=== PATIENT | female | born 2000 | race Caucasian/White ===

== ENCOUNTER 2024-03-21 17:40 | Outpatient (OUT) | payer BC, SELFPAY ==
--- NOTE | 2024-03-21 18:09 | XR_ITS ---
The [address] [address] Patient Name: LEOLA FRANCO MRN: [id number] date: 2000 Sex: F Assigned Patient Location: [facility] Current Patient Location: Accession/Order Number: [id number] Exam Date: 03/21/2024 18:20 Report Date: 03/22/2024 15:46 At the request of: TIERA HDEZ Procedure: XR hip RT 2V w/ pelvis PROCEDURE: XR hip RT 2V w/ pelvis HISTORY: LOW BACK PAIN AT MULTIPLE SITES M54.50 , bilateral hip pain for 2 months COMPARISON: None. FINDINGS: BONES:No fracture, acute abnormality, or significant arthropathy. SOFT TISSUES:No visible soft tissue swelling. EFFUSION:None visible. OTHER: Negative. XR/XR hip RT 2V w/ pelvis IMPRESSION: 1. Normal appearance of the pelvis and hip joints. Electronically authenticated by: SIS IYER Date: 03/22/2024 15:46
--- NOTE | 2024-03-21 18:10 | XR_ITS ---
The [address] [address] Patient Name: LEOLA FRANCO MRN: [id number] date: 2000 Sex: F Assigned Patient Location: [facility] Current Patient Location: Accession/Order Number: [id number] Exam Date: 03/21/2024 18:20 Report Date: 03/22/2024 15:45 At the request of: TIERA HDEZ Procedure: XR lumbar spine min 4V EXAMINATION: XR lumbar spine min 4V HISTORY: LOW BACK PAIN AT MULTIPLE SITES M54.50 ; bilateral hip pain for 2 months COMPARISON: No relevant comparison available. FINDINGS: BONES: No significant spondylosis, scoliosis, fracture, or visible bony lesion. DISC SPACES: L4-5 mild narrowing. L5-S1 moderate narrowing. PARASPINOUS: Negative. No paraspinous abnormality is seen. OTHER: Negative. XR/XR lumbar spine min 4V IMPRESSION: 1. Degenerative disc disease of lower lumbar spine which may be contributing to patient's symptoms. Consider MRI for further evaluation. Electronically authenticated by: SIS IYER Date: 03/22/2024 15:45
== END 2024-03-21 17:41 | disposition home or self-care (01) ==
PROVIDERS: PCP Family Medicine; Visit Provider Family Medicine
DX: M54.50 Low back pain, unspecified (principal); M25.551 Pain in right hip; M51.36 Other intervertebral disc degeneration, lumbar region
CPT/HCPCS: 72110; 73502

== ENCOUNTER 2024-03-26 10:22 | Outpatient (OUT) | payer BC, SELFPAY ==
[2024-03-26 10:36] LABS: Basophils Percent Auto 0.4 % (0.2-2.0); Eosinophils Absolute Auto 0.1 10^3/uL (0.0-0.7); Eosinophils Percent Auto 1.3 % (0.9-7.0); Hematocrit 38.5 % (36.0-48.0); Hemoglobin 12.7 g/dL (12.0-16.0); Lymphocytes Absolute Auto 2.1 10^3/uL (1.2-3.8); Lymphocytes Percent Auto 45.6 % (20.5-60.0); Mean Corpuscular Hemoglobin 30.5 pg (26.7-34.0); Mean Corpuscular Volume 92.3 fL (81.0-99.0); Mean Platelet Volume 10.2 fL (9.5-13.5); Monocytes Absolute Auto 0.3 10^3/uL (0.3-0.8); Neutrophils Absolute Auto 2.1 10^3/uL (1.4-6.5); Neutrophils Percent Auto 45.7 % (43.0-75.0); Platelet Count 330 10^3/uL (150-450); Red Blood Count 4.17 10^6/uL (4.20-5.40); Red Cell Distribution Width 11.9 % (11.0-15.0); White Blood Count 4.7 10^3/uL (4.0-11.0)
[2024-03-26 10:52] LABS: Estimated Average Glucose 105 mg/dL; Glycohemoglobin A1C 5.3 % (4.5-6.2)
[2024-03-26 11:01] LABS: Alanine Aminotransferase 17 U/L (14-59); Albumin Globulin Ratio 0.9; Albumin Level 3.1 g/dL (3.4-5.0); Alkaline Phosphatase 65 U/L (46-116); Anion Gap 13.2; Aspartate Amino Transferase 15 U/L (15-37); BUN Creatinine Ratio 9.3; Bilirubin Total 0.5 mg/dL (0.2-1.0); Calcium 8.8 mg/dL (8.5-10.1); Carbon Dioxide 24.1 mmol/L (21.0-32.0); Chloride 108 mmol/L (98-107); Chol HDL Ratio 4.2; Cholesterol 227 mg/dL (<=200); Estimated GFR (African America >60 (>=60); Estimated GFR (Non-African Ame >60 (>=60); Globulin 3.5 g/dL; Glucose 92 mg/dL (74-106); HDL Cholesterol 54 mg/dL (40-60); Potassium 4.3 mmol/L (3.5-5.1); Sodium 141 mmol/L (136-145); Thyroid Stimulating Hormone 0.793 uIU/mL (0.358-3.740); Total Protein 6.6 g/dL (6.4-8.2); Triglycerides 127 mg/dL (<=150); VLDL CHOLESTEROL 25.4 mg/dL
[2024-03-26 11:04] LABS: Free T4 0.71 ng/dL (0.76-1.46)
== END 2024-03-26 10:23 | disposition home or self-care (01) ==
LOC: LAB 10:23
PROVIDERS: PCP Family Medicine; Visit Provider Family Medicine
DX: Z00.00 Encounter for general adult medical examination without abnormal findings (principal)
CPT/HCPCS: 36415; 80053; 80061; 83036; 84439; 84443; 85025

== ENCOUNTER 2024-04-30 11:44 | Outpatient (OUT) | payer BC, SELFPAY ==
--- OUTSIDE RECORDS SUMMARY | 2024-04-30 11:46 | XMS_ITS | CCD ---
Author Organization [facility] Care Team Providers Care Rn Mds Coordinator Name Role Phone LEMUEL, DR MOTT Consulting Unavailable LEMUEL, DR MOTT Primary Care Unavailable LEMUEL, DR MOTT Admitting Unavailable LEMUEL, DR MOTT Attending Unavailable LEMUEL, DR MOTT Consulting Unavailable LEMUEL, DR MOTT Primary Care Unavailable LEMUEL, DR MOTT Admitting Unavailable LEMUEL, DR MOTT Attending Unavailable WEST, DR QUINN Lacey Consulting Unavailable LEMUEL, DR MOTT Consulting Unavailable LEMUEL, DR MOTT Primary Care Unavailable LEMUEL, DR MOTT Admitting Unavailable LEMUEL, DR MOTT Attending Unavailable Asa Hernandez Unavailable Cecilia Luis Unavailable GUSTAVO JOHNSON Referring Unavailable TIERA HDEZ Primary Care Unavailable GUSTAVO JOHNSON Referring Unavailable TIERA HDEZ Primary Care Unavailable Medications Completed/Discontinued Medications Medication Drug Class(es) Dates Sig (Normalized) Sig (Original) NEGATED: Highlighted row has not occurred! (2 sources) Start: 06-09-2023 End: 06-09-2023 Problems Active Problems Problem Classification Problem Date Documented Da te Episodic/Chronic Acute bronchitis (4 sources) Acute bronchitis, unspecified; Translations: [ACUTE BRONCHITIS UNSPECIFIED] Onset: 09-29-2022 Episodic Other aftercare (1 source) Other termite helper (current) drug therapy; Translations: [Other nursing home (current) drug therapy] Onset: 02-05-2024 Episodic Other ear and sense organ disorders (4 sources) Otalgia, right ear; Translations: [Otalgia, right ear] Onset: 06-08-2023 Episodic Other skin disorders (1 source) Acne vulgaris; Translations: [Acne vulgaris] Onset: 02-05-2024 Episodic Unclassified (1 source) CONTACT W/AND (SUSP) EXPOS COVID-19; Translations: [CONTACT W/AND (SUSP) EXPOS COVID-19] Onset: 09-30-2022 Past or Other Problems Problem Classification Problem Date Documented Da te Episodic/Chronic Immunizations and screening for infectious disease (4 sources) Encounter for screening for respiratory tuberculosis; Translations: [ENC SCREEN RESPIRATORY TUBERCULOSIS] Onset: 06-12-2022 Episodic Malaise and fatigue (1 source) Other fatigue; Translations: [OTHER FATIGUE] Onset: 06-18-2022 Episodic Results Test Name Value Interpretation Reference Range Facility ALT No additional P-5'-P [Ca talytic activity/Vol]on 04-02-2024 ALT [Catalytic activity/Vol] 18 U/L Normal 0-31 [facility] Comment on above: Performed By: #### Lucie CRISTOBAL, 4-2, 8, 2344-7, 68505-2, #### [facility] ([id number]) [address] [place] [address] Mohsen 04-02-2024 AST [Catalytic activity/Vol] 17 U/L Normal 0-41 [facility] Comment on above: Performed By: #### Lucie CRISTOBAL, 1743-2, 8, 2344-7, 61690-2, #### [facility] ([id number]) [address], [address] [place] [address] CBC AND AUTO DIFFon 04-02-20 ABSOLUTE BASOPHIL 0.0 X10E9/L Normal 0.0-0.2 [facility] Comment on above: Performed By: #### Lucie CRISTOBAL, 4-2, 1919-8, 234-7, 30483-8, 01837-4 #### [facility] ([id number]) [address], [address] [place] [address] ABSOLUTE NEUTROPHIL 2.4 X10E9/L Normal 1.5-6.6 [facility] Comment on above: Performed By: #### Lucie CRISTOBAL, 1744-2, 8, 2344-7, 35634-6, #### [facility] ([id number]) [address], [address] [place] [address] Basophils/100 WBC (Bld) 0.4 % Normal [facility] Comment on above: Performed By: #### Lucie CRISTOBAL, 4-2, 1919-8, 2344-7, 30163-8, 05951-1 #### [facility] ([id number]) [address], [address] [place] [address] Eosinophils (Bld) [#/Vol] 0.1 10*3/uL Normal 0.0-0.4 [facility] Comment on above: Performed By: #### Lucie CRISTOBAL, 4-2, 8, 2344-7, 14391-5, #### [facility] ([id number]) [address], [address] [place] [address] Eosinophils/100 WBC (Bld) 1.2 % Normal [facility] Comment on above: Performed By: #### Lucie CRISTOBAL, 1743-2, 1920-03, 2345-02, 19540-7, #### [facility] ([id number]) [address], [address] [place] [address] Erythrocyte distribution width (RBC) [Ratio] 12.9 % Normal 11.5-15.0 [facility] Comment on above: Performed By: #### Lucie CRISTOBAL, 4-2, 1919-8, 2344-7, 48217-0, #### [facility] ([id number]) [address], [address] [place] [address] Hematocrit (Bld) [Volume fraction] 38.4 % Normal 35-47 [facility] Comment on above: Performed By: #### Lucie CRISTOBAL, 4-2, 8, 2344-7, 10914-2, 94244-7 #### [facility] ([id number]) [address], [address] [place] [address] Hemoglobin (Bld) [Mass/Vol] 12.7 g/dL Normal 11.7-15.5 [facility] Comment on above: Performed By: #### Lucie CRISTOBAL, 1744-2, 0-8, 2345-7, 63404-3, 09373-8 #### [facility] ([id number]) [address], [address] [place] [address] Lymphocytes (Bld) [#/Vol] 2.0 10*3/uL Normal 1.0-3.5 [facility] Comment on above: Performed By: #### Lucie CRISTOBAL, 4-2, 1919-8, 2344-7, 00951-1, 85601-7 #### [facility] ([id number]) [address], [address] [place] [address] Lymphocytes/100 WBC (Bld) 41.4 % Normal [facility] Comment on above: Performed By: #### Lucie CRISTOBAL, 4-2, 1919-8, 2344-7, 86553-2, 71898-3 #### [facility] ([id number]) [address], [address] [place] [address] MCH (RBC) [Entitic mass] 29.6 pg Normal 27-34 [facility] Comment on above: Performed By: #### Lucie CRISTOBAL, 1744-2, 1919-8, 234-7, 39865-2, 19432-7 #### [facility] ([id number]) [address], [address] [place] [address] MCHC (RBC) [Mass/Vol] 33.0 g/dL Normal 32-36 [facility] Comment on above: Performed By: #### Lucie CRISTOBAL, 1744-2, 1919-8, 2345-7, 95083-3, 49829-4 #### [facility] ([id number]) [address], [address] [place] [address] MCV (RBC) [Entitic vol] 90 fL Normal 80-100 [facility] Comment on above: Performed By: #### Lucie CRISTOBAL, 1744-2, 1919-8, 2344-7, 57059-4, 55155-4 #### [facility] ([id number]) [address], [address] [place] [address] Monocytes (Bld) [#/Vol] 0.3 10*3/uL Normal 0-0.9 [facility] Comment on above: Performed By: #### Lucie CRISTOBAL, 4-2, 1919-8, 2344-7, 72649-3, 89360-1 #### [facility] ([id number]) [address], [address] [place] [address] Monocytes/100 WBC (Bld) 6.4 % Normal [facility] Comment on above: Performed By: #### Lucie CRISTOBAL, 4-2, 1919-8, 2344-7, 86593-1, 55508-5 #### [facility] ([id number]) [address], [address] [place] [address] Neutrophils/100 WBC (Bld) 50.6 % Normal [facility] Comment on above: Performed By: #### Lucie CRISTOBAL, 4-2, 1919-8, 2344-7, 45968-9, 62084-3 #### [facility] ([id number]) [address], [address] [place] [address] Platelet mean volume (Bld) [Entitic vol] 9.3 fL Normal 7-12 [facility] Comment on above: Performed By: #### Lucie CRISTOBAL, 1744-2, 1919-8, 2344-7, 70282-1, 92364-9 #### [facility] ([id number]) [address], [address] [place] [address] Platelets (Bld) [#/Vol] 315 10*3/uL Normal 150-450 [facility] Comment on above: Performed By: #### Lucie CRISTOBAL, 1744-2, 1919-8, 5-7, 79369-1, 00361-9 #### [facility] ([id number]) [address], [address] [place] [address] RBC COUNT 4.27 X10E12/L Normal 3.80-5.20 [facility] Comment on above: Performed By: #### Lucie CRISTOBAL, 1744-2, 1919-8, 2344-7, 53169-0, 38184-7 #### [facility] ([id number]) [address], [address] [place] [address] WBC (Bld) [#/Vol] 4.7 10*3/uL Normal 4.0-11.0 [facility] Comment on above: Performed By: #### Lucie CRISTOBAL, 1744-2, 1919-8, 2344-7, 63862-8, 65653-3 #### [facility] ([id number]) [address], [address] [place] [address] GLUCOSEon 04-02-2024 Glucose [Mass/Vol] 83 mg/dL Normal 65-99 [facility] Comment on above: Performed By: #### Lucie CRISTOBAL, 1744-2, 1919-8, 2344-7, 53651-7, 58041-6 #### [facility] ([id number]) [address], [address] [place] [address] HCG.beta subunit IA 3rd IS Q non 04-02-2024 SERUM B HCG,3RD I.S. <5 Normal [facility] Comment on above: Result Comment: NEW REFERENCE RANGE WEEKS (SINCE LMP) MIU/mL 3 WEEKS 5 - 50 4 WEEKS 5 - 426 5 WEEKS 18 - 7,340 6 WEEKS 1,080 - 56,500 7-8 WEEKS 7,650 - 229,000 9-12 WEEKS 25,700 - 288,000 13-16 WEEKS 13,300 - 254,000 17-24 WEEKS 4,060 - 165,400 25-40 WEEKS 3,640 - 117,000 MALES AND NON- FEMALES - <5 MIU/mL This test has been FDA approved for use in only. Elevated levels are not necessarily diagnostic for trophoblastic or nontrophoblastic neoplasms. Performed By: ###Clayton Faulkner BCA, 78686-8, 4-2, 1919-8, 5-7, 36716-7 #### [facility] ([id number]) [address] [place] [address] Lipid 1996 panelon 4 Cholesterol [Mass/Vol] 223 mg/dL High 150-200 [facility] Comment on above: Performed By: ###Clayton Faulkner BCA, , 1743-2, 1919-8, 2344-7, 08053-5 #### [facility] ([id number]) [address] [place] [address] Cholesterol in HDL [Mass/Vol] 46 mg/dL Normal >39 [facility] Comment on above: Result Comment: HDL <40 mg/dL - High Risk HDL > or = 40mg/dL- Desirable HDL >60 mg/dL - Negative Risk Performed By: ###Clayton Faulkner BCA, , 1743-2, 1919-8, 2344-7, 66412-4 #### [facility] ([id number]) [address] [place] [address] Cholesterol in LDL [Mass/Vol] 148 mg/dL High <130 [facility] Comment on above: Result Comment: LDL <100 mg/dL - Desirable LDL >160 mg/dL - High Risk Performed By: #### Lucie CRISTOBAL, 71079-8, 4-2, 1919-8, 2344-7, 81826-6 #### [facility] ([id number]) [address], [address] [place] [address] Cholesterol in VLDL [Mass/Vol] 29 mg/dL Normal 0-30 [facility] Comment on above: Performed By: #### Lucie CRISTOBAL, 29774-3, 1743-2, 1919-, 2344-7, 55339-4 #### [facility] ([id number]) [address], [facility] [address] [place] [address] CHOLESTEROL:HDL 4.8 Normal 1.0-5.0 [facility] Comment on above: Performed By: #### Lucie CRISTOBAL, 32860-2, 1743-2, 1919-8, 2344-7, 68722-0 #### [facility] ([id number]) [address], [facility] [address] [place] [address] Triglyceride [Mass/Vol] 146 mg/dL Normal 27-150 [facility] Comment on above: Performed By: ###Clayton Faulkner BCA, 13052-6, 1743-2, 1919-8, 2344-7, 60193-4 #### [facility] ([id number]) [address], [facility] [address] [place] [address] ALT No additional P-5'-P [Ca talytic activity/Vol]on 02-05-2024 ALT [Catalytic activity/Vol] 23 U/L Normal 0-31 [facility] Comment on above: Performed By: #### Lucie CRISTOBAL, 15004-6, 4-2, 1919-8, 2344-7, 87830-2 #### [facility] ([id number]) [address], [address] [place] [address] Mohsen 02-05-2024 AST [Catalytic activity/Vol] 21 U/L Normal 0-41 [facility] Comment on above: Performed By: #### Lucie CRISTOBAL, 92514-9, 1743-2, 1919-8, 2344-7, 37386-8 #### [facility] ([id number]) [address], [address] [place] [address] CBC AND AUTO DIFFon 02-05-20 24 ABSOLUTE BASOPHIL 0.0 X10E9/L Normal 0.0-0.2 [facility] Comment on above: Performed By: #### Lucie CRISTOBAL, 65411-6, 1743-2, 1920-03, 2345-02, 44133-6 #### [facility] ([id number]) [address], [address] [place] [address] ABSOLUTE NEUTROPHIL 3.2 X10E9/L Normal 1.5-6.6 [facility] Comment on above: Performed By: #### Lucie CRISTOBAL, 72901-4, 1743-2, 1920-03, 2345-02, 79177-1 #### [facility] ([id number]) [address], [address] [place] [address] Basophils/100 WBC (Bld) 0.6 % Normal [facility] Comment on above: Performed By: #### Lucie CRISTOBAL, 20283-8, 1743-2, 1920-03, 7, 59428-6 #### [facility] ([id number]) [address], [address] [place] [address] Eosinophils (Bld) [#/Vol] 0.1 10*3/uL Normal 0.0-0.4 [facility] Comment on above: Performed By: #### Lucie CRISTOBAL, 21627-8, 1743-2, 8, 2345-02, 98203-3 #### [facility] ([id number]) [address], [address] [place] [address] Eosinophils/100 WBC (Bld) 1.6 % Normal [facility] Comment on above: Performed By: #### Lucie CRISTOBAL, 79119-6, 1743-2, 1919-8, 2344-7, 14029-4 #### [facility] ([id number]) [address], [facility] [address] [place] [address] Erythrocyte distribution width (RBC) [Ratio] 12.4 % Normal 11.5-15.0 [facility] Comment on above: Performed By: #### Lucie CRISTOBAL, 44213-4, 1743-2, 1920-03, 2345-02, 63787-9 #### [facility] ([id number]) [address], [facility] [address] [place] [address] Hematocrit (Bld) [Volume fraction] 39.7 % Normal 35-47 [facility] Comment on above: Performed By: #### Lucie CRISTOBAL, 32494-1, 1743-2, 1920-03, 2345-02, 27176-9 #### [facility] ([id number]) [address], [facility] [address] [place] [address] Hemoglobin (Bld) [Mass/Vol] 13.1 g/dL Normal 11.7-15.5 [facility] Comment on above: Performed By: #### Lucie CRISTOBAL, 42097-6, 1743-2, 1920-03, 2345-02, 86611-5 #### [facility] ([id number]) [address] [place] [address] Lymphocytes (Bld) [#/Vol] 2.1 10*3/uL Normal 1.0-3.5 [facility] Comment on above: Performed By: #### Lucie CRISTOBAL, 73178-8, 1743-2, 1919-8, 2344-7, 56483-1 #### [facility] ([id number]) [address], [address] [place] [address] Lymphocytes/100 WBC (Bld) 35.6 % Normal [facility] Comment on above: Performed By: #### Lucie CRISTOBAL, 88467-4, 4-2, 1919-8, 2344-7, 91692-8 #### [facility] ([id number]) [address], [address] [place] [address] MCH (RBC) [Entitic mass] 30.1 pg Normal 27-34 [facility] Comment on above: Performed By: #### Lucie CRISTOBAL, 51052-0, 1743-2, 1919-8, 2344-, 59148-5 #### [facility] ([id number]) [address], [facility] [address] [place] [address] MCHC (RBC) [Mass/Vol] 32.9 g/dL Normal 32-36 [facility] Comment on above: Performed By: #### Lucie CRISTOBAL, 60994-9, 1743-2, 1919-8, 2344-7, 94992-1 #### [facility] ([id number]) [address], [facility] [address] [place] [address] MCV (RBC) [Entitic vol] 91 fL Normal 80-100 [facility] Comment on above: Performed By: #### Lucie CRISTOBAL, 77016-8, 1743-2, 1919-8, 2344-7, 29069-7 #### [facility] ([id number]) [address], [facility] [address] [place] [address] Monocytes (Bld) [#/Vol] 0.4 10*3/uL Normal 0-0.9 [facility] Comment on above: Performed By: #### Lucie CRISTOBAL, 84286-9, 4-2, 1919-8, 2344-7, 10208-9 #### [facility] ([id number]) [address], [address] [place] [address] Monocytes/100 WBC (Bld) 6.6 % Normal [facility] Comment on above: Performed By: #### Lucie CRISTOBAL, 00325-8, 1743-2, 1919-8, 2344-7, 18776-2 #### [facility] ([id number]) [address], [address] [place] [address] Neutrophils/100 WBC (Bld) 55.6 % Normal [facility] Comment on above: Performed By: #### Lucie CRISTOBAL, 96385-1, 1743-2, 1919-8, 2344-7, 28284-4 #### [facility] ([id number]) [address], [address] [place] [address] Platelet mean volume (Bld) [Entitic vol] 9.5 fL Normal 7-12 [facility] Comment on above: Performed By: #### Lucie CRISTOBAL, 33863-9, 1743-2, 8, 2344-7, 41100-9 #### [facility] ([id number]) [address], [address] [place] [address] Platelets (Bld) [#/Vol] 294 10*3/uL Normal 150-450 [facility] Comment on above: Performed By: #### Lucie CRISTOBAL, 71606-4, 1743-2, 1919-, 2344-, 60317-8 #### [facility] ([id number]) [address], [address] [place] [address] RBC COUNT 4.34 X10E12/L Normal 3.80-5.20 [facility] Comment on above: Performed By: #### Lucie CRISTOBAL, 39800-3, 1743-2, 1919-8, 2344-7, 42696-1 #### [facility] ([id number]) [address], [address] [place] [address] WBC (Bld) [#/Vol] 5.8 10*3/uL Normal 4.0-11.0 [facility] Comment on above: Performed By: #### C SUSU, , 1743-2, 1920-03, 2344-7, 91267-1 #### [facility] ([id number]) [address] [place] [address] GLUCOSEon 02-05-2024 Glucose [Mass/Vol] 82 mg/dL Normal 65-99 [facility] Comment on above: Performed By: #### C SUSU, , 1743-2, 1920-03, 2345-02, 97805-9 #### [facility] ([id number]) [address] [facility], [address] [place] [address] HCG.beta subunit IA 3rd IS Q non 02-05-2024 SERUM B HCG,3RD I.S. <5 Normal [facility] Comment on above: Result Comment: NEW REFERENCE RANGE WEEKS (SINCE LMP) MIU/mL 3 WEEKS 5 - 50 4 WEEKS 5 - 426 5 WEEKS 18 - 7,340 6 WEEKS 1,080 - 56,500 7-8 WEEKS 7,650 - 229,000 9-12 WEEKS 25,700 - 288,000 13-16 WEEKS 13,300 - 254,000 17-24 WEEKS 4,060 - 165,400 25-40 WEEKS 3,640 - 117,000 MALES AND NON- FEMALES - <5 MIU/mL This test has been FDA approved for use in only. Elevated levels are not necessarily diagnostic for trophoblastic or nontrophoblastic neoplasms. Performed By: #### Lucie CRISTOBAL, 43935-4, 1743-2, 1919-, 2345-02, 84254-4 #### [facility] ([id number]) [address] [place] [address] Lipid 1996 panelon 4 Cholesterol [Mass/Vol] 188 mg/dL Normal 150-200 [facility] Comment on above: Performed By: ###Clayton Faulkner BCA, , 1743-2, 1920-03, 2345-02, 97432-6 #### [facility] ([id number]) [address], [address] [place] [address] Cholesterol in HDL [Mass/Vol] 55 mg/dL Normal >39 [facility] Comment on above: Result Comment: HDL <40 mg/dL - High Risk HDL > or = 40mg/dL- Desirable HDL >60 mg/dL - Negative Risk Performed By: ###Clayton Faulkner BCA, , 2, 1920-03, 2345-02, 15588-9 #### [facility] ([id number]) [address], [address] [place] [address] Cholesterol in LDL [Mass/Vol] 118 mg/dL Normal <130 [facility] Comment on above: Result Comment: LDL <100 mg/dL - Desirable LDL >160 mg/dL - High Risk Performed By: ###Clayton Faulkner BCA, , 2, 1920-03, 2345-02, 85733-7 #### [facility] ([id number]) [address], [address] [place] [address] Cholesterol in VLDL [Mass/Vol] 15 mg/dL Normal 0-30 [facility] Comment on above: Performed By: ###Clayton Faulkner BCA, , 1743-2, 1920-03, 2345-02, 21401-0 #### [facility] ([id number]) [address], [address] [place] [address] CHOLESTEROL:HDL 3.4 Normal 1.0-5.0 [facility] Comment on above: Performed By: #### C BCA, 99575-2, 1744-2, 1920-8, 2345-7, 96026-9 #### [facility] ([id number]) [address] [place] [address] Triglyceride [Mass/Vol] 76 mg/dL Normal 27-150 [facility] Comment on above: Performed By: #### C BCA, 31674-0, 1744-2, 1920-8, 2345-7, 59459-7 #### [facility] ([id number]) [address] [place] [address] Covid-19 PCR ([facility])on 09-02 SARS-CoV-2 (COVID-19) RNA ALIA+probe Ql (Unsp spec) Not detected Normal NOT DETECTED [facility] Comment on above: Result Comment: This test is not yet approved or cleared by the [place] FDA. When there are no FDA-approved or cleared tests available, and other criteria are met, FDA can make tests available under an emergency access mechanism called an Emergency Use Authorization (EUA). The EUA for this test is supported by the [place] of Health and Human Service's (HHS's) declaration that circumstances exist to justify the emergency use of in vitro diagnostics for the detection and/or diagnosis of the virus that causes COVID-19. This EUA will remain in effect (meaning this test can be used) for the duration of the COVID-19 declaration justifying emergency of IVDs, unless it is terminated or revoked by FDA (after which the test may no longer be used). When diagnostic testing is negative, the possibility of a false negative should be considered in the context of a patient's recent exposures and the presence of clinical signs and symptoms consistent with SARS-CoV-2. Performed By: #### C VDTB #### [facility] [address] [place] [address] Dr. Deb Rutledge INFLUENZA A AND B AGon 09-29 INFLUANE SEE BELOW Normal [facility] Comment on above: Result Comment: Nega tive for Flu A protein angiten. Infection due to Flu A cannot be ruled out. Flu A angiten in the sample may be below the detection limit of the test. Performed By: #### I NFLUAB #### [facility] [address] [place] [address] Dr. Deb Rutledge INFLUBNEG SEE BELOW Normal [facility] Comment on above: Result Comment: Nega tive for Flu B protein antigen. Infection due to Flu B cannot be ruled out. Flu B antigen in the sample may be below the detection limit of the test. Performed By: #### I NFLUAB #### [facility] [address] [place] [address] Dr. Deb Rutledge INFLUENZA A AG Negative Normal NEGATIVE SEE COMMENT [facility] Comment on above: Performed By: #### I NFLUAB #### [facility] [address] [place] [address] Dr. Deb Rutledge INFLUENZA B AG Negative Normal NEGATIVE SEE COMMENT [facility] Comment on above: Performed By: #### I NFLUAB #### [facility] [address] [place] [address] Dr. Deb Rutledge INSULINon 06-16-2022 Insulin 13.1 uIU/mL Normal 2.6-24.9 [facility] Comment on above: Performed By: #### I NSULIN ####[facility] [id number] [place], [place] [address]Dr. Deb Rutledge CBC AUTO DIFFon 06-14-2022 BASO # 0.0 103/ul Normal 0.0-0.1 [facility] Comment on above: Performed By: #### C BC #### [facility] [address] [place] [address] Dr. Deb Rutledge Basophils/100 WBC (Bld) 0.2 % Normal 0.2-2.0 [facility] Comment on above: Performed By: #### C BC #### [facility] [address] [place] [address] Dr. Deb Rutledge EO # 0.1 103/ul Normal 0.0-0.7 [facility] Comment on above: Performed By: #### C BC #### [facility] [address] [place] [address] Dr. Deb Rutledge Eosinophils/100 WBC (Bld) 1.1 % Normal 0.9-7.0 [facility] Comment on above: Performed By: #### C BC #### [facility] [address] [place] [address] Dr. Deb Rutledge Erythrocyte distribution width (RBC) [Ratio] 11.7 % Normal 11.0-15.0 [facility] Comment on above: Performed By: #### C BC #### [facility] [address] [place] [address] Dr. Deb Rutledge Hematocrit (Bld) [Volume fraction] 40.5 % Normal 36.0-48.0 [facility] Comment on above: Performed By: #### C BC #### [facility] [address] [place] [address] Dr. Deb Rutledge Hemoglobin (Bld) [Mass/Vol] 13.0 g/dL Normal 12.0-16.0 [facility] Comment on above: Performed By: #### C BC #### [facility] [address] [place] [address] Dr. Deb Rutledge IG # 0.00 10e3/ul Normal 0.00-0.03 [facility] Comment on above: Performed By: #### C BC #### [facility] [address] [place] [address] Dr. Deb Rutledge IG % 0.0 % Normal 0.0-0.5 [facility] Comment on above: Performed By: #### C BC #### [facility] [address] [place] [address] Dr. Deb Rutledge LYMPH # 1.8 103/ul Normal 1.2-3.8 [facility] Comment on above: Performed By: #### C BC #### [facility] [address] [place] [address] Dr. Deb Rutledge Lymphocytes/100 WBC (Bld) 37.7 % Normal 20.5-60.0 [facility] Comment on above: Performed By: #### C BC #### [facility] [address] [place] [address] Dr. Deb Rutledge MANUAL DIFF REQ NO Normal [facility] Comment on above: Performed By: #### C BC #### [facility] [address] [place] [address] Dr. Deb Rutledge MCH (RBC) [Entitic mass] 30.7 pg Normal 26.7-34.0 [facility] Comment on above: Performed By: #### C BC #### [facility] [address] [place] [address] Dr. Deb Rutledge MCHC (RBC) [Mass/Vol] 32.1 g/dL Normal 29.9-35.2 [facility] Comment on above: Performed By: #### C BC #### [facility] [address] [place] [address] Dr. Deb Rutledge MCV (RBC) [Entitic vol] 95.7 fL Normal 81.0-99.0 [facility] Comment on above: Performed By: #### C BC #### [facility] [address] [place] [address] Dr. Deb Rutledge MONO # 0.3 103/ul Normal 0.3-0.8 [facility] Comment on above: Performed By: #### C BC #### [facility] [address] [place] [address] Dr. Deb Rutledge Monocytes/100 WBC (Bld) 5.8 % Normal 1.7-12.0 [facility] Comment on above: Performed By: #### C BC #### [facility] [address] [place] [address] Dr. Deb Rutledge NEUT # 2.6 103/ul Normal 1.4-6.5 [facility] Comment on above: Performed By: #### C BC #### [facility] [address] [place] [address] Dr. Deb Rutledge Neutrophils/100 WBC (Bld) 55.2 % Normal 43.0-75.0 [facility] Comment on above: Performed By: #### C BC #### [facility] [address] [address] [address] Deb Rutledge Platelet mean volume (Bld) [Entitic vol] 10.2 fL Normal 9.5-13.5 [facility] Comment on above: Performed By: #### C BC #### [facility] [address] [address] [address] Deb Rutledge PLT 286 103/ul Normal 150-450 [facility] Comment on above: Performed By: #### C BC #### [facility] [address] [address] [address] Deb Rutledge RBC 4.23 106/ul Normal 4.20-5.40 [facility] Comment on above: Performed By: #### C BC #### [facility] [address] [address] [address] Deb Rutledge WBC 4.7 103/ul Normal 4.0-11.0 [facility] Comment on above: Performed By: #### C BC #### [facility] [address] [address] [address] Deb Rutledge FREE THYROXINE INDEX T7on FTI 1.73 Normal 1.30-4.50 [facility] Comment on above: Performed By: #### L IPID, CMP, TSH, T7 #### [facility] [address] [address] [address] Deb Rutledge T3U 27.0 % Critically low 30.0-39.0 [facility] Comment on above: Performed By: #### L IPID, CMP, TSH, T7 #### [facility] [address] [address] [address] Deb Rutledge T4 [Mass/Vol] 6.40 ug/dL Normal 4.80-13.90 [facility] Comment on above: Performed By: #### L IPID, CMP, TSH, T7 #### [facility] [address] [address] [address] Deb Rutledge GLYCOHEMOGLOBIN A1Con 2021 ADA RECOMMENDATION SEE BELOW Normal [facility] Comment on above: Result Comment: ADA RECOMMENDED LIMIT 4.0 - 6.0 ADA THERAPEUTIC TARGET < 7.0 ACTION SUGGESTED > 7.0 Performed By: #### A 1C #### [facility] [address] [address] [address] Deb Rutledge Glucose [Mass/Vol] 108 mg/dL Normal [facility] Comment on above: Performed By: #### A 1C #### [facility] [address] [address] [address] Deb Rutledge HbA1c (Bld) [Mass fraction] 5.4 % Normal 4.5-6.2 [facility] Comment on above: Performed By: #### A 1C #### [facility] [address] [address] [address] Deb Rutledge IRONon 06-14-2022 Iron [Mass/Vol] 79.0 ug/dL Normal 50.0-170.0 [facility] Comment on above: Performed By: #### I ERAN KELLEY ####[facility] [id number] [address]Dr[address] Deb Rutledge LIPID PROFILEon 06-14-2022 CHOL-HDL RATIO NORM SEE BELOW Normal [facility] Comment on above: Result Comment: 3.3 - 4.4 LOW RISK 4.4 - 7.1 AVERAGE RISK 7.1 - 11.0 MODERATE RISK >11.0 HIGH RISK Performed By: #### L IPID, CMP, TSH, T7 #### [facility] [address] [address] [address] Deb Rutledge Cholesterol [Mass/Vol] 172 mg/dL Normal <=200 [facility] Comment on above: Performed By: #### L IPID, CMP, TSH, T7 #### [facility] [address] [address] [address] Deb Rutledge Cholesterol in HDL [Mass/Vol] 68 mg/dL Critically high 40-60 [facility] Comment on above: Performed By: #### L IPID, CMP, TSH, T7 #### [facility] [address] [address] [address] Deb Rutledge Cholesterol in LDL [Mass/Vol] 96.4 mg/dL Normal [facility] Comment on above: Performed By: #### L IPID, CMP, TSH, T7 #### [facility] [address] [address] [address] Deb Rutledge Cholesterol.total/Ch olesterol in HDL [Mass ratio] 2.5 {ratio} Normal [facility] Comment on above: Performed By: #### L IPID, CMP, TSH, T7 #### [facility] [address] [address] [address] Deb Rutledge HDL NORMAL > or = 60 mg/dl - LO W CARDIOVASCULAR RISK <40 mg/dl - HIGH CARDIOVASCULAR RISK Normal [facility] Comment on above: Performed By: #### L IPID, CMP, TSH, T7 #### [facility] [address] [place] [address] Dr. Deb Rutledge LDL CALC NORMAL SEE BELOW Normal [facility] Comment on above: Result Comment: <100 mg/dl OPTIMAL 100 - 129 mg/dl NEAR OR ABOVE OPTIMAL 130 - 159 mg/dl BORDERLINE HIGH 160 - 189 mg/dl HIGH >190 mg/dl VERY HIGH Performed By: #### L IPID, CMP, TSH, T7 #### [facility] [address] [address] [address] Deb Rutledge Triglyceride [Mass/Vol] 38 mg/dL Normal <=150 [facility] Comment on above: Performed By: #### L IPID, CMP, TSH, T7 #### [facility] [address] [address] [address] Deb Rutledge VLDL CALC 7.6 mg/dL Normal [facility] Comment on above: Performed By: #### L IPID, CMP, TSH, T7 #### [facility] [address] [address] [address] Deb Rutledge PROF 14(COMP METB)on 022 Albumin [Mass/Vol] 3.8 g/dL Normal 3.4-5.0 [facility] Comment on above: Performed By: #### L IPID, CMP, TSH, T7 #### [facility] [address] [address] [address] Deb Rutledge Albumin/Globulin [Mass ratio] 1.2 {ratio} Normal [facility] Comment on above: Performed By: #### L IPID, CMP, TSH, T7 #### [facility] [address] [address] [address] Deb Rutledge ALP [Catalytic activity/Vol] 69 U/L Normal 46-116 [facility] Comment on above: Performed By: #### L IPID, CMP, TSH, T7 #### [facility] [address] [address] [address] Deb Rutledge ALT [Catalytic activity/Vol] 24 U/L Normal 14-59 [facility] Comment on above: Performed By: #### L IPID, CMP, TSH, T7 #### [facility] [address] [place] [address] Dr. Deb Rutledge Anion gap [Moles/Vol] 11.3 mmol/L Normal [facility] Comment on above: Performed By: #### L IPID, CMP, TSH, T7 #### [facility] [address] [address] [address] Deb Rutledge AST [Catalytic activity/Vol] 11 U/L Critically low 15-37 [facility] Comment on above: Performed By: #### L IPID, CMP, TSH, T7 #### [facility] [address] [address] [address] Deb Rutledge Bilirubin [Mass/Vol] 0.5 mg/dL Normal 0.2-1.0 [facility] Comment on above: Performed By: #### L IPID, CMP, TSH, T7 #### [facility] [address] [address] [address] Deb Rutledge Calcium [Mass/Vol] 8.7 mg/dL Normal 8.5-10.1 [facility] Comment on above: Performed By: #### L IPID, CMP, TSH, T7 #### [facility] [address] [address] [address] Deb Rutledge Chloride [Moles/Vol] 109 mmol/L Critically high 98-107 [facility] Comment on above: Performed By: #### L IPID, CMP, TSH, T7 #### [facility] [address] [address] [address] Deb Rutledge CO2 [Moles/Vol] 24.5 mmol/L Normal 21.0-32.0 [facility] Comment on above: Performed By: #### L IPID, CMP, TSH, T7 #### [facility] [address] [place] [address] Dr. Deb Rutledge Creatinine [Mass/Vol] 0.71 mg/dL Normal 0.55-1.02 [facility] Comment on above: Performed By: #### L IPID, CMP, TSH, T7 #### [facility] [address] [place] [address] Dr. Deb Rutledge EGFR-AF RUSSIAN >60 Normal >=60 [facility] Comment on above: Performed By: #### L IPID, CMP, TSH, T7 #### [facility] [address] [place] [address] Dr. Deb Rutledge EGFR-NON AF RUSSIAN >60 Normal >=60 [facility] Comment on above: Performed By: #### L IPID, CMP, TSH, T7 #### [facility] [address] [place] [address] Dr. Deb Rutledge Globulin (S) [Mass/Vol] 3.1 g/dL Normal [facility] Comment on above: Performed By: #### L IPID, CMP, TSH, T7 #### [facility] [address] [place] [address] Dr. Deb Rutledge Glucose [Mass/Vol] 81 mg/dL Normal 74-106 [facility] Comment on above: Performed By: #### L IPID, CMP, TSH, T7 #### [facility] [address] [place] [address] Dr. Deb Rutledge Potassium [Moles/Vol] 3.8 mmol/L Normal 3.5-5.1 [facility] Comment on above: Performed By: #### L IPID, CMP, TSH, T7 #### [facility] [address] [place] [address] Dr. Deb Rutledge Protein [Mass/Vol] 6.9 g/dL Normal 6.4-8.2 [facility] Comment on above: Performed By: #### L IPID, CMP, TSH, T7 #### [facility] [address] [place] [address] Dr. Deb Rutledge Sodium [Moles/Vol] 141 mmol/L Normal 136-145 [facility] Comment on above: Performed By: #### L IPID, CMP, TSH, T7 #### [facility] [address] [place] [address] Dr. Deb Rutledge Urea nitrogen [Mass/Vol] 15.0 mg/dL Normal 7.0-18.0 [facility] Comment on above: Performed By: #### L IPID, CMP, TSH, T7 #### [facility] [address] [place] [address] Dr. Deb Rutledge Urea nitrogen/Creatinine [Mass ratio] 21.1 mg/mg Normal [facility] Comment on above: Performed By: #### L IPID, CMP, TSH, T7 #### [facility] [address] [place] [address] Dr. Deb Rutledge TSHon 06-14-2022 TSH 1.420 uIU/mL Normal 0.358-3.740 [facility] Comment on above: Performed By: #### L IPID, CMP, TSH, T7 #### [facility] [address] [place] [address] Dr. Deb Rutledge VITAMIN D 25 OHon 06-14-2022 VIT D 25-OH 25.0 ng/mL Normal [facility] Comment on above: Performed By: #### I ERAN KELLEY #### [facility] [address] [place] [address] Dr. Deb Rutledge VIT D RANGES SEE BELOW Normal [facility] Comment on above: Result Comment: <20 ng/mL Vit D deficient 20 - <30 ng/mL Vit D insufficient 30 - 100 ng/mL Vit D sufficient >100 ng/mL Potential Toxicity Performed By: #### I WARREN, VITAD #### [facility] [address] [address] [address] Deb Rutledge XR CHEST 2 Von 06-12-2022 XR CHEST 2 V EXAMINATION: XR CHES T 2 V HISTORY: Tuberculosis screening COMPARISON: No relevant comparison available. TECHNIQUE: PA and lateral FINDINGS: LUNGS: No significant pulmonary parenchymal abnormalities. VASCULATURE: No increased pulmonary vasculature. PLEURA: No pneumothorax, effusion, or pleural thickening. CARDIAC: No cardiomegaly or cardiac silhouette abnormality. MEDIASTINUM: No visible mass or adenopathy. BONES: No fracture or visible bone lesion. OTHER: Negative. IMPRESSION: Normal examination. Electronically authenticated by: QUINN SOLIS Date: 2022-06-12 19:00 Normal [facility] Vital Signs Date Time Vital Sign Value Performing Clinician Faci lity 06-08-2023 18:19-0400 Body temperature 97.88 [degF] Asa Galeas PA [facility] 06-08-2023 18:19-0400 Diastolic blood pressure 78 mm[Hg] Asa Holmwitz PA [facility] 06-08-2023 18:19-0400 Heart rate 68 /min Asa Holmwitz PA [facility] 06-08-2023 18:19-0400 Respiratory rate 16 /min Asa Galeas PA [facility] 06-08-2023 18:19-0400 SaO2% (BldA) [Mass fraction] 100 % Asa Dolltz PA [facility] 06-08-2023 18:19-0400 Systolic blood pressure 106 mm[Hg] Asa Dolltz PA [facility] Encounters Encounter Date Encounter Type Care Provider Facility Start: 04-02-2024 End: 04-02-2024 ambulatory [facility] Start: 02-05-2024 End: 02-05-2024 ambulatory [facility] Start: 06-08-2023 Asa LUZ [facility] Start: 09-29-2022 End: 09-29-[address] TIERA HDEZ Facility:[facility] Start: 06-18-2022 Encounter for genera l adult medical examination without abnormal findings DR TIERA HDEZ [facility] Start: 06-14-2022 End: 06-15-[address] TIERA HDEZ Facility:[facility] Start: 06-14-2022 End: 06-15-2022 Encounter for general adult medical examination without abnormal findings DR TIERA HDEZ Facility:[facility] Start: 06-12-2022 End: 06-13-[address] TIERA HDEZ Facility:[facility] Payers Date Payer Category Payer Unknown [id number] [id number] 2002 Unknown [id number] [id number] 2002 Unknown [id number] [id number] [id number] 2002 Unknown [id number] [id number] [id number] 2002 Unknown [id number] 2.16.8 [id number] 1959 Unknown [id number] Instructions Note Date & Type Note Facility Instructions Strict FU precautions.Rest, fluids. FU with PCP within the week.RTC or go to the ED if symptoms worsen or new symptoms develop before FU.Call us to update us on status [facility] Summary Purpose Family History No Family History Records FoundNo Family History Records Found Advance Directives No Advanced Directives Records FoundNo Advanced Directives Records Found Additional Source Comments INFORMATION SOURCE (unrecogn ized section and content) DATE CREATED AUTHOR 10/01/2022 [facility] DATE CREATED AUTHOR AUTHOR'S LALI HEATH 04/04/2024 [facility] Reason for Visit (unrecogniz ed section and content) right ear pressure x 2 days right ear pressure x 2 days FOR RECORDS PERTAINING TO PATIENTS WHO ARE OR HAVE BEEN ENROLLED IN A CHEMICAL DEPENDENCY/SUBSTANCEABUSE PROGRAM, SOME INFORMATION MAY BE OMITTED. This clinical summary was aggregated from multiple sources. Caution should be exercised in using it in the provision of clinical care. This summary normalizes information from multiple sources, and as a consequence, information in this document may materially change the coding, format and clinical context of patient data. In addition, data may be omitted in some cases. CLINICAL DECISIONS SHOULD BE BASED ON THE PRIMARY CLINICAL RECORDS. [facility] [employer] provides no warranty or guarantee of the accuracy or completeness of information in this document.
[2024-04-30 12:27] LABS: Free T3 1.49 pg/mL (2.18-3.98)
== END 2024-04-30 11:45 | disposition home or self-care (01) ==
LOC: LAB 11:44
PROVIDERS: PCP Family Medicine; Visit Provider Family Medicine
DX: E03.9 Hypothyroidism, unspecified (principal)
CPT/HCPCS: 36415; 84436; 84443; 84481

== ENCOUNTER 2024-05-09 09:32 | Outpatient (OUT) | payer BC, SELFPAY ==
--- NOTE | 2024-05-09 09:35 | MR_ITS ---
The [address] [address] Patient Name: LEOLA FRANCO MRN: [id number] date: 2000 Sex: F Assigned Patient Location: MRI Current Patient Location: MRI Accession/Order Number: [id number] Exam Date: 05/09/2024 09:55 Report Date: 05/09/2024 14:07 At the request of: TIERA HDEZ Procedure: MR lumbar spine wo con MR lumbar spine wo con, 05/09/2024 9:55 AM EDT INDICATION: Low Back Pain M54.50 COMPARISON: Prior x-ray of the lumbar spine dated 03/21/2024 oh TECHNIQUE: Multiplanar, multisequential MRI images of lumbar spine were obtained without contrast. FINDINGS: There is lumbarization of S1. For dictation purposes, the lowest complete disc space in the lumbar spine considered as S1-S2. There is normal physiologic lumbar lordosis. The vertebral height is preserved. The conus medullaris is at the level of L2. No signal abnormality within the visualized spinal cord is noted. Level of T12-L1 is unremarkable. No neural foraminal narrowing or canal stenoses at the level of L1-L2 and L2-L3 and L3-L4 is noted. At the level of L4-5, there is disc bulge with no neuroforaminal narrowing and no canal stenosis. At the level of L5-S1, there are disc bulge with superimposed central annular fissure and protrusion with no neuroforaminal narrowing and no canal stenosis. There is central annular fissure at the level of S1-S2 with no significant neuroforaminal narrowing or canal stenosis. The paraspinal muscles are unremarkable. Mild subcutaneous edema at the level of L2-L5 is noted. MR/MR lumbar spine wo con IMPRESSION: Mild degenerative changes of lumbar spine in particular at L4-L5 and L5-S1. Electronically authenticated by: LICO BOSS Date: 05/09/2024 14:07
--- OUTSIDE RECORDS SUMMARY | 2024-05-09 09:45 | XMS_ITS | CCD ---
Author Organization [facility] Care Team Providers Care Assembler Installer General Name Role Phone LEMUEL, DR MOTT Consulting [...] 09-29-2022 Episodic Other aftercare (1 source) Other active directory specialist (current) drug therapy; Translations: [Other skilled nursing (current) drug therapy] Onset: 02-05-2024 Episodic Other [...] ALT [Catalytic activity/Vol] 18 U/L Normal 0-31 [facility] Comment on above: Performed By: #### Lucie CRISTOBAL, 4-2, 8, 2344-7, 49143-9, #### [facility] ([id number]) [address], [address] [place] [address] Mohsen 04-02-2024 AST [Catalytic activity/Vol] 17 U/L Normal 0-41 [facility] Comment on above: Performed By: #### Lucie CRISTOBAL, 1743-2, 8, 2344-7, 29089-4, #### [facility] ([id number]) [address], [address] [place] [address] CBC AND AUTO DIFFon 04-02-20 ABSOLUTE BASOPHIL 0.0 X10E9/L Normal 0.0-0.2 [facility] Comment on above: Performed By: #### Lucie CRISTOBAL, 4-2, 1919-8, 234-7, 61287-8, 78476-8 #### [facility] ([id number]) [address], [address] [place] [address] ABSOLUTE NEUTROPHIL 2.4 X10E9/L Normal 1.5-6.6 [facility] Comment on above: Performed By: #### Lucie CRISTOBAL, 1744-2, 8, 2344-7, 88740-8, #### [facility] ([id number]) [address], [address] [place] [address] Basophils/100 WBC (Bld) 0.4 % Normal [facility] Comment on above: Performed By: #### Lucie CRISTOBAL, 4-2, 1919-8, 2344-7, 14624-7, 56600-9 #### [facility] ([id number]) [address], [address] [place] [address] Eosinophils (Bld) [#/Vol] 0.1 10*3/uL Normal 0.0-0.4 [facility] Comment on above: Performed By: #### Lucie CRISTOBAL, 4-2, 8, 2344-7, 40057-0, #### [facility] ([id number]) [address], [address] [place] [address] Eosinophils/100 WBC (Bld) 1.2 % Normal [facility] Comment on above: Performed By: #### Lucie CRISTOBAL, 1743-2, 1920-03, 2345-02, 18393-0, #### [facility] ([id number]) [address], [address] [place] [address] Erythrocyte distribution width (RBC) [Ratio] 12.9 % Normal 11.5-15.0 [facility] Comment on above: Performed By: #### Lucie CRISTOBAL, 4-2, 1919-8, 2344-7, 16242-5, #### [facility] ([id number]) [address], [address] [place] [address] Hematocrit (Bld) [Volume fraction] 38.4 % Normal 35-47 [facility] Comment on above: Performed By: #### Lucie CRISTOBAL, 4-2, 8, 2344-7, 06357-7, 93635-7 #### [facility] ([id number]) [address], [address] [place] [address] Hemoglobin (Bld) [Mass/Vol] 12.7 g/dL Normal 11.7-15.5 [facility] Comment on above: Performed By: #### Lucie CRISTOBAL, 1744-2, 0-8, 2345-7, 65734-6, 29858-9 #### [facility] ([id number]) [address], [address] [place] [address] Lymphocytes (Bld) [#/Vol] 2.0 10*3/uL Normal 1.0-3.5 [facility] Comment on above: Performed By: #### Lucie CRISTOBAL, 4-2, 1919-8, 2344-7, 90745-6, 02544-7 #### [facility] ([id number]) [address], [address] [place] [address] Lymphocytes/100 WBC (Bld) 41.4 % Normal [facility] Comment on above: Performed By: #### Lucie CRISTOBAL, 4-2, 1919-8, 2344-7, 56195-1, 96826-4 #### [facility] ([id number]) [address], [address] [place] [address] MCH (RBC) [Entitic mass] 29.6 pg Normal 27-34 [facility] Comment on above: Performed By: #### Lucie CRISTOBAL, 1744-2, 1919-8, 234-7, 92790-3, 37074-8 #### [facility] ([id number]) [address], [address] [place] [address] MCHC (RBC) [Mass/Vol] 33.0 g/dL Normal 32-36 [facility] Comment on above: Performed By: #### Lucie CRISTOBAL, 1744-2, 1919-8, 2345-7, 21394-8, 89513-4 #### [facility] ([id number]) [address], [address] [place] [address] MCV (RBC) [Entitic vol] 90 fL Normal 80-100 [facility] Comment on above: Performed By: #### Lucie CRISTOBAL, 1744-2, 1919-8, 2344-7, 70719-7, 57772-5 #### [facility] ([id number]) [address], [address] [place] [address] Monocytes (Bld) [#/Vol] 0.3 10*3/uL Normal 0-0.9 [facility] Comment on above: Performed By: #### Lucie CRISTOBAL, 4-2, 1919-8, 2344-7, 38386-2, 48056-6 #### [facility] ([id number]) [address], [address] [place] [address] Monocytes/100 WBC (Bld) 6.4 % Normal [facility] Comment on above: Performed By: #### Lucie CRISTOBAL, 4-2, 1919-8, 2344-7, 10098-6, 34487-5 #### [facility] ([id number]) [address], [address] [place] [address] Neutrophils/100 WBC (Bld) 50.6 % Normal [facility] Comment on above: Performed By: #### Lucie CRISTOBAL, 4-2, 1919-8, 2344-7, 75993-8, 59226-2 #### [facility] ([id number]) [address], [address] [place] [address] Platelet mean volume (Bld) [Entitic vol] 9.3 fL Normal 7-12 [facility] Comment on above: Performed By: #### Lucie CRISTOBAL, 1744-2, 1919-8, 2344-7, 00744-0, 27863-7 #### [facility] ([id number]) [address], [address] [place] [address] Platelets (Bld) [#/Vol] 315 10*3/uL Normal 150-450 [facility] Comment on above: Performed By: #### Lucie CRISTOBAL, 1744-2, 1919-8, 5-7, 55120-3, 32442-3 #### [facility] ([id number]) [address], [address] [place] [address] RBC COUNT 4.27 X10E12/L Normal 3.80-5.20 [facility] Comment on above: Performed By: #### Lucie CRISTOBAL, 1744-2, 1919-8, 2344-7, 61664-9, 81894-5 #### [facility] ([id number]) [address], [address] [place] [address] WBC (Bld) [#/Vol] 4.7 10*3/uL Normal 4.0-11.0 [facility] Comment on above: Performed By: #### Lucie CRISTOBAL, 1744-2, 1919-8, 2344-7, 24817-8, 81677-5 #### [facility] ([id number]) [address], [address] [place] [address] GLUCOSEon 04-02-2024 Glucose [Mass/Vol] 83 mg/dL Normal 65-99 [facility] Comment on above: Performed By: #### Lucie CRISTOBAL, 1744-2, 1919-8, 2344-7, 08597-8, 13528-3 #### [facility] ([id number]) [address], [address] [place] [address] HCG.beta subunit IA 3rd IS Q non 04-02-2024 SERUM B HCG,3RD I.S. <5 Normal [facility] Comment on above: Result Comment: NEW REFERENCE [...] nontrophoblastic neoplasms. Performed By: ###Clayton Faulkner BCA, 00198-4, 4-2, 1919-8, 5-7, 55063-5 #### [facility] ([id number]) [address], [address] [place] [address] Lipid 1996 panelon 4 Cholesterol [Mass/Vol] 223 mg/dL High 150-200 [facility] Comment on above: Performed By: ###Clayton Faulkner BCA, , 1743-2, 1919-8, 2344-7, 33312-6 #### [facility] ([id number]) [address], [address] [place] [address] Cholesterol in HDL [Mass/Vol] 46 mg/dL Normal >39 [facility] Comment on above: Result Comment: HDL <40 mg/dL - High Risk HDL > or = 40mg/dL- Desirable HDL >60 mg/dL - Negative Risk Performed By: ###Clayton Faulkner BCA, , 1743-2, 1919-8, 2344-7, 85217-6 #### [facility] ([id number]) [address], [address] [place] [address] Cholesterol in LDL [Mass/Vol] 148 mg/dL High <130 [facility] Comment on above: Result Comment: LDL <100 mg/dL - Desirable LDL >160 mg/dL - High Risk Performed By: #### Lucie CRISTOBAL, 25664-1, 4-2, 1919-8, 2344-7, 80619-1 #### [facility] ([id number]) [address], [address] [place] [address] Cholesterol in VLDL [Mass/Vol] 29 mg/dL Normal 0-30 [facility] Comment on above: Performed By: #### Lucie CRISTOBAL, 22641-5, 1743-2, 1919-, 2344-7, 11010-1 #### [facility] ([id number]) [address], [facility] [address] [place] [address] CHOLESTEROL:HDL 4.8 Normal 1.0-5.0 [facility] Comment on above: Performed By: #### Lucie CRISTOBAL, 94752-2, 1743-2, 1919-8, 2344-7, 71004-2 #### [facility] ([id number]) [address], [facility] [address] [place] [address] Triglyceride [Mass/Vol] 146 mg/dL Normal 27-150 [facility] Comment on above: Performed By: ###Clayton Faulkner BCA, 66164-4, 1743-2, 1919-8, 2344-7, 23787-0 #### [facility] ([id number]) [address], [facility] [address] [place] [address] ALT No additional P-5'-P [Ca talytic activity/Vol]on 02-05-2024 ALT [Catalytic activity/Vol] 23 U/L Normal 0-31 [facility] Comment on above: Performed By: #### Lucie CRISTOBAL, 67521-7, 4-2, 1919-8, 2344-7, 19543-1 #### [facility] ([id number]) [address], [address] [place] [address] Mohsen 02-05-2024 AST [Catalytic activity/Vol] 21 U/L Normal 0-41 [facility] Comment on above: Performed By: #### Lucie CRISTOBAL, 69485-3, 1743-2, 1919-8, 2344-7, 93660-0 #### [facility] ([id number]) [address], [address] [place] [address] CBC AND AUTO DIFFon 02-05-20 24 ABSOLUTE BASOPHIL 0.0 X10E9/L Normal 0.0-0.2 [facility] Comment on above: Performed By: #### Lucie CRISTOBAL, 54145-7, 1743-2, 1920-03, 2345-02, 00765-2 #### [facility] ([id number]) [address], [address] [place] [address] ABSOLUTE NEUTROPHIL 3.2 X10E9/L Normal 1.5-6.6 [facility] Comment on above: Performed By: #### Lucie CRISTOBAL, 62783-3, 1743-2, 1920-03, 2345-02, 19836-0 #### [facility] ([id number]) [address], [address] [place] [address] Basophils/100 WBC (Bld) 0.6 % Normal [facility] Comment on above: Performed By: #### Lucie CRISTOBAL, 20246-3, 1743-2, 1920-03, 7, 53373-4 #### [facility] ([id number]) [address], [address] [place] [address] Eosinophils (Bld) [#/Vol] 0.1 10*3/uL Normal 0.0-0.4 [facility] Comment on above: Performed By: #### Lucie CRISTOBAL, 64302-1, 1743-2, 8, 2345-02, 57747-8 #### [facility] ([id number]) [address], [address] [place] [address] Eosinophils/100 WBC (Bld) 1.6 % Normal [facility] Comment on above: Performed By: #### Lucie CRISTOBAL, 22408-8, 1743-2, 1919-8, 2344-7, 46359-6 #### [facility] ([id number]) [address], [facility] [address] [place] [address] Erythrocyte distribution width (RBC) [Ratio] 12.4 % Normal 11.5-15.0 [facility] Comment on above: Performed By: #### Lucie CRISTOBAL, 64308-0, 1743-2, 1920-03, 2345-02, 72062-0 #### [facility] ([id number]) [address], [facility] [address] [place] [address] Hematocrit (Bld) [Volume fraction] 39.7 % Normal 35-47 [facility] Comment on above: Performed By: #### Lucie CRISTOBAL, 39013-6, 1743-2, 1920-03, 2345-02, 43153-2 #### [facility] ([id number]) [address], [facility] [address] [place] [address] Hemoglobin (Bld) [Mass/Vol] 13.1 g/dL Normal 11.7-15.5 [facility] Comment on above: Performed By: #### Lucie CRISOTBAL, 70980-1, 1743-2, 1920-03, 2345-02, 84041-3 #### [facility] ([id number]) [address] [address] [place] [address] Lymphocytes (Bld) [#/Vol] 2.1 10*3/uL Normal 1.0-3.5 [facility] Comment on above: Performed By: #### Lucie CRISTOBAL, 69239-4, 1743-2, 1919-8, 2344-7, 35240-0 #### [facility] ([id number]) [address], [address] [place] [address] Lymphocytes/100 WBC (Bld) 35.6 % Normal [facility] Comment on above: Performed By: #### Lucie CRISTOBAL, 92551-3, 4-2, 1919-8, 2344-7, 20662-2 #### [facility] ([id number]) [address], [address] [place] [address] MCH (RBC) [Entitic mass] 30.1 pg Normal 27-34 [facility] Comment on above: Performed By: #### Lucie CRISTOBAL, 47716-0, 1743-2, 1919-8, 2344-, 28945-2 #### [facility] ([id number]) [address], [facility] [address] [place] [address] MCHC (RBC) [Mass/Vol] 32.9 g/dL Normal 32-36 [facility] Comment on above: Performed By: #### Lucie CRISTOBAL, 45390-3, 1743-2, 1919-8, 2344-7, 58205-3 #### [facility] ([id number]) [address], [facility] [address] [place] [address] MCV (RBC) [Entitic vol] 91 fL Normal 80-100 [facility] Comment on above: Performed By: #### Lucie CRISTOBAL, 17544-4, 1743-2, 1919-8, 2344-7, 75122-4 #### [facility] ([id number]) [address], [facility] [address] [place] [address] Monocytes (Bld) [#/Vol] 0.4 10*3/uL Normal 0-0.9 [facility] Comment on above: Performed By: #### Lucie CRISTOBAL, 33402-8, 4-2, 1919-8, 2344-7, 35418-7 #### [facility] ([id number]) [address], [address] [place] [address] Monocytes/100 WBC (Bld) 6.6 % Normal [facility] Comment on above: Performed By: #### Lucie CRISTOBAL, 48871-5, 1743-2, 1919-8, 2344-7, 09537-0 #### [facility] ([id number]) [address], [address] [place] [address] Neutrophils/100 WBC (Bld) 55.6 % Normal [facility] Comment on above: Performed By: #### Lucie CRISTOBAL, 56065-4, 1743-2, 1919-8, 2344-7, 34937-9 #### [facility] ([id number]) [address], [address] [place] [address] Platelet mean volume (Bld) [Entitic vol] 9.5 fL Normal 7-12 [facility] Comment on above: Performed By: #### Lucie CRISTOBAL, 85873-2, 1743-2, 8, 2344-7, 08343-9 #### [facility] ([id number]) [address], [address] [place] [address] Platelets (Bld) [#/Vol] 294 10*3/uL Normal 150-450 [facility] Comment on above: Performed By: #### Lucie CRISTOBAL, 22102-6, 1743-2, 1919-, 2344-, 64136-8 #### [facility] ([id number]) [address], [address] [place] [address] RBC COUNT 4.34 X10E12/L Normal 3.80-5.20 [facility] Comment on above: Performed By: #### Lucie CRISTOBAL, 96323-2, 1743-2, 1919-8, 2344-7, 05104-8 #### [facility] ([id number]) [address], [address] [place] [address] WBC (Bld) [#/Vol] 5.8 10*3/uL Normal 4.0-11.0 [facility] Comment on above: Performed By: #### C SUSU, , 1743-2, 1920-03, 2344-7, 29608-2 #### [facility] ([id number]) [address] [facility] [facility], [address] [place] [address] GLUCOSEon 02-05-2024 Glucose [Mass/Vol] 82 mg/dL Normal 65-99 [facility] Comment on above: Performed By: #### C SUSU, , 1743-2, 1920-03, 2345-02, 38013-8 #### [facility] ([id number]) [address] [facility] [place] [address] HCG.beta subunit IA 3rd IS Q non 02-05-2024 SERUM B HCG,3RD I.S. <5 Normal [facility] Comment on above: Result Comment: NEW REFERENCE [...] nontrophoblastic neoplasms. Performed By: #### Lucie CRISTOBAL, 67565-8, 1743-2, 1919-, 2345-02, 05616-0 #### [facility] ([id number]) [address] [facility], [address] [place] [address] Lipid 1996 panelon 4 Cholesterol [Mass/Vol] 188 mg/dL Normal 150-200 [facility] Comment on above: Performed By: ###Clayton Faulkner BCA, , 1743-2, 1920-03, 2345-02, 38328-1 #### [facility] ([id number]) [address], [address] [place] [address] Cholesterol in HDL [Mass/Vol] 55 mg/dL Normal >39 [facility] Comment on above: Result Comment: HDL <40 mg/dL - High Risk HDL > or = 40mg/dL- Desirable HDL >60 mg/dL - Negative Risk Performed By: ###Clayton Faulkner BCA, , 2, 1920-03, 2345-02, 82788-0 #### [facility] ([id number]) [address], [address] [place] [address] Cholesterol in LDL [Mass/Vol] 118 mg/dL Normal <130 [facility] Comment on above: Result Comment: LDL <100 mg/dL - Desirable LDL >160 mg/dL - High Risk Performed By: ###Clayton Faulkner BCA, , 2, 1920-03, 2345-02, 26054-8 #### [facility] ([id number]) [address], [address] [place] [address] Cholesterol in VLDL [Mass/Vol] 15 mg/dL Normal 0-30 [facility] Comment on above: Performed By: ###Clayton Faulkner BCA, , 1743-2, 1920-03, 2345-02, 84140-0 #### [facility] ([id number]) [address], [address] [place] [address] CHOLESTEROL:HDL 3.4 Normal 1.0-5.0 [facility] Comment on above: Performed By: #### C BCA, 16975-1, 1744-2, 1920-8, 2345-7, 38556-3 #### [facility] ([id number]) [address] [facility], [address] [place] [address] Triglyceride [Mass/Vol] 76 mg/dL Normal 27-150 [facility] Comment on above: Performed By: #### C BCA, 27835-5, 1744-2, 1920-8, 2345-7, 70340-8 #### [facility] ([id number]) [address] [facility], [address] [place] [address] Covid-19 PCR ([facility])on 09-02 SARS-CoV-2 (COVID-19) RNA ALIA+probe Ql (Unsp spec) Not detected Normal NOT DETECTED [facility] Comment on above: Result Comment: This test is not yet approved or cleared by the [place] FDA. When there are no FDA-approved or cleared tests available, and other criteria are met, FDA can make tests available under an emergency access mechanism called an Emergency Use Authorization (EUA). The EUA for this test is supported by the Operater of Health and Human Service's (HHS's) declaration [...] SARS-CoV-2. Performed By: #### C VDTB #### [facility] [address] [place] [address] Dr. Deb Rutledge INFLUENZA A AND B AGon 09-29 INFLUANE SEE BELOW Normal [facility] Comment on above: Result Comment: Nega tive for Flu A protein angiten. Infection due to Flu A cannot be ruled out. Flu A angiten in the sample may be below the detection limit of the test. Performed By: #### I NFLUAB #### [facility] [address] [place] [address] Dr. Deb Rutledge INFLUBNEG SEE BELOW Normal [facility] Comment on above: Result Comment: Nega tive for Flu B protein antigen. Infection due to Flu B cannot be ruled out. Flu B antigen in the sample may be below the detection limit of the test. Performed By: #### I NFLUAB #### [facility] [address] [place] [address] Dr. Deb Rutledge INFLUENZA A AG Negative Normal NEGATIVE SEE COMMENT [facility] Comment on above: Performed By: #### I NFLUAB #### [facility] [address] [place] [address] Dr. Deb Rutledge INFLUENZA B AG Negative Normal NEGATIVE SEE COMMENT [facility] Comment on above: Performed By: #### I NFLUAB #### [facility] [address] [place] [address] Dr. Deb Rutledge INSULINon 06-16-2022 Insulin 13.1 uIU/mL Normal 2.6-24.9 [facility] Comment on above: Performed By: #### I NSULIN ####[facility] [address] [place], [place] [address]Dr. Deb Rutledge CBC AUTO DIFFon 06-14-2022 BASO # 0.0 103/ul Normal 0.0-0.1 [facility] Comment on above: Performed By: #### C BC #### [facility] [address] [place] [address] Dr. Deb Rutledge Basophils/100 WBC (Bld) 0.2 % Normal 0.2-2.0 [facility] Comment on above: Performed By: #### C BC #### [facility] [address] [place] [address] Dr. Deb Rutledge EO # 0.1 103/ul Normal 0.0-0.7 [facility] Comment on above: Performed By: #### C BC #### [facility] [address] [place] [address] Dr. Deb Rutledge Eosinophils/100 WBC (Bld) 1.1 % Normal 0.9-7.0 [facility] Comment on above: Performed By: #### C BC #### [facility] [address] [place] [address] Dr. Deb Rutledge Erythrocyte distribution width (RBC) [Ratio] 11.7 % Normal 11.0-15.0 [facility] Comment on above: Performed By: #### C BC #### [facility] [address] [place] [address] Dr. Deb Rutledge Hematocrit (Bld) [Volume fraction] 40.5 % Normal 36.0-48.0 [facility] Comment on above: Performed By: #### C BC #### [facility] [address] [place] [address] Dr. Deb Rutledge Hemoglobin (Bld) [Mass/Vol] 13.0 g/dL Normal 12.0-16.0 [facility] Comment on above: Performed By: #### C BC #### [facility] [address] [place] [address] Dr. Deb Rutledge IG # 0.00 10e3/ul Normal 0.00-0.03 [facility] Comment on above: Performed By: #### C BC #### [facility] [address] [place] [address] Dr. Deb Rutledge IG % 0.0 % Normal 0.0-0.5 [facility] Comment on above: Performed By: #### C BC #### [facility] [address] [place] [address] Dr. Deb Rutledge LYMPH # 1.8 103/ul Normal 1.2-3.8 [facility] Comment on above: Performed By: #### C BC #### [facility] [address] [place] [address] Dr. Deb Rutledge Lymphocytes/100 WBC (Bld) 37.7 % Normal 20.5-60.0 [facility] Comment on above: Performed By: #### C BC #### [facility] [address] [place] [address] Dr. Deb Rutledge MANUAL DIFF REQ NO Normal [facility] Comment on above: Performed By: #### C BC #### [facility] [address] [place] [address] Dr. Deb Rutledge MCH (RBC) [Entitic mass] 30.7 pg Normal 26.7-34.0 [facility] Comment on above: Performed By: #### C BC #### [facility] [address] [place] [address] Dr. Deb Rutledge MCHC (RBC) [Mass/Vol] 32.1 g/dL Normal 29.9-35.2 [facility] Comment on above: Performed By: #### C BC #### [facility] [address] [place] [address] Dr. Deb Rutledge MCV (RBC) [Entitic vol] 95.7 fL Normal 81.0-99.0 [facility] Comment on above: Performed By: #### C BC #### [facility] [address] [place] [address] Dr. Deb Rutledge MONO # 0.3 103/ul Normal 0.3-0.8 [facility] Comment on above: Performed By: #### C BC #### [facility] [address] [place] [address] Dr. Deb Rutledge Monocytes/100 WBC (Bld) 5.8 % Normal 1.7-12.0 [facility] Comment on above: Performed By: #### C BC #### [facility] [address] [place] [address] Dr. Deb Rutledge NEUT # 2.6 103/ul Normal 1.4-6.5 [facility] Comment on above: Performed By: #### C BC #### [facility] [address] [place] [address] Dr. Deb Rutledge Neutrophils/100 WBC (Bld) 55.2 % Normal 43.0-75.0 [facility] Comment on above: Performed By: #### C BC #### [facility] [address] [address] [address] Deb Rutledge Platelet mean volume (Bld) [Entitic vol] 10.2 fL Normal 9.5-13.5 [facility] Comment on above: Performed By: #### C BC #### [facility] [address] [address] [address] Deb Rutledge PLT 286 103/ul Normal 150-450 [facility] Comment on above: Performed By: #### C BC #### [facility] [address] [address] [address] Deb Rutledge RBC 4.23 106/ul Normal 4.20-5.40 [facility] Comment on above: Performed By: #### C BC #### [facility] [address] [address] [address] Deb Rutledge WBC 4.7 103/ul Normal 4.0-11.0 [facility] Comment on above: Performed By: #### C BC #### [facility] [address] [address] [address] Deb Rutledge FREE THYROXINE INDEX T7on FTI 1.73 Normal 1.30-4.50 [facility] Comment on above: Performed By: #### L IPID, CMP, TSH, T7 #### [facility] [address] [address] [address] Deb Rutledge T3U 27.0 % Critically low 30.0-39.0 [facility] Comment on above: Performed By: #### L IPID, CMP, TSH, T7 #### [facility] [address] [address] [address] Deb Rutledge T4 [Mass/Vol] 6.40 ug/dL Normal 4.80-13.90 [facility] Comment on above: Performed By: #### L IPID, CMP, TSH, T7 #### [facility] [address] [address] [address] Deb Rutledge GLYCOHEMOGLOBIN A1Con 2021 ADA RECOMMENDATION SEE BELOW Normal [facility] Comment on above: Result Comment: ADA RECOMMENDED LIMIT 4.0 - 6.0 ADA THERAPEUTIC TARGET < 7.0 ACTION SUGGESTED > 7.0 Performed By: #### A 1C #### [facility] [address] [address] [address] Deb Rutledge Glucose [Mass/Vol] 108 mg/dL Normal [facility] Comment on above: Performed By: #### A 1C #### [facility] [address] [address] [address] Deb Rutledge HbA1c (Bld) [Mass fraction] 5.4 % Normal 4.5-6.2 [facility] Comment on above: Performed By: #### A 1C #### [facility] [address] [address] [address] Deb Rutledge IRONon 06-14-2022 Iron [Mass/Vol] 79.0 ug/dL Normal 50.0-170.0 [facility] Comment on above: Performed By: #### I ERAN KELLEY ####[facility] [id number] [address] Deb Rutledge LIPID PROFILEon 06-14-2022 CHOL-HDL RATIO NORM SEE BELOW Normal [facility] Comment on above: Result Comment: 3.3 - 4.4 LOW RISK 4.4 - 7.1 AVERAGE RISK 7.1 - 11.0 MODERATE RISK >11.0 HIGH RISK Performed By: #### L IPID, CMP, TSH, T7 #### [facility] [address] [address] [address] Deb Rutledge Cholesterol [Mass/Vol] 172 mg/dL Normal <=200 [facility] Comment on above: Performed By: #### L IPID, CMP, TSH, T7 #### [facility] [address] [address] [address] Deb Rutledge Cholesterol in HDL [Mass/Vol] 68 mg/dL Critically high 40-60 [facility] Comment on above: Performed By: #### L IPID, CMP, TSH, T7 #### [facility] [address] [address] [address] Deb Rutledge Cholesterol in LDL [Mass/Vol] 96.4 mg/dL Normal [facility] Comment on above: Performed By: #### L IPID, CMP, TSH, T7 #### [facility] [address] [address] [address] Deb Rutledge Cholesterol.total/Ch olesterol in HDL [Mass ratio] 2.5 {ratio} Normal [facility] Comment on above: Performed By: #### L IPID, CMP, TSH, T7 #### [facility] [address] [address] [address] Deb Rutledge HDL NORMAL > or = 60 mg/dl - LO W CARDIOVASCULAR RISK <40 mg/dl - HIGH CARDIOVASCULAR RISK Normal [facility] Comment on above: Performed By: #### L IPID, CMP, TSH, T7 #### [facility] [address] [place] [address] Dr. Deb Rutledge LDL CALC NORMAL SEE BELOW Normal [facility] Comment on above: Result Comment: <100 mg/dl OPTIMAL 100 - 129 mg/dl NEAR OR ABOVE OPTIMAL 130 - 159 mg/dl BORDERLINE HIGH 160 - 189 mg/dl HIGH >190 mg/dl VERY HIGH Performed By: #### L IPID, CMP, TSH, T7 #### [facility] [address] [address] [address] Deb Rutledge Triglyceride [Mass/Vol] 38 mg/dL Normal <=150 [facility] Comment on above: Performed By: #### L IPID, CMP, TSH, T7 #### [facility] [address] [address] [address] Deb Rutledge VLDL CALC 7.6 mg/dL Normal [facility] Comment on above: Performed By: #### L IPID, CMP, TSH, T7 #### [facility] [address] [address] [address] Deb Rutledge PROF 14(COMP METB)on 022 Albumin [Mass/Vol] 3.8 g/dL Normal 3.4-5.0 [facility] Comment on above: Performed By: #### L IPID, CMP, TSH, T7 #### [facility] [address] [address] [address] Deb Rutledge Albumin/Globulin [Mass ratio] 1.2 {ratio} Normal [facility] Comment on above: Performed By: #### L IPID, CMP, TSH, T7 #### [facility] [address] [address] [address] Deb Rutledge ALP [Catalytic activity/Vol] 69 U/L Normal 46-116 [facility] Comment on above: Performed By: #### L IPID, CMP, TSH, T7 #### [facility] [address] [address] [address] Deb Rutledge ALT [Catalytic activity/Vol] 24 U/L Normal 14-59 [facility] Comment on above: Performed By: #### L IPID, CMP, TSH, T7 #### [facility] [address] [place] [address] Dr. Deb Rutledge Anion gap [Moles/Vol] 11.3 mmol/L Normal [facility] Comment on above: Performed By: #### L IPID, CMP, TSH, T7 #### [facility] [address] [address] [address] Deb Rutledge AST [Catalytic activity/Vol] 11 U/L Critically low 15-37 [facility] Comment on above: Performed By: #### L IPID, CMP, TSH, T7 #### [facility] [address] [address] [address] Deb Rutledge Bilirubin [Mass/Vol] 0.5 mg/dL Normal 0.2-1.0 [facility] Comment on above: Performed By: #### L IPID, CMP, TSH, T7 #### [facility] [address] [address] [address] Deb Rutledge Calcium [Mass/Vol] 8.7 mg/dL Normal 8.5-10.1 [facility] Comment on above: Performed By: #### L IPID, CMP, TSH, T7 #### [facility] [address] [address] [address] Deb Rutledge Chloride [Moles/Vol] 109 mmol/L Critically high 98-107 [facility] Comment on above: Performed By: #### L IPID, CMP, TSH, T7 #### [facility] [address] [address] [address] Deb Rutledge CO2 [Moles/Vol] 24.5 mmol/L Normal 21.0-32.0 [facility] Comment on above: Performed By: #### L IPID, CMP, TSH, T7 #### [facility] [address] [place] [address] Dr. Deb Rutledge Creatinine [Mass/Vol] 0.71 mg/dL Normal 0.55-1.02 [facility] Comment on above: Performed By: #### L IPID, CMP, TSH, T7 #### [facility] [address] [place] [address] Dr. Deb Rutledge EGFR-AF MONEGASQUE >60 Normal >=60 [facility] Comment on above: Performed By: #### L IPID, CMP, TSH, T7 #### [facility] [address] [place] [address] Dr. Deb Rutledge EGFR-NON AF MONEGASQUE >60 Normal >=60 [facility] Comment on above: Performed By: #### L IPID, CMP, TSH, T7 #### [facility] [address] [place] [address] Dr. Deb Rutledge Globulin (S) [Mass/Vol] 3.1 g/dL Normal [facility] Comment on above: Performed By: #### L IPID, CMP, TSH, T7 #### [facility] [address] [place] [address] Dr. Deb Rutledge Glucose [Mass/Vol] 81 mg/dL Normal 74-106 [facility] Comment on above: Performed By: #### L IPID, CMP, TSH, T7 #### [facility] [address] [place] [address] Dr. Deb Rutledge Potassium [Moles/Vol] 3.8 mmol/L Normal 3.5-5.1 [facility] Comment on above: Performed By: #### L IPID, CMP, TSH, T7 #### [facility] [address] [place] [address] Dr. Deb Rutledge Protein [Mass/Vol] 6.9 g/dL Normal 6.4-8.2 [facility] Comment on above: Performed By: #### L IPID, CMP, TSH, T7 #### [facility] [address] [place] [address] Dr. Deb Rutledge Sodium [Moles/Vol] 141 mmol/L Normal 136-145 [facility] Comment on above: Performed By: #### L IPID, CMP, TSH, T7 #### [facility] [address] [place] [address] Dr. Deb Rutledge Urea nitrogen [Mass/Vol] 15.0 mg/dL Normal 7.0-18.0 [facility] Comment on above: Performed By: #### L IPID, CMP, TSH, T7 #### [facility] [address] [place] [address] Dr. Deb Rutledge Urea nitrogen/Creatinine [Mass ratio] 21.1 mg/mg Normal [facility] Comment on above: Performed By: #### L IPID, CMP, TSH, T7 #### [facility] [address] [place] [address] Dr. Deb Rutledge TSHon 06-14-2022 TSH 1.420 uIU/mL Normal 0.358-3.740 [facility] Comment on above: Performed By: #### L IPID, CMP, TSH, T7 #### [facility] [address] [place] [address] Dr. Deb Rutledge VITAMIN D 25 OHon 06-14-2022 VIT D 25-OH 25.0 ng/mL Normal [facility] Comment on above: Performed By: #### I ERAN KELLEY #### [facility] [address] [place] [address] Dr. Deb Rutledge VIT D RANGES SEE BELOW Normal [facility] Comment on above: Result Comment: <20 ng/mL Vit D deficient 20 - <30 ng/mL Vit D insufficient 30 - 100 ng/mL Vit D sufficient >100 ng/mL Potential Toxicity Performed By: #### I WARREN, VITAD #### [facility] [address] [address] [address] Deb Rutledge XR CHEST 2 Von [...] by: QUINN SOLIS Date: 2022-06-12 19:00 Normal [facility] Vital Signs Date Time Vital Sign Value Performing Clinician Faci lity 06-08-2023 18:19-0400 Body temperature 97.88 [degF] Asa Galeas PA [facility] 06-08-2023 18:19-0400 Diastolic blood pressure 78 mm[Hg] Asa Holmwitz PA [facility] 06-08-2023 18:19-0400 Heart rate 68 /min Asa Holmwitz PA [facility] 06-08-2023 18:19-0400 Respiratory rate 16 /min Asa Galeas PA [facility] 06-08-2023 18:19-0400 SaO2% (BldA) [Mass fraction] 100 % Asa Dolltz PA [facility] 06-08-2023 18:19-0400 Systolic blood pressure 106 mm[Hg] Asa Dolltz PA [facility] Encounters Encounter Date Encounter Type Care Provider Facility Start: 04-02-2024 End: 04-02-2024 ambulatory [facility] Start: 02-05-2024 End: 02-05-2024 ambulatory [facility] Start: 06-08-2023 Asa LUZ [facility] Start: 09-29-2022 End: 09-29-[address] TIERA HDEZ Facility:[facility] Start: 06-18-2022 Encounter for genera l adult medical examination without abnormal findings DR TIERA HDEZ [facility] Start: 06-14-2022 End: 06-15-[address] TIERA HDEZ Facility:[facility] Start: 06-14-2022 End: 06-15-2022 Encounter for general adult medical examination without abnormal findings DR TIERA HDEZ Facility:[facility] Start: 06-12-2022 End: 06-13-[address] TIERA HDEZ Facility:[facility] Payers Date Payer Category Payer Unknown [id number] 2.16.84 [id number] 2002 Unknown [id number] 2.16.84 [id number] 2002 Unknown [id number] 2.16.84 [id number] 2002 Unknown [id number] 2.16.8 [id number] 2002 Unknown [id number] 2.16.8 [id number] 1959 Unknown [id number] Instructions Note Date & Type Note Facility Instructions Strict FU precautions.Rest, fluids. FU with PCP within the week.RTC or go to the ED if symptoms worsen or new symptoms develop before FU.Call us to update us on status [facility] Summary Purpose Family History No Family History Records FoundNo Family History Records Found Advance Directives No Advanced Directives Records FoundNo Advanced Directives Records Found Additional Source Comments INFORMATION SOURCE (unrecogn ized section and content) DATE CREATED AUTHOR 10/01/2022 [facility] DATE CREATED AUTHOR AUTHOR'S LALI HEATH 04/04/2024 [facility] Reason for Visit (unrecogniz ed section [...] BE BASED ON THE PRIMARY CLINICAL RECORDS. [facility] [employer] provides no warranty or guarantee of the accuracy or completeness of information in this document.
== END 2024-05-09 09:33 | disposition home or self-care (01) ==
LOC: MRI 09:32
PROVIDERS: PCP Family Medicine; Visit Provider Family Medicine
DX: M54.50 Low back pain, unspecified (principal); M51.36 Other intervertebral disc degeneration, lumbar region
CPT/HCPCS: 72148

== ENCOUNTER 2024-05-23 13:21 | Outpatient (OUT) | payer BC, SELFPAY ==
--- NOTE | 2024-05-23 14:50 | P.CN_ITS ---
Consult Note: HPI Data of Consult Patient: new to practice Consult date: 05/23/24 Requesting Physician: Sky Olson MD Primary Care Provider: Michael Baron MD Consult Narrative Reason for consult: low back pain Narrative: 24yof who presents for evaluation. longstanding low back pain >4 years. worse with standing and ambulation. lumbar mri reviewed, which shows degenerative changes at l4-5 and l5-s1. has tried various nsaids, including mobic, without relief. has engaged in pt and provider directed home exercises >6 weeks, without benefit. denies adverse med side effects. cc:: CC: Sky Olson MD Review of Systems ROS Status of ROS 10 or more systems reviewed and unremark able except as noted in history and below Meds Home Medications and Allergies Home Medications ?Medication ?Instructions ?Recorded ?Confirmed ?Type atomoxetine 40 mg capsule 40 mg PO DAILY 05/23/24 05/23/24 History citalopram 40 mg tablet 40 mg PO DAILY 05/23/24 05/23/24 History etodolac 400 mg tablet (Lodine) 400 mg PO Q12H PRN pain 05/23/24 05/23/24 History isotretinoin 40 mg capsule 40 mg PO BID 05/23/24 05/23/24 History liothyronine 5 mcg tablet 5 mcg PO DAILY 05/23/24 05/23/24 History norethindrone acetate 1.5 1 tab PO DAILY 05/23/24 05/23/24 History mg-ethinyl estradiol 30 mcg tablet (Ayesha) pantoprazole 40 mg tablet,delayed 40 mg PO DAILY 05/23/24 05/23/24 History release quetiapine 50 mg tablet 50 mg PO DAILY 05/23/24 05/23/24 History topiramate 100 mg capsule,extended 100 mg PO DAILY 05/23/24 05/23/24 History release 24 hr Exam Narrative Exam Narrative: Psych-alert and oriented x 3. Attentive and appropriate, constitutionally normal, displays normal mood and affect per situation.? There are no obvious deficits in memory, reasoning, or intellect.? Skin-no obvious rashes, bruising, erythema noted to the patient's area of pain. Extremities- extremities are warm with minimal edema and palpable pulses. Lumbar-no significant tenderness to palpation noted in the lumbar spine and paraspinal musculature.? Pain is elicited with extension, and lateral rotation of the lumbar spine. Range of motion is slightly diminished with these motions due to pain. Facet loading maneuvers are positive bilaterally and do appear to be concordant with the patient's normal complaints of pain.? Coordination remains intact.? Gait remains non-antalgic. Assessment and Plan Assessment and Plan (1) Lumbar spondylosis: Plan 24yof who presents for evaluation. failed conservative measures, as noted. imaging reviewed, as noted. given symptoms and imaging, prudent to attempt bilateral l4-5, l5-s1 medial branch blocks under fluoroscopic guidance with intention of proceeding to radiofrequency ablation. she is in agreement. meds reviewed. will have her trial lodine 400mg bid prn and stop indomethacin. follow up after procedure.
== END 2024-05-23 13:22 | disposition home or self-care (01) ==
PROVIDERS: PCP Family Medicine; Visit Provider Anesthesiology
DX: M47.816 Spondylosis without myelopathy or radiculopathy, lumbar region (principal)
CPT/HCPCS: G0463

== ENCOUNTER 2024-06-01 14:34 | Outpatient (OUT) | payer BC, SELFPAY ==
[2024-06-01 15:44] LABS: Free T3 2.67 pg/mL (2.18-3.98); Thyroid Stimulating Hormone 1.317 uIU/mL (0.358-3.740)
== END 2024-06-01 14:35 | disposition home or self-care (01) ==
LOC: LAB 14:34
PROVIDERS: PCP Family Medicine; Visit Provider Family Medicine
DX: E03.9 Hypothyroidism, unspecified (principal)
CPT/HCPCS: 36415; 84436; 84443; 84481

== ENCOUNTER 2024-06-13 07:06 | Day surgery (SDC) | payer BC, SELFPAY ==
--- OUTSIDE RECORDS SUMMARY | 2024-06-13 07:09 | XMS_ITS | CCD ---
Author Organization [facility] Care Team Providers Care Head Automatic Sawyer Name Role Phone LEMUEL, DR MOTT Consulting Unavailable LEMUEL, DR MOTT Primary Care Unavailable LEMUEL, DR MOTT Admitting Unavailable LEMUEL, DR MOTT Attending Unavailable LEMUEL, DR MOTT Consulting Unavailable LEMUEL, DR MOTT Primary Care Unavailable TEREY, DR MOTT Admitting Unavailable LEMUEL, DR MOTT Attending Unavailable WEST, DR QUINN Lacey Consulting Unavailable LEMUEL, DR MOTT Consulting Unavailable LEMUEL, DR MOTT Primary Care Unavailable LEMUEL, DR MOTT Admitting Unavailable LEMUEL, DR MOTT Attending Unavailable Asa Hernandez Unavailable Cecilia Luis Unavailable GUSTAVO JOHNSON Referring Unavailable TIERA HDEZ Primary Care Unavailable GUSTAVO JOHNSON Referring Unavailable TIERA HDEZ Primary Care Unavailable Whitney DIAMOND, Sky Cazares Attending Unavailable Medications Completed/Discontinued Medications Medication Drug Class(es) Dates Sig (Normalized) Sig (Original) NEGATED: Highlighted row has not occurred! (2 sources) Start: 06-09-2023 End: 06-09-2023 Problems Active Problems Problem Classification Problem Date Documented Da te Episodic/Chronic Acute bronchitis (4 sources) Acute bronchitis, unspecified; Translations: [ACUTE BRONCHITIS UNSPECIFIED] Onset: 09-29-2022 Episodic Other aftercare (1 source) Other group home (current) drug therapy; Translations: [Other supervisor intermediates (current) drug therapy] Onset: 02-05-2024 Episodic Other [...] ALT [Catalytic activity/Vol] 18 U/L Normal 0-31 [facility] Comment on above: Performed By: #### Lucie CRISTOBAL, 1744-2, 1919-8, 2345-7, 66561-1, 21359-5 #### [facility] ([id number]) [address], [address] [place] [address] Mohsen 04-02-2024 AST [Catalytic activity/Vol] 17 U/L Normal 0-41 [facility] Comment on above: Performed By: ###Clayton Faulkner BCA, 1744-2, 1919-8, 2345-7, 57230-2, 99057-1 #### [facility] ([id number]) [address], [address] [place] [address] CBC AND AUTO DIFFon 04-02-20 24 ABSOLUTE BASOPHIL 0.0 X10E9/L Normal 0.0-0.2 [facility] Comment on above: Performed By: ###Clayton Faulkner BCA, 1744-2, 0-8, 2345-7, 76885-7, 02061-1 #### [facility] ([id number]) [address], [address] [place] [address] ABSOLUTE NEUTROPHIL 2.4 X10E9/L Normal 1.5-6.6 [facility] Comment on above: Performed By: #### Lucie CRISTOBAL, 1744-2, 1919-8, 2344-7, 43330-9, 04576-9 #### [facility] ([id number]) [address], [address] [place] [address] Basophils/100 WBC (Bld) 0.4 % Normal [facility] Comment on above: Performed By: #### Lucie CRISTOBAL, 4-2, 1919-8, 2344-7, 71565-4, 59672-1 #### [facility] ([id number]) [address], [address] [place] [address] Eosinophils (Bld) [#/Vol] 0.1 10*3/uL Normal 0.0-0.4 [facility] Comment on above: Performed By: #### Lucie CRISTOBAL, 4-2, 1919-8, 2344-7, 33759-5, 10619-2 #### [facility] ([id number]) [address], [address] [place] [address] Eosinophils/100 WBC (Bld) 1.2 % Normal [facility] Comment on above: Performed By: #### Lucie CRISTOBAL, 1743-2, 1920-03, 2344-7, 20995-0, #### [facility] ([id number]) [address], [address] [place] [address] Erythrocyte distribution width (RBC) [Ratio] 12.9 % Normal 11.5-15.0 [facility] Comment on above: Performed By: #### Lucie CRISTOBAL, 4-2, 1919-8, 2344-7, 08185-2, 55838-9 #### [facility] ([id number]) [address], [address] [place] [address] Hematocrit (Bld) [Volume fraction] 38.4 % Normal 35-47 [facility] Comment on above: Performed By: #### Lucie CRISTOBAL, 1744-2, 1919-8, 234-7, 04085-9, #### [facility] ([id number]) [address], [address] [place] [address] Hemoglobin (Bld) [Mass/Vol] 12.7 g/dL Normal 11.7-15.5 [facility] Comment on above: Performed By: #### Lucie CRISTOBAL, 4-2, 1919-8, 2344-7, 74174-0, 08045-2 #### [facility] ([id number]) [address], [address] [place] [address] Lymphocytes (Bld) [#/Vol] 2.0 10*3/uL Normal 1.0-3.5 [facility] Comment on above: Performed By: #### Lucie CRISTOBAL, 1743-2, 1920-03, 2344-7, 48963-9, 92988-5 #### [facility] ([id number]) [address], [address] [place] [address] Lymphocytes/100 WBC (Bld) 41.4 % Normal [facility] Comment on above: Performed By: #### Lucie CRISTOBAL, 1743-2, 1920-03, 7, 10948-8, #### [facility] ([id number]) [address], [address] [place] [address] MCH (RBC) [Entitic mass] 29.6 pg Normal 27-34 [facility] Comment on above: Performed By: #### Lucie CRISTOBAL, 4-2, 1919-8, 2344-7, 65007-2, 36452-3 #### [facility] ([id number]) [address], [address] [place] [address] MCHC (RBC) [Mass/Vol] 33.0 g/dL Normal 32-36 [facility] Comment on above: Performed By: #### Lucie CRISTOBAL, 1744-2, 8, 2344-7, 56395-9, #### [facility] ([id number]) [address], [address] [place] [address] MCV (RBC) [Entitic vol] 90 fL Normal 80-100 [facility] Comment on above: Performed By: #### Lucie CRISTOBAL, 4-2, 1919-8, 2344-7, 93234-4, #### [facility] ([id number]) [address], [address] [place] [address] Monocytes (Bld) [#/Vol] 0.3 10*3/uL Normal 0-0.9 [facility] Comment on above: Performed By: #### Lucie CRISTOBAL, 1743-2, 1919-, 2345-02, 28869-9, #### [facility] ([id number]) [address], [address] [place] [address] Monocytes/100 WBC (Bld) 6.4 % Normal [facility] Comment on above: Performed By: #### Lucie CRISTOBAL, 1743-, 1920-03, 2345-02, 68199-4, #### [facility] ([id number]) [address], [address] [place] [address] Neutrophils/100 WBC (Bld) 50.6 % Normal [facility] Comment on above: Performed By: #### Lucie CRISTOBAL, 1743-2, 1920-03, 2345-02, 87447-7, #### [facility] ([id number]) [address], [address] [place] [address] Platelet mean volume (Bld) [Entitic vol] 9.3 fL Normal 7-12 [facility] Comment on above: Performed By: #### Lucie CRISTOBAL, 1743-2, 1920-03, 2345-02, 24295-6, 29900-2 #### [facility] ([id number]) [address], [address] [place] [address] Platelets (Bld) [#/Vol] 315 10*3/uL Normal 150-450 [facility] Comment on above: Performed By: #### Lucie CRISTOBAL, 1744-2, 0-8, 2345-7, 42249-7, 69707-1 #### [facility] ([id number]) [address], [address] [place] [address] RBC COUNT 4.27 X10E12/L Normal 3.80-5.20 [facility] Comment on above: Performed By: #### Lucie CRISTOBAL, 1744-2, 1919-8, 2344-7, 86086-1, 60844-9 #### [facility] ([id number]) [address] [address] [place] [address] WBC (Bld) [#/Vol] 4.7 10*3/uL Normal 4.0-11.0 [facility] Comment on above: Performed By: #### Lucie CRISTOBAL, 1744-2, 1919-8, 2344-7, 68178-0, 18918-8 #### [facility] ([id number]) [address] [address] [place] [address] GLUCOSEon 04-02-2024 Glucose [Mass/Vol] 83 mg/dL Normal 65-99 [facility] Comment on above: Performed By: #### Lucie CRISTOBAL, 1744-2, 1919-8, 2344-7, 13397-1, 60914-2 #### [facility] ([id number]) [address] [address] [place] [address] HCG.beta subunit IA 3rd IS Q non 04-02-2024 SERUM B HCG,3RD I.S. <5 Normal [facility] Comment on above: Result Comment: NEW [...] nontrophoblastic neoplasms. Performed By: ###Clayton Faulkner BCA, , 1743-2, 1919-8, 2344-7, 86357-4 #### [facility] ([id number]) [address], [address] [place] [address] Lipid 1996 panelon 4 Cholesterol [Mass/Vol] 223 mg/dL High 150-200 [facility] Comment on above: Performed By: ###Clayton Faulkner BCA, , 1743-2, 1919-8, 2344-7, 07987-4 #### [facility] ([id number]) [address], [address] [place] [address] Cholesterol in HDL [Mass/Vol] 46 mg/dL Normal >39 [facility] Comment on above: Result Comment: HDL <40 mg/dL - High Risk HDL > or = 40mg/dL- Desirable HDL >60 mg/dL - Negative Risk Performed By: ###Clayton Faulkner BCA, , 1743-2, 1919-8, 2344-7, 59168-7 #### [facility] ([id number]) [address], [address] [place] [address] Cholesterol in LDL [Mass/Vol] 148 mg/dL High <130 [facility] Comment on above: Result Comment: LDL <100 mg/dL - Desirable LDL >160 mg/dL - High Risk Performed By: ###Clayton Faulkner BCA, 43613-3, 1743-2, 1920-03, 2345-02, 94055-4 #### [facility] ([id number]) [address], [facility] [address] [place] [address] Cholesterol in VLDL [Mass/Vol] 29 mg/dL Normal 0-30 [facility] Comment on above: Performed By: ###Clayton Faulkner BCA, 18295-5, 1743-2, 1920-03, 2344-, 23120-0 #### [facility] ([id number]) [address], [facility] [address] [place] [address] CHOLESTEROL:HDL 4.8 Normal 1.0-5.0 [facility] Comment on above: Performed By: ###Clayton Faulkner BCA, 91902-0, 1743-2, 1920-03, 2345-02, 32413-4 #### [facility] ([id number]) [address], [address] [place] [address] Triglyceride [Mass/Vol] 146 mg/dL Normal 27-150 [facility] Comment on above: Performed By: ###Clayton Faulkner BCA, 31961-8, 1743-2, 1920-03, 7, 79482-1 #### [facility] ([id number]) [address], [facility] [address] [place] [address] ALT No additional P-5'-P [Ca talytic activity/Vol]on 02-05-2024 ALT [Catalytic activity/Vol] 23 U/L Normal 0-31 [facility] Comment on above: Performed By: ###Clayton Faulkner BCA, 96420-1, 1743-2, 1920-03, 2345-02, 83768-6 #### [facility] ([id number]) [address], [address] [place] [address] Mohsen 02-05-2024 AST [Catalytic activity/Vol] 21 U/L Normal 0-41 [facility] Comment on above: Performed By: #### Lucie CRISTOBAL, , 1743-, 1920-03, 2345-02, 11039-6 #### [facility] ([id number]) [address], [address] [address] CBC AND AUTO DIFFon 02-05-20 24 ABSOLUTE BASOPHIL 0.0 X10E9/L Normal 0.0-0.2 [facility] Comment on above: Performed By: #### Lucie CRISTOBAL, , 1743-10, 1920-03, 2345-02, 58099-8 #### [facility] ([id number]) [address] [address] ABSOLUTE NEUTROPHIL 3.2 X10E9/L Normal 1.5-6.6 [facility] Comment on above: Performed By: #### Lucie CRISTOBAL, , 1743-10, 1920-03, 2345-02, 62148-4 #### [facility] ([id number]) [address] [address] Basophils/100 WBC (Bld) 0.6 % Normal [facility] Comment on above: Performed By: #### Lucie CRISTOBAL, , 1743-2, 1920-03, 2345-02, 99643-1 #### [facility] ([id number]) [address] [address] Eosinophils (Bld) [#/Vol] 0.1 10*3/uL Normal 0.0-0.4 [facility] Comment on above: Performed By: #### Lucie CRISTOBAL, , 1743-10, 1920-03, 2345-02, 41173-9 #### [facility] ([id number]) [address] [address] [place] [address] Eosinophils/100 WBC (Bld) 1.6 % Normal [facility] Comment on above: Performed By: #### Lucie CRISTOBAL, , 2, 1920-03, 2345-02, 21780-4 #### [facility] ([id number]) [address] [address] [place] [address] Erythrocyte distribution width (RBC) [Ratio] 12.4 % Normal 11.5-15.0 [facility] Comment on above: Performed By: #### Lucie CRISTOBAL, , 1743-10, 1920-03, 2345-02, 79862-5 #### [facility] ([id number]) [address] [address] [place] [address] Hematocrit (Bld) [Volume fraction] 39.7 % Normal 35-47 [facility] Comment on above: Performed By: #### Lucie CRISTOBAL, , 1743-10, 1920-03, 2345-02, 57322-5 #### [facility] ([id number]) [address] [address] [place] [address] Hemoglobin (Bld) [Mass/Vol] 13.1 g/dL Normal 11.7-15.5 [facility] Comment on above: Performed By: #### Lucie CRISTOBAL, , 2, 1920-03, 2345-02, 43232-7 #### [facility] ([id number]) [address] [address] [place] [address] Lymphocytes (Bld) [#/Vol] 2.1 10*3/uL Normal 1.0-3.5 [facility] Comment on above: Performed By: #### Lucie CRISTOBAL, 09656-9, 1743-2, 1920-03, 2345-02, 61047-3 #### [facility] ([id number]) [address], [facility] [address] [place] [address] Lymphocytes/100 WBC (Bld) 35.6 % Normal [facility] Comment on above: Performed By: #### Lucie CRISTOBAL, 75803-9, 1743-2, 1920-03, 2345-02, 88211-9 #### [facility] ([id number]) [address], [facility] [address] [place] [address] MCH (RBC) [Entitic mass] 30.1 pg Normal 27-34 [facility] Comment on above: Performed By: #### Lucie CRISTOBAL, 14651-9, 1743-10, 1920-03, 2345-02, 05371-0 #### [facility] ([id number]) [address], [facility] [address] [place] [address] MCHC (RBC) [Mass/Vol] 32.9 g/dL Normal 32-36 [facility] Comment on above: Performed By: #### Lucie CRISTOBAL, , 1743-10, 1920-03, 2345-02, 77989-3 #### [facility] ([id number]) [address], [facility] [address] [place] [address] MCV (RBC) [Entitic vol] 91 fL Normal 80-100 [facility] Comment on above: Performed By: #### Lucie CRISTOBAL, , 1743-10, 1920-03, 2345-02, 79156-8 #### [facility] ([id number]) [address] [address] [place] [address] Monocytes (Bld) [#/Vol] 0.4 10*3/uL Normal 0-0.9 [facility] Comment on above: Performed By: #### Lucie CRISTOBAL, 74729-9, 1743-2, 1920-03, 2345-02, 36202-9 #### [facility] ([id number]) [address], [address] [place] [address] Monocytes/100 WBC (Bld) 6.6 % Normal [facility] Comment on above: Performed By: #### Lucie CRISTOBAL, 64832-2, 1744-2, 1919-8, 2344-7, 66845-7 #### [facility] ([id number]) [address], [address] [place] [address] Neutrophils/100 WBC (Bld) 55.6 % Normal [facility] Comment on above: Performed By: #### Lucie CRISTOBAL, 47146-0, 1743-2, 1919-8, 2344-7, 78193-2 #### [facility] ([id number]) [address], [facility] [address] [place] [address] Platelet mean volume (Bld) [Entitic vol] 9.5 fL Normal 7-12 [facility] Comment on above: Performed By: #### Lucie CRISTOBAL, 49215-0, 4-2, 1919-8, 2344-7, 99219-5 #### [facility] ([id number]) [address], [facility] [address] [place] [address] Platelets (Bld) [#/Vol] 294 10*3/uL Normal 150-450 [facility] Comment on above: Performed By: #### Lucie CRISTOBAL, 13291-9, 4-2, 1919-8, 2344-7, 27418-1 #### [facility] ([id number]) [address], [address] [place] [address] RBC COUNT 4.34 X10E12/L Normal 3.80-5.20 [facility] Comment on above: Performed By: #### Lucie CRISTOBAL, 97769-0, 4-2, 1919-8, 2344-7, 22880-5 #### [facility] ([id number]) [address], [address] [place] [address] WBC (Bld) [#/Vol] 5.8 10*3/uL Normal 4.0-11.0 [facility] Comment on above: Performed By: #### C SUSU, 40439-3, 1743-2, 1919-8, 2344-7, 03923-4 #### [facility] ([id number]) [address] [facility], [address] [place] [address] GLUCOSEon 02-05-2024 Glucose [Mass/Vol] 82 mg/dL Normal 65-99 [facility] Comment on above: Performed By: #### Lucie CRISTOBAL, , 1743-2, 1920-03, 2345-02, 04110-9 #### [facility] ([id number]) [address] [place] [address], [address] [place] [address] HCG.beta subunit IA 3rd IS Q non 02-05-2024 SERUM B HCG,3RD I.S. <5 Normal [facility] Comment on above: Result Comment: NEW [...] or nontrophoblastic neoplasms. Performed By: #### Lucie BCA, 06568-9, 1743-2, 1919-8, 2344-7, 22030-5 #### [facility] ([id number]) [address], [address] [place] [address] Lipid 1996 panelon 02-04- 4 Cholesterol [Mass/Vol] 188 mg/dL Normal 150-200 [facility] Comment on above: Performed By: ###Clayton Faulkner BCA, , 1743-2, 1919-8, 2344-7, 92978-4 #### [facility] ([id number]) [address], [address] [place] [address] Cholesterol in HDL [Mass/Vol] 55 mg/dL Normal >39 [facility] Comment on above: Result Comment: HDL <40 mg/dL - High Risk HDL > or = 40mg/dL- Desirable HDL >60 mg/dL - Negative Risk Performed By: ###Clayton Faulkner BCA, , 1743-2, 1920-03, 7, 66886-1 #### [facility] ([id number]) [address], [address] [place] [address] Cholesterol in LDL [Mass/Vol] 118 mg/dL Normal <130 [facility] Comment on above: Result Comment: LDL <100 mg/dL - Desirable LDL >160 mg/dL - High Risk Performed By: ###Clayton Faulkner BCA, , 1743-2, 1919-8, 2344-7, 20777-9 #### [facility] ([id number]) [address], [address] [place] [address] Cholesterol in VLDL [Mass/Vol] 15 mg/dL Normal 0-30 [facility] Comment on above: Performed By: ###Clayton Faulkner BCA, , 1743-2, 8, 2344-7, 46643-0 #### [facility] ([id number]) [address], [address] [place] [address] CHOLESTEROL:HDL 3.4 Normal 1.0-5.0 [facility] Comment on above: Performed By: #### C BCA, 85318-2, 1744-2, 1920-8, 2345-7, 56272-8 #### [facility] ([id number]) [address], [address] [place] [address] Triglyceride [Mass/Vol] 76 mg/dL Normal 27-150 [facility] Comment on above: Performed By: #### C BCA, 22453-2, 1744-2, 0-8, 2344-7, 36952-1 #### [facility] ([id number]) [address], [address] [place] [address] [facility]-02 SARS-CoV-2 (COVID-19) RNA ALIA+probe Ql (Unsp spec) Not detected Normal NOT DETECTED [facility] Comment on above: Result Comment: This test is not yet approved or cleared by the [place] FDA. When there are no FDA-approved or cleared tests available, and other criteria are met, FDA can make tests available under an emergency access mechanism called an Emergency Use Authorization (EUA). The EUA for this test is supported by the [employer] of Health and Human Service's (HHS's) declaration [...] consistent with SARS-CoV-2. Performed By: #### C VDTBH #### [facility] [address] [place] [address] Dr. Deb Rutledge INFLUENZA A AND B AGon 09-02 INFLUANEGH SEE BELOW Normal [facility] Comment on above: Result Comment: Nega tive for Flu A protein angiten. Infection due to Flu A cannot be ruled out. Flu A angiten in the sample may be below the detection limit of the test. Performed By: #### I NFLUAB #### [facility] [address] [place] [address] Dr. Deb Rutledge INFLUBNEGH SEE BELOW Normal [facility] Comment on above: Result Comment: Nega tive for Flu B protein antigen. Infection due to Flu B cannot be ruled out. Flu B antigen in the sample may be below the detection limit of the test. Performed By: #### I NFLUAB #### [facility] [address] [place] [address] Dr. Deb Rutledge INFLUENZA A AG Negative Normal NEGATIVE SEE COMMENT [facility] Comment on above: Performed By: #### I NFLUAB #### [facility] [address] [place] [address] Dr. Deb Rutledge INFLUENZA B AG Negative Normal NEGATIVE SEE COMMENT [facility] Comment on above: Performed By: #### I NFLUAB #### [facility] [address] [place] [address] Dr. Deb Rutledge INSULINon 06-16-2022 Insulin 13.1 uIU/mL Normal 2.6-24.9 [facility] Comment on above: Performed By: #### I NSULIN ####[facility] [address] [place], [place] [address]Dr. Deb Rutledge CBC AUTO DIFFon 06-14-2022 BASO # 0.0 103/ul Normal 0.0-0.1 [facility] Comment on above: Performed By: #### C BC #### [facility] [address] [place] [address] Dr. Deb Rutledge Basophils/100 WBC (Bld) 0.2 % Normal 0.2-2.0 [facility] Comment on above: Performed By: #### C BC #### [facility] [address] [place] [address] Dr. Deb Rutledge EO # 0.1 103/ul Normal 0.0-0.7 [facility] Comment on above: Performed By: #### C BC #### [facility] [address] [place] [address] Dr. Deb Rutledge Eosinophils/100 WBC (Bld) 1.1 % Normal 0.9-7.0 [facility] Comment on above: Performed By: #### C BC #### [facility] [address] [place] [address] Dr. Deb Rutledge Erythrocyte distribution width (RBC) [Ratio] 11.7 % Normal 11.0-15.0 [facility] Comment on above: Performed By: #### C BC #### [facility] [address] [place] [address] Dr. Deb Rutledge Hematocrit (Bld) [Volume fraction] 40.5 % Normal 36.0-48.0 [facility] Comment on above: Performed By: #### C BC #### [facility] [address] [place] [address] Dr. Deb Rutledge Hemoglobin (Bld) [Mass/Vol] 13.0 g/dL Normal 12.0-16.0 [facility] Comment on above: Performed By: #### C BC #### [facility] [address] [place] [address] Dr. Deb Rutledge IG # 0.00 10e3/ul Normal 0.00-0.03 [facility] Comment on above: Performed By: #### C BC #### [facility] [address] [place] [address] Dr. Deb Rutledge IG % 0.0 % Normal 0.0-0.5 [facility] Comment on above: Performed By: #### C BC #### [facility] [address] [place] [address] Dr. Deb Rutledge LYMPH # 1.8 103/ul Normal 1.2-3.8 [facility] Comment on above: Performed By: #### C BC #### [facility] [address] [place] [address] Dr. Deb Rutledge Lymphocytes/100 WBC (Bld) 37.7 % Normal 20.5-60.0 [facility] Comment on above: Performed By: #### C BC #### [facility] [address] [place] [address] Dr. Deb Rutledge MANUAL DIFF REQ NO Normal [facility] Comment on above: Performed By: #### C BC #### [facility] [address] [place] [address] Dr. Deb Rutledge MCH (RBC) [Entitic mass] 30.7 pg Normal 26.7-34.0 [facility] Comment on above: Performed By: #### C BC #### [facility] [address] [place] [address] Dr. Deb Rutledge MCHC (RBC) [Mass/Vol] 32.1 g/dL Normal 29.9-35.2 [facility] Comment on above: Performed By: #### C BC #### [facility] [address] [place] [address] Dr. Deb Rutledge MCV (RBC) [Entitic vol] 95.7 fL Normal 81.0-99.0 [facility] Comment on above: Performed By: #### C BC #### [facility] [address] [place] [address] Dr. Deb Rutledge MONO # 0.3 103/ul Normal 0.3-0.8 [facility] Comment on above: Performed By: #### C BC #### [facility] [address] [place] [address] Dr. Deb Rutledge Monocytes/100 WBC (Bld) 5.8 % Normal 1.7-12.0 [facility] Comment on above: Performed By: #### C BC #### [facility] [address] [place] [address] Dr. Deb Rutledge NEUT # 2.6 103/ul Normal 1.4-6.5 [facility] Comment on above: Performed By: #### C BC #### [facility] [address] [place] [address] Dr. Deb Rutledge Neutrophils/100 WBC (Bld) 55.2 % Normal 43.0-75.0 [facility] Comment on above: Performed By: #### C BC #### [facility] [address] [place] [address] Dr. Deb Rutledge Platelet mean volume (Bld) [Entitic vol] 10.2 fL Normal 9.5-13.5 [facility] Comment on above: Performed By: #### C BC #### [facility] [address] [address] [address] Deb Rutledge PLT 286 103/ul Normal 150-450 [facility] Comment on above: Performed By: #### C BC #### [facility] [address] [place] [address] Dr. Deb Rutledge RBC 4.23 106/ul Normal 4.20-5.40 [facility] Comment on above: Performed By: #### C BC #### [facility] [address] [place] [address] Dr. Deb Rutledge WBC 4.7 103/ul Normal 4.0-11.0 [facility] Comment on above: Performed By: #### C BC #### [facility] [address] [place] [address] Dr. Deb Rutledge FREE THYROXINE INDEX T7on FTI 1.73 Normal 1.30-4.50 [facility] Comment on above: Performed By: #### L IPID, CMP, TSH, T7 #### [facility] [address] [place] [address] Dr. Deb Rutledge T3U 27.0 % Critically low 30.0-39.0 [facility] Comment on above: Performed By: #### L IPID, CMP, TSH, T7 #### [facility] [address] [place] [address] Dr. Deb Rutledge T4 [Mass/Vol] 6.40 ug/dL Normal 4.80-13.90 [facility] Comment on above: Performed By: #### L IPID, CMP, TSH, T7 #### [facility] [address] [place] [address] Dr. Deb Rutledge GLYCOHEMOGLOBIN A1Con 2021 ADA RECOMMENDATION SEE BELOW Normal [facility] Comment on above: Result Comment: ADA RECOMMENDED LIMIT 4.0 - 6.0 ADA THERAPEUTIC TARGET < 7.0 ACTION SUGGESTED > 7.0 Performed By: #### A 1C #### [facility] [address] [address] [address] Deb Rutledge Glucose [Mass/Vol] 108 mg/dL Normal [facility] Comment on above: Performed By: #### A 1C #### [facility] [address] [address] [address] Deb Rutledge HbA1c (Bld) [Mass fraction] 5.4 % Normal 4.5-6.2 [facility] Comment on above: Performed By: #### A 1C #### [facility] [address] [address] [address] Deb Rutledge IRONon 06-14-2022 Iron [Mass/Vol] 79.0 ug/dL Normal 50.0-170.0 [facility] Comment on above: Performed By: #### I WARREN, VITAD ####[facility] [address] [address]Dr. Deb Rutledge LIPID PROFILEon 06-14-2022 CHOL-HDL RATIO NORM SEE BELOW Normal [facility] Comment on above: Result Comment: 3.3 - 4.4 LOW RISK 4.4 - 7.1 AVERAGE RISK 7.1 - 11.0 MODERATE RISK >11.0 HIGH RISK Performed By: #### L IPID, CMP, TSH, T7 #### [facility] [address] [address] [address] Deb Rutledge Cholesterol [Mass/Vol] 172 mg/dL Normal <=200 [facility] Comment on above: Performed By: #### L IPID, CMP, TSH, T7 #### [facility] [address] [address] [address] Deb Rutledge Cholesterol in HDL [Mass/Vol] 68 mg/dL Critically high 40-60 [facility] Comment on above: Performed By: #### L IPID, CMP, TSH, T7 #### [facility] [address] [address] [address] Deb Rutledge Cholesterol in LDL [Mass/Vol] 96.4 mg/dL Normal [facility] Comment on above: Performed By: #### L IPID, CMP, TSH, T7 #### [facility] [address] [address] [address] Deb Rutledge Cholesterol.total/Ch olesterol in HDL [Mass ratio] 2.5 {ratio} Normal [facility] Comment on above: Performed By: #### L IPID, CMP, TSH, T7 #### [facility] [address] [address] [address] Deb Rutledge HDL NORMAL > or = 60 mg/dl - LO W CARDIOVASCULAR RISK <40 mg/dl - HIGH CARDIOVASCULAR RISK Normal [facility] Comment on above: Performed By: #### L IPID, CMP, TSH, T7 #### [facility] [address] [address] [address] Deb Rutledge LDL CALC NORMAL SEE BELOW Normal [facility] Comment on above: Result Comment: <100 mg/dl OPTIMAL 100 - 129 mg/dl NEAR OR ABOVE OPTIMAL 130 - 159 mg/dl BORDERLINE HIGH 160 - 189 mg/dl HIGH >190 mg/dl VERY HIGH Performed By: #### L IPID, CMP, TSH, T7 #### [facility] [address] [address] [address] Deb Rutledge Triglyceride [Mass/Vol] 38 mg/dL Normal <=150 [facility] Comment on above: Performed By: #### L IPID, CMP, TSH, T7 #### [facility] [address] [address] [address] Deb Rutledge VLDL CALC 7.6 mg/dL Normal [facility] Comment on above: Performed By: #### L IPID, CMP, TSH, T7 #### [facility] [address] [address] [address] Deb Rutledge PROF 14(COMP METB)on 06-14- 022 Albumin [Mass/Vol] 3.8 g/dL Normal 3.4-5.0 [facility] Comment on above: Performed By: #### L IPID, CMP, TSH, T7 #### [facility] [address] [address] [address] Deb Rutledge Albumin/Globulin [Mass ratio] 1.2 {ratio} Normal [facility] Comment on above: Performed By: #### L IPID, CMP, TSH, T7 #### [facility] [address] [address] [address] Deb Rutledge ALP [Catalytic activity/Vol] 69 U/L Normal 46-116 [facility] Comment on above: Performed By: #### L IPID, CMP, TSH, T7 #### [facility] [address] [place] [address] Dr. Deb Rutledge ALT [Catalytic activity/Vol] 24 U/L Normal 14-59 [facility] Comment on above: Performed By: #### L IPID, CMP, TSH, T7 #### [facility] [address] [place] [address] Dr. Deb Rutledge Anion gap [Moles/Vol] 11.3 mmol/L Normal [facility] Comment on above: Performed By: #### L IPID, CMP, TSH, T7 #### [facility] [address] [place] [address] Dr. Deb Rutledge AST [Catalytic activity/Vol] 11 U/L Critically low 15-37 [facility] Comment on above: Performed By: #### L IPID, CMP, TSH, T7 #### [facility] [address] [address] [address] Deb Rutledge Bilirubin [Mass/Vol] 0.5 mg/dL Normal 0.2-1.0 [facility] Comment on above: Performed By: #### L IPID, CMP, TSH, T7 #### [facility] [address] [place] [address] Dr. Deb Rutledge Calcium [Mass/Vol] 8.7 mg/dL Normal 8.5-10.1 [facility] Comment on above: Performed By: #### L IPID, CMP, TSH, T7 #### [facility] [address] [place] [address] Dr. Deb Rutledge Chloride [Moles/Vol] 109 mmol/L Critically high 98-107 [facility] Comment on above: Performed By: #### L IPID, CMP, TSH, T7 #### [facility] [address] [address] [address] Deb Rutledge CO2 [Moles/Vol] 24.5 mmol/L Normal 21.0-32.0 [facility] Comment on above: Performed By: #### L IPID, CMP, TSH, T7 #### [facility] [address] [address] [address] Deb Rutledge Creatinine [Mass/Vol] 0.71 mg/dL Normal 0.55-1.02 [facility] Comment on above: Performed By: #### L IPID, CMP, TSH, T7 #### [facility] [address] [address] [address] Deb Rutledge EGFR-AF [place] >60 Normal >=60 [facility] Comment on above: Performed By: #### L IPID, CMP, TSH, T7 #### [facility] [address] [address] [address] Deb Rutledge EGFR-NON AF [place] >60 Normal >=60 [facility] Comment on above: Performed By: #### L IPID, CMP, TSH, T7 #### [facility] [address] [address] [address] Deb Rutledge Globulin (S) [Mass/Vol] 3.1 g/dL Normal [facility] Comment on above: Performed By: #### L IPID, CMP, TSH, T7 #### [facility] [address] [address] [address] Deb Rutledge Glucose [Mass/Vol] 81 mg/dL Normal 74-106 [facility] Comment on above: Performed By: #### L IPID, CMP, TSH, T7 #### [facility] [address] [address] [address] Deb Rutledge Potassium [Moles/Vol] 3.8 mmol/L Normal 3.5-5.1 [facility] Comment on above: Performed By: #### L IPID, CMP, TSH, T7 #### [facility] [address] [place] [address] Dr. Deb Rutledge Protein [Mass/Vol] 6.9 g/dL Normal 6.4-8.2 [facility] Comment on above: Performed By: #### L IPID, CMP, TSH, T7 #### [facility] [address] [place] [address] Dr. Deb Rutledge Sodium [Moles/Vol] 141 mmol/L Normal 136-145 [facility] Comment on above: Performed By: #### L IPID, CMP, TSH, T7 #### [facility] [address] [place] [address] Dr. Deb Rutledge Urea nitrogen [Mass/Vol] 15.0 mg/dL Normal 7.0-18.0 [facility] Comment on above: Performed By: #### L IPID, CMP, TSH, T7 #### [facility] [address] [place] [address] Dr. Deb Rutledge Urea nitrogen/Creatinine [Mass ratio] 21.1 mg/mg Normal [facility] Comment on above: Performed By: #### L IPID, CMP, TSH, T7 #### [facility] [address] [place] [address] Dr. Deb Rutledge TSHon 06-14-2022 TSH 1.420 uIU/mL Normal 0.358-3.740 [facility] Comment on above: Performed By: #### L IPID, CMP, TSH, T7 #### [facility] [address] [place] [address] Dr. Deb Rutledge VITAMIN D 25 OHon 06-14-2022 VIT D 25-OH 25.0 ng/mL Normal [facility] Comment on above: Performed By: #### I WARREN, VITAD #### [facility] [address] [place] [address] Dr. Deb Rutledge VIT D RANGES SEE BELOW Normal [facility] Comment on above: Result Comment: <20 ng/mL Vit D deficient 20 - <30 ng/mL Vit D insufficient 30 - 100 ng/mL Vit D sufficient >100 ng/mL Potential Toxicity Performed By: #### I WARREN, VITAD #### [facility] [address] [place] [address] Dr. Deb Rutledge XR CHEST 2 Von [...] by: QUINN SOLIS Date: 2022-06-12 19:00 Normal [facility] Vital Signs Date Time Vital Sign Value Performing Clinician Faci lity 06-08-2023 18:19-0400 Body temperature 97.88 [degF] Asa Galeas PA [facility] 06-08-2023 18:19-0400 Diastolic blood pressure 78 mm[Hg] Asa Dolltz PA [facility] 06-08-2023 18:19-0400 Heart rate 68 /min Asa Dolltz PA [facility] 06-08-2023 18:19-0400 Respiratory rate 16 /min Asalynne Dolltz PA [facility] 06-08-2023 18:19-0400 SaO2% (BldA) [Mass fraction] 100 % Asa Galeas PA [facility] 06-08-2023 18:19-0400 Systolic blood pressure 106 mm[Hg] Asa Galeas PA [facility] Encounters Encounter Date Encounter Type Care Provider Facility Start: 05-23-2024 End: 05-23-2024 ambulatory Sky Olson MD Facility:[facility] Start: 04-02-2024 End: 04-02-2024 ambulatory [facility] Start: 02-05-2024 End: 02-05-2024 ambulatory [facility] Start: 06-08-2023 Asa LUZ [facility] Start: 09-29-2022 End: 09-29-[address] TIERA HDEZ Facility:[facility] Start: 06-18-2022 Encounter for genera l adult medical examination without abnormal findings DR TIERA HDEZ [facility] Start: 06-14-2022 End: 06-15-[address] TIERA HDEZ Facility:[facility] Start: 06-14-2022 End: 06-15-2022 Encounter for general adult medical examination without abnormal findings DR TIERA HDEZ Facility:[facility] Start: 06-12-2022 End: 06-13-[address] TIERA HDEZ Facility:[facility] Payers Date Payer Category Payer Unknown 2002 Unknown [id number] [id number] [id number] 2002 Unknown [id number] 2.16.84 [id number] 2002 Unknown [id number] 2.16.84 [id number] 2002 Unknown [id number] 2.16.8 [id number] 2002 Unknown [id number] 2.16.8 [id number] 2002 Unknown [id number] [id number]. [id number] 1959 Unknown [id number] Instructions Note Date & Type Note Facility Instructions Strict FU precautions.Rest, fluids. FU with PCP within the week.RTC or go to the ED if symptoms worsen or new symptoms develop before FU.Call us to update us on status [facility] Summary Purpose Family History No Family History Records FoundNo Family History Records FoundNo Family History Records Found Advance Directives No Advanced Directives Records FoundNo Advanced Directives Records FoundNo Advanced Directives Records Found Additional Source Comments INFORMATION SOURCE (unrecogn ized section and content) DATE CREATED AUTHOR 10/01/2022 [facility] DATE CREATED AUTHOR AUTHOR'S ORGANIZ ATION 04/04/2024 [facility] DATE CREATED AUTHOR AUTHOR'S ORGANIZ ATION 05/30/2024 [facility] Reason for Visit (unrecogniz ed [...] BE BASED ON THE PRIMARY CLINICAL RECORDS. [employer] provides no warranty or guarantee of the accuracy or completeness of information in this document.
[2024-06-13 07:35] VITALS: BP 117/75; PULSE 105; TEMP 36.3; O2SAT 98
[2024-06-13 07:35] LABS: HCG Qualitative NEGATIVE (NEGATIVE); Internal Control Within Normal Limits
[2024-06-13 08:24] VITALS: BP 116/67; PULSE 79; O2SAT 96
[2024-06-13 08:25] VITALS: BP 114/64; PULSE 76; O2SAT 96
[2024-06-13] MEDS: LIDOCAINE HCL 2% 400 MG/20 ML MDV INJ (08:26)
[2024-06-13] MEDS: BUPIVACAINE HCL 0.25% PF 25 MG/10 ML VIAL 8 ML INJ (08:26)
--- NOTE | 2024-06-13 08:30 | W.PM.PROCNOT ---
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 An informed consent was obtained and placed on the chart.? The patient was brought to the medical procedure unit and placed in the prone position.? A timeout was completed verifying correct patient, procedure site, positioning, plan, and special equipment.? Using aseptic technique, the needle was placed at left L4. Under direct fluoroscopic visualization a Quincke-tipped spinal needle was advanced to the junction of the superior articulating process with the transverse process at the designated medial branch segment.? Preceded by negative aspiration, the above-mentioned injectate was placed in 1 mL aliquots.? The procedure was repeated at left L5, S1.? The needle was removed and insertion site was covered. The same procedure, at the same levels, was completed on the right side. The patient was taken to the postprocedural recovery area and monitored for an appropriate length of time before found suitable for discharge in the company of a responsible adult. Anesthesia: Local Surgeon: Sky Olson Pathology: none sent Condition: stable Disposition: no change
== END 2024-06-13 08:32 | disposition home or self-care (01) ==
LOC: SURGOUT 07:07
PROVIDERS: PCP Family Medicine; Visit Provider Anesthesiology
DX: M47.816 Spondylosis without myelopathy or radiculopathy, lumbar region (principal)
CPT/HCPCS: 36415; 64493; 64494; 84703; J0665

== ENCOUNTER 2024-06-20 11:52 | Outpatient (OUT) | payer BC, SELFPAY ==
--- OUTSIDE RECORDS SUMMARY | 2024-06-20 12:00 | XMS_ITS | CCD ---
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 Comment on above: Performed By: #### Lucie CRISTOBAL, 1744-2, 1919-8, 2345-7, 04037-1, 44775-4 #### [facility] ([id number]) [address], [address] [place] [address] Mohsen 04-02-2024 AST [Catalytic activity/Vol] 17 U/L Normal 0-[address] [facility] Comment on above: Performed By: ###Clayton Faulkner BCA, 1744-2, 1919-8, 2345-7, 46105-7, 62164-7 #### [facility] ([id number]) [address] [place] [address] CBC AND AUTO DIFFon 04-02-20 24 ABSOLUTE BASOPHIL 0.0 X10E9/L Normal 0.0-0.2 [facility] Comment on above: Performed By: ###Clayton Faulkner BCA, 1744-2, 0-8, 2345-7, 28015-1, 29296-3 #### [facility] ([id number]) [address], [address] [place] [address] ABSOLUTE NEUTROPHIL 2.4 X10E9/L Normal 1.5-6.6 [facility] Comment on above: Performed By: #### Lucie CRISTOBAL, 1744-2, 1919-8, 2344-7, 11123-7, 51099-5 #### [facility] ([id number]) [address], [address] [place] [address] Basophils/100 WBC (Bld) 0.4 % Normal [facility] Comment on above: Performed By: #### Lucie CRISTOBAL, 4-2, 1919-8, 2344-7, 20238-5, 21449-8 #### [facility] ([id number]) [address], [address] [place] [address] Eosinophils (Bld) [#/Vol] 0.1 10*3/uL Normal 0.0-0.[address] [facility] Comment on above: Performed By: #### Lucie CRISTOBAL, 4-2, 1919-8, 2344-7, 44791-9, 05036-3 #### [facility] ([id number]) [address], [address] [place] [address] Eosinophils/100 WBC (Bld) 1.2 % Normal [facility] Comment on above: Performed By: #### Lucie CRISTOBAL, 1743-2, 1920-03, 2344-7, 18138-0, #### [facility] ([id number]) [address], [address] [place] [address] Erythrocyte distribution width (RBC) [Ratio] 12.9 % Normal 11.5-15.[address] [facility] Comment on above: Performed By: #### Lucie CRISTOBAL, 4-2, 1919-8, 2344-7, 59507-4, 84409-5 #### [facility] ([id number]) [address], [address] [place] [address] Hematocrit (Bld) [Volume fraction] 38.4 % Normal 35-[address] [facility] Comment on above: Performed By: #### Lucie CRISTOBAL, 1744-2, 1919-8, 234-7, 05942-7, #### [facility] ([id number]) [address], [address] [place] [address] Hemoglobin (Bld) [Mass/Vol] 12.7 g/dL Normal 11.7-15.[address] [facility] Comment on above: Performed By: #### Lucie CRISTOBAL, 4-2, 1919-8, 2344-7, 79725-5, 91766-1 #### [facility] ([id number]) [address], [address] [place] [address] Lymphocytes (Bld) [#/Vol] 2.0 10*3/uL Normal 1.0-3.[address] [facility] Comment on above: Performed By: #### Lucie CRISTOBAL, 1743-2, 1920-03, 2344-7, 96224-6, 44206-1 #### [facility] ([id number]) [address], [address] [place] [address] Lymphocytes/100 WBC (Bld) 41.4 % Normal [facility] Comment on above: Performed By: #### Lucie CRISTOBAL, 1743-2, 1920-03, 7, 97593-0, #### [facility] ([id number]) [address], [address] [place] [address] MCH (RBC) [Entitic mass] 29.6 pg Normal 27-[address] [facility] Comment on above: Performed By: #### Lucie CRISTOBAL, 4-2, 1919-8, 2344-7, 58936-9, 85660-6 #### [facility] ([id number]) [address], [address] [place] [address] MCHC (RBC) [Mass/Vol] 33.0 g/dL Normal 32-[address] [facility] Comment on above: Performed By: #### Lucie CRISTOBAL, 1744-2, 8, 2344-7, 29515-4, #### [facility] ([id number]) [address], [address] [place] [address] MCV (RBC) [Entitic vol] 90 fL Normal 80-[address] [facility] Comment on above: Performed By: #### Lucie CRISTOBAL, 4-2, 1919-8, 2344-7, 75862-4, #### [facility] ([id number]) [address], [address] [place] [address] Monocytes (Bld) [#/Vol] 0.3 10*3/uL Normal 0-0.[address] [facility] Comment on above: Performed By: #### Lucie CRISTOBAL, 1743-2, 1919-, 2345-02, 05549-2, #### [facility] ([id number]) [address], [address] [place] [address] Monocytes/100 WBC (Bld) 6.4 % Normal [facility] Comment on above: Performed By: #### Lucie CRISTOBAL, 1743-, 1920-03, 2345-02, 63655-3, #### [facility] ([id number]) [address], [address] [place] [address] Neutrophils/100 WBC (Bld) 50.6 % Normal [facility] Comment on above: Performed By: #### Lucie CRISTOBAL, 1743-2, 1920-03, 2345-02, 41228-0, #### [facility] ([id number]) [address], [address] [place] [address] Platelet mean volume (Bld) [Entitic vol] 9.3 fL Normal 7-[address] [facility] Comment on above: Performed By: #### Lucie CRISTOBAL, 1743-2, 1920-03, 2345-02, 18831-0, 01412-6 #### [facility] ([id number]) [address], [address] [place] [address] Platelets (Bld) [#/Vol] 315 10*3/uL Normal 150-[address] [facility] Comment on above: Performed By: #### Lucie CRISTOBAL, 1744-2, 0-8, 2345-7, 52175-2, 23191-4 #### [facility] ([id number]) [address], [address] [place] [address] RBC COUNT 4.27 X10E12/L Normal 3.80-5.[address] [facility] Comment on above: Performed By: #### Lucie CRISTOBAL, 1744-2, 1919-8, 2344-7, 30589-6, 13646-7 #### [facility] ([id number]) [address] [address] [place] [address] WBC (Bld) [#/Vol] 4.7 10*3/uL Normal 4.0-11.0 [facility] Comment on above: Performed By: #### Lucie CRISTOBAL, 1744-2, 1919-8, 2344-7, 03884-0, 09702-3 #### [facility] ([id number]) [address] [address] [place] [address] GLUCOSEon 04-02-2024 Glucose [Mass/Vol] 83 mg/dL Normal 65-99 [facility] Comment on above: Performed By: #### Lucie CRISTOBAL, 1744-2, 1919-8, 2344-7, 69761-0, 31711-5 #### [facility] ([id number]) [address] [address] [place] [address] HCG.beta subunit IA 3rd IS Q non 04-02-2024 SERUM B HCG,3RD I.S. <5 Normal [facility] Comment on above: Result Comment: NEW [...] ###Clayton Faulkner BCA, , 1743-2, 1919-8, 2344-7, 22394-7 #### [facility] ([id number]) [address] [place] [address] Lipid 1996 panelon 4 Cholesterol [Mass/Vol] 223 mg/dL High 150-[address] [facility] Comment on above: Performed By: ###Clayton Faulkner BCA, , 1743-2, 1919-8, 2344-7, 29554-1 #### [facility] ([id number]) [address], [address] [place] [address] Cholesterol in HDL [Mass/Vol] 46 mg/dL Normal >[address] [facility] Comment on above: Result Comment: HDL <40 mg/dL - High Risk HDL > or = 40mg/dL- Desirable HDL >60 mg/dL - Negative Risk Performed By: ###Clayton Faulkner BCA, , 1743-2, 1919-8, 2344-7, 58380-8 #### [facility] ([id number]) [address], [address] [place] [address] Cholesterol in LDL [Mass/Vol] 148 mg/dL High <[address] [facility] Comment on above: Result Comment: LDL <100 mg/dL - Desirable LDL >160 mg/dL - High Risk Performed By: ###Clayton Faulkner BCA, 25288-1, 1743-2, 1920-03, 2345-02, 28249-3 #### [facility] ([id number]) [address] [facility] [address] [place] [address] Cholesterol in VLDL [Mass/Vol] 29 mg/dL Normal 0-[address] [facility] Comment on above: Performed By: ###Clayton Faulkner BCA, 17680-0, 1743-2, 1920-03, 2344-, 07803-9 #### [facility] ([id number]) [address], [facility] [address] [place] [address] CHOLESTEROL:HDL 4.8 Normal 1.0-5.[address] [facility] Comment on above: Performed By: ###Clayton Faulkner BCA, 80208-2, 1743-2, 1920-03, 2345-02, 52901-4 #### [facility] ([id number]) [address], [address] [place] [address] Triglyceride [Mass/Vol] 146 mg/dL Normal 27-[address] [facility] Comment on above: Performed By: ###Clayton Faulkner BCA, 20804-4, 1743-2, 1920-03, 7, 38381-0 #### [facility] ([id number]) [address], [facility] [address] [place] [address] ALT No additional P-5'-P [Ca talytic activity/Vol]on 02-05-2024 ALT [Catalytic activity/Vol] 23 U/L Normal 0-[address] [facility] Comment on above: Performed By: ###Clayton Faulkner BCA, 23245-1, 1743-2, 1920-03, 2345-02, 62623-4 #### [facility] ([id number]) [address], [address] [place] [address] Mohsen 02-05-2024 AST [Catalytic activity/Vol] 21 U/L Normal 0-[address] [facility] Comment on above: Performed By: #### Lucie CRISTOBAL, , 1743-, 1920-03, 2345-02, 41755-1 #### [facility] ([id number]) [address], [address] [address] CBC AND AUTO DIFFon 02-05-20 24 ABSOLUTE BASOPHIL 0.0 X10E9/L Normal 0.0-0.2 [facility] Comment on above: Performed By: #### Lucie CRISTOBAL, , 1743-10, 1920-03, 2345-02, 69495-3 #### [facility] ([id number]) [address] [address] ABSOLUTE NEUTROPHIL 3.2 X10E9/L Normal 1.5-6.6 [facility] Comment on above: Performed By: #### Lucie CRISTOBAL, , 1743-10, 1920-03, 2345-02, 69994-8 #### [facility] ([id number]) [address] [address] Basophils/100 WBC (Bld) 0.6 % Normal [facility] Comment on above: Performed By: #### Lucie CRISTOABL, , 1743-2, 1920-03, 2345-02, 78166-3 #### [facility] ([id number]) [address] [address] Eosinophils (Bld) [#/Vol] 0.1 10*3/uL Normal 0.0-0.[address] [facility] Comment on above: Performed By: #### Lucie CRISTOBAL, , 1743-10, 1920-03, 2345-02, 48261-4 #### [facility] ([id number]) [address] [address] [place] [address] Eosinophils/100 WBC (Bld) 1.6 % Normal [facility] Comment on above: Performed By: #### Lucie CRISTOBAL, , 2, 1920-03, 2345-02, 60047-3 #### [facility] ([id number]) [address] [address] [place] [address] Erythrocyte distribution width (RBC) [Ratio] 12.4 % Normal 11.5-15.[address] [facility] Comment on above: Performed By: #### Lucie CRISTOBAL, , 1743-10, 1920-03, 2345-02, 35166-3 #### [facility] ([id number]) [address] [address] [place] [address] Hematocrit (Bld) [Volume fraction] 39.7 % Normal 35-[address] [facility] Comment on above: Performed By: #### Lucie CRISTOBAL, , 1743-10, 1920-03, 2345-02, 55062-2 #### [facility] ([id number]) [address] [address] [place] [address] Hemoglobin (Bld) [Mass/Vol] 13.1 g/dL Normal 11.7-15.[address] [facility] Comment on above: Performed By: #### Lucie CRISTOBAL, , 2, 1920-03, 2345-02, 36609-7 #### [facility] ([id number]) [address] [address] [place] [address] Lymphocytes (Bld) [#/Vol] 2.1 10*3/uL Normal 1.0-3.[address] [facility] Comment on above: Performed By: #### Lucie CRISTOBAL, 45976-9, 1743-2, 1920-03, 2345-02, 58439-3 #### [facility] ([id number]) [address], [facility] [address] [place] [address] Lymphocytes/100 WBC (Bld) 35.6 % Normal [facility] Comment on above: Performed By: #### Lucie CRISTOBAL, 82914-2, 1743-2, 1920-03, 2345-02, 20850-5 #### [facility] ([id number]) [address], [facility] [address] [place] [address] MCH (RBC) [Entitic mass] 30.1 pg Normal 27-[address] [facility] Comment on above: Performed By: #### Lucie CRISTOBAL, 95217-7, 1743-10, 1920-03, 2345-02, 78827-0 #### [facility] ([id number]) [address], [facility] [address] [place] [address] MCHC (RBC) [Mass/Vol] 32.9 g/dL Normal 32-[address] [facility] Comment on above: Performed By: #### Lucie CRISTOBAL, , 1743-10, 1920-03, 2345-02, 50165-2 #### [facility] ([id number]) [address], [facility] [address] [place] [address] MCV (RBC) [Entitic vol] 91 fL Normal 80-[address] [facility] Comment on above: Performed By: #### Lucie CRISTOBAL, , 1743-10, 1920-03, 2345-02, 31845-8 #### [facility] ([id number]) [address] [address] [place] [address] Monocytes (Bld) [#/Vol] 0.4 10*3/uL Normal 0-0.[address] [facility] Comment on above: Performed By: #### Lucie CRISTOBAL, 97175-0, 1743-2, 1920-03, 2345-02, 36614-0 #### [facility] ([id number]) [address], [address] [place] [address] Monocytes/100 WBC (Bld) 6.6 % Normal [facility] Comment on above: Performed By: #### Lucie CRISTOBAL, 82261-9, 1744-2, 1919-8, 2344-7, 81877-4 #### [facility] ([id number]) [address], [address] [place] [address] Neutrophils/100 WBC (Bld) 55.6 % Normal [facility] Comment on above: Performed By: #### Lucie CRISTOBAL, 79485-3, 1743-2, 1919-8, 2344-7, 69773-5 #### [facility] ([id number]) [address], [facility] [address] [place] [address] Platelet mean volume (Bld) [Entitic vol] 9.5 fL Normal 7-[address] [facility] Comment on above: Performed By: #### Lucie CRISTOBAL, 61777-9, 4-2, 1919-8, 2344-7, 35162-2 #### [facility] ([id number]) [address], [facility] [address] [place] [address] Platelets (Bld) [#/Vol] 294 10*3/uL Normal 150-[address] [facility] Comment on above: Performed By: #### Lucie CRISTOBAL, 73873-9, 4-2, 1919-8, 2344-7, 00134-6 #### [facility] ([id number]) [address], [address] [place] [address] RBC COUNT 4.34 X10E12/L Normal 3.80-5.[address] [facility] Comment on above: Performed By: #### Lucie CRISTOBAL, 34929-4, 4-2, 1919-8, 2344-7, 75777-4 #### [facility] ([id number]) [address], [address] [place] [address] WBC (Bld) [#/Vol] 5.8 10*3/uL Normal 4.0-11.0 [facility] Comment on above: Performed By: #### C SUSU, 93841-5, 1743-2, 1919-8, 2344-7, 75338-4 #### [facility] ([id number]) [address] [facility] [place] [address] GLUCOSEon 02-05-2024 Glucose [Mass/Vol] 82 mg/dL Normal 65-99 [facility] Comment on above: Performed By: #### Lucie CRISTOBAL, , 1743-2, 1920-03, 2345-02, 96838-8 #### [facility] ([id number]) [address] [place] [address], [address] [place] [address] HCG.beta subunit IA 3rd IS Q non 02-05-2024 SERUM B HCG,3RD I.S. <5 Normal [facility] Comment on above: Result Comment: NEW [...] nontrophoblastic neoplasms. Performed By: #### Lucie BCA, 73387-7, 1743-2, 1919-8, 2344-7, 02362-4 #### [facility] ([id number]) [address] [facility] [facility] [place] [address] Lipid 1996 panelon 02-04- 4 Cholesterol [Mass/Vol] 188 mg/dL Normal 150-[address] [facility] Comment on above: Performed By: ###Clayton Faulkner BCA, , 1743-2, 1919-8, 2344-7, 78397-0 #### [facility] ([id number]) [address], [address] [place] [address] Cholesterol in HDL [Mass/Vol] 55 mg/dL Normal >[address] [facility] Comment on above: Result Comment: HDL <40 mg/dL - High Risk HDL > or = 40mg/dL- Desirable HDL >60 mg/dL - Negative Risk Performed By: ###Clayton Faulkner BCA, , 1743-2, 1920-03, 7, 94205-1 #### [facility] ([id number]) [address], [address] [place] [address] Cholesterol in LDL [Mass/Vol] 118 mg/dL Normal <[address] [facility] Comment on above: Result Comment: LDL <100 mg/dL - Desirable LDL >160 mg/dL - High Risk Performed By: ###Clayton Faulkner BCA, , 1743-2, 1919-8, 2344-7, 96903-7 #### [facility] ([id number]) [address], [address] [place] [address] Cholesterol in VLDL [Mass/Vol] 15 mg/dL Normal 0-[address] [facility] Comment on above: Performed By: ###Clayton Faulkner BCA, , 1743-2, 8, 2344-7, 13058-7 #### [facility] ([id number]) [address], [address] [place] [address] CHOLESTEROL:HDL 3.4 Normal 1.0-5.[address] [facility] Comment on above: Performed By: #### C BCA, 29834-0, 1744-2, 1920-8, 2345-7, 61917-1 #### [facility] ([id number]) [address], [address] [place] [address] Triglyceride [Mass/Vol] 76 mg/dL Normal 27-[address] [facility] Comment on above: Performed By: #### C BCA, 43463-1, 1744-2, 0-8, 2344-7, 71288-9 #### [facility] ([id number]) [address], [address] [place] [address] Covid-19 PCR [facility]on 09-02 SARS-CoV-2 (COVID-19) RNA ALIA+probe Ql (Unsp spec) Not detected Normal NOT DETECTED [facility] Comment on above: Result Comment: This test is not yet approved or cleared by the [place] FDA. When there are no FDA-approved or cleared tests available, and other criteria are met, FDA can make tests available under an emergency access mechanism called an Emergency Use Authorization (EUA). The EUA for this test is supported by the Facilities And Grounds Director of Health and Human Service's (HHS's) declaration [...] SARS-CoV-2. Performed By: #### C VDTBH #### [facility] [address] [place] [address] Dr. Deb Rutledge INFLUENZA A AND B AGon 09-02 INFLUANEGH SEE BELOW Normal [facility] Comment on above: Result Comment: Nega tive for Flu A protein angiten. Infection due to Flu A cannot be ruled out. Flu A angiten in the sample may be below the detection limit of the test. Performed By: #### I NFLUAB #### [facility] [address] [place] [address] Dr. Deb Rutledge INFLUBNEGH SEE BELOW Normal [facility] Comment on above: Result Comment: Nega tive for Flu B protein antigen. Infection due to Flu B cannot be ruled out. Flu B antigen in the sample may be below the detection limit of the test. Performed By: #### I NFLUAB #### [facility] [address] [place] [address] Dr. Deb Rutledge INFLUENZA A AG Negative Normal NEGATIVE SEE COMMENT [facility] Comment on above: Performed By: #### I NFLUAB #### [facility] [address] [place] [address] Dr. Deb Rutledge INFLUENZA B AG Negative Normal NEGATIVE SEE COMMENT [facility] Comment on above: Performed By: #### I NFLUAB #### [facility] [address] [place] [address] Dr. Deb Rutledge INSULINon 06-16-2022 Insulin 13.1 uIU/mL Normal 2.6-24.9 [facility] Comment on above: Performed By: #### I NSULIN ####[facility] [address] [place], [place] [address]Dr. Deb Rutledge CBC AUTO DIFFon 06-14-2022 BASO # 0.0 103/ul Normal 0.0-0.1 [facility] Comment on above: Performed By: #### C BC #### [facility] [address] [place] [address] Dr. Deb Rutledge Basophils/100 WBC (Bld) 0.2 % Normal 0.2-2.0 [facility] Comment on above: Performed By: #### C BC #### [facility] [address] [place] [address] Dr. Deb Rutledge EO # 0.1 103/ul Normal 0.0-0.7 [facility] Comment on above: Performed By: #### C BC #### [facility] [address] [place] [address] Dr. Deb Rutledge Eosinophils/100 WBC (Bld) 1.1 % Normal 0.9-7.0 [facility] Comment on above: Performed By: #### C BC #### [facility] [address] [place] [address] Dr. Deb Rutledge Erythrocyte distribution width (RBC) [Ratio] 11.7 % Normal 11.0-15.0 [facility] Comment on above: Performed By: #### C BC #### [facility] [address] [place] [address] Dr. Deb Rutledge Hematocrit (Bld) [Volume fraction] 40.5 % Normal 36.0-48.0 [facility] Comment on above: Performed By: #### C BC #### [facility] [address] [place] [address] Dr. Deb Rutledge Hemoglobin (Bld) [Mass/Vol] 13.0 g/dL Normal 12.0-16.0 [facility] Comment on above: Performed By: #### C BC #### [facility] [address] [place] [address] Dr. Deb Rutledge IG # 0.00 10e3/ul Normal 0.00-0.03 [facility] Comment on above: Performed By: #### C BC #### [facility] [address] [place] [address] Dr. Deb Rutledge IG % 0.0 % Normal 0.0-0.5 [facility] Comment on above: Performed By: #### C BC #### [facility] [address] [place] [address] Dr. Deb Rutledge LYMPH # 1.8 103/ul Normal 1.2-3.8 [facility] Comment on above: Performed By: #### C BC #### [facility] [address] [place] [address] Dr. Deb Rutledge Lymphocytes/100 WBC (Bld) 37.7 % Normal 20.5-60.0 [facility] Comment on above: Performed By: #### C BC #### [facility] [address] [place] [address] Dr. Deb Rutledge MANUAL DIFF REQ NO Normal [facility] Comment on above: Performed By: #### C BC #### [facility] [address] [place] [address] Dr. Dbe Rutledge MCH (RBC) [Entitic mass] 30.7 pg Normal 26.7-34.0 [facility] Comment on above: Performed By: #### C BC #### [facility] [address] [place] [address] Dr. Deb Rutledge MCHC (RBC) [Mass/Vol] 32.1 g/dL Normal 29.9-35.2 [facility] Comment on above: Performed By: #### C BC #### [facility] [address] [place] [address] Dr. Deb Rutledge MCV (RBC) [Entitic vol] 95.7 fL Normal 81.0-99.0 [facility] Comment on above: Performed By: #### C BC #### [facility] [address] [place] [address] Dr. Deb Rutledge MONO # 0.3 103/ul Normal 0.3-0.8 [facility] Comment on above: Performed By: #### C BC #### [facility] [address] [place] [address] Dr. Deb Rutledge Monocytes/100 WBC (Bld) 5.8 % Normal 1.7-12.0 [facility] Comment on above: Performed By: #### C BC #### [facility] [address] [place] [address] Dr. Deb Rutledge NEUT # 2.6 103/ul Normal 1.4-6.5 [facility] Comment on above: Performed By: #### C BC #### [facility] [address] [place] [address] Dr. Deb Rutledge Neutrophils/100 WBC (Bld) 55.2 % Normal 43.0-75.0 [facility] Comment on above: Performed By: #### C BC #### [facility] [address] [place] [address] Dr. Deb Rutledge Platelet mean volume (Bld) [Entitic vol] 10.2 fL Normal 9.5-13.5 [facility] Comment on above: Performed By: #### C BC #### [facility] [address] [address] [address] Deb Rutledge PLT 286 103/ul Normal 150-450 [facility] Comment on above: Performed By: #### C BC #### [facility] [address] [place] [address] Dr. Deb Rutledge RBC 4.23 106/ul Normal 4.20-5.40 [facility] Comment on above: Performed By: #### C BC #### [facility] [address] [place] [address] Dr. Deb Rutledge WBC 4.7 103/ul Normal 4.0-11.0 [facility] Comment on above: Performed By: #### C BC #### [facility] [address] [place] [address] Dr. Deb Rutledge FREE THYROXINE INDEX T7on FTI 1.73 Normal 1.30-4.50 [facility] Comment on above: Performed By: #### L IPID, CMP, TSH, T7 #### [facility] [address] [place] [address] Dr. Deb Rutledge T3U 27.0 % Critically low 30.0-39.[address] [facility] Comment on above: Performed By: #### L IPID, CMP, TSH, T7 #### [facility] [address] [place] [address] Dr. Deb Rutledge T4 [Mass/Vol] 6.40 ug/dL Normal 4.80-13.90 [facility] Comment on above: Performed By: #### L IPID, CMP, TSH, T7 #### [facility] [address] [place] [address] Dr. Deb Rutledge GLYCOHEMOGLOBIN A1Con 2021 ADA RECOMMENDATION SEE BELOW Normal [facility] Comment on above: Result Comment: ADA RECOMMENDED LIMIT 4.0 - 6.0 ADA THERAPEUTIC TARGET < 7.0 ACTION SUGGESTED > 7.0 Performed By: #### A 1C #### [facility] [address] [address] [address] Deb Rutledge Glucose [Mass/Vol] 108 mg/dL Normal [facility] Comment on above: Performed By: #### A 1C #### [facility] [address] [address] [address] Deb Rutledge HbA1c (Bld) [Mass fraction] 5.4 % Normal 4.5-6.2 [facility] Comment on above: Performed By: #### A 1C #### [facility] [address] [address] [address] Deb Rutledge IRONon 06-14-2022 Iron [Mass/Vol] 79.0 ug/dL Normal 50.0-170.0 [facility] Comment on above: Performed By: #### I WARREN, VITAD ####[facility] [address] [address]Dr. Deb Rutledge LIPID PROFILEon 06-14-2022 CHOL-HDL RATIO NORM SEE BELOW Normal [facility] Comment on above: Result Comment: 3.3 - 4.4 LOW RISK 4.4 - 7.1 AVERAGE RISK 7.1 - 11.0 MODERATE RISK >11.0 HIGH RISK Performed By: #### L IPID, CMP, TSH, T7 #### [facility] [address] [address] [address] Deb Rutledge Cholesterol [Mass/Vol] 172 mg/dL Normal <=200 [facility] Comment on above: Performed By: #### L IPID, CMP, TSH, T7 #### [facility] [address] [address] [address] Deb Rutledge Cholesterol in HDL [Mass/Vol] 68 mg/dL Critically high 40-60 [facility] Comment on above: Performed By: #### L IPID, CMP, TSH, T7 #### [facility] [address] [address] [address] Deb Rutledge Cholesterol in LDL [Mass/Vol] 96.4 mg/dL Normal [facility] Comment on above: Performed By: #### L IPID, CMP, TSH, T7 #### [facility] [address] [address] [address] Deb Rutledge Cholesterol.total/Ch olesterol in HDL [Mass ratio] 2.5 {ratio} Normal [facility] Comment on above: Performed By: #### L IPID, CMP, TSH, T7 #### [facility] [address] [address] [address] Deb Rutledge HDL NORMAL > or = 60 mg/dl - LO W CARDIOVASCULAR RISK <40 mg/dl - HIGH CARDIOVASCULAR RISK Normal [facility] Comment on above: Performed By: #### L IPID, CMP, TSH, T7 #### [facility] [address] [address] [address] Deb Rutledge LDL CALC NORMAL SEE BELOW Normal [facility] Comment on above: Result Comment: <100 mg/dl OPTIMAL 100 - 129 mg/dl NEAR OR ABOVE OPTIMAL 130 - 159 mg/dl BORDERLINE HIGH 160 - 189 mg/dl HIGH >190 mg/dl VERY HIGH Performed By: #### L IPID, CMP, TSH, T7 #### [facility] [address] [address] [address] Deb Rutledge Triglyceride [Mass/Vol] 38 mg/dL Normal <=150 [facility] Comment on above: Performed By: #### L IPID, CMP, TSH, T7 #### [facility] [address] [address] [address] Deb Rutledge VLDL CALC 7.6 mg/dL Normal [facility] Comment on above: Performed By: #### L IPID, CMP, TSH, T7 #### [facility] [address] [address] [address] Deb Rutledge PROF 14(COMP METB)on 06-14- 022 Albumin [Mass/Vol] 3.8 g/dL Normal 3.4-5.[address] [facility] Comment on above: Performed By: #### L IPID, CMP, TSH, T7 #### [facility] [address] [address] [address] Deb Rutledge Albumin/Globulin [Mass ratio] 1.2 {ratio} Normal [facility] Comment on above: Performed By: #### L IPID, CMP, TSH, T7 #### [facility] [address] [address] [address] Deb Rutledge ALP [Catalytic activity/Vol] 69 U/L Normal 46-116 [facility] Comment on above: Performed By: #### L IPID, CMP, TSH, T7 #### [facility] [address] [place] [address] Dr. Deb Rutledge ALT [Catalytic activity/Vol] 24 U/L Normal 14-59 [facility] Comment on above: Performed By: #### L IPID, CMP, TSH, T7 #### [facility] [address] [place] [address] Dr. Deb Rutledge Anion gap [Moles/Vol] 11.3 mmol/L Normal [facility] Comment on above: Performed By: #### L IPID, CMP, TSH, T7 #### [facility] [address] [place] [address] Dr. Deb Rutledge AST [Catalytic activity/Vol] 11 U/L Critically low 15-37 [facility] Comment on above: Performed By: #### L IPID, CMP, TSH, T7 #### [facility] [address] [address] [address] Deb Rutledge Bilirubin [Mass/Vol] 0.5 mg/dL Normal 0.2-1.0 [facility] Comment on above: Performed By: #### L IPID, CMP, TSH, T7 #### [facility] [address] [place] [address] Dr. Deb Rutledge Calcium [Mass/Vol] 8.7 mg/dL Normal 8.5-10.[address] [facility] Comment on above: Performed By: #### L IPID, CMP, TSH, T7 #### [facility] [address] [place] [address] Dr. Deb Rutledge Chloride [Moles/Vol] 109 mmol/L Critically high 98-107 [facility] Comment on above: Performed By: #### L IPID, CMP, TSH, T7 #### [facility] [address] [address] [address] Deb Rutledge CO2 [Moles/Vol] 24.5 mmol/L Normal 21.0-32.0 [facility] Comment on above: Performed By: #### L IPID, CMP, TSH, T7 #### [facility] [address] [address] [address] Deb Rutledge Creatinine [Mass/Vol] 0.71 mg/dL Normal 0.55-1.02 [facility] Comment on above: Performed By: #### L IPID, CMP, TSH, T7 #### [facility] [address] [address] [address] Deb Rutledge EGFR-AF AUSTRIAN >60 Normal >=60 [facility] Comment on above: Performed By: #### L IPID, CMP, TSH, T7 #### [facility] [address] [address] [address] Deb Rutledge EGFR-NON AF AUSTRIAN >60 Normal >=60 [facility] Comment on above: Performed By: #### L IPID, CMP, TSH, T7 #### [facility] [address] [address] [address] Deb Rutledge Globulin (S) [Mass/Vol] 3.1 g/dL Normal [facility] Comment on above: Performed By: #### L IPID, CMP, TSH, T7 #### [facility] [address] [address] [address] Deb Rutledge Glucose [Mass/Vol] 81 mg/dL Normal 74-106 [facility] Comment on above: Performed By: #### L IPID, CMP, TSH, T7 #### [facility] [address] [address] [address] Deb Rutledge Potassium [Moles/Vol] 3.8 mmol/L Normal 3.5-5.1 [facility] Comment on above: Performed By: #### L IPID, CMP, TSH, T7 #### [facility] [address] [place] [address] Dr. Deb Rutledge Protein [Mass/Vol] 6.9 g/dL Normal 6.4-8.[address] [facility] Comment on above: Performed By: #### L IPID, CMP, TSH, T7 #### [facility] [address] [place] [address] Dr. Deb Rutledge Sodium [Moles/Vol] 141 mmol/L Normal 136-145 [facility] Comment on above: Performed By: #### L IPID, CMP, TSH, T7 #### [facility] [address] [place] [address] Dr. Deb Rutledge Urea nitrogen [Mass/Vol] 15.0 mg/dL Normal 7.0-18.0 [facility] Comment on above: Performed By: #### L IPID, CMP, TSH, T7 #### [facility] [address] [place] [address] Dr. Deb Rutledge Urea nitrogen/Creatinine [Mass ratio] 21.1 mg/mg Normal [facility] Comment on above: Performed By: #### L IPID, CMP, TSH, T7 #### [facility] [address] [place] [address] Dr. Deb Rutledge TSHon 06-14-2022 TSH 1.420 uIU/mL Normal 0.358-3.740 [facility] Comment on above: Performed By: #### L IPID, CMP, TSH, T7 #### [facility] [address] [place] [address] Dr. Deb Rutledge VITAMIN D 25 OHon 06-14-2022 VIT D 25-OH 25.0 ng/mL Normal [facility] Comment on above: Performed By: #### I WARREN, VITAD #### [facility] [address] [place] [address] Dr. Deb Rutledge VIT D RANGES SEE BELOW Normal [facility] Comment on above: Result Comment: <20 ng/mL Vit D deficient 20 - <30 ng/mL Vit D insufficient 30 - 100 ng/mL Vit D sufficient >100 ng/mL Potential Toxicity Performed By: #### I WARREN, VITAD #### [facility] [address] [place] [address] Dr. Deb Rutledge XR CHEST 2 Von [...] by: QUINN SOLIS Date: 2022-06-12 19:00 Normal [facility] Vital Signs Date Time Vital Sign Value Performing Clinician Faci lity 06-08-2023 18:19-0400 Body temperature 97.88 [degF] Asa Galeas PA [facility] 06-08-2023 18:19-0400 Diastolic blood pressure 78 mm[Hg] Asa Dolltz PA [facility] 06-08-2023 18:19-0400 Heart rate 68 /min Asa Dolltz PA [facility] 06-08-2023 18:19-0400 Respiratory rate 16 /min Asalynne Dolltz PA [facility] 06-08-2023 18:19-0400 SaO2% (BldA) [Mass fraction] 100 % Asa Galeas PA [facility] 06-08-2023 18:19-0400 Systolic blood pressure 106 mm[Hg] Asa Galeas PA [facility] Encounters Encounter Date Encounter Type Care Provider Facility Start: 05-23-2024 End: 05-23-2024 ambulatory Sky Olson MD Facility:[facility] Start: 04-02-2024 End: 04-02-2024 ambulatory [facility] Start: 02-05-2024 End: 02-05-2024 ambulatory [facility] Start: 06-08-2023 Asa LUZ [facility] Start: 09-29-2022 End: 09-29-[address] TIERA HDEZ Facility:[facility] Start: 06-18-2022 Encounter for genera l adult medical examination without abnormal findings DR TIERA HDEZ [facility] Start: 06-14-2022 End: 06-15-[address] TIERA HDEZ Facility:[facility] Start: 06-14-2022 End: 06-15-2022 Encounter for general adult medical examination without abnormal findings DR TIERA HDEZ Facility:[facility] Start: 06-12-2022 End: 06-13-[address] TIERA HDEZ Facility:[facility] Payers Date Payer Category Payer Unknown 2002 Unknown [id number] [id number] [id number] 2002 Unknown [id number] 2.16.84 [id number] 2002 Unknown [id number] 2.16.84 [id number] 2002 Unknown [id number] 2.16.8 [id number] 2002 Unknown [id number] 2.16.8 [id number] 2002 Unknown [id number] [id number] 1959 Unknown [id number] Instructions Note Date & Type Note Facility Instructions Strict FU precautions.Rest, fluids. FU with PCP within the week.RTC or go to the ED if symptoms worsen or new symptoms develop before FU.Call us to update us on status [facility] Summary Purpose Family History No Family History Records FoundNo Family History Records FoundNo Family History Records Found Advance Directives No Advanced Directives Records FoundNo Advanced Directives Records FoundNo Advanced Directives Records Found Additional Source Comments INFORMATION SOURCE (unrecogn ized section and content) DATE CREATED AUTHOR 10/01/2022 [facility] DATE CREATED AUTHOR AUTHOR'S ORGANIZ ATION 04/04/2024 [facility] DATE CREATED AUTHOR AUTHOR'S ORGANIZ ATION 05/30/2024 [facility] Reason for Visit (unrecogniz ed [...] BE BASED ON THE PRIMARY CLINICAL RECORDS. [employer] provides no warranty or guarantee of the accuracy or completeness of information in this document.
--- NOTE | 2024-06-20 12:37 | PM.CN ---
Consult Note: HPI Data of Consult Patient: known to practice within the last 3 years Consult date: 06/20/24 Requesting Physician: Sky Olson MD Primary Care Provider: Michael Baron MD Consult Narrative Reason for consult: low back, bilateral lower extremity pain Narrative: 24yof who presents for assessment. worsening low back pain with radiation bilaterally. lumbar mri reviewed, significant for disc herniation with annular fissure at l4-5 and l5-s1. has continued in a series of provider directed home exercises >6 weeks, without lasting benefit. has tried celebrex, lodine, other nsaids, without benefit. denies adverse med side effects. cc:: CC: Sky Olson MD Review of Systems ROS Status of ROS 10 or more systems reviewed and unremarkable except as noted in history and below [facility] Medical History (Updated 06/20/24 @ 12:39 by Sky Olson MD) Anxiety ?F41.9 - Anxiety disorder, unspecified (ICD-10) Acid reflux ?K21.9 - Gastro-esophageal reflux disease without esophagitis (ICD-10) Surgical History [place] teeth extracted ?K08.409 - Partial loss of teeth, unspecified cause, unspecified class (ICD-10) Meds Home Medications and Allergies Home Medications ?Medication ?Instructions ?Recorded ?Confirmed ?Type atomoxetine 40 mg capsule 40 mg PO DAILY 05/23/24 06/13/24 History citalopram 40 mg tablet 40 mg PO DAILY 05/23/24 06/13/24 History etodolac 400 mg tablet (Lodine) 400 mg PO Q12H PRN pain 05/23/24 06/13/24 History isotretinoin 40 mg capsule 40 mg PO BID 05/23/24 06/13/24 History liothyronine 5 mcg tablet 5 mcg PO DAILY 05/23/24 06/13/24 History norethindrone acetate 1.5 1 tab PO DAILY 05/23/24 06/13/24 History mg-ethinyl estradiol 30 mcg tablet (Ayesha) pantoprazole 40 mg tablet,delayed 40 mg PO DAILY 05/23/24 06/13/24 History release quetiapine 50 mg tablet 50 mg PO DAILY 05/23/24 06/13/24 History topiramate 100 mg capsule,extended 100 mg PO DAILY 05/23/24 06/13/24 History release 24 hr Allergies Allergy/AdvReac Type Severity Reaction Status Date / Time No Known Drug Allergies Allergy Verified 06/13/24 07:42 Exam Narrative Exam Narrative: Psych-alert and oriented x 3. Attentive and appropriate, constitutionally normal, displays normal mood and affect per situation. There are no obvious deficits in memory, reasoning, or intellect.? Skin-no obvious rashes, bruising, erythema noted to the patient's area of pain.? Extremities- extremities are warm with minimal edema and palpable pulses. Lumbar-tenderness to palpation noted in the lumbar spine and paraspinal musculature. Pain is not elicited with flexion, extension, and lateral rotation of the lumbar spine. Range of motion is not diminished with these motions. Facet loading maneuvers are negative.? Strength-noted to be unremarkable Sensory-no notable sensory deficits in the bilateral lower extremities to touch or pinprick in all dermatomal distributions with the exception to decreased sensation to the bilateral L4, 5 dermatomal distribution Coordination remains intact.? Gait remains non-antalgic. Assessment and Plan Assessment and Plan (1) Lumbar spondylosis: (2) Lumbar disc displacement without myelopathy: Plan 24yof who presents for assessment. failed conservative measures, as noted. imaging reviewed, as noted. given symptoms and imaging findings, prudent to attempt bilateral l5-s1 transforaminal epidural steroid injection under fluoroscopic guidance. she is in agreement. meds reviewed, no changes. follow up after procedure.
== END 2024-06-20 11:53 | disposition home or self-care (01) ==
LOC: PM 11:52
PROVIDERS: PCP Family Medicine; Visit Provider Anesthesiology
DX: M47.816 Spondylosis without myelopathy or radiculopathy, lumbar region (principal); M51.26 Other intervertebral disc displacement, lumbar region
CPT/HCPCS: G0463

== ENCOUNTER 2024-07-11 08:24 | Day surgery (SDC) | payer BC, SELFPAY ==
--- OUTSIDE RECORDS SUMMARY | 2024-07-11 08:36 | XMS_ITS | CCD ---
Author Organization [facility] Care Team Providers Care Aquarist Name Role Phone LEMUEL, DR MOTT Consulting Unavailable LEMUEL, DR MOTT Primary Care Unavailable LEMUEL, DR MOTT Admitting Unavailable LEMUEL, DR MOTT Attending Unavailable LEMUEL, DR MOTT Consulting Unavailable LEMUEL, DR MOTT Primary Care Unavailable TEREY, DR MOTT Admitting Unavailable TEREY, DR MOTT Attending Unavailable WEST, DR QUINN Lacey Consulting Unavailable LEMUEL, DR MOTT Consulting Unavailable LEMUEL, DR MOTT Primary Care Unavailable LEMUEL, DR MOTT Admitting Unavailable LEMUEL, DR MOTT Attending Unavailable Asa Hernandez Unavailable Cecilai Luis Unavailable GUSTAVO JOHNSON Referring Unavailable TIERA HDEZ Primary Care Unavailable GUSTAVO JOHNSON Referring Unavailable TIERA HDEZ Primary Care Unavailable Whitney DIAMOND, Sky Cazares Attending Unavailable Whitney DIAMOND, Sky Cazares Attending Unavailable Whitney DIAMOND, Sky Cazares Attending Unavailable Medications Completed/Discontinued Medications Medication Drug Class(es) Dates Sig (Normalized) Sig (Original) NEGATED: Highlighted row has not occurred! 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; Translations: [Other intermediate project manager (current) drug therapy] Onset: 02-05-2024 Episodic Other [...] ALT [Catalytic activity/Vol] 18 U/L Normal 0-31 [facility] Comment on above: Performed By: #### Lucie CRISTOBAL, 4-2, 1919-8, 2344-7, 69555-9, 79229-1 #### [facility] ([id number]) [address], [address] [place] [address] Mohsen 04-02-2024 AST [Catalytic activity/Vol] 17 U/L Normal 0-41 [facility] Comment on above: Performed By: #### Lucie CRISTOBAL, 1744-2, 1919-8, 2345-7, 50003-6, 19403-6 #### [facility] ([id number]) [address], [address] [place] [address] CBC AND AUTO DIFFon 04-02-20 24 ABSOLUTE BASOPHIL 0.0 X10E9/L Normal 0.0-0.2 [facility] Comment on above: Performed By: #### Lucie CRISTOBAL, 1744-2, 1919-8, 2345-7, 57703-7, 53110-4 #### [facility] ([id number]) [address], [address] [place] [address] ABSOLUTE NEUTROPHIL 2.4 X10E9/L Normal 1.5-6.6 [facility] Comment on above: Performed By: #### Lucie CRISTOBAL, 4-2, 1919-8, 2344-7, 47449-9, 00178-8 #### [facility] ([id number]) [address], [address] [place] [address] Basophils/100 WBC (Bld) 0.4 % Normal [facility] Comment on above: Performed By: #### Lucie CRISTOBAL, 4-2, 1919-8, 2344-7, 76943-6, 10250-0 #### [facility] ([id number]) [address], [address] [place] [address] Eosinophils (Bld) [#/Vol] 0.1 10*3/uL Normal 0.0-0.4 [facility] Comment on above: Performed By: #### Lucie CRISTOBAL, 1743-2, 1920-03, 7, 44273-5, 79168-0 #### [facility] ([id number]) [address], [address] [place] [address] Eosinophils/100 WBC (Bld) 1.2 % Normal [facility] Comment on above: Performed By: #### Lucie CRISTOBAL, 1743-2, 1919-, 2344-7, 80270-7, 78656-9 #### [facility] ([id number]) [address], [address] [place] [address] Erythrocyte distribution width (RBC) [Ratio] 12.9 % Normal 11.5-15.0 [facility] Comment on above: Performed By: #### Lucie CRISTOBAL, 4-2, 1919-, 2344-7, 15445-7, 78146-4 #### [facility] ([id number]) [address], [address] [place] [address] Hematocrit (Bld) [Volume fraction] 38.4 % Normal 35-47 [facility] Comment on above: Performed By: #### Lucie CRISTOBAL, 1744-2, 1919-8, 2345-7, 26812-1, 48795-1 #### [facility] ([id number]) [address], [address] [place] [address] Hemoglobin (Bld) [Mass/Vol] 12.7 g/dL Normal 11.7-15.5 [facility] Comment on above: Performed By: #### Lucie CRISTOBAL, 1744-2, 1919-8, 2344-7, 96366-9, 91512-0 #### [facility] ([id number]) [address], [address] [place] [address] Lymphocytes (Bld) [#/Vol] 2.0 10*3/uL Normal 1.0-3.5 [facility] Comment on above: Performed By: #### Lucie CRISTOBAL, 4-2, 1919-8, 2344-7, 61880-0, 98706-7 #### [facility] ([id number]) [address], [address] [place] [address] Lymphocytes/100 WBC (Bld) 41.4 % Normal [facility] Comment on above: Performed By: #### Lucie CRISTOBAL, 4-2, 1919-8, 2344-7, 65929-5, 25199-3 #### [facility] ([id number]) [address], [address] [place] [address] MCH (RBC) [Entitic mass] 29.6 pg Normal 27-34 [facility] Comment on above: Performed By: #### Lucie CRISTOBAL, 1744-2, 1919-8, 2344-7, 25231-6, 03860-3 #### [facility] ([id number]) [address], [address] [place] [address] MCHC (RBC) [Mass/Vol] 33.0 g/dL Normal 32-36 [facility] Comment on above: Performed By: #### Lucie CRISTOBAL, 4-2, 1919-8, 2344-7, 41321-3, 59927-2 #### [facility] ([id number]) [address], [address] [place] [address] MCV (RBC) [Entitic vol] 90 fL Normal 80-100 [facility] Comment on above: Performed By: #### Lucie CRISTOBAL, 1743-2, 1919-, 2344-7, 78802-5, 44733-3 #### [facility] ([id number]) [address], [address] [place] [address] Monocytes (Bld) [#/Vol] 0.3 10*3/uL Normal 0-0.9 [facility] Comment on above: Performed By: #### Lucie CRISTOBAL, 1743-2, 1920-03, 2344-7, 78285-3, 16814-6 #### [facility] ([id number]) [address], [address] [place] [address] Monocytes/100 WBC (Bld) 6.4 % Normal [facility] Comment on above: Performed By: #### Lucie CRISTOBAL, 1743-2, 1920-03, 2344-7, 88978-7, 52782-6 #### [facility] ([id number]) [address], [address] [place] [address] Neutrophils/100 WBC (Bld) 50.6 % Normal [facility] Comment on above: Performed By: #### Lucie CRISTOBAL, 1743-2, 1919-, 2344-7, 14948-0, 39735-3 #### [facility] ([id number]) [address], [address] [place] [address] Platelet mean volume (Bld) [Entitic vol] 9.3 fL Normal 7-12 [facility] Comment on above: Performed By: #### Lucie CRISTOBAL, 1743-2, 1920-03, 2345-7, 19096-9, #### [facility] ([id number]) [address], [address] [place] [address] Platelets (Bld) [#/Vol] 315 10*3/uL Normal 150-450 [facility] Comment on above: Performed By: #### Lucie CRISTOBAL, 1743-2, 1920-03, 7, 15579-5, 04868-4 #### [facility] ([id number]) [address] [place] [address] RBC COUNT 4.27 X10E12/L Normal 3.80-5.20 [facility] Comment on above: Performed By: #### Lucie CRISTOBAL, 1743-, 1920-03, 2345-02, 57352-2, #### [facility] ([id number]) [address], [address] [address] WBC (Bld) [#/Vol] 4.7 10*3/uL Normal 4.0-11.0 [facility] Comment on above: Performed By: #### Lucie CRISTOBAL, 1743-, 1920-03, 2345-02, 18329-5, #### [facility] ([id number]) [address] [place] [address] GLUCOSEon 04-02-2024 Glucose [Mass/Vol] 83 mg/dL Normal 65-99 [facility] Comment on above: Performed By: #### Lucie CRISTOBAL, 1743-2, 1920-03, 2345-02, 49134-0, 62041-0 #### [facility] ([id number]) [address] [place] [address] HCG.beta subunit IA 3rd IS Q non 04-02-2024 SERUM B HCG,3RD I.S. <5 Normal [facility] Comment on above: Result Comment: NEW REFERENCE [...] ###Clayton Faulkner BCA, , 1743-2, 1919-8, 2344-7, 62897-8 #### [facility] ([id number]) [address], [address] [place] [address] Lipid 1996 panelon 4 Cholesterol [Mass/Vol] 223 mg/dL High 150-200 [facility] Comment on above: Performed By: #Ritesh Faulkner BCA, , 1743-2, 8, 2344-7, 76045-9 #### [facility] ([id number]) [address] [place] [address] Cholesterol in HDL [Mass/Vol] 46 mg/dL Normal >39 [facility] Comment on above: Result Comment: HDL <40 mg/dL - High Risk HDL > or = 40mg/dL- Desirable HDL >60 mg/dL - Negative Risk Performed By: ##Norma Faulkner BCA, , 4-2, 1919-8, 2344-7, 91986-8 #### [facility] ([id number]) [address], [address] [address] Cholesterol in LDL [Mass/Vol] 148 mg/dL High <130 [facility] Comment on above: Result Comment: LDL <100 mg/dL - Desirable LDL >160 mg/dL - High Risk Performed By: #### Lucie CRISTOBAL, 82316-8, 4-2, 1919-8, 2344-7, 05431-6 #### [facility] ([id number]) [address] [address] Cholesterol in VLDL [Mass/Vol] 29 mg/dL Normal 0-30 [facility] Comment on above: Performed By: #### Lucie CRISTOBAL, 81131-3, 4-2, 1919-8, 2344-7, 58530-1 #### [facility] ([id number]) [address] [address] CHOLESTEROL:HDL 4.8 Normal 1.0-5.0 [facility] Comment on above: Performed By: #### Lucie CRISTOBAL, 77652-4, 4-2, 1919-8, 5-7, 34764-6 #### [facility] ([id number]) [address] [address] Triglyceride [Mass/Vol] 146 mg/dL Normal 27-150 [facility] Comment on above: Performed By: #### Lucie CRISTOBAL, 92646-2, 4-2, 1919-8, 2345-7, 72389-3 #### [facility] ([id number]) [address] [address] ALT No additional P-5'-P [Ca talytic activity/Vol]on 02-05-2024 ALT [Catalytic activity/Vol] 23 U/L Normal 0-31 [facility] Comment on above: Performed By: #### Lucie CRISTOBAL, 27865-7, 1743-2, 8, 2345-02, 29577-6 #### [facility] ([id number]) [address], [address] [place] [address] Mohsen 02-05-2024 AST [Catalytic activity/Vol] 21 U/L Normal 0-41 [facility] Comment on above: Performed By: #### Lucie CRISTOBAL, 03493-4, 1743-2, 1920-03, 2345-02, 69905-8 #### [facility] ([id number]) [address], [address] [place] [address] CBC AND AUTO DIFFon 02-05-20 24 ABSOLUTE BASOPHIL 0.0 X10E9/L Normal 0.0-0.2 [facility] Comment on above: Performed By: #### Lucie CRISTOBAL, 49537-7, 1743-2, 1920-03, 2345-02, 95838-4 #### [facility] ([id number]) [address], [address] [place] [address] ABSOLUTE NEUTROPHIL 3.2 X10E9/L Normal 1.5-6.6 [facility] Comment on above: Performed By: #### Lucie CRISTOBAL, 96887-2, 1743-2, 1920-03, 2345-02, 48551-9 #### [facility] ([id number]) [address], [address] [place] [address] Basophils/100 WBC (Bld) 0.6 % Normal [facility] Comment on above: Performed By: #### Lucie CRISTOBAL, 52617-0, 1743-2, 1920-03, 2345-02, 51598-3 #### [facility] ([id number]) [address], [address] [place] [address] Eosinophils (Bld) [#/Vol] 0.1 10*3/uL Normal 0.0-0.4 [facility] Comment on above: Performed By: #### Lucie CRISTOBAL, 21790-0, 4-2, 1919-8, 2344-7, 46916-6 #### [facility] ([id number]) [address], [address] [place] [address] Eosinophils/100 WBC (Bld) 1.6 % Normal [facility] Comment on above: Performed By: #### Lucie CRISTOBAL, 33809-8, 1743-2, 1919-8, 2344-, 53230-5 #### [facility] ([id number]) [address] [place] [address] Erythrocyte distribution width (RBC) [Ratio] 12.4 % Normal 11.5-15.0 [facility] Comment on above: Performed By: #### Lucie CRISTOBAL, 49149-1, 1743-2, 1919-, 2345-02, 19854-9 #### [facility] ([id number]) [address], [address] [place] [address] Hematocrit (Bld) [Volume fraction] 39.7 % Normal 35-47 [facility] Comment on above: Performed By: #### Lucie CRISTOBAL, 90787-6, 1743-2, 1919-8, 2344-, 93557-9 #### [facility] ([id number]) [address], [address] [place] [address] Hemoglobin (Bld) [Mass/Vol] 13.1 g/dL Normal 11.7-15.5 [facility] Comment on above: Performed By: #### Lucie CRISTOBAL, 07871-5, 1743-2, 1919-8, 2344-7, 60172-5 #### [facility] ([id number]) [address], [address] [place] [address] Lymphocytes (Bld) [#/Vol] 2.1 10*3/uL Normal 1.0-3.5 [facility] Comment on above: Performed By: #### Lucie CRISTOBAL, 69131-1, 1743-2, 1920-03, 2345-02, 26318-8 #### [facility] ([id number]) [address], [address] [place] [address] Lymphocytes/100 WBC (Bld) 35.6 % Normal [facility] Comment on above: Performed By: #### Lucie CRISTOBAL, 97300-5, 1743-2, 1920-03, 2345-02, 94697-1 #### [facility] ([id number]) [address] [place] [address] MCH (RBC) [Entitic mass] 30.1 pg Normal 27-34 [facility] Comment on above: Performed By: #### Lucie CRISTOBAL, 55824-8, 1743-, 1920-03, 2345-02, 99270-5 #### [facility] ([id number]) [address], [address] [place] [address] MCHC (RBC) [Mass/Vol] 32.9 g/dL Normal 32-36 [facility] Comment on above: Performed By: #### Lucie CRISTOBAL, , 1743-, 1920-03, 2345-02, 44700-7 #### [facility] ([id number]) [address], [address] [place] [address] MCV (RBC) [Entitic vol] 91 fL Normal 80-100 [facility] Comment on above: Performed By: #### Lucie CRISTOBAL, 70291-1, 1743-2, 1920-03, 2345-02, 52089-6 #### [facility] ([id number]) [address], [address] [place] [address] Monocytes (Bld) [#/Vol] 0.4 10*3/uL Normal 0-0.9 [facility] Comment on above: Performed By: #### Lucie CRISTOBAL, 68850-4, 4-2, 1919-8, 2344-7, 69741-0 #### [facility] ([id number]) [address], [address] [place] [address] Monocytes/100 WBC (Bld) 6.6 % Normal [facility] Comment on above: Performed By: #### Lucie CRISTOBAL, 26156-9, 1743-2, 1919-8, 2344-7, 12598-3 #### [facility] ([id number]) [address], [address] [place] [address] Neutrophils/100 WBC (Bld) 55.6 % Normal [facility] Comment on above: Performed By: #### Lucie CRISTOBAL, 68754-0, 1743-2, 8, 2344-7, 62023-8 #### [facility] ([id number]) [address], [address] [place] [address] Platelet mean volume (Bld) [Entitic vol] 9.5 fL Normal 7-12 [facility] Comment on above: Performed By: #### Lucie CRISTOBAL, 80243-6, 1743-2, 8, 7, 42806-3 #### [facility] ([id number]) [address], [address] [place] [address] Platelets (Bld) [#/Vol] 294 10*3/uL Normal 150-450 [facility] Comment on above: Performed By: #### Lucie CRISTOBAL, 52057-2, 1743-2, 1919-8, 2344-7, 20227-4 #### [facility] ([id number]) [address], [address] [place] [address] RBC COUNT 4.34 X10E12/L Normal 3.80-5.20 [facility] Comment on above: Performed By: #### Lucie CRISTOBAL, 19749-3, 1743-2, 1919-8, 2345-7, 57440-7 #### [facility] ([id number]) [address], [address] [place] [address] WBC (Bld) [#/Vol] 5.8 10*3/uL Normal 4.0-11.0 [facility] Comment on above: Performed By: #### C SUSU, 12558-6, 1743-2, 1920-03, 2345-02, 72144-7 #### [facility] ([id number]) [address] [place] [address] GLUCOSEon 02-05-2024 Glucose [Mass/Vol] 82 mg/dL Normal 65-99 [facility] Comment on above: Performed By: #### Lucie CRISTOBAL, , 1743-2, 1920-03, 2345-02, 39658-6 #### [facility] ([id number]) [address] [place] [address] HCG.beta subunit IA 3rd IS Q non 02-05-2024 SERUM B HCG,3RD I.S. <5 Normal [facility] Comment on above: Result Comment: NEW REFERENCE [...] nontrophoblastic neoplasms. Performed By: #### Lucie BCA, , 1743-2, 1920-03, 2345-02, 73372-8 #### [facility] ([id number]) [address], [address] [place] [address] Lipid 1996 panelon 4 Cholesterol [Mass/Vol] 188 mg/dL Normal 150-200 [facility] Comment on above: Performed By: ###Clayton Faulkner BCA, 46977-9, 4-2, 1919-8, 2344-, 69875-5 #### [facility] ([id number]) [address], [address] [place] [address] Cholesterol in HDL [Mass/Vol] 55 mg/dL Normal >39 [facility] Comment on above: Result Comment: HDL <40 mg/dL - High Risk HDL > or = 40mg/dL- Desirable HDL >60 mg/dL - Negative Risk Performed By: ###Clayton Faulkner BCA, , 1743-2, 1920-03, 7, 59280-4 #### [facility] ([id number]) [address] [place] [address] Cholesterol in LDL [Mass/Vol] 118 mg/dL Normal <130 [facility] Comment on above: Result Comment: LDL <100 mg/dL - Desirable LDL >160 mg/dL - High Risk Performed By: ###Clayton Faulkner BCA, 78732-1, 4-2, 1919-, 2345-02, 17333-3 #### [facility] ([id number]) [address] [place] [address] Cholesterol in VLDL [Mass/Vol] 15 mg/dL Normal 0-30 [facility] Comment on above: Performed By: #### Lucie BCA, 52281-4, 1744-2, 1920-8, 2345-7, 59021-8 #### [facility] ([id number]) [address], [address] [place] [address] CHOLESTEROL:HDL 3.4 Normal 1.0-5.0 [facility] Comment on above: Performed By: #### C BCA, 91894-4, 1744-2, 1920-8, 2345-7, 64268-9 #### [facility] ([id number]) [address] [place] [address] Triglyceride [Mass/Vol] 76 mg/dL Normal 27-150 [facility] Comment on above: Performed By: #### C BCA, 81932-7, 1744-2, 1920-8, 2345-7, 08301-4 #### [facility] ([id number]) [address] [place] [address] Covid-19 PCR (CVDTB)on 09-02 SARS-CoV-2 (COVID-19) RNA ALIA+probe Ql (Unsp spec) Not detected Normal NOT DETECTED [facility] Comment on above: Result Comment: This test is not yet approved or cleared by the [place] FDA. When there are no FDA-approved or cleared tests available, and other criteria are met, FDA can make tests available under an emergency access mechanism called an Emergency Use Authorization (EUA). The EUA for this test is supported by the [employer] of Health and Human Service's (HHS's) declaration [...] SARS-CoV-2. Performed By: #### C VDTBH #### [facility] [address] [place] [address] Dr. Deb Rutledge INFLUENZA A AND B AGon 09-29 [facility] SEE BELOW Normal [facility] Comment on above: Result Comment: Nega tive for Flu A protein angiten. Infection due to Flu A cannot be ruled out. Flu A angiten in the sample may be below the detection limit of the test. Performed By: #### I NFLUAB #### [facility] [address] [place] [address] Dr. [facility] Normal [facility] Comment on above: Result Comment: Nega tive for Flu B protein antigen. Infection due to Flu B cannot be ruled out. Flu B antigen in the sample may be below the detection limit of the test. Performed By: #### I NFLUAB #### [facility] [address] [place] [address] Dr. Deb Rutledge INFLUENZA A AG Negative Normal NEGATIVE SEE COMMENT [facility] Comment on above: Performed By: #### I NFLUAB #### [facility] [address] [place] [address] Dr. Deb Rutledge INFLUENZA B AG Negative Normal NEGATIVE SEE COMMENT [facility] Comment on above: Performed By: #### I NFLUAB #### [facility] [address] [place] [address] Dr. Deb Rutledge INSULINon 06-16-2022 Insulin 13.1 uIU/mL Normal 2.6-24.9 [facility] Comment on above: Performed By: #### I NSULIN ####[facility] [address] [address]Dr. Deb Rutledge CBC AUTO DIFFon 06-14-2022 BASO # 0.0 103/ul Normal 0.0-0.1 [facility] Comment on above: Performed By: #### C BC #### [facility] [address] [place] [address] Dr. Deb Rutledge Basophils/100 WBC (Bld) 0.2 % Normal 0.2-2.0 [facility] Comment on above: Performed By: #### C BC #### [facility] [address] [place] [address] Dr. Deb Rutledge EO # 0.1 103/ul Normal 0.0-0.7 [facility] Comment on above: Performed By: #### C BC #### [facility] [address] [place] [address] Dr. Deb Rutledge Eosinophils/100 WBC (Bld) 1.1 % Normal 0.9-7.0 [facility] Comment on above: Performed By: #### C BC #### [facility] [address] [place] [address] Dr. Deb Rutledge Erythrocyte distribution width (RBC) [Ratio] 11.7 % Normal 11.0-15.0 [facility] Comment on above: Performed By: #### C BC #### [facility] [address] [place] [address] Dr. Deb Rutledge Hematocrit (Bld) [Volume fraction] 40.5 % Normal 36.0-48.0 [facility] Comment on above: Performed By: #### C BC #### [facility] [address] [place] [address] Dr. Deb Rutledge Hemoglobin (Bld) [Mass/Vol] 13.0 g/dL Normal 12.0-16.0 [facility] Comment on above: Performed By: #### C BC #### [facility] [address] [place] [address] Dr. Deb Rutledge IG # 0.00 10e3/ul Normal 0.00-0.03 [facility] Comment on above: Performed By: #### C BC #### [facility] [address] [place] [address] Dr. Deb Rutledge IG % 0.0 % Normal 0.0-0.5 [facility] Comment on above: Performed By: #### C BC #### [facility] [address] [place] [address] Dr. Deb Rutledge LYMPH # 1.8 103/ul Normal 1.2-3.8 [facility] Comment on above: Performed By: #### C BC #### [facility] [address] [place] [address] Dr. Deb Rutledge Lymphocytes/100 WBC (Bld) 37.7 % Normal 20.5-60.0 [facility] Comment on above: Performed By: #### C BC #### [facility] [address] [place] [address] Dr. Deb Rutledge MANUAL DIFF REQ NO Normal [facility] Comment on above: Performed By: #### C BC #### [facility] [address] [place] [address] Dr. Deb Rutledge MCH (RBC) [Entitic mass] 30.7 pg Normal 26.7-34.0 [facility] Comment on above: Performed By: #### C BC #### [facility] [address] [place] [address] Dr. Deb Rutledge MCHC (RBC) [Mass/Vol] 32.1 g/dL Normal 29.9-35.2 [facility] Comment on above: Performed By: #### C BC #### [facility] [address] [place] [address] Dr. Deb Rutledge MCV (RBC) [Entitic vol] 95.7 fL Normal 81.0-99.0 [facility] Comment on above: Performed By: #### C BC #### [facility] [address] [place] [address] Dr. Deb Rutledge MONO # 0.3 103/ul Normal 0.3-0.8 [facility] Comment on above: Performed By: #### C BC #### [facility] [address] [place] [address] Dr. Deb Rutledge Monocytes/100 WBC (Bld) 5.8 % Normal 1.7-12.0 [facility] Comment on above: Performed By: #### C BC #### [facility] [address] [place] [address] Dr. Deb Rutledge NEUT # 2.6 103/ul Normal 1.4-6.5 [facility] Comment on above: Performed By: #### C BC #### [facility] [address] [address] [address] Deb Rutledge Neutrophils/100 WBC (Bld) 55.2 % Normal 43.0-75.0 [facility] Comment on above: Performed By: #### C BC #### [facility] [address] [address] [address] Deb Rutledge Platelet mean volume (Bld) [Entitic vol] 10.2 fL Normal 9.5-13.5 [facility] Comment on above: Performed By: #### C BC #### [facility] [address] [place] [address] Dr. Deb Rutledge PLT 286 103/ul Normal 150-450 [facility] Comment on above: Performed By: #### C BC #### [facility] [address] [place] [address] Dr. Deb Rutledge RBC 4.23 106/ul Normal 4.20-5.40 [facility] Comment on above: Performed By: #### C BC #### [facility] [address] [place] [address] Dr. Deb Rutledge WBC 4.7 103/ul Normal 4.0-11.0 [facility] Comment on above: Performed By: #### C BC #### [facility] [address] [place] [address] Dr. Deb Rutledge FREE THYROXINE INDEX T7on FTI 1.73 Normal 1.30-4.50 [facility] Comment on above: Performed By: #### L IPID, CMP, TSH, T7 #### [facility] [address] [place] [address] Dr. Deb Rutledge T3U 27.0 % Critically low 30.0-39.[address] [facility] Comment on above: Performed By: #### L IPID, CMP, TSH, T7 #### [facility] [address] [place] [address] Dr. Deb Rutledge T4 [Mass/Vol] 6.40 ug/dL Normal 4.80-13.90 [facility] Comment on above: Performed By: #### L IPID, CMP, TSH, T7 #### [facility] [address] [place], [place] [address] Dr. Deb Rutledge GLYCOHEMOGLOBIN A1Con 2021 ADA RECOMMENDATION SEE BELOW Normal [facility] Comment on above: Result Comment: ADA RECOMMENDED LIMIT 4.0 - 6.0 ADA THERAPEUTIC TARGET < 7.0 ACTION SUGGESTED > 7.0 Performed By: #### A 1C #### [facility] [id number] Deb Rutledge Glucose [Mass/Vol] 108 mg/dL Normal [facility] Comment on above: Performed By: #### A 1C #### [facility] [address] [address] [address] Deb Rutledge HbA1c (Bld) [Mass fraction] 5.4 % Normal 4.5-6.2 [facility] Comment on above: Performed By: #### A 1C #### [facility] [address] [address] [address] Deb Rutledge IRONon 06-14-2022 Iron [Mass/Vol] 79.0 ug/dL Normal 50.0-170.0 [facility] Comment on above: Performed By: #### I ERAN KELLEY ####[facility] [address] [place], [place] [address]PvDr. Deb Rutledge LIPID PROFILEon 06-14-2022 CHOL-HDL RATIO NORM SEE BELOW Normal [facility] Comment on above: Result Comment: 3.3 - 4.4 LOW RISK 4.4 - 7.1 AVERAGE RISK 7.1 - 11.0 MODERATE RISK >11.0 HIGH RISK Performed By: #### L IPID, CMP, TSH, T7 #### [facility] [id number] Deb Rutledge Cholesterol [Mass/Vol] 172 mg/dL Normal <=200 [facility] Comment on above: Performed By: #### L IPID, CMP, TSH, T7 #### [facility] [id number] Deb Rutledge Cholesterol in HDL [Mass/Vol] 68 mg/dL Critically high 40-60 [facility] Comment on above: Performed By: #### L IPID, CMP, TSH, T7 #### [facility] [address] [address] [address] Deb Rutledge Cholesterol in LDL [Mass/Vol] 96.4 mg/dL Normal [facility] Comment on above: Performed By: #### L IPID, CMP, TSH, T7 #### [facility] [address] [address] [address] Deb Rutledge Cholesterol.total/Ch olesterol in HDL [Mass ratio] 2.5 {ratio} Normal [facility] Comment on above: Performed By: #### L IPID, CMP, TSH, T7 #### [facility] [address] [address] [address] Deb Rutledge HDL NORMAL > or = 60 mg/dl - LO W CARDIOVASCULAR RISK <40 mg/dl - HIGH CARDIOVASCULAR RISK Normal [facility] Comment on above: Performed By: #### L IPID, CMP, TSH, T7 #### [facility] [address] [address] [address] Deb Rutledge LDL CALC NORMAL SEE BELOW Normal [facility] Comment on above: Result Comment: <100 mg/dl OPTIMAL 100 - 129 mg/dl NEAR OR ABOVE OPTIMAL 130 - 159 mg/dl BORDERLINE HIGH 160 - 189 mg/dl HIGH >190 mg/dl VERY HIGH Performed By: #### L IPID, CMP, TSH, T7 #### [facility] [address] [address] [address] Deb Rutledge Triglyceride [Mass/Vol] 38 mg/dL Normal <=150 [facility] Comment on above: Performed By: #### L IPID, CMP, TSH, T7 #### [facility] [address] [address] [address] Deb Rutledge VLDL CALC 7.6 mg/dL Normal [facility] Comment on above: Performed By: #### L IPID, CMP, TSH, T7 #### [facility] [address] [address] [address] Deb Rutledge PROF 14(COMP METB)on 10-15-2 022 Albumin [Mass/Vol] 3.8 g/dL Normal 3.4-5.0 [facility] Comment on above: Performed By: #### L IPID, CMP, TSH, T7 #### [facility] [address] [address] [address] Deb Rutledge Albumin/Globulin [Mass ratio] 1.2 {ratio} Normal [facility] Comment on above: Performed By: #### L IPID, CMP, TSH, T7 #### [facility] [address] [address] [address] Deb Rutledge ALP [Catalytic activity/Vol] 69 U/L Normal 46-116 [facility] Comment on above: Performed By: #### L IPID, CMP, TSH, T7 #### [facility] [address] [place] [address] Dr. Deb Rutledge ALT [Catalytic activity/Vol] 24 U/L Normal 14-59 [facility] Comment on above: Performed By: #### L IPID, CMP, TSH, T7 #### [facility] [address] [place] [address] Dr. Deb Rutledge Anion gap [Moles/Vol] 11.3 mmol/L Normal [facility] Comment on above: Performed By: #### L IPID, CMP, TSH, T7 #### [facility] [address] [place] [address] Dr. Deb Rutledge AST [Catalytic activity/Vol] 11 U/L Critically low 15-37 [facility] Comment on above: Performed By: #### L IPID, CMP, TSH, T7 #### [facility] [address] [place] [address] Dr. Deb Rutledge Bilirubin [Mass/Vol] 0.5 mg/dL Normal 0.2-1.0 [facility] Comment on above: Performed By: #### L IPID, CMP, TSH, T7 #### [facility] [address] [place] [address] Dr. Deb Rutledge Calcium [Mass/Vol] 8.7 mg/dL Normal 8.5-10.1 [facility] Comment on above: Performed By: #### L IPID, CMP, TSH, T7 #### [facility] [address] [address] [address] Deb Rutledge Chloride [Moles/Vol] 109 mmol/L Critically high 98-107 [facility] Comment on above: Performed By: #### L IPID, CMP, TSH, T7 #### [facility] [address] [place] [address] Dr. Deb Rutledge CO2 [Moles/Vol] 24.5 mmol/L Normal 21.0-32.0 [facility] Comment on above: Performed By: #### L IPID, CMP, TSH, T7 #### [facility] [address] [place] [address] Dr. Deb Rutledge Creatinine [Mass/Vol] 0.71 mg/dL Normal 0.55-1.02 [facility] Comment on above: Performed By: #### L IPID, CMP, TSH, T7 #### [facility] [address] [place] [address] Dr. Deb Rutledge EGFR-AF [place]IZ[place] >60 Normal >=60 [facility] Comment on above: Performed By: #### L IPID, CMP, TSH, T7 #### [facility] [address] [place] [address] Dr. Deb Rutledge EGFR-NON AF CITIZEN OF [place] >60 Normal >=60 [facility] Comment on above: Performed By: #### L IPID, CMP, TSH, T7 #### [facility] [address] [place] [address] Dr. Deb Rutledge Globulin (S) [Mass/Vol] 3.1 g/dL Normal [facility] Comment on above: Performed By: #### L IPID, CMP, TSH, T7 #### [facility] [address] [place] [address] Dr. Deb Rutledge Glucose [Mass/Vol] 81 mg/dL Normal 74-106 [facility] Comment on above: Performed By: #### L IPID, CMP, TSH, T7 #### [facility] [address] [place] [address] Dr. Deb Rutledge Potassium [Moles/Vol] 3.8 mmol/L Normal 3.5-5.1 [facility] Comment on above: Performed By: #### L IPID, CMP, TSH, T7 #### [facility] [address] [address] [address] Deb Rutledge Protein [Mass/Vol] 6.9 g/dL Normal 6.4-8.2 [facility] Comment on above: Performed By: #### L IPID, CMP, TSH, T7 #### [facility] [address] [place] [address] Dr. Deb Rutledge Sodium [Moles/Vol] 141 mmol/L Normal 136-145 [facility] Comment on above: Performed By: #### L IPID, CMP, TSH, T7 #### [facility] [address] [place] [address] Dr. Deb Rutledge Urea nitrogen [Mass/Vol] 15.0 mg/dL Normal 7.0-18.0 [facility] Comment on above: Performed By: #### L IPID, CMP, TSH, T7 #### [facility] [address] [place] [address] Dr. Deb Rutledge Urea nitrogen/Creatinine [Mass ratio] 21.1 mg/mg Normal [facility] Comment on above: Performed By: #### L IPID, CMP, TSH, T7 #### [facility] [address] [place] [address] Dr. Deb Rutledge TSHon 06-14-2022 TSH 1.420 uIU/mL Normal 0.358-3.740 [facility] Comment on above: Performed By: #### L IPID, CMP, TSH, T7 #### [facility] [address] [place] [address] Dr. Deb Rutledge VITAMIN D 25 OHon 06-14-2022 VIT D 25-OH 25.0 ng/mL Normal [facility] Comment on above: Performed By: #### I WARREN, VITAD #### [facility] [address] [place] [address] Dr. Deb Rutledge VIT D RANGES SEE BELOW Normal [facility] Comment on above: Result Comment: <20 ng/mL Vit D deficient 20 - <30 ng/mL Vit D insufficient 30 - 100 ng/mL Vit D sufficient >100 ng/mL Potential Toxicity Performed By: #### I WARREN VITAD #### [facility] [address] [place] [address] Dr. Deb Rutledge XR CHEST 2 Von [...] by: QUINN SOLIS Date: 2022-06-12 19:00 Normal [facility] Vital Signs Date Time Vital Sign Value Performing Clinician Faci lity 06-08-2023 18:19-0400 Body temperature 97.88 [degF] Asa Galeas PA [facility] 06-08-2023 18:19-0400 Diastolic blood pressure 78 mm[Hg] Asa Holmwitz PA [facility] 06-08-2023 18:19-0400 Heart rate 68 /min Asa Holmwitz PA [facility] 06-08-2023 18:19-0400 Respiratory rate 16 /min Asa Dolltz PA [facility] 06-08-2023 18:19-0400 SaO2% (BldA) [Mass fraction] 100 % Asa Galeas PA [facility] 06-08-2023 18:19-0400 Systolic blood pressure 106 mm[Hg] Asa LUZ [facility] Encounters Encounter Date Encounter Type Care Provider Facility Start: 06-20-2024 End: 06-20-2024 ambulatory Sky Olson MD Facility:[facility] Start: 06-13-2024 End: 06-13-2024 ambulatory Sky Olson MD Facility:[facility] Start: 05-23-2024 End: 05-23-2024 ambulatory Sky Olson MD Facility:[facility] Start: 04-02-2024 End: 04-02-2024 ambulatory [facility] Start: 02-05-2024 End: 02-05-2024 ambulatory [facility] Start: 06-08-2023 Asa LUZ [facility] Start: 09-29-2022 End: 09-29-[address] TIERA HDEZ Facility:[facility] Start: 06-18-2022 Encounter for genera l adult medical examination without abnormal findings DR TIERA HDEZ [facility] Start: 06-14-2022 End: 06-15-[address] TIERA HDEZ Facility:[facility] Start: 06-14-2022 End: 06-15-2022 Encounter for general adult medical examination without abnormal findings DR TIERA HDEZ Facility:[facility] Start: 06-12-2022 End: 06-13-[address] TIERA HDEZ Facility:[facility] Payers Date Payer Category Payer Unknown 2002 Unknown [id number] 2.16.84 [id number] 2002 Unknown [id number] 2.16.84 [id number] 2002 Unknown [id number] 2.16.84 [id number] 2002 Unknown [id number] 2.16.8 [id number] 2002 Unknown [id number] 2.16.8 [id number] 2002 Unknown [id number] 2.16. [id number] 2002 Unknown [id number] 2.16. [id number] 2002 Unknown [id number] 2.16. [id number] 1959 Unknown [id number] Instructions Note Date & Type Note Facility Instructions Strict FU precautions.Rest, fluids. FU with PCP within the week.RTC or go to the ED if symptoms worsen or new symptoms develop before FU.Call us to update us on status [facility] Summary Purpose Family History No Family History Records FoundNo Family History Records FoundNo Family History Records Found Advance Directives No Advanced Directives Records FoundNo Advanced Directives Records FoundNo Advanced Directives Records Found Additional Source Comments INFORMATION SOURCE (unrecogn ized section and content) DATE CREATED AUTHOR 10/01/2022 [facility] DATE CREATED AUTHOR AUTHOR'S ORGANIZ ATION 04/04/2024 [facility] DATE CREATED AUTHOR AUTHOR'S ORGANIZ ATION 06/29/2024 [facility] Reason for Visit (unrecogniz ed section and [...] BE BASED ON THE PRIMARY CLINICAL RECORDS. [facility] [employer] [facility]. provides no warranty or guarantee of the accuracy or completeness of information in this document.
[2024-07-11 08:48] LABS: HCG Qualitative NEGATIVE (NEGATIVE); Internal Control Within Normal Limits
[2024-07-11 08:50] VITALS: BP 104/74; PULSE 60; TEMP 36.2; O2SAT 96
[2024-07-11 09:34] VITALS: BP 124/72; PULSE 82; O2SAT 96
[2024-07-11 09:35] VITALS: BP 125/67; PULSE 83; O2SAT 97
--- NOTE | 2024-07-11 09:36 | W.PM.PROCNOT ---
Date of procedure: 07/11/24 Pre-op diagnosis: Pain due to lumbar stenosis with neurogenic claudication Post-op diagnosis: same as pre-op Procedure: Procedure: Bilateral L5-S1 transforaminal epidural steroid injection Medications: Bupivacaine 0.25% 2cc, lidocaine 2% 1cc, kenalog 80mg The patient was seen and examined in the preoperative holding area.? Informed consent was obtained and placed on the chart.? Patient was brought to the medical procedure unit and placed in the prone position where a timeout was completed verifying the correct patient, procedure site, position, and planned special equipment using sterile aseptic technique.? Under direct fluoroscopic visualization a 25-gauge Quincke tipped spinal needle was advanced at level left L5-S1 to the designated neural foramen where contrast dye was injected to show adequate spread.? There was no evidence of vascular or adverse uptake.? Epidural spread was appreciated.? The above-mentioned injectate was then placed in a 1.5 mL aliquot preceded by negative aspiration.? The needle was removed. The same procedure, at the same level, was completed on the opposite side. ? Patient was taken to the postprocedural recovery area and monitored for an appropriate length of time before found suitable for discharge in the accompaniment of a responsible adult. Anesthesia: Local Surgeon: Sky Olson Pathology: none sent Condition: stable Disposition: no change
[2024-07-11] MEDS: 0.9 % SODIUM CHLORIDE 10 ML SYRINGE - SALINE FLUSH INJ (09:38)
[2024-07-11] MEDS: LIDOCAINE HCL 2% 400 MG/20 ML MDV 3 ML INJ (09:38)
[2024-07-11] MEDS: BUPIVACAINE HCL 0.25% PF 25 MG/10 ML VIAL INJ (09:38)
[2024-07-11] MEDS: IOHEXOL 240 MG/ML - 10 ML VIAL 24 MG INJ (09:38)
[2024-07-11] MEDS: TRIAMCINOLONE ACETONIDE 40 MG/ML VIAL 80 MG INJ (09:39)
== END 2024-07-11 09:40 | disposition home or self-care (01) ==
LOC: SURGOUT 08:25
PROVIDERS: PCP Family Medicine; Visit Provider Anesthesiology
DX: M48.062 Spinal stenosis, lumbar region with neurogenic claudication (principal)
CPT/HCPCS: 36415; 64483; 84703; J0665; J3301; Q9966

== ENCOUNTER 2024-07-18 11:21 | Outpatient (OUT) | payer BC, SELFPAY ==
--- OUTSIDE RECORDS SUMMARY | 2024-07-18 11:27 | XMS_ITS | CCD ---
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 Role Phone LEMUEL, DR MOTT Consulting [...] ALT [Catalytic activity/Vol] 18 U/L Normal 0-31 [facility] Comment on above: Performed By: #### Lucie CRISTOBAL, 4-2, 1919-8, 2344-7, 87825-3, 85582-4 #### [facility] ([id number]) [address], [address] [place] [address] Mohsen 04-02-2024 AST [Catalytic activity/Vol] 17 U/L Normal 0-41 [facility] Comment on above: Performed By: #### Lucie CRISTOBAL, 1744-2, 1919-8, 2345-7, 69337-8, 38510-9 #### [facility] ([id number]) [address], [address] [place] [address] CBC AND AUTO DIFFon 04-02-20 24 ABSOLUTE BASOPHIL 0.0 X10E9/L Normal 0.0-0.2 [facility] Comment on above: Performed By: #### Lucie CRISTOBAL, 1744-2, 1919-8, 2345-7, 03296-4, 95666-7 #### [facility] ([id number]) [address], [address] [place] [address] ABSOLUTE NEUTROPHIL 2.4 X10E9/L Normal 1.5-6.6 [facility] Comment on above: Performed By: #### Lucie CRISTOBAL, 4-2, 1919-8, 2344-7, 17701-3, 18022-2 #### [facility] ([id number]) [address], [address] [place] [address] Basophils/100 WBC (Bld) 0.4 % Normal [facility] Comment on above: Performed By: #### Lucie CRISTOBAL, 4-2, 1919-8, 2344-7, 79423-8, 23121-5 #### [facility] ([id number]) [address], [address] [place] [address] Eosinophils (Bld) [#/Vol] 0.1 10*3/uL Normal 0.0-0.4 [facility] Comment on above: Performed By: #### Lucie CRISTOBAL, 1743-2, 1920-03, 7, 71268-8, 59976-0 #### [facility] ([id number]) [address], [address] [place] [address] Eosinophils/100 WBC (Bld) 1.2 % Normal [facility] Comment on above: Performed By: #### Lucie CRISTOBAL, 1743-2, 1919-, 2344-7, 79293-6, 43548-8 #### [facility] ([id number]) [address], [address] [place] [address] Erythrocyte distribution width (RBC) [Ratio] 12.9 % Normal 11.5-15.0 [facility] Comment on above: Performed By: #### Lucie CRISTOBAL, 4-2, 1919-, 2344-7, 18157-7, 16032-1 #### [facility] ([id number]) [address], [address] [place] [address] Hematocrit (Bld) [Volume fraction] 38.4 % Normal 35-47 [facility] Comment on above: Performed By: #### Lucie CRISTOBAL, 1744-2, 1919-8, 2345-7, 14153-4, 65886-1 #### [facility] ([id number]) [address], [address] [place] [address] Hemoglobin (Bld) [Mass/Vol] 12.7 g/dL Normal 11.7-15.5 [facility] Comment on above: Performed By: #### Lucie CRISTOBAL, 1744-2, 1919-8, 2344-7, 61732-6, 57863-6 #### [facility] ([id number]) [address], [address] [place] [address] Lymphocytes (Bld) [#/Vol] 2.0 10*3/uL Normal 1.0-3.5 [facility] Comment on above: Performed By: #### Lucie CRISTOBAL, 4-2, 1919-8, 2344-7, 43206-9, 98982-8 #### [facility] ([id number]) [address], [address] [place] [address] Lymphocytes/100 WBC (Bld) 41.4 % Normal [facility] Comment on above: Performed By: #### Lucie CRISTOBAL, 4-2, 1919-8, 2344-7, 72525-7, 08980-7 #### [facility] ([id number]) [address], [address] [place] [address] MCH (RBC) [Entitic mass] 29.6 pg Normal 27-34 [facility] Comment on above: Performed By: #### Lucie CRISTOBAL, 1744-2, 1919-8, 2344-7, 43824-1, 59512-1 #### [facility] ([id number]) [address], [address] [place] [address] MCHC (RBC) [Mass/Vol] 33.0 g/dL Normal 32-36 [facility] Comment on above: Performed By: #### Lucie CRISTOBAL, 4-2, 1919-8, 2344-7, 10446-6, 98585-9 #### [facility] ([id number]) [address], [address] [place] [address] MCV (RBC) [Entitic vol] 90 fL Normal 80-100 [facility] Comment on above: Performed By: #### Lucie CRISTOBAL, 1743-2, 1919-, 2344-7, 96369-9, 23357-0 #### [facility] ([id number]) [address], [address] [place] [address] Monocytes (Bld) [#/Vol] 0.3 10*3/uL Normal 0-0.9 [facility] Comment on above: Performed By: #### Lucie CRISTOBAL, 1743-2, 1920-03, 2344-7, 49131-2, 94110-2 #### [facility] ([id number]) [address], [address] [place] [address] Monocytes/100 WBC (Bld) 6.4 % Normal [facility] Comment on above: Performed By: #### Lucie CRISTOBAL, 1743-2, 1920-03, 2344-7, 97395-8, 93603-7 #### [facility] ([id number]) [address], [address] [place] [address] Neutrophils/100 WBC (Bld) 50.6 % Normal [facility] Comment on above: Performed By: #### Lucie CRISTOBAL, 1743-2, 1919-, 2344-7, 56626-3, 73329-4 #### [facility] ([id number]) [address], [address] [place] [address] Platelet mean volume (Bld) [Entitic vol] 9.3 fL Normal 7-12 [facility] Comment on above: Performed By: #### Lucie CRISTOBAL, 1743-2, 1920-03, 2345-7, 31237-1, #### [facility] ([id number]) [address], [address] [place] [address] Platelets (Bld) [#/Vol] 315 10*3/uL Normal 150-450 [facility] Comment on above: Performed By: #### Lucie CRISTOBAL, 1743-2, 1920-03, 7, 08272-0, 76946-9 #### [facility] ([id number]) [address] [place] [address] RBC COUNT 4.27 X10E12/L Normal 3.80-5.20 [facility] Comment on above: Performed By: #### Lucie CRISTOBAL, 1743-, 1920-03, 2345-02, 54764-5, #### [facility] ([id number]) [address], [address] [address] WBC (Bld) [#/Vol] 4.7 10*3/uL Normal 4.0-11.0 [facility] Comment on above: Performed By: #### Lucie CRISTOBAL, 1743-, 1920-03, 2345-02, 24026-2, #### [facility] ([id number]) [address], [address] [place] [address] GLUCOSEon 04-02-2024 Glucose [Mass/Vol] 83 mg/dL Normal 65-99 [facility] Comment on above: Performed By: #### Lucie CRISTOBAL, 1743-2, 1920-03, 2345-02, 88325-1, 35277-4 #### [facility] ([id number]) [address] [place] [address] HCG.beta subunit IA 3rd IS Q non 04-02-2024 SERUM B HCG,3RD I.S. <5 Normal [facility] Comment on above: Result Comment: NEW [...] ###Clayton Faulkner BCA, , 1743-2, 1919-8, 2344-7, 92069-9 #### [facility] ([id number]) [address] [address] [facility] [facility] [address], [address] [place] [address] Lipid 1996 panelon 4 Cholesterol [Mass/Vol] 223 mg/dL High 150-200 [facility] Comment on above: Performed By: #Ritesh Faulkner BCA, , 1743-2, 8, 2344-7, 88544-9 #### [facility] ([id number]) [address], [address] [place] [address] Cholesterol in HDL [Mass/Vol] 46 mg/dL Normal >39 [facility] Comment on above: Result Comment: HDL <40 mg/dL - High Risk HDL > or = 40mg/dL- Desirable HDL >60 mg/dL - Negative Risk Performed By: ##Norma Faulkner BCA, , 4-2, 1919-8, 2344-7, 22337-5 #### [facility] ([id number]) [address], [address] [address] Cholesterol in LDL [Mass/Vol] 148 mg/dL High <130 [facility] Comment on above: Result Comment: LDL <100 mg/dL - Desirable LDL >160 mg/dL - High Risk Performed By: #### Lucie CRISTOBAL, 11380-8, 4-2, 1919-8, 2344-7, 38139-7 #### [facility] ([id number]) [address] [address] Cholesterol in VLDL [Mass/Vol] 29 mg/dL Normal 0-30 [facility] Comment on above: Performed By: #### Lucie CRISTOBAL, 11545-0, 4-2, 1919-8, 2344-7, 49551-3 #### [facility] ([id number]) [address] [address] CHOLESTEROL:HDL 4.8 Normal 1.0-5.0 [facility] Comment on above: Performed By: #### Lucie CRISTOBAL, 89654-6, 4-2, 1919-8, 5-7, 86060-1 #### [facility] ([id number]) [address] [address] Triglyceride [Mass/Vol] 146 mg/dL Normal 27-150 [facility] Comment on above: Performed By: #### Lucie CRISTOBAL, 13307-2, 4-2, 1919-8, 2345-7, 78974-0 #### [facility] ([id number]) [address] [address] ALT No additional P-5'-P [Ca talytic activity/Vol]on 02-05-2024 ALT [Catalytic activity/Vol] 23 U/L Normal 0-31 [facility] Comment on above: Performed By: #### Lucie CRISTOBAL, 13555-9, 1743-2, 8, 2345-02, 25633-8 #### [facility] ([id number]) [address], [address] [place] [address] Mohsen 02-05-2024 AST [Catalytic activity/Vol] 21 U/L Normal 0-41 [facility] Comment on above: Performed By: #### Lucie CRISTOBAL, 41246-0, 1743-2, 1920-03, 2345-02, 58038-7 #### [facility] ([id number]) [address], [address] [place] [address] CBC AND AUTO DIFFon 02-05-20 24 ABSOLUTE BASOPHIL 0.0 X10E9/L Normal 0.0-0.2 [facility] Comment on above: Performed By: #### Lucie RCISTOBAL, 00008-8, 1743-2, 1920-03, 2345-02, 20628-4 #### [facility] ([id number]) [address], [address] [place] [address] ABSOLUTE NEUTROPHIL 3.2 X10E9/L Normal 1.5-6.6 [facility] Comment on above: Performed By: #### Lucie CRISTOBAL, 02536-3, 1743-2, 1920-03, 2345-02, 27234-2 #### [facility] ([id number]) [address], [address] [place] [address] Basophils/100 WBC (Bld) 0.6 % Normal [facility] Comment on above: Performed By: #### Lucie CRISTOBAL, 26076-7, 1743-2, 1920-03, 2345-02, 11571-2 #### [facility] ([id number]) [address], [address] [place] [address] Eosinophils (Bld) [#/Vol] 0.1 10*3/uL Normal 0.0-0.4 [facility] Comment on above: Performed By: #### Lucie CRISTOBAL, 05105-5, 4-2, 1919-8, 2344-7, 49489-5 #### [facility] ([id number]) [address], [address] [place] [address] Eosinophils/100 WBC (Bld) 1.6 % Normal [facility] Comment on above: Performed By: #### Lucie CRISTOBAL, 58889-0, 1743-2, 1919-8, 2344-, 94545-1 #### [facility] ([id number]) [address] [place] [address] Erythrocyte distribution width (RBC) [Ratio] 12.4 % Normal 11.5-15.0 [facility] Comment on above: Performed By: #### Lucie CRISTOBAL, 97105-9, 1743-2, 1919-, 2345-02, 17825-1 #### [facility] ([id number]) [address], [address] [place] [address] Hematocrit (Bld) [Volume fraction] 39.7 % Normal 35-47 [facility] Comment on above: Performed By: #### Lucie CRISTOBAL, 77234-2, 1743-2, 1919-8, 2344-, 57744-0 #### [facility] ([id number]) [address], [address] [place] [address] Hemoglobin (Bld) [Mass/Vol] 13.1 g/dL Normal 11.7-15.5 [facility] Comment on above: Performed By: #### Lucie CRISTOBAL, 91493-1, 1743-2, 1919-8, 2344-7, 39392-4 #### [facility] ([id number]) [address], [address] [place] [address] Lymphocytes (Bld) [#/Vol] 2.1 10*3/uL Normal 1.0-3.5 [facility] Comment on above: Performed By: #### Lucie CRISTOBAL, 94363-7, 1743-2, 1920-03, 2345-02, 34468-8 #### [facility] ([id number]) [address], [address] [place] [address] Lymphocytes/100 WBC (Bld) 35.6 % Normal [facility] Comment on above: Performed By: #### Lucie CRISTOBAL, 01557-2, 1743-2, 1920-03, 2345-02, 90865-5 #### [facility] ([id number]) [address] [place] [address] MCH (RBC) [Entitic mass] 30.1 pg Normal 27-34 [facility] Comment on above: Performed By: #### Lucie CRISTOBAL, 60025-7, 1743-, 1920-03, 2345-02, 42586-7 #### [facility] ([id number]) [address], [address] [place] [address] MCHC (RBC) [Mass/Vol] 32.9 g/dL Normal 32-36 [facility] Comment on above: Performed By: #### Lucie CRISTOBAL, , 1743-, 1920-03, 2345-02, 50826-6 #### [facility] ([id number]) [address], [address] [place] [address] MCV (RBC) [Entitic vol] 91 fL Normal 80-100 [facility] Comment on above: Performed By: #### Lucie CRISTOBAL, 71853-8, 1743-2, 1920-03, 2345-02, 77174-3 #### [facility] ([id number]) [address], [address] [place] [address] Monocytes (Bld) [#/Vol] 0.4 10*3/uL Normal 0-0.9 [facility] Comment on above: Performed By: #### Lucie CRISTOBAL, 09461-1, 4-2, 1919-8, 2344-7, 28257-0 #### [facility] ([id number]) [address], [address] [place] [address] Monocytes/100 WBC (Bld) 6.6 % Normal [facility] Comment on above: Performed By: #### Lucie CRISTOBAL, 16433-9, 1743-2, 1919-8, 2344-7, 49118-5 #### [facility] ([id number]) [address], [address] [place] [address] Neutrophils/100 WBC (Bld) 55.6 % Normal [facility] Comment on above: Performed By: #### Lucie CRISTOBAL, 51063-2, 1743-2, 8, 2344-7, 36510-5 #### [facility] ([id number]) [address], [address] [place] [address] Platelet mean volume (Bld) [Entitic vol] 9.5 fL Normal 7-12 [facility] Comment on above: Performed By: #### Lucie CRISTOBAL, 72328-9, 1743-2, 8, 7, 89665-3 #### [facility] ([id number]) [address], [address] [place] [address] Platelets (Bld) [#/Vol] 294 10*3/uL Normal 150-450 [facility] Comment on above: Performed By: #### Lucie CRISTOBAL, 50528-3, 1743-2, 1919-8, 2344-7, 10390-8 #### [facility] ([id number]) [address], [address] [place] [address] RBC COUNT 4.34 X10E12/L Normal 3.80-5.20 [facility] Comment on above: Performed By: #### Lucie CRISTOBAL, 75070-2, 1743-2, 1919-8, 2345-7, 88962-2 #### [facility] ([id number]) [address], [address] [place] [address] WBC (Bld) [#/Vol] 5.8 10*3/uL Normal 4.0-11.0 [facility] Comment on above: Performed By: #### C SUSU, 99899-6, 1743-2, 1920-03, 2345-02, 12378-7 #### [facility] ([id number]) [address] [place] [address] GLUCOSEon 02-05-2024 Glucose [Mass/Vol] 82 mg/dL Normal 65-99 [facility] Comment on above: Performed By: #### Lucie CRISTOBAL, , 1743-2, 1920-03, 2345-02, 23037-9 #### [facility] ([id number]) [address] [address], [address] [place] [address] HCG.beta subunit IA 3rd IS Q non 02-05-2024 SERUM B HCG,3RD I.S. <5 Normal [facility] Comment on above: Result Comment: NEW [...] #### Lucie BCA, , 1743-2, 1920-03, 2345-02, 04183-8 #### [facility] ([id number]) [address], [address] [place] [address] Lipid 1996 panelon 4 Cholesterol [Mass/Vol] 188 mg/dL Normal 150-200 [facility] Comment on above: Performed By: ###Clayton Faulkner BCA, 40753-4, 4-2, 1919-8, 2344-, 52318-8 #### [facility] ([id number]) [address], [address] [place] [address] Cholesterol in HDL [Mass/Vol] 55 mg/dL Normal >39 [facility] Comment on above: Result Comment: HDL <40 mg/dL - High Risk HDL > or = 40mg/dL- Desirable HDL >60 mg/dL - Negative Risk Performed By: ###Clayton Faulkner BCA, , 1743-2, 1920-03, 7, 13699-9 #### [facility] ([id number]) [address], [address] [place] [address] Cholesterol in LDL [Mass/Vol] 118 mg/dL Normal <130 [facility] Comment on above: Result Comment: LDL <100 mg/dL - Desirable LDL >160 mg/dL - High Risk Performed By: ###Clayton Faulkner BCA, 72333-6, 4-2, 1919-, 2345-02, 06331-1 #### [facility] ([id number]) [address], [address] [place] [address] Cholesterol in VLDL [Mass/Vol] 15 mg/dL Normal 0-30 [facility] Comment on above: Performed By: #### Lucie BCA, 91339-9, 1744-2, 1920-8, 2345-7, 31110-8 #### [facility] ([id number]) [address], [address] [place] [address] CHOLESTEROL:HDL 3.4 Normal 1.0-5.0 [facility] Comment on above: Performed By: #### C BCA, 24368-8, 1744-2, 1920-8, 2345-7, 84765-0 #### [facility] ([id number]) [address] [address] [place] [address] Triglyceride [Mass/Vol] 76 mg/dL Normal 27-150 [facility] Comment on above: Performed By: #### C BCA, 18573-0, 1744-2, 1920-8, 2345-7, 82051-8 #### [facility] ([id number]) [address] [place] [address] Covid-19 PCR (CVDTB)on 09-02 SARS-CoV-2 (COVID-19) RNA ALIA+probe Ql (Unsp spec) Not detected Normal NOT DETECTED [facility] Comment on above: Result Comment: This test is not yet approved or cleared by the [place] FDA. When there are no FDA-approved or cleared tests available, and other criteria are met, FDA can make tests available under an emergency access mechanism called an Emergency Use Authorization (EUA). The EUA for this test is supported by the Career Information Specialist of Health and Human Service's (HHS's) declaration [...] SARS-CoV-2. Performed By: #### C VDTBH #### [facility] [address] [place] [address] Dr. Deb Rutledge INFLUENZA A AND B AGon 09-29 [facility] SEE BELOW Normal [facility] Comment on above: Result Comment: Nega tive for Flu A protein angiten. Infection due to Flu A cannot be ruled out. Flu A angiten in the sample may be below the detection limit of the test. Performed By: #### I NFLUAB #### [facility] [address] [place] [address] Dr. Deb Rut[facility] Normal [facility] Comment on above: Result Comment: Nega tive for Flu B protein antigen. Infection due to Flu B cannot be ruled out. Flu B antigen in the sample may be below the detection limit of the test. Performed By: #### I NFLUAB #### [facility] [address] [place] [address] Dr. Deb Rutledge INFLUENZA A AG Negative Normal NEGATIVE SEE COMMENT [facility] Comment on above: Performed By: #### I NFLUAB #### [facility] [address] [place] [address] Dr. Deb Rutledge INFLUENZA B AG Negative Normal NEGATIVE SEE COMMENT [facility] Comment on above: Performed By: #### I NFLUAB #### [facility] [address] [place] [address] Dr. Deb Rutledge INSULINon 06-16-2022 Insulin 13.1 uIU/mL Normal 2.6-24.9 [facility] Comment on above: Performed By: #### I NSULIN ####[facility] [id number] [place] [address]Dr. Deb Rutledge CBC AUTO DIFFon 06-14-2022 BASO # 0.0 103/ul Normal 0.0-0.1 [facility] Comment on above: Performed By: #### C BC #### [facility] [address] [place] [address] Dr. Deb Rutledge Basophils/100 WBC (Bld) 0.2 % Normal 0.2-2.0 [facility] Comment on above: Performed By: #### C BC #### [facility] [address] [place] [address] Dr. Deb Rutledge EO # 0.1 103/ul Normal 0.0-0.7 [facility] Comment on above: Performed By: #### C BC #### [facility] [address] [place] [address] Dr. Deb Rutledge Eosinophils/100 WBC (Bld) 1.1 % Normal 0.9-7.0 [facility] Comment on above: Performed By: #### C BC #### [facility] [address] [place] [address] Dr. Deb Rutledge Erythrocyte distribution width (RBC) [Ratio] 11.7 % Normal 11.0-15.0 [facility] Comment on above: Performed By: #### C BC #### [facility] [address] [place] [address] Dr. Deb Rutledge Hematocrit (Bld) [Volume fraction] 40.5 % Normal 36.0-48.0 [facility] Comment on above: Performed By: #### C BC #### [facility] [address] [place] [address] Dr. Deb Rutledge Hemoglobin (Bld) [Mass/Vol] 13.0 g/dL Normal 12.0-16.0 [facility] Comment on above: Performed By: #### C BC #### [facility] [address] [place] [address] Dr. Deb Rutledge IG # 0.00 10e3/ul Normal 0.00-0.03 [facility] Comment on above: Performed By: #### C BC #### [facility] [address] [place] [address] Dr. Deb Rutledge IG % 0.0 % Normal 0.0-0.5 [facility] Comment on above: Performed By: #### C BC #### [facility] [address] [place] [address] Dr. Deb Rutledge LYMPH # 1.8 103/ul Normal 1.2-3.8 [facility] Comment on above: Performed By: #### C BC #### [facility] [address] [place] [address] Dr. Deb Rutledge Lymphocytes/100 WBC (Bld) 37.7 % Normal 20.5-60.0 [facility] Comment on above: Performed By: #### C BC #### [facility] [address] [place] [address] Dr. Deb Rutledge MANUAL DIFF REQ NO Normal [facility] Comment on above: Performed By: #### C BC #### [facility] [address] [place] [address] Dr. Deb Rutledge MCH (RBC) [Entitic mass] 30.7 pg Normal 26.7-34.0 [facility] Comment on above: Performed By: #### C BC #### [facility] [address] [place] [address] Dr. Deb Rutledge MCHC (RBC) [Mass/Vol] 32.1 g/dL Normal 29.9-35.2 [facility] Comment on above: Performed By: #### C BC #### [facility] [address] [place] [address] Dr. Deb Rutledge MCV (RBC) [Entitic vol] 95.7 fL Normal 81.0-99.0 [facility] Comment on above: Performed By: #### C BC #### [facility] [address] [place] [address] Dr. Deb Rutledge MONO # 0.3 103/ul Normal 0.3-0.8 [facility] Comment on above: Performed By: #### C BC #### [facility] [address] [place] [address] Dr. Deb Rutledge Monocytes/100 WBC (Bld) 5.8 % Normal 1.7-12.0 [facility] Comment on above: Performed By: #### C BC #### [facility] [address] [place] [address] Dr. Deb Rutledge NEUT # 2.6 103/ul Normal 1.4-6.5 [facility] Comment on above: Performed By: #### C BC #### [facility] [address] [address] [address] Deb Rutledge Neutrophils/100 WBC (Bld) 55.2 % Normal 43.0-75.0 [facility] Comment on above: Performed By: #### C BC #### [facility] [address] [address] [address] Deb Rutledge Platelet mean volume (Bld) [Entitic vol] 10.2 fL Normal 9.5-13.5 [facility] Comment on above: Performed By: #### C BC #### [facility] [address] [place] [address] Dr. Deb Rutledge PLT 286 103/ul Normal 150-450 [facility] Center Comment on above: Performed By: #### C BC #### [facility] [address] [place] [address] Dr. Deb Rutledge RBC 4.23 106/ul Normal 4.20-5.40 [facility] Comment on above: Performed By: #### C BC #### [facility] [address] [place] [address] Dr. Deb Rutledge WBC 4.7 103/ul Normal 4.0-11.0 [facility] Comment on above: Performed By: #### C BC #### [facility] [address] [place] [address] Dr. Deb Rutledge FREE THYROXINE INDEX T7on FTI 1.73 Normal 1.30-4.50 [facility] Comment on above: Performed By: #### L IPID, CMP, TSH, T7 #### [facility] [address] [place] [address] Dr. Deb uRtledge T3U 27.0 % Critically low 30.0-39.[address] [facility] Comment on above: Performed By: #### L IPID, CMP, TSH, T7 #### [facility] [address] [place] [address] Dr. Deb Rutledge T4 [Mass/Vol] 6.40 ug/dL Normal 4.80-13.90 [facility] Comment on above: Performed By: #### L IPID, CMP, TSH, T7 #### [facility] [address] [place], [place] [address] Dr. Deb Rutledge GLYCOHEMOGLOBIN A1Con 2021 ADA RECOMMENDATION SEE BELOW Normal [facility] Comment on above: Result Comment: ADA RECOMMENDED LIMIT 4.0 - 6.0 ADA THERAPEUTIC TARGET < 7.0 ACTION SUGGESTED > 7.0 Performed By: #### A 1C #### [facility] [address] [place] [id number] [address] Deb Rutledge Glucose [Mass/Vol] 108 mg/dL Normal [facility] Comment on above: Performed By: #### A 1C #### [facility] [address] [place] [address] [address] Deb Rutledge HbA1c (Bld) [Mass fraction] 5.4 % Normal 4.5-6.2 [facility] Comment on above: Performed By: #### A 1C #### [facility] [address] [place] [address] [address] Deb Rutledge IRONon 06-14-2022 Iron [Mass/Vol] 79.0 ug/dL Normal 50.0-170.0 [facility] Comment on above: Performed By: #### I ERAN KELLEY ####[facility] [id number] [place], [place] [address]BhDr. Deb Rutledge LIPID PROFILEon 06-14-2022 CHOL-HDL RATIO NORM SEE BELOW Normal [facility] [place] Comment on above: Result Comment: 3.3 - 4.4 LOW RISK 4.4 - 7.1 AVERAGE RISK 7.1 - 11.0 MODERATE RISK >11.0 HIGH RISK Performed By: #### L IPID, CMP, TSH, T7 #### [facility] [id number] [address] Deb Rutledge Cholesterol [Mass/Vol] 172 mg/dL Normal <=200 [facility] Comment on above: Performed By: #### L IPID, CMP, TSH, T7 #### [facility] [id number] [address] Deb Rutledge Cholesterol in HDL [Mass/Vol] 68 mg/dL Critically high 40-60 [facility] Comment on above: Performed By: #### L IPID, CMP, TSH, T7 #### [facility] [address] [address] [address] Deb Rutledge Cholesterol in LDL [Mass/Vol] 96.4 mg/dL Normal [facility] Comment on above: Performed By: #### L IPID, CMP, TSH, T7 #### [facility] [address] [place] [address] [address] Deb Rutledge Cholesterol.total/Ch olesterol in HDL [Mass ratio] 2.5 {ratio} Normal [facility] Comment on above: Performed By: #### L IPID, CMP, TSH, T7 #### [facility] [address] [address] [address] Deb Rutledge HDL NORMAL > or = 60 mg/dl - LO W CARDIOVASCULAR RISK <40 mg/dl - HIGH CARDIOVASCULAR RISK Normal [facility] Comment on above: Performed By: #### L IPID, CMP, TSH, T7 #### [facility] [address] [place] [address] [address] Deb Rutledge LDL CALC NORMAL SEE BELOW Normal [facility] Comment on above: Result Comment: <100 mg/dl OPTIMAL 100 - 129 mg/dl NEAR OR ABOVE OPTIMAL 130 - 159 mg/dl BORDERLINE HIGH 160 - 189 mg/dl HIGH >190 mg/dl VERY HIGH Performed By: #### L IPID, CMP, TSH, T7 #### [facility] [address] [place] [address] [address] Deb Rutledge Triglyceride [Mass/Vol] 38 mg/dL Normal <=150 [facility] Comment on above: Performed By: #### L IPID, CMP, TSH, T7 #### [facility] [address] [place] [address] [address] Deb Rutledge VLDL CALC 7.6 mg/dL Normal [facility] Comment on above: Performed By: #### L IPID, CMP, TSH, T7 #### [facility] [address] [place] [address] [address] Deb Rutledge PROF 14(COMP METB)on 10-15-2 022 Albumin [Mass/Vol] 3.8 g/dL Normal 3.4-5.0 [facility] Comment on above: Performed By: #### L IPID, CMP, TSH, T7 #### [facility] [address] [address] [address] Deb Rutledge Albumin/Globulin [Mass ratio] 1.2 {ratio} Normal [facility] Comment on above: Performed By: #### L IPID, CMP, TSH, T7 #### [facility] [address] [place] [address] [address] Deb Rutledge ALP [Catalytic activity/Vol] 69 U/L Normal 46-116 [facility] Comment on above: Performed By: #### L IPID, CMP, TSH, T7 #### [facility] [address] [place] [address] Dr. Deb Rutledge ALT [Catalytic activity/Vol] 24 U/L Normal 14-59 [facility] Comment on above: Performed By: #### L IPID, CMP, TSH, T7 #### [facility] [address] [place] [address] Dr. Deb Rutledge Anion gap [Moles/Vol] 11.3 mmol/L Normal [facility] Comment on above: Performed By: #### L IPID, CMP, TSH, T7 #### [facility] [address] [place] [address] Dr. Deb Rutledge AST [Catalytic activity/Vol] 11 U/L Critically low 15-37 [facility] Comment on above: Performed By: #### L IPID, CMP, TSH, T7 #### [facility] [address] [place] [address] Dr. Deb Rutledge Bilirubin [Mass/Vol] 0.5 mg/dL Normal 0.2-1.0 [facility] Comment on above: Performed By: #### L IPID, CMP, TSH, T7 #### [facility] [address] [place] [address] Dr. Deb Rutledge Calcium [Mass/Vol] 8.7 mg/dL Normal 8.5-10.1 [facility] Comment on above: Performed By: #### L IPID, CMP, TSH, T7 #### [facility] [address] [address] [address] Deb Rutledge Chloride [Moles/Vol] 109 mmol/L Critically high 98-107 [facility] Comment on above: Performed By: #### L IPID, CMP, TSH, T7 #### [facility] [address] [place] [address] Dr. Deb Rutledge CO2 [Moles/Vol] 24.5 mmol/L Normal 21.0-32.0 [facility] Comment on above: Performed By: #### L IPID, CMP, TSH, T7 #### [facility] [address] [place] [address] Dr. Deb Rutledge Creatinine [Mass/Vol] 0.71 mg/dL Normal 0.55-1.02 [facility] Comment on above: Performed By: #### L IPID, CMP, TSH, T7 #### [facility] [address] [place] [address] Dr. Deb Rutledge EGFR-AF FRENCH >60 Normal >=60 [facility] Comment on above: Performed By: #### L IPID, CMP, TSH, T7 #### [facility] [address] [place] [address] Dr. Deb Rutledge EGFR-NON AF FRENCH >60 Normal >=60 [facility] Comment on above: Performed By: #### L IPID, CMP, TSH, T7 #### [facility] [address] [place] [address] Dr. Deb Rutledge Globulin (S) [Mass/Vol] 3.1 g/dL Normal [facility] Comment on above: Performed By: #### L IPID, CMP, TSH, T7 #### [facility] [address] [place] [address] Dr. Deb Rutledge Glucose [Mass/Vol] 81 mg/dL Normal 74-106 [facility] Comment on above: Performed By: #### L IPID, CMP, TSH, T7 #### [facility] [address] [place] [address] Dr. Deb Rutledge Potassium [Moles/Vol] 3.8 mmol/L Normal 3.5-5.1 [facility] Comment on above: Performed By: #### L IPID, CMP, TSH, T7 #### [facility] [address] [place] [address] [address] Deb Rutledge Protein [Mass/Vol] 6.9 g/dL Normal 6.4-8.2 [facility] Comment on above: Performed By: #### L IPID, CMP, TSH, T7 #### [facility] [address] [place] [address] Dr. Deb Rutledge Sodium [Moles/Vol] 141 mmol/L Normal 136-145 [facility] Comment on above: Performed By: #### L IPID, CMP, TSH, T7 #### [facility] [address] [place] [address] Dr. Deb Rutledge Urea nitrogen [Mass/Vol] 15.0 mg/dL Normal 7.0-18.0 [facility] Comment on above: Performed By: #### L IPID, CMP, TSH, T7 #### [facility] [address] [place] [address] Dr. Deb Rutledge Urea nitrogen/Creatinine [Mass ratio] 21.1 mg/mg Normal [facility] Comment on above: Performed By: #### L IPID, CMP, TSH, T7 #### [facility] [address] [place] [address] Dr. Deb Rutledge TSHon 06-14-2022 TSH 1.420 uIU/mL Normal 0.358-3.740 [facility] Comment on above: Performed By: #### L IPID, CMP, TSH, T7 #### [facility] [address] [place] [address] Dr. Deb Rutledge VITAMIN D 25 OHon 06-14-2022 VIT D 25-OH 25.0 ng/mL Normal [facility] Comment on above: Performed By: #### I WARREN, VITAD #### [facility] [address] [place] [address] Dr. Deb Rutledge VIT D RANGES SEE BELOW Normal [facility] Comment on above: Result Comment: <20 ng/mL Vit D deficient 20 - <30 ng/mL Vit D insufficient 30 - 100 ng/mL Vit D sufficient >100 ng/mL Potential Toxicity Performed By: #### I WARREN VITAD #### [facility] [address] [place] [address] Dr. Deb Rutledge XR CHEST 2 Von [...] QUINN SOLIS Date: 2022-06-12 19:00 Normal [facility] Vital Signs Date Time Vital Sign Value Performing Clinician Faci lity 06-08-2023 18:19-0400 Body temperature 97.88 [degF] Asa Galeas PA [facility] 06-08-2023 18:19-0400 Diastolic blood pressure 78 mm[Hg] Asa Holmwitz PA [facility] 06-08-2023 18:19-0400 Heart rate 68 /min Asa Holmwitz PA [facility] 06-08-2023 18:19-0400 Respiratory rate 16 /min Asa Dolltz PA [facility] 06-08-2023 18:19-0400 SaO2% (BldA) [Mass fraction] 100 % Asa Galeas PA [facility] 06-08-2023 18:19-0400 Systolic blood pressure 106 mm[Hg] Asa LUZ [facility] Encounters Encounter Date Encounter Type Care Provider Facility Start: 06-20-2024 End: 06-20-2024 ambulatory Sky Olson MD Facility:[facility] Start: 06-13-2024 End: 06-13-2024 ambulatory Sky Olson MD Facility:[facility] Start: 05-23-2024 End: 05-23-2024 ambulatory Sky Olson MD Facility:[facility] Start: 04-02-2024 End: 04-02-2024 ambulatory [facility] Start: 02-05-2024 End: 02-05-2024 ambulatory [facility] Start: 06-08-2023 Asa LUZ [facility] Start: 09-29-2022 End: 09-29-[address] TIERA HDEZ Facility:[facility] Start: 06-18-2022 Encounter for genera l adult medical examination without abnormal findings DR TIERA HDEZ [facility] Start: 06-14-2022 End: 06-15-[address] TIERA HDEZ Facility:[facility] Start: 06-14-2022 End: 06-15-2022 Encounter for general adult medical examination without abnormal findings DR TIERA HDEZ Facility:[facility] Start: 06-12-2022 End: 06-13-[address] TIERA HDEZ Facility:[facility] Payers Date Payer Category Payer Unknown 2000 Unknown [id number] 2.16.84 [id number] 2002 Unknown [id number] 2.16.84 [id number] 2002 Unknown [id number] 2.16.84 [id number] 2002 Unknown [id number] 2.16.8 [id number] 2002 Unknown [id number] 2.16.8 [id number] 2002 Unknown [id number] 2.16. [id number] 2002 Unknown [id number] 2.16. [id number] 2002 Unknown [id number] 2.16. [id number] 1959 Unknown [id number] Instructions Note Date & Type Note Facility Instructions Strict FU precautions.Rest, fluids. FU with PCP within the week.RTC or go to the ED if symptoms worsen or new symptoms develop before FU.Call us to update us on status [facility] Summary Purpose Family History No Family History Records FoundNo Family History Records FoundNo Family History Records Found Advance Directives No Advanced Directives Records FoundNo Advanced Directives Records FoundNo Advanced Directives Records Found Additional Source Comments INFORMATION SOURCE (unrecogn ized section and content) DATE CREATED AUTHOR 10/01/2022 [facility] DATE CREATED AUTHOR AUTHOR'S ORGANIZ ATION 04/04/2024 [facility] DATE CREATED AUTHOR AUTHOR'S ORGANIZ ATION 06/29/2024 [facility] Reason for Visit (unrecogniz ed section and [...] BE BASED ON THE PRIMARY CLINICAL RECORDS. [facility]. provides no warranty or guarantee of the accuracy or completeness of information in this document.
--- NOTE | 2024-07-18 11:30 | XR_ITS ---
The [place] [id number] Patient Name: LEOLA FRANCO MRN: [id number] date: 2000 Sex: F Assigned Patient Location: LAB Current Patient Location: Accession/Order Number: [id number] Exam Date: 07/18/2024 11:48 Report Date: 07/21/2024 05:49 At the request of: TIERA HDEZ Procedure: XR knee LT 3V PROCEDURE: XR knee LT 3V HISTORY: Internal Derangement Of Knee ; pain inferior to patella COMPARISON: None. FINDINGS: BONES:No fracture, acute abnormality, or significant arthropathy. SOFT TISSUES:No visible soft tissue swelling. EFFUSION:None visible. OTHER: Negative. XR/XR knee LT 3V IMPRESSION: 1. Normal examination. Electronically authenticated by: SIS IYER Date: 07/21/2024 05:49
== END 2024-07-18 11:22 | disposition home or self-care (01) ==
LOC: LAB 11:22
PROVIDERS: PCP Family Medicine; Visit Provider Family Medicine
DX: M23.92 Unspecified internal derangement of left knee (principal)
CPT/HCPCS: 73562

== ENCOUNTER 2024-07-18 12:52 | Outpatient (OUT) | payer BC, SELFPAY ==
--- NOTE | 2024-07-18 17:47 | P.CN_ITS ---
Consult Note: HPI Data of Consult Patient: known to practice within the last 3 years Consult date: 07/18/24 Requesting Physician: Meche Marcano NP Primary Care Provider: Michael Baron MD Consult Narrative Reason for consult: low back, bilateral LE pain Narrative: 24yof who presents for assessment. notes moderate improvement after recent bilateral l4-5 tfesi, still notes pain through low back into bilateral lower extremities. imaging reviewed, consistent with disc bulge and annular tear at l5-s1. continues in a series of provider directed home exercises >6 weeks, without lasting benefit. uses nsaids as needed. denies adverse med side effects. cc:: CC: Meche Marcano NP Review of Systems ROS Status of ROS 10 or more systems reviewed and unremark able except as noted in history and below [facility] Medical History (Updated 06/20/24 @ 12:39 by Sky Olson MD) Anxiety ?F41.9 - Anxiety disorder, unspecified (ICD-10) Acid reflux ?K21.9 - Gastro-esophageal reflux disease without esophagitis (ICD-10) Surgical History [place] teeth extracted ?K08.409 - Partial loss of teeth, unspecified cause, unspecified class (ICD- 10) Meds Home Medications and Allergies Home Medications ?Medication ?Instructions ?Recorded ?Confirmed ?Type atomoxetine 40 mg capsule 40 mg PO DAILY 05/23/24 07/11/24 History citalopram 40 mg tablet 40 mg PO DAILY 05/23/24 07/11/24 History etodolac 400 mg tablet (Lodine) 400 mg PO Q12H PRN pain 05/23/24 07/11/24 History isotretinoin 40 mg capsule 40 mg PO BID 05/23/24 07/11/24 History liothyronine 5 mcg tablet 5 mcg PO DAILY 05/23/24 07/11/24 History norethindrone acetate 1.5 1 tab PO DAILY 05/23/24 07/11/24 History mg-ethinyl estradiol 30 mcg tablet (Ayesha) pantoprazole 40 mg tablet,delayed 40 mg PO DAILY 05/23/24 07/11/24 History release quetiapine 50 mg tablet 50 mg PO DAILY 05/23/24 07/11/24 History topiramate 100 mg capsule,extended 100 mg PO DAILY 05/23/24 07/11/24 History release 24 hr Allergies Allergy/AdvReac Type Severity Reaction Status Date / Time No Known Drug Allergies Allergy Verified 07/11/24 08:52 Exam Narrative Exam Narrative: Psych-alert and oriented x 3. Attentive and appropriate, constitutionally normal, displays normal mood and affect per situation. There are no obvious deficits in memory, reasoning, or intellect.? Skin-no obvious rashes, bruising, erythema noted to the patient's area of pain.? Extremities- extremities are warm with minimal edema and palpable pulses. Lumbar-tenderness to palpation noted in the lumbar spine and paraspinal musculature. Pain is not elicited with flexion, extension, and lateral rotation of the lumbar spine. Range of motion is not diminished with these motions. Facet loading maneuvers are negative.? Strength-noted to be unremarkable Sensory-no notable sensory deficits in the bilateral lower extremities to touch or pinprick in all dermatomal distributions with the exception to decreased sensation to the bilateral L4, 5 dermatomal distribution Coordination remains intact.? Gait remains non-antalgic Assessment and Plan Assessment and Plan (1) Lumbar disc displacement without myelopathy: Plan 24yof who presents for assessment. failed conservative measures. imaging reviewed, as noted. given symptoms and imaging, prudent to attempt bilateral l5- s1 tfesi under fluoroscopic guidance to provide further analgesia. she is in agreement. meds reviewed, no changes. follow up after procedure.
== END 2024-07-18 12:53 | disposition home or self-care (01) ==
LOC: PM 12:52
PROVIDERS: PCP Family Medicine; Visit Provider Nurse Practitioner
DX: M51.26 Other intervertebral disc displacement, lumbar region (principal); M23.92 Unspecified internal derangement of left knee
CPT/HCPCS: 73562; G0463

== ENCOUNTER 2024-08-15 08:11 | Day surgery (SDC) | payer BC, SELFPAY ==
[2024-08-15 08:39] LABS: HCG Qualitative NEGATIVE (NEGATIVE); Internal Control Within Normal Limits
[2024-08-15 08:59] VITALS: BP 123/90; PULSE 87; TEMP 36.3; O2SAT 98
[2024-08-15 09:22] VITALS: BP 122/73; BP 133/65; PULSE 76; O2SAT 99
[2024-08-15] MEDS: LIDOCAINE HCL 2% 400 MG/20 ML MDV 5 ML INJ (09:23)
[2024-08-15] MEDS: METHYLPREDNISOLONE ACETATE 80 MG/ML VIAL IM (09:23)
[2024-08-15] MEDS: 0.9 % SODIUM CHLORIDE 10 ML SYRINGE - SALINE FLUSH INJ (09:23)
[2024-08-15] MEDS: BUPIVACAINE HCL 0.25% PF 25 MG/10 ML VIAL INJ (09:23)
[2024-08-15] MEDS: IOHEXOL 240 MG/ML - 10 ML VIAL INJ (09:24)
--- NOTE | 2024-08-15 09:24 | W.PM.PROCNOT ---
Date of procedure: 08/15/24 Pre-op diagnosis: Pain due to lumbar stenosis with neurogenic claudication Post-op diagnosis: same as pre-op Procedure: Procedure: Bilateral L5-S1 transforaminal epidural steroid injection Medications: Bupivacaine 0.25% 2cc, lidocaine 2% 1cc, depomedrol 80mg The patient was seen and examined in the preoperative holding area.? Informed consent was obtained and placed on the chart.? Patient was brought to the medical procedure unit and placed in the prone position where a timeout was completed verifying the correct patient, procedure site, position, and planned special equipment using sterile aseptic technique.? Under direct fluoroscopic visualization a 25-gauge Quincke tipped spinal needle was advanced at level left L4-5 to the designated neural foramen where contrast dye was injected to show adequate spread.? There was no evidence of vascular or adverse uptake.? Epidural spread was appreciated.? The above-mentioned injectate was then placed in a 1.5 mL aliquot preceded by negative aspiration.? The needle was removed. The same procedure, at the same level, was completed on the opposite side. ? Patient was taken to the postprocedural recovery area and monitored for an appropriate length of time before found suitable for discharge in the accompaniment of a responsible adult. Anesthesia: Local Surgeon: Sky Olson Pathology: none sent Condition: stable Disposition: no change
== END 2024-08-15 09:28 | disposition home or self-care (01) ==
LOC: SURGOUT 08:11
PROVIDERS: PCP Family Medicine; Visit Provider Anesthesiology
DX: M48.062 Spinal stenosis, lumbar region with neurogenic claudication (principal)
CPT/HCPCS: 36415; 64483; 84703; J0665; J1010; Q9966

== ENCOUNTER 2024-08-22 11:09 | Outpatient (OUT) | payer BC, SELFPAY ==
--- NOTE | 2024-08-22 11:50 | P.CN_ITS ---
Consult Note: HPI Data of Consult Patient: known to practice within the last 3 years Consult date: 08/22/24 Requesting Physician: Sky Olson MD Primary Care Provider: Michael Baron MD Consult Narrative Reason for consult: low back pain Narrative: 24yof who presents for assessment. she notes significant relief after recent lumbar tfesi. uses ibuprofen for soreness in back. denies adverse med side effects. cc:: CC: Sky Olson MD Review of Systems ROS Status of ROS 10 or more systems reviewed and unremark able except as noted in history and below PFSH [facility] Medical History (Updated 06/20/24 @ 12:39 by Sky Olson MD) Anxiety ?F41.9 - Anxiety disorder, unspecified (ICD-10) Acid reflux ?K21.9 - Gastro-esophageal reflux disease without esophagitis (ICD-10) Surgical History [place] teeth extracted ?K08.409 - Partial loss of teeth, unspecified cause, unspecified class (ICD- 10) Meds Home Medications and Allergies Home Medications ?Medication ?Instructions ?Recorded ?Confirmed ?Type atomoxetine 40 mg capsule 40 mg PO DAILY 05/23/24 08/15/24 History citalopram 40 mg tablet 40 mg PO DAILY 05/23/24 08/15/24 History etodolac 400 mg tablet (Lodine) 400 mg PO Q12H PRN pain 05/23/24 07/11/24 History isotretinoin 40 mg capsule 40 mg PO BID 05/23/24 08/15/24 History liothyronine 5 mcg tablet 5 mcg PO DAILY 05/23/24 07/11/24 History norethindrone acetate 1.5 1 tab PO DAILY 05/23/24 07/11/24 History mg-ethinyl estradiol 30 mcg tablet (Ayesha) pantoprazole 40 mg tablet,delayed 40 mg PO DAILY 05/23/24 08/15/24 History release quetiapine 50 mg tablet 50 mg PO DAILY 05/23/24 08/15/24 History topiramate 100 mg capsule,extended 100 mg PO DAILY 05/23/24 08/15/24 History release 24 hr Allergies Allergy/AdvReac Type Severity Reaction Status Date / Time No Known Drug Allergies Allergy Verified 08/15/24 09:43 Exam Narrative Exam Narrative: Psych-alert and oriented x 3. Attentive and appropriate, constitutionally normal, displays normal mood and affect per situation.? There are no obvious deficits in memory, reasoning, or intellect.? Skin-no obvious rashes, bruising, erythema noted to the patient's area of pain. Extremities- extremities are warm with minimal edema and palpable pulses. Lumbar-no significant tenderness to palpation noted in the lumbar spine and paraspinal musculature.? Pain is elicited with extension, and lateral rotation of the lumbar spine. Range of motion is slightly diminished with these motions due to pain. Coordination remains intact.? Gait remains non-antalgic. Assessment and Plan Assessment and Plan (1) Lumbar spondylosis: Plan 24yof who presents for assessment. had significant relief after recent lumbar tfesi. discussed that at some point in time, this pain may return, and could reassess at that point in time. she expressed understanding. meds reviewed, will continue ibuprofen prn. follow up as needed.
== END 2024-08-22 11:10 | disposition home or self-care (01) ==
LOC: PM 11:09
PROVIDERS: PCP Family Medicine; Visit Provider Anesthesiology
DX: M47.816 Spondylosis without myelopathy or radiculopathy, lumbar region (principal)
CPT/HCPCS: G0463

== ENCOUNTER 2024-08-30 09:25 | Outpatient (OUT) | payer BC, SELFPAY ==
--- NOTE | 2024-08-30 09:27 | MR_ITS ---
The [address] [address] Patient Name: LEOLA FRANCO MRN: [id number] date: 2000 Sex: F Assigned Patient Location: MRI Current Patient Location: MRI Accession/Order Number: [id number] Exam Date: 08/30/2024 09:48 Report Date: 08/30/2024 16:05 At the request of: TIERA HDEZ Procedure: MR knee LT wo con EXAM: MR knee LT wo con REASON FOR EXAM: Iternal Derangement Of Knee. TECHNIQUE: Multiplanar, multisequence imaging of the left knee was performed without contrast COMPARISON: Radiographs 07/18/2024. FINDINGS: Laterally, the iliotibial band, fibular collateral ligament, popliteus tendon and biceps tendon are intact. The ACL is intact. The lateral meniscus demonstrates normal morphology and signal without tear. The lateral articular cartilage appears intact. Medially, the medial collateral ligament is intact. The PCL is intact. The medial meniscus demonstrates normal morphology and signal without tear. The medial articular cartilage is intact. The extensor mechanism is intact. Patellofemoral cartilage is intact. There is minimal edema identified within the superior lateral aspect of Hoffa's fat pad. No evidence of a recent patellar dislocation relocation injury. Normal tibial tuberosity trochlear groove interval of 14 mm. The bone marrow signal is without fracture. Physiologic amount of fluid is present within the joint. The regional musculature is without muscle strain or tendon tear. MR/MR knee LT wo con IMPRESSION: 1. Possible mild patella maltracking and/or fat pad impingement. Normal tibial tuberosity trochlear groove interval. 2. Otherwise unremarkable left knee MRI. Electronically authenticated by: KRISTIAN DAMON Date: 08/30/2024 16:05
--- OUTSIDE RECORDS SUMMARY | 2024-08-30 09:39 | XMS_ITS | CCD ---
Author Organization [facility] Care Team Providers Care Laboratory Associate Name Role Phone DR TIERA HDEZ Consulting Unavailable LEMUEL, DR MOTT Primary Care [...] Unavailable Whitney DIAMOND, Sky Cazares Attending Unavailable Gibridget DIAMOND, Andrius Sage Attending Unavailable Whitney DIAMOND, Andrius Vchase Attending Unavailable Gibridget DIAMOND, Andrius Vchase Attending Unavailable Whitney DIAMOND, Andrius Vytgilberto Attending Unavailable Gijodyitis , Andrius Vytgilberto Attending Unavailable Whitney DIAMOND, Andrius Cazares Attending Unavailable Medications Completed/Discontinued Medications Medication Drug Class(es) Dates Sig (Normalized) Sig (Original) NEGATED: Highlighted row has not occurred! 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; Translations: [Other intermediate designer (current) drug therapy] Onset: 02-05-2024 Episodic Other skin disorders (1 source) Acne vulgaris; Translations: [Acne vulgaris] Onset: 02-05-2024 Episodic Results Test Name Value Interpretation Reference Range Facility HCG ( test) Ql (U)o n 07-30-2024 Beta HCG ( test) Ql (U) Negative Normal NEG [facility] Comment on above: Performed By: #### C SUSU, 16467-7, 1743-2, 8, 2345-7, 76666-2 #### [facility] ([id number]) [address] [place] [address] ALT No additional P-5'-P [Ca talytic activity/Vol]on 04-02-2024 ALT [Catalytic activity/Vol] 18 U/L Normal 0-31 [facility] Comment on above: Performed By: #### Lucie CRISTOBAL, 1743-2, 1919-8, 2345-7, 20876-5, #### [facility] ([id number]) [address], [address] [place] [address] Mohsen 04-02-2024 AST [Catalytic activity/Vol] 17 U/L Normal 0-41 [facility] Comment on above: Performed By: #### Lucie CRISTOBAL, 4-2, 1919-8, 2345-7, 25906-0, 82845-6 #### [facility] ([id number]) [address], [address] [place] [address] CBC AND AUTO DIFFon 04-02-20 24 ABSOLUTE BASOPHIL 0.0 X10E9/L Normal 0.0-0.2 [facility] Comment on above: Performed By: #### Lucie CRISTOBAL, 4-2, 1919-8, 2344-7, 73134-7, 84406-4 #### [facility] ([id number]) [address], [address] [place] [address] ABSOLUTE NEUTROPHIL 2.4 X10E9/L Normal 1.5-6.6 [facility] Comment on above: Performed By: #### Lucie CRISTOBAL, 1743-2, 1919-8, 2344-7, 20797-0, 48956-6 #### [facility] ([id number]) [address], [address] [place] [address] Basophils/100 WBC (Bld) 0.4 % Normal [facility] Comment on above: Performed By: #### Lucie CRISTOBAL, 1743-2, 1919-8, 2344-7, 56564-8, 80344-3 #### [facility] ([id number]) [address], [address] [place] [address] Eosinophils (Bld) [#/Vol] 0.1 10*3/uL Normal 0.0-0.4 [facility] Comment on above: Performed By: #### Lucie CRISTOBAL, 4-2, 1919-8, 2344-7, 78028-2, 34144-5 #### [facility] ([id number]) [address], [address] [place] [address] Eosinophils/100 WBC (Bld) 1.2 % Normal [facility] Comment on above: Performed By: #### C BCA, 4-2, 1919-8, 234-7, 10259-6, 86704-6 #### [facility] ([id number]) [address], [facility] [address] [place] [address] Erythrocyte distribution width (RBC) [Ratio] 12.9 % Normal 11.5-15.0 [facility] Comment on above: Performed By: #### Lucie CRISTOBAL, 4-2, 1919-8, 2344-7, 92749-4, 10895-0 #### [facility] ([id number]) [address] [address] [place] [address] Hematocrit (Bld) [Volume fraction] 38.4 % Normal 35-47 [facility] Comment on above: Performed By: #### Lucie CRISTOBAL, 1743-2, 1919-, 2344-7, 65959-0, 76066-1 #### [facility] ([id number]) [address], [address] [place] [address] Hemoglobin (Bld) [Mass/Vol] 12.7 g/dL Normal 11.7-15.5 [facility] Comment on above: Performed By: #### Lucie CRISTOBAL, 1743-2, 1920-03, 2344-7, 67554-4, 24796-1 #### [facility] ([id number]) [address] [address] [place] [address] Lymphocytes (Bld) [#/Vol] 2.0 10*3/uL Normal 1.0-3.5 [facility] Comment on above: Performed By: #### Lucie CRISTOBAL, 1743-2, 1919-, 2344-7, 76917-0, 73400-7 #### [facility] ([id number]) [address] [address] [place] [address] Lymphocytes/100 WBC (Bld) 41.4 % Normal [facility] Comment on above: Performed By: #### Lucie CRISTOBAL, 4-2, 8, 2344-7, 05661-7, 82925-7 #### [facility] ([id number]) [address], [address] [place] [address] MCH (RBC) [Entitic mass] 29.6 pg Normal 27-34 [facility] Comment on above: Performed By: #### Lucie CRISTOBAL, 4-2, 1919-8, 2344-7, 22395-6, 94499-4 #### [facility] ([id number]) [address], [facility] [address] [place] [address] MCHC (RBC) [Mass/Vol] 33.0 g/dL Normal 32-36 [facility] Comment on above: Performed By: #### Lucie CRISTOBAL, 1743-2, 1920-03, 2344-7, 01561-8, 37434-6 #### [facility] ([id number]) [address], [address] [place] [address] MCV (RBC) [Entitic vol] 90 fL Normal 80-100 [facility] Comment on above: Performed By: #### Lucie CRISTOBAL, 1743-2, 1920-03, 7, 67887-5, #### [facility] ([id number]) [address], [address] [place] [address] Monocytes (Bld) [#/Vol] 0.3 10*3/uL Normal 0-0.9 [facility] Comment on above: Performed By: #### Lucie CRISTOBAL, 4-2, 1919-8, 2344-7, 17467-7, 76511-5 #### [facility] ([id number]) [address], [address] [place] [address] Monocytes/100 WBC (Bld) 6.4 % Normal [facility] Comment on above: Performed By: #### Lucie CRISTOBAL, 4-2, 1920-03, 2344-7, 89960-4, #### [facility] ([id number]) [address], [address] [place] [address] Neutrophils/100 WBC (Bld) 50.6 % Normal [facility] Comment on above: Performed By: #### Lucie CRISTOBAL, 1743-2, 1919-8, 2344-7, 01388-8, 83516-4 #### [facility] ([id number]) [address], [address] [place] [address] Platelet mean volume (Bld) [Entitic vol] 9.3 fL Normal 7-12 [facility] Comment on above: Performed By: #### Lucie CRISTOBAL, 1743-2, 1920-03, 7, 18894-8, #### [facility] ([id number]) [address], [facility] [address] [place] [address] Platelets (Bld) [#/Vol] 315 10*3/uL Normal 150-450 [facility] Comment on above: Performed By: #### Lucie CRISTOBAL, 1743-, 1920-03, 2345-02, 24962-8, #### [facility] ([id number]) [address], [address] [place] [address] RBC COUNT 4.27 X10E12/L Normal 3.80-5.20 [facility] Comment on above: Performed By: #### Lucie CRISTOBAL, 1743-2, 1920-03, 7, 07296-6, #### [facility] ([id number]) [address] [address] [place] [address] WBC (Bld) [#/Vol] 4.7 10*3/uL Normal 4.0-11.0 [facility] Comment on above: Performed By: #### Lucie CRISTOBAL, 1743-2, 1920-03, 7, 61620-4, #### [facility] ([id number]) [address], [address] [place] [address] GLUCOSEon 04-02-2024 Glucose [Mass/Vol] 83 mg/dL Normal 65-99 [facility] Comment on above: Performed By: #### Lucie CRISTOBAL, 1743-2, 1919-8, 2344-7, 89109-9, #### [facility] ([id number]) [address] [place] [address] HCG.beta subunit IA 3rd IS Q non 04-02-2024 SERUM B HCG,3RD I.S. <5 Normal [facility] Comment on above: Result Comment: NEW [...] nontrophoblastic neoplasms. Performed By: #### Lucie CRISTOBAL, , 1743-2, 8, 7, 41297-4 #### [facility] ([id number]) [address], [address] [place] [address] Lipid 1996 panelon Cholesterol [Mass/Vol] 223 mg/dL High 150-200 [facility] Comment on above: Performed By: #### Lucie CRISTOBAL, 75567-9, 1743-2, 8, 2345-02, 07784-4 #### [facility] ([id number]) [address], [address] [place] [address] Cholesterol in HDL [Mass/Vol] 46 mg/dL Normal >39 [facility] Comment on above: Result Comment: HDL <40 mg/dL - High Risk HDL > or = 40mg/dL- Desirable HDL >60 mg/dL - Negative Risk Performed By: ###Clayton Faulkner BCA, 50449-6, 1743-2, 1920-03, 2344-, 76716-7 #### [facility] ([id number]) [address], [address] [place] [address] Cholesterol in LDL [Mass/Vol] 148 mg/dL High <130 [facility] Comment on above: Result Comment: LDL <100 mg/dL - Desirable LDL >160 mg/dL - High Risk Performed By: ###Clayton Faulkner BCA, , 1743-2, 1920-03, 7, 52817-8 #### [facility] ([id number]) [address], [address] [place] [address] Cholesterol in VLDL [Mass/Vol] 29 mg/dL Normal 0-30 [facility] Comment on above: Performed By: ##Norma Faulkner BCA, 85252-7, 4-2, 1920-03, 2344-7, 94354-4 #### [facility] ([id number]) [address], [address] [place] [address] CHOLESTEROL:HDL 4.8 Normal 1.0-5.0 [facility] Comment on above: Performed By: ###Clayton Faulkner BCA, 73261-6, 1743-2, 1920-03, 2344-7, 66203-3 #### [facility] ([id number]) [address], [address] [place] [address] Triglyceride [Mass/Vol] 146 mg/dL Normal 27-150 [facility] Comment on above: Performed By: #### Lucie CRISTOBAL, 14691-2, 1743-2, 1919-8, 2344-7, 23425-7 #### [facility] ([id number]) [address], [address] [place] [address] ALT No additional P-5'-P [Ca talytic activity/Vol]on 02-05-2024 ALT [Catalytic activity/Vol] 23 U/L Normal 0-31 [facility] Comment on above: Performed By: #### Lucie CRISTOBAL, 25898-1, 1743-2, 8, 2344-7, 86419-0 #### [facility] ([id number]) [address] [place] [address] Mohsen 02-05-2024 AST [Catalytic activity/Vol] 21 U/L Normal 0-41 [facility] Comment on above: Performed By: #### Lucie CRISTOBAL, 25504-7, 1743-2, 1919-8, 2344-7, 70402-2 #### [facility] ([id number]) [address], [address] [place] [address] CBC AND AUTO DIFFon 02-05-20 24 ABSOLUTE BASOPHIL 0.0 X10E9/L Normal 0.0-0.2 [facility] Comment on above: Performed By: #### Lucie CRISTOBAL, 73732-7, 1743-2, 1919-8, 2344-7, 36809-5 #### [facility] ([id number]) [address], [address] [place] [address] ABSOLUTE NEUTROPHIL 3.2 X10E9/L Normal 1.5-6.6 [facility] Comment on above: Performed By: #### Lucie CRISTOBAL, 14916-4, 1743-2, 1919-8, 2344-, 22021-6 #### [facility] ([id number]) [address], [address] [place] [address] Basophils/100 WBC (Bld) 0.6 % Normal [facility] Comment on above: Performed By: #### Lucie CRISTOBAL, 68881-0, 1743-2, 1919-8, 2345-02, 71180-8 #### [facility] ([id number]) [address], [address] [place] [address] Eosinophils (Bld) [#/Vol] 0.1 10*3/uL Normal 0.0-0.4 [facility] Comment on above: Performed By: #### Lucie CRISTOBAL, 68197-9, 1743-2, 1920-03, 2345-02, 51859-0 #### [facility] ([id number]) [address], [address] [place] [address] Eosinophils/100 WBC (Bld) 1.6 % Normal [facility] Comment on above: Performed By: #### Lucie CRISTOBAL, , 1743-2, 1920-03, 2345-02, 32037-5 #### [facility] ([id number]) [address], [address] [place] [address] Erythrocyte distribution width (RBC) [Ratio] 12.4 % Normal 11.5-15.0 [facility] Comment on above: Performed By: #### Lucie CRISTOBAL, 66271-7, 1743-2, 1919-, 2344-, 33525-6 #### [facility] ([id number]) [address], [address] [place] [address] Hematocrit (Bld) [Volume fraction] 39.7 % Normal 35-47 [facility] Comment on above: Performed By: #### Lucie CRISTOBAL, 74372-4, 1743-2, 1919-8, 2344-7, 01358-7 #### [facility] ([id number]) [address], [address] [place] [address] Hemoglobin (Bld) [Mass/Vol] 13.1 g/dL Normal 11.7-15.5 [facility] Comment on above: Performed By: #### Lucie CRISTOBAL, 65099-1, 1743-2, 1920-03, 2344-7, 77301-9 #### [facility] ([id number]) [address], [address] [place] [address] Lymphocytes (Bld) [#/Vol] 2.1 10*3/uL Normal 1.0-3.5 [facility] Comment on above: Performed By: #### Lucie CRISTOBAL, 28138-7, 1743-2, 1920-03, 2345-02, 27147-8 #### [facility] ([id number]) [address], [address] [place] [address] Lymphocytes/100 WBC (Bld) 35.6 % Normal [facility] Comment on above: Performed By: #### Lucie CRISTOBAL, 48004-2, 1743-2, 1920-03, 2345-02, 07209-5 #### [facility] ([id number]) [address], [address] [place] [address] MCH (RBC) [Entitic mass] 30.1 pg Normal 27-34 [facility] Comment on above: Performed By: #### Lucie BCA, 62027-2, 1743-2, 1920-03, 7, 08041-9 #### [facility] ([id number]) [address], [address] [place] [address] MCHC (RBC) [Mass/Vol] 32.9 g/dL Normal 32-36 [facility] Comment on above: Performed By: #### Lucie BCA, 47680-8, 1743-10, 1920-03, 2345-02, 45335-0 #### [facility] ([id number]) [address], [address] [place] [address] MCV (RBC) [Entitic vol] 91 fL Normal 80-100 [facility] Comment on above: Performed By: #### Lucie CRISTOBAL, , 1743-, 1920-03, 2345-02, 35826-5 #### [facility] ([id number]) [address], [address] [place] [address] Monocytes (Bld) [#/Vol] 0.4 10*3/uL Normal 0-0.9 [facility] Comment on above: Performed By: #### Lucie CRISTOBAL, , 1743-10, 1920-03, 2345-02, 05196-6 #### [facility] ([id number]) [address], [address] [place] [address] Monocytes/100 WBC (Bld) 6.6 % Normal [facility] Comment on above: Performed By: #### Lucie CRISTOBAL, , 1743-10, 1920-03, 2345-02, 24511-1 #### [facility] ([id number]) [address], [address] [place] [address] Neutrophils/100 WBC (Bld) 55.6 % Normal [facility] Comment on above: Performed By: #### Lucie CRISTOBAL, , 1743-10, 1920-03, 2345-02, 71981-5 #### [facility] ([id number]) [address], [address] [place] [address] Platelet mean volume (Bld) [Entitic vol] 9.5 fL Normal 7-12 [facility] Comment on above: Performed By: #### Lucie CRISTOBAL, , 1743-10, 1920-03, 2345-02, 49730-6 #### [facility] ([id number]) [address], [address] [place] [address] Platelets (Bld) [#/Vol] 294 10*3/uL Normal 150-450 [facility] Comment on above: Performed By: #### Lucie CRISTOBAL, 91240-4, 4-2, 1919-8, 2344-7, 41975-3 #### [facility] ([id number]) [address], [address] [place] [address] RBC COUNT 4.34 X10E12/L Normal 3.80-5.20 [facility] Comment on above: Performed By: #### Lucie CRISTOBAL, 38740-6, 1743-2, 1919-8, 2344-7, 49882-7 #### [facility] ([id number]) [address], [address] [place] [address] WBC (Bld) [#/Vol] 5.8 10*3/uL Normal 4.0-11.0 [facility] Comment on above: Performed By: #### Lucie CRISTOBAL, 38341-2, 1743-2, 1919-8, 2344-7, 24791-1 #### [facility] ([id number]) [address], [address] [place] [address] GLUCOSEon 02-05-2024 Glucose [Mass/Vol] 82 mg/dL Normal 65-99 [facility] Comment on above: Performed By: #### Lucie CRISTOBAL, 29490-1, 1743-2, 8, 2344-7, 80531-5 #### [facility] ([id number]) [address], [address] [place] [address] HCG.beta subunit IA 3rd IS Q non 02-05-2024 SERUM B HCG,3RD I.S. <5 Normal [facility] Comment on above: Result Comment: NEW [...] ###Clayton Faulkner BCA, , 1743-2, 1920-03, 2345-02, 12472-3 #### [facility] ([id number]) [address] [place] [address] Lipid 1996 panelon 4 Cholesterol [Mass/Vol] 188 mg/dL Normal 150-200 [facility] Comment on above: Performed By: ###Clayton Faulkner BCA, , 1743-2, 8, 2345-02, 58988-8 #### [facility] ([id number]) [address] [place] [address] Cholesterol in HDL [Mass/Vol] 55 mg/dL Normal >39 [facility] Comment on above: Result Comment: HDL <40 mg/dL - High Risk HDL > or = 40mg/dL- Desirable HDL >60 mg/dL - Negative Risk Performed By: ###Clayton Faulkner BCA, , 1743-2, 1919-8, 2344-7, 52338-4 #### [facility] ([id number]) [address] [place] [address] Cholesterol in LDL [Mass/Vol] 118 mg/dL Normal <130 [facility] Comment on above: Result Comment: LDL <100 mg/dL - Desirable LDL >160 mg/dL - High Risk Performed By: #### Lucie CRISTOBAL, 11272-5, 1744-2, 0-8, 5-7, 50829-1 #### [facility] ([id number]) [address] [address] Cholesterol in VLDL [Mass/Vol] 15 mg/dL Normal 0-30 [facility] Comment on above: Performed By: #### Lucie CRISTOBAL, 57810-9, 4-2, 1919-8, 2345-7, 75412-9 #### [facility] ([id number]) [address], [facility] [address] [place] [address] CHOLESTEROL:HDL 3.4 Normal 1.0-5.0 [facility] Comment on above: Performed By: #### Lucie CRISTOBAL, 16414-8, 1744-2, 1919-8, 2345-7, 51161-1 #### [facility] ([id number]) [address] [address] [place] [address] Triglyceride [Mass/Vol] 76 mg/dL Normal 27-150 [facility] Comment on above: Performed By: #### Lucie CRISTOBAL, 94236-1, 1744-2, 0-8, 2345-7, 04469-4 #### [facility] ([id number]) [address] [address] [facility]on 09-02 SARS-CoV-2 (COVID-19) RNA ALIA+probe Ql (Unsp spec) Not detected Normal NOT DETECTED [facility] Comment on above: Result Comment: This test is not yet approved or cleared by the [place] FDA. When there are no FDA-approved or cleared tests available, and other criteria are met, FDA can make tests available under an emergency access mechanism called an Emergency Use Authorization (EUA). The EUA for this test is supported by the [place] of Health and Human Service's (HHS's) declaration [...] SARS-CoV-2. Performed By: #### C VDTB #### [facility] [address] [place] [address] Dr. Deb Rutledge INFLUENZA A AND B [facility] 09-29 [facility] SEE BELOW Normal [facility] Comment on above: Result Comment: Nega tive for Flu A protein angiten. Infection due to Flu A cannot be ruled out. Flu A angiten in the sample may be below the detection limit of the test. Performed By: #### I NFLUAB #### [facility] [address] [place] [address] Dr. Deb Rutledge [facility] SEE BELOW Normal [facility] Comment on above: Result Comment: Nega tive for Flu B protein antigen. Infection due to Flu B cannot be ruled out. Flu B antigen in the sample may be below the detection limit of the test. Performed By: #### I NFLUAB #### [facility] [address] [place] [address] Dr. Deb Rutledge INFLUENZA A AG Negative Normal NEGATIVE SEE COMMENT [facility] Comment on above: Performed By: #### I NFLUAB #### [facility] [address] [place] [address] Dr. Deb Rutledge INFLUENZA B AG Negative Normal NEGATIVE SEE COMMENT [facility] Comment on above: Performed By: #### I NFLUAB #### [facility] [address] [address] [address] Deb Rutledge INSULINon 06-16-2022 Insulin 13.1 uIU/mL Normal 2.6-24.9 [facility] Comment on above: Performed By: #### I NSULIN ####[facility] [address] [address]Dr[address] Deb Rutledge CBC AUTO DIFFon 06-14-2022 BASO # 0.0 103/ul Normal 0.0-0.1 [facility] Comment on above: Performed By: #### C BC #### [facility] [address] [address] [address] Deb Rutledge Basophils/100 WBC (Bld) 0.2 % Normal 0.2-2.0 [facility] Comment on above: Performed By: #### C BC #### [facility] [address] [place] [address] Dr. Deb Rutledge EO # 0.1 103/ul Normal 0.0-0.7 [facility] Comment on above: Performed By: #### C BC #### [facility] [address] [place] [address] Dr. Deb Rutledge Eosinophils/100 WBC (Bld) 1.1 % Normal 0.9-7.0 [facility] Comment on above: Performed By: #### C BC #### [facility] [address] [address] [address] Deb Rutledge Erythrocyte distribution width (RBC) [Ratio] 11.7 % Normal 11.0-15.0 [facility] Comment on above: Performed By: #### C BC #### [facility] [address] [place] [address] Dr. Deb Rutledge Hematocrit (Bld) [Volume fraction] 40.5 % Normal 36.0-48.0 [facility] Comment on above: Performed By: #### C BC #### [facility] [address] [place] [address] Dr. Deb Rutledge Hemoglobin (Bld) [Mass/Vol] 13.0 g/dL Normal 12.0-16.0 [facility] Comment on above: Performed By: #### C BC #### [facility] [address] [place] [address] Dr. Deb Rutledge IG # 0.00 10e3/ul Normal 0.00-0.03 [facility] Comment on above: Performed By: #### C BC #### [facility] [address] [place] [address] Dr. Deb Rutledge IG % 0.0 % Normal 0.0-0.5 [facility] Comment on above: Performed By: #### C BC #### [facility] [address] [place] [address] Dr. Deb Rutledge LYMPH # 1.8 103/ul Normal 1.2-3.8 [facility] Comment on above: Performed By: #### C BC #### [facility] [address] [place] [address] Dr. Deb Rutledge Lymphocytes/100 WBC (Bld) 37.7 % Normal 20.5-60.0 [facility] Comment on above: Performed By: #### C BC #### [facility] [address] [place] [address] Dr. Deb Rutledge MANUAL DIFF REQ NO Normal [facility] Comment on above: Performed By: #### C BC #### [facility] [address] [place] [address] Dr. Deb Rutledge MCH (RBC) [Entitic mass] 30.7 pg Normal 26.7-34.0 [facility] Comment on above: Performed By: #### C BC #### [facility] [address] [place] [address] Dr. Deb Rutledge MCHC (RBC) [Mass/Vol] 32.1 g/dL Normal 29.9-35.2 [facility] Comment on above: Performed By: #### C BC #### [facility] [address] [place] [address] Dr. Deb Rutledge MCV (RBC) [Entitic vol] 95.7 fL Normal 81.0-99.0 [facility] Comment on above: Performed By: #### C BC #### [facility] [address] [place] [address] Dr. Deb Rutledge MONO # 0.3 103/ul Normal 0.3-0.8 [facility] Comment on above: Performed By: #### C BC #### [facility] [address] [place] [address] Dr. Deb Rutledge Monocytes/100 WBC (Bld) 5.8 % Normal 1.7-12.0 [facility] Comment on above: Performed By: #### C BC #### [facility] [address] [place] [address] Dr. Deb Rutledge NEUT # 2.6 103/ul Normal 1.4-6.5 [facility] Comment on above: Performed By: #### C BC #### [facility] [address] [place] [address] Dr. Deb Rutledge Neutrophils/100 WBC (Bld) 55.2 % Normal 43.0-75.0 [facility] Comment on above: Performed By: #### C BC #### [facility] [address] [place] [address] Dr. Deb Rutledge Platelet mean volume (Bld) [Entitic vol] 10.2 fL Normal 9.5-13.5 [facility] Comment on above: Performed By: #### C BC #### [facility] [address] [place] [address] Dr. Deb Rutledge PLT 286 103/ul Normal 150-[address] [facility] Comment on above: Performed By: #### C BC #### [facility] [address] [place] [address] Dr. Deb Rutledge RBC 4.23 106/ul Normal 4.20-5.[address] [facility] Comment on above: Performed By: #### C BC #### [facility] [address] [place] [address] Dr. Deb Rutledge WBC 4.7 103/ul Normal 4.0-11.0 [facility] Comment on above: Performed By: #### C BC #### [facility] [address] [place] [address] Dr. Deb Rutledge FREE THYROXINE INDEX T7on FTI 1.73 Normal 1.30-4.50 [facility] Comment on above: Performed By: #### L IPID, CMP, TSH, T7 #### [facility] [address] [address] [address] Deb Rutledge T3U 27.0 % Critically low 30.0-39.0 [facility] Comment on above: Performed By: #### L IPID, CMP, TSH, T7 #### [facility] [address] [address] [address] Deb Rutledge T4 [Mass/Vol] 6.40 ug/dL Normal 4.80-13.90 [facility] Comment on above: Performed By: #### L IPID, CMP, TSH, T7 #### [facility] [address] [address] [address] Deb Rutledge GLYCOHEMOGLOBIN A1Con 2021 ADA RECOMMENDATION SEE BELOW Normal [facility] Comment on above: Result Comment: ADA RECOMMENDED LIMIT 4.0 - 6.0 ADA THERAPEUTIC TARGET < 7.0 ACTION SUGGESTED > 7.0 Performed By: #### A 1C #### [facility] [address] [address] [address] Deb Rutledge Glucose [Mass/Vol] 108 mg/dL Normal [facility] Comment on above: Performed By: #### A 1C #### [facility] [address] [address] [address] Deb Rutledge HbA1c (Bld) [Mass fraction] 5.4 % Normal 4.5-6.2 [facility] Comment on above: Performed By: #### A 1C #### [facility] [address] [address] [address] Deb Rutledge IRONon 06-14-2022 Iron [Mass/Vol] 79.0 ug/dL Normal 50.0-170.0 [facility] Comment on above: Performed By: #### I WARREN, VITAD ####[facility] [address] [address]. Deb Rutledge LIPID PROFILEon 06-14-2022 CHOL-HDL RATIO NORM SEE BELOW Normal [facility] Comment on above: Result Comment: 3.3 - 4.4 LOW RISK 4.4 - 7.1 AVERAGE RISK 7.1 - 11.0 MODERATE RISK >11.0 HIGH RISK Performed By: #### L IPID, CMP, TSH, T7 #### [facility] [address] [address] [address] Deb Rutledge Cholesterol [Mass/Vol] 172 mg/dL Normal <=200 [facility] Comment on above: Performed By: #### L IPID, CMP, TSH, T7 #### [facility] [address] [address] [address] eDb Rutledge Cholesterol in HDL [Mass/Vol] 68 mg/dL Critically high 40-60 [facility] Comment on above: Performed By: #### L IPID, CMP, TSH, T7 #### [facility] [address] [address] [address] Deb Rutledge Cholesterol in LDL [Mass/Vol] 96.4 mg/dL Normal [facility] Comment on above: Performed By: #### L IPID, CMP, TSH, T7 #### [facility] [address] [address] [address] Deb Rutledge Cholesterol.total/Ch olesterol in HDL [Mass ratio] 2.5 {ratio} Normal [facility] Comment on above: Performed By: #### L IPID, CMP, TSH, T7 #### [facility] [address] [address] [address] Deb Rutledge HDL NORMAL > or = 60 mg/dl - LO W CARDIOVASCULAR RISK <40 mg/dl - HIGH CARDIOVASCULAR RISK Normal [facility] Comment on above: Performed By: #### L IPID, CMP, TSH, T7 #### [facility] [address] [address] [address] Deb Rutledge LDL CALC NORMAL SEE BELOW Normal [facility] Comment on above: Result Comment: <100 mg/dl OPTIMAL 100 - 129 mg/dl NEAR OR ABOVE OPTIMAL 130 - 159 mg/dl BORDERLINE HIGH 160 - 189 mg/dl HIGH >190 mg/dl VERY HIGH Performed By: #### L IPID, CMP, TSH, T7 #### [facility] [address] [address] [address] Deb Rutledge Triglyceride [Mass/Vol] 38 mg/dL Normal <=150 [facility] Comment on above: Performed By: #### L IPID, CMP, TSH, T7 #### [facility] [address] [address] [address] Deb Rutledge VLDL CALC 7.6 mg/dL Normal [facility] Comment on above: Performed By: #### L IPID, CMP, TSH, T7 #### [facility] [address] [address] [address] Deb Rutledge PROF 14(COMP METB)on 022 Albumin [Mass/Vol] 3.8 g/dL Normal 3.4-5.0 [facility] Comment on above: Performed By: #### L IPID, CMP, TSH, T7 #### [facility] [address] [address] [address] Deb Rutledge Albumin/Globulin [Mass ratio] 1.2 {ratio} Normal [facility] Comment on above: Performed By: #### L IPID, CMP, TSH, T7 #### [facility] [address] [address] [address] Deb Rutledge ALP [Catalytic activity/Vol] 69 U/L Normal 46-116 [facility] Comment on above: Performed By: #### L IPID, CMP, TSH, T7 #### [facility] [address] [address] [address] Deb Rutledge ALT [Catalytic activity/Vol] 24 U/L Normal 14-59 [facility] Comment on above: Performed By: #### L IPID, CMP, TSH, T7 #### [facility] [address] [address] [address] Deb Rutledge Anion gap [Moles/Vol] 11.3 mmol/L Normal [facility] Comment on above: Performed By: #### L IPID, CMP, TSH, T7 #### [facility] [address] [address] [address] Deb Rutledge AST [Catalytic activity/Vol] 11 U/L Critically low 15-37 [facility] Comment on above: Performed By: #### L IPID, CMP, TSH, T7 #### [facility] [address] [place] [address] Dr. Deb Rutledge Bilirubin [Mass/Vol] 0.5 mg/dL Normal 0.2-1.0 [facility] Comment on above: Performed By: #### L IPID, CMP, TSH, T7 #### [facility] [address] [address] [address] Deb Rutledge Calcium [Mass/Vol] 8.7 mg/dL Normal 8.5-10.1 [facility] Comment on above: Performed By: #### L IPID, CMP, TSH, T7 #### [facility] [address] [place] [address] Dr. Deb Rutledge Chloride [Moles/Vol] 109 mmol/L Critically high 98-107 [facility] Comment on above: Performed By: #### L IPID, CMP, TSH, T7 #### [facility] [address] [address] [address] Deb Rutledge CO2 [Moles/Vol] 24.5 mmol/L Normal 21.0-32.0 [facility] Comment on above: Performed By: #### L IPID, CMP, TSH, T7 #### [facility] [address] [address] [address] Deb Rutledge Creatinine [Mass/Vol] 0.71 mg/dL Normal 0.55-1.02 [facility] Comment on above: Performed By: #### L IPID, CMP, TSH, T7 #### [facility] [address] [place] [address] Dr. Deb Rutledge EGFR-AF BOLIVIAN >60 Normal >=60 [facility] Comment on above: Performed By: #### L IPID, CMP, TSH, T7 #### [facility] [address] [address] [address] Deb Rutledge EGFR-NON AF BOLIVIAN >60 Normal >=[address] [facility] Comment on above: Performed By: #### L IPID, CMP, TSH, T7 #### [facility] [address] [address] [address] Deb Rutledge Globulin (S) [Mass/Vol] 3.1 g/dL Normal [facility] Comment on above: Performed By: #### L IPID, CMP, TSH, T7 #### [facility] [address] [address] [address] Deb Rutledge Glucose [Mass/Vol] 81 mg/dL Normal 74-106 [facility] Comment on above: Performed By: #### L IPID, CMP, TSH, T7 #### [facility] [address] [place] [address] Dr. Deb Rutledge Potassium [Moles/Vol] 3.8 mmol/L Normal 3.5-5.[address] [facility] Comment on above: Performed By: #### L IPID, CMP, TSH, T7 #### [facility] [address] [address] [address] Deb Rutledge Protein [Mass/Vol] 6.9 g/dL Normal 6.4-8.2 [facility] Comment on above: Performed By: #### L IPID, CMP, TSH, T7 #### [facility] [address] [place] [address] Dr. Deb Rutledge Sodium [Moles/Vol] 141 mmol/L Normal 136-145 [facility] Comment on above: Performed By: #### L IPID, CMP, TSH, T7 #### [facility] [address] [place] [address] Dr. Deb Rutledge Urea nitrogen [Mass/Vol] 15.0 mg/dL Normal 7.0-18.[address] [facility] Comment on above: Performed By: #### L IPID, CMP, TSH, T7 #### [facility] [address] [place] [address] Dr. Deb Rutledge Urea nitrogen/Creatinine [Mass ratio] 21.1 mg/mg Normal [facility] Comment on above: Performed By: #### L IPID, CMP, TSH, T7 #### [facility] [address] [place] [address] Dr. Deb Rutledge TSHon 06-14-2022 TSH 1.420 uIU/mL Normal 0.358-3.740 [facility] Comment on above: Performed By: #### L IPID, CMP, TSH, T7 #### [facility] [address] [place] [address] Dr. Deb Rutledge VITAMIN D 25 OHon 06-14-2022 VIT D 25-OH 25.0 ng/mL Normal [facility] Comment on above: Performed By: #### I WARREN VITAD #### [facility] [address] [place] [address] Dr. Deb Rutledge VIT D RANGES SEE BELOW Normal [facility] Comment on above: Result Comment: <20 ng/mL Vit D deficient 20 - <30 ng/mL Vit D insufficient 30 - 100 ng/mL Vit D sufficient >100 ng/mL Potential Toxicity Performed By: #### I WARREN VITAD #### [facility] [address] [place] [address] Dr. Deb Rutledge XR CHEST 2 Von [...] by: QUINN SOLIS Date: 2022-06-12 19:00 Normal [facility] Vital Signs Date Time Vital Sign Value Performing Clinician Faci lity 06-08-2023 18:19-0400 Body temperature 97.88 [degF] Asa LUZ [facility] 06-08-2023 18:19-0400 Diastolic blood pressure 78 mm[Hg] Asa LUZ [facility] 06-08-2023 18:19-0400 Heart rate 68 /min Asa Galeas PA [facility] 06-08-2023 18:19-0400 Respiratory rate 16 /min Asa Vanessachwitz PA [facility] 06-08-2023 18:19-0400 SaO2% (BldA) [Mass fraction] 100 % Asa Galeas PA [facility] 06-08-2023 18:19-0400 Systolic blood pressure 106 mm[Hg] Asa Galeas PA [facility] Encounters Encounter Date Encounter Type Care Provider Facility Start: 08-22-2024 End: 08-22-2024 ambulatory Sky Olson MD [facility]: [facility] Start: 08-15-2024 End: 08-15-2024 ambulatory Sky Olson MD [facility]: [facility] Start: 07-30-2024 End: 07-30-2024 ambulatory [facility] Start: 07-18-2024 End: 07-18-2024 ambulatory Sky Olson MD [facility]: [facility] Start: 07-11-2024 End: 07-11-2024 ambulatory Sky Olson MD [facility]: [facility] Start: 06-20-2024 End: 06-20-2024 ambulatory Sky Olson MD [facility]: [facility] Start: 06-13-2024 End: 06-13-2024 ambulatory Sky Olson MD [facility]: [facility] Start: 05-23-2024 End: 05-23-2024 ambulatory Sky Olson MD Facility:[facility] Start: 04-02-2024 End: 04-02-2024 ambulatory [facility] Start: 02-05-2024 End: 02-05-2024 ambulatory [facility] Start: 06-08-2023 Asa LUZ [facility] Start: 09-29-2022 End: 09-29-[address] TIERA HDEZ Facility:[facility] Start: 06-18-2022 Encounter for genera l adult medical examination without abnormal findings DR TIERA HDEZ [facility] Start: 06-14-2022 End: 06-15-[address] TIERA HDEZ Facility:[facility] Start: 06-14-2022 End: 06-15-2022 Encounter for general adult medical examination without abnormal findings DR TIERA HDEZ Facility:[facility] Start: 06-12-2022 End: 06-13-[address] TIERA HDEZ Facility:[facility] Payers Date Payer Category Payer Unknown 2002 Unknown [id number] 2.16.84 [id number] 2002 Unknown [id number] 2.16.84 [id number] 2002 Unknown [id number] 2.16.84 [id number] 2002 Unknown [id number] 2.16.8 [id number] 2002 Unknown [id number] 2.16.8 [id number] 2002 Unknown [id number] 2.16.8 [id number] 2002 Unknown [id number] 2.16. [id number] 2002 Unknown [id number] 2.16. [id number]. 2002 Unknown [id number] 2.16. [id number]. 2002 Unknown [id number] 2.16. [id number] 2002 Unknown [id number] 2.16. [id number]. 2002 Unknown [id number] 2.16. [id number] 2002 Unknown [id number] 2.16. [id number] 1959 Unknown [id number] Instructions Note Date & Type Note Facility [...] and content) DATE CREATED AUTHOR 10/01/2022 [facility] DATE CREATED AUTHOR AUTHOR'S ORGANIZ ATION 07/31/2024 [facility] DATE CREATED AUTHOR AUTHOR'S ORGANIZ ATION 08/26/2024 [facility] Reason for Visit (unrecogniz ed section [...] BE BASED ON THE PRIMARY CLINICAL RECORDS. [facility] [employer] [facility]. provides no warranty or guarantee of the accuracy or completeness of information in this document.
== END 2024-08-30 09:26 | disposition home or self-care (01) ==
LOC: MRI 09:25
PROVIDERS: PCP Family Medicine; Visit Provider Family Medicine
DX: M23.92 Unspecified internal derangement of left knee (principal)
CPT/HCPCS: 73721

== ENCOUNTER 2024-09-13 13:47 | Emergency (ER) | payer OTHER, SELFPAY ==
[2024-09-13 13:48] VITALS: BP 110/84; PULSE 98; TEMP 37.2; O2SAT 99; BMI 29.6
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
[2024-09-13] MEDS: KETOROLAC TROMETHAMINE 10 MG TABLET PO (14:17)
[2024-09-13] MEDS: METHOCARBAMOL 500 MG TABLET 1000 MG PO (14:17)
--- OUTSIDE RECORDS SUMMARY | 2024-09-13 14:21 | XMS_ITS | CCD ---
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 Name Role Phone DR TIERA HDEZ Consulting [...] 06-18-2022 Episodic Other aftercare (1 source) Other penitentiary (current) drug therapy; Translations: [Other intermediate frame tender (current) drug therapy] Onset: 02-05-2024 Episodic Other skin disorders (1 source) Acne vulgaris; Translations: [Acne vulgaris] Onset: 02-05-2024 Episodic Results Test Name Value Interpretation Reference Range Facility HCG ( test) Ql (U)o n 07-30-2024 Beta HCG ( test) Ql (U) Negative Normal NEG [facility] Comment on above: Performed By: #### C SUSU, 71766-0, 1743-2, 8, 2345-7, 25078-1 #### [facility] ([id number]) [address] [place] [address] ALT No additional P-5'-P [Ca talytic activity/Vol]on 04-02-2024 ALT [Catalytic activity/Vol] 18 U/L Normal 0-31 [facility] Comment on above: Performed By: #### Lucie CRISTOBAL, 1743-2, 1919-8, 2345-7, 21180-4, #### [facility] ([id number]) [address], [address] [place] [address] Mohsen 04-02-2024 AST [Catalytic activity/Vol] 17 U/L Normal 0-41 [facility] Comment on above: Performed By: #### Lucie CRISTOBAL, 4-2, 1919-8, 2345-7, 51679-8, 95043-6 #### [facility] ([id number]) [address], [address] [place] [address] CBC AND AUTO DIFFon 04-02-20 24 ABSOLUTE BASOPHIL 0.0 X10E9/L Normal 0.0-0.2 [facility] Comment on above: Performed By: #### Lucie CRISTOBAL, 4-2, 1919-8, 2344-7, 38498-4, 09052-5 #### [facility] ([id number]) [address], [address] [place] [address] ABSOLUTE NEUTROPHIL 2.4 X10E9/L Normal 1.5-6.6 [facility] Comment on above: Performed By: #### Lucie CRISTOBAL, 1743-2, 1919-8, 2344-7, 69811-3, 10174-6 #### [facility] ([id number]) [address], [address] [place] [address] Basophils/100 WBC (Bld) 0.4 % Normal [facility] Comment on above: Performed By: #### Lucie CRISTOBAL, 1743-2, 1919-8, 2344-7, 41230-0, 32474-2 #### [facility] ([id number]) [address], [address] [place] [address] Eosinophils (Bld) [#/Vol] 0.1 10*3/uL Normal 0.0-0.4 [facility] Comment on above: Performed By: #### Lucie CRISTOBAL, 4-2, 1919-8, 2344-7, 97707-7, 41076-9 #### [facility] ([id number]) [address], [address] [place] [address] Eosinophils/100 WBC (Bld) 1.2 % Normal [facility] Comment on above: Performed By: #### C BCA, 4-2, 1919-8, 234-7, 74419-1, 92223-2 #### [facility] ([id number]) [address], [facility] [address] [place] [address] Erythrocyte distribution width (RBC) [Ratio] 12.9 % Normal 11.5-15.0 [facility] Comment on above: Performed By: #### Lucie CRISTOBAL, 4-2, 1919-8, 2344-7, 14208-5, 26027-4 #### [facility] ([id number]) [address] [address] [place] [address] Hematocrit (Bld) [Volume fraction] 38.4 % Normal 35-47 [facility] Comment on above: Performed By: #### Lucie CRISTOBAL, 1743-2, 1919-, 2344-7, 87795-0, 05085-1 #### [facility] ([id number]) [address], [address] [place] [address] Hemoglobin (Bld) [Mass/Vol] 12.7 g/dL Normal 11.7-15.5 [facility] Comment on above: Performed By: #### Lucie CRISTOBAL, 1743-2, 1920-03, 2344-7, 60018-3, 80299-4 #### [facility] ([id number]) [address] [address] [place] [address] Lymphocytes (Bld) [#/Vol] 2.0 10*3/uL Normal 1.0-3.5 [facility] Comment on above: Performed By: #### Lucie CRISTOBAL, 1743-2, 1919-, 2344-7, 99745-0, 93200-0 #### [facility] ([id number]) [address] [address] [address] [place] [address] Lymphocytes/100 WBC (Bld) 41.4 % Normal [facility] Comment on above: Performed By: #### Lucie CRISTOBAL, 4-2, 8, 2344-7, 69597-8, 56729-0 #### [facility] ([id number]) [address], [address] [place] [address] MCH (RBC) [Entitic mass] 29.6 pg Normal 27-34 [facility] Comment on above: Performed By: #### Lucie CRISTOBAL, 4-2, 1919-8, 2344-7, 68226-9, 19509-5 #### [facility] ([id number]) [address], [facility] [address] [place] [address] MCHC (RBC) [Mass/Vol] 33.0 g/dL Normal 32-36 [facility] Comment on above: Performed By: #### Lucie CRISTOBAL, 1743-2, 1920-03, 2344-7, 11573-1, 50794-3 #### [facility] ([id number]) [address], [address] [place] [address] MCV (RBC) [Entitic vol] 90 fL Normal 80-100 [facility] Comment on above: Performed By: #### Lucie CRISTOBAL, 1743-2, 1920-03, 7, 55075-9, #### [facility] ([id number]) [address], [address] [place] [address] Monocytes (Bld) [#/Vol] 0.3 10*3/uL Normal 0-0.9 [facility] Comment on above: Performed By: #### Lucie CRISTOBAL, 4-2, 1919-8, 2344-7, 22293-3, 06677-2 #### [facility] ([id number]) [address], [address] [place] [address] Monocytes/100 WBC (Bld) 6.4 % Normal [facility] Comment on above: Performed By: #### Lucie CRISTOBAL, 4-2, 1920-03, 2344-7, 22613-0, #### [facility] ([id number]) [address], [address] [place] [address] Neutrophils/100 WBC (Bld) 50.6 % Normal [facility] Comment on above: Performed By: #### Lucie CRISTOBAL, 1743-2, 1919-8, 2344-7, 93685-0, 82559-3 #### [facility] ([id number]) [address], [address] [place] [address] Platelet mean volume (Bld) [Entitic vol] 9.3 fL Normal 7-12 [facility] Comment on above: Performed By: #### Lucie CRISTOBAL, 1743-2, 1920-03, 7, 16618-4, #### [facility] ([id number]) [address], [facility] [address] [place] [address] Platelets (Bld) [#/Vol] 315 10*3/uL Normal 150-450 [facility] Comment on above: Performed By: #### Lucie CRISTOBAL, 1743-, 1920-03, 2345-02, 04973-7, #### [facility] ([id number]) [address], [address] [place] [address] RBC COUNT 4.27 X10E12/L Normal 3.80-5.20 [facility] Comment on above: Performed By: #### Lucie CRISTOBAL, 1743-2, 1920-03, 7, 52271-9, #### [facility] ([id number]) [address] [address] [address] [place] [address] WBC (Bld) [#/Vol] 4.7 10*3/uL Normal 4.0-11.0 [facility] Comment on above: Performed By: #### Lucie CRISTOBAL, 1743-2, 1920-03, 7, 15189-5, #### [facility] ([id number]) [address] [place] [address] GLUCOSEon 04-02-2024 Glucose [Mass/Vol] 83 mg/dL Normal 65-99 [facility] Comment on above: Performed By: #### Lucie CRISTOBAL, 1743-2, 1919-8, 2344-7, 81595-5, #### [facility] ([id number]) [address], [address] [place] [address] HCG.beta subunit IA 3rd IS Q non 04-02-2024 SERUM B HCG,3RD I.S. <5 Normal [facility] Comment on above: Result Comment: [...] #### Lucie CRISTOBAL, , 1743-2, 8, 7, 62963-2 #### [facility] ([id number]) [address], [address] [place] [address] Lipid 1996 panelon Cholesterol [Mass/Vol] 223 mg/dL High 150-200 [facility] Comment on above: Performed By: #### Lucie CRISTOBAL, 99268-5, 1743-2, 8, 2345-02, 13691-0 #### [facility] ([id number]) [address], [address] [place] [address] Cholesterol in HDL [Mass/Vol] 46 mg/dL Normal >39 [facility] Comment on above: Result Comment: HDL <40 mg/dL - High Risk HDL > or = 40mg/dL- Desirable HDL >60 mg/dL - Negative Risk Performed By: ###Clayton Faulkner BCA, 96651-3, 1743-2, 1920-03, 2344-, 69472-5 #### [facility] ([id number]) [address], [address] [place] [address] Cholesterol in LDL [Mass/Vol] 148 mg/dL High <130 [facility] Comment on above: Result Comment: LDL <100 mg/dL - Desirable LDL >160 mg/dL - High Risk Performed By: ###Clayton Faulkner BCA, , 1743-2, 1920-03, 7, 88263-5 #### [facility] ([id number]) [address], [address] [place] [address] Cholesterol in VLDL [Mass/Vol] 29 mg/dL Normal 0-30 [facility] Comment on above: Performed By: ##Norma Faulkner BCA, 85262-5, 4-2, 1920-03, 2344-7, 81833-4 #### [facility] ([id number]) [address], [address] [place] [address] CHOLESTEROL:HDL 4.8 Normal 1.0-5.0 [facility] Comment on above: Performed By: ###Clayton Faulkner BCA, 77188-2, 1743-2, 1920-03, 2344-7, 64678-2 #### [facility] ([id number]) [address], [address] [place] [address] Triglyceride [Mass/Vol] 146 mg/dL Normal 27-150 [facility] Comment on above: Performed By: #### Lucie CRISTOBAL, 77939-6, 1743-2, 1919-8, 2344-7, 86547-2 #### [facility] ([id number]) [address], [address] [place] [address] ALT No additional P-5'-P [Ca talytic activity/Vol]on 02-05-2024 ALT [Catalytic activity/Vol] 23 U/L Normal 0-31 [facility] Comment on above: Performed By: #### Lucie CRISTOBAL, 00541-1, 1743-2, 8, 2344-7, 80479-1 #### [facility] ([id number]) [address] [place] [address] Mohsen 02-05-2024 AST [Catalytic activity/Vol] 21 U/L Normal 0-41 [facility] Comment on above: Performed By: #### Lucie CRISTOBAL, 33039-7, 1743-2, 1919-8, 2344-7, 33531-9 #### [facility] ([id number]) [address], [address] [place] [address] CBC AND AUTO DIFFon 02-05-20 24 ABSOLUTE BASOPHIL 0.0 X10E9/L Normal 0.0-0.2 [facility] Comment on above: Performed By: #### Lucie CRISTOBAL, 39421-3, 1743-2, 1919-8, 2344-7, 36853-6 #### [facility] ([id number]) [address], [address] [place] [address] ABSOLUTE NEUTROPHIL 3.2 X10E9/L Normal 1.5-6.6 [facility] Comment on above: Performed By: #### Lucie CRISTOBAL, 05528-5, 1743-2, 1919-8, 2344-, 59149-0 #### [facility] ([id number]) [address], [address] [place] [address] Basophils/100 WBC (Bld) 0.6 % Normal [facility] Comment on above: Performed By: #### Lucie CRISTOBAL, 57384-3, 1743-2, 1919-8, 2345-02, 70710-9 #### [facility] ([id number]) [address], [address] [place] [address] Eosinophils (Bld) [#/Vol] 0.1 10*3/uL Normal 0.0-0.4 [facility] Comment on above: Performed By: #### Lucie CRISTOBAL, 89043-7, 1743-2, 1920-03, 2345-02, 63178-4 #### [facility] ([id number]) [address], [address] [place] [address] Eosinophils/100 WBC (Bld) 1.6 % Normal [facility] Comment on above: Performed By: #### Lucie CRISTOBAL, , 1743-2, 1920-03, 2345-02, 87553-2 #### [facility] ([id number]) [address], [address] [place] [address] Erythrocyte distribution width (RBC) [Ratio] 12.4 % Normal 11.5-15.0 [facility] Comment on above: Performed By: #### Lucie CRISTOBAL, 24950-8, 1743-2, 1919-, 2344-, 42107-2 #### [facility] ([id number]) [address], [address] [place] [address] Hematocrit (Bld) [Volume fraction] 39.7 % Normal 35-47 [facility] Comment on above: Performed By: #### Lucie CRISTOBAL, 28121-8, 1743-2, 1919-8, 2344-7, 95788-2 #### [facility] ([id number]) [address], [address] [place] [address] Hemoglobin (Bld) [Mass/Vol] 13.1 g/dL Normal 11.7-15.5 [facility] Comment on above: Performed By: #### Lucie CRISTOBAL, 06834-3, 1743-2, 1920-03, 2344-7, 39386-1 #### [facility] ([id number]) [address], [address] [place] [address] Lymphocytes (Bld) [#/Vol] 2.1 10*3/uL Normal 1.0-3.5 [facility] Comment on above: Performed By: #### Lucie CRISTOBAL, 85379-0, 1743-2, 1920-03, 2345-02, 98230-2 #### [facility] ([id number]) [address], [address] [place] [address] Lymphocytes/100 WBC (Bld) 35.6 % Normal [facility] Comment on above: Performed By: #### Lucie CRISTOBAL, 62398-9, 1743-2, 1920-03, 2345-02, 98586-4 #### [facility] ([id number]) [address], [address] [place] [address] MCH (RBC) [Entitic mass] 30.1 pg Normal 27-34 [facility] Comment on above: Performed By: #### Lucie BCA, 70498-3, 1743-2, 1920-03, 7, 08698-1 #### [facility] ([id number]) [address], [address] [place] [address] MCHC (RBC) [Mass/Vol] 32.9 g/dL Normal 32-36 [facility] Comment on above: Performed By: #### Lucie BCA, 98230-0, 1743-10, 1920-03, 2345-02, 59290-5 #### [facility] ([id number]) [address], [address] [place] [address] MCV (RBC) [Entitic vol] 91 fL Normal 80-100 [facility] Comment on above: Performed By: #### Lucie CRISTOBAL, , 1743-, 1920-03, 2345-02, 13667-9 #### [facility] ([id number]) [address], [address] [place] [address] Monocytes (Bld) [#/Vol] 0.4 10*3/uL Normal 0-0.9 [facility] Comment on above: Performed By: #### Lucie CRISTOBAL, , 1743-10, 1920-03, 2345-02, 46202-9 #### [facility] ([id number]) [address], [address] [place] [address] Monocytes/100 WBC (Bld) 6.6 % Normal [facility] Comment on above: Performed By: #### Lucie CRISTOBAL, , 1743-10, 1920-03, 2345-02, 59760-8 #### [facility] ([id number]) [address], [address] [place] [address] Neutrophils/100 WBC (Bld) 55.6 % Normal [facility] Comment on above: Performed By: #### Lucie CRISTOBAL, , 1743-10, 1920-03, 2345-02, 58247-6 #### [facility] ([id number]) [address], [address] [place] [address] Platelet mean volume (Bld) [Entitic vol] 9.5 fL Normal 7-12 [facility] Comment on above: Performed By: #### Lucie CRISTOBAL, , 1743-10, 1920-03, 2345-02, 71168-2 #### [facility] ([id number]) [address], [address] [place] [address] Platelets (Bld) [#/Vol] 294 10*3/uL Normal 150-450 [facility] Comment on above: Performed By: #### Lucie CRISTOBAL, 42858-6, 4-2, 1919-8, 2344-7, 62466-2 #### [facility] ([id number]) [address], [address] [place] [address] RBC COUNT 4.34 X10E12/L Normal 3.80-5.20 [facility] Comment on above: Performed By: #### Lucie CRISTOBAL, 84632-5, 1743-2, 1919-8, 2344-7, 31220-4 #### [facility] ([id number]) [address], [address] [place] [address] WBC (Bld) [#/Vol] 5.8 10*3/uL Normal 4.0-11.0 [facility] Comment on above: Performed By: #### Lucie CRISTOBAL, 60285-5, 1743-2, 1919-8, 2344-7, 49442-0 #### [facility] ([id number]) [address], [address] [place] [address] GLUCOSEon 02-05-2024 Glucose [Mass/Vol] 82 mg/dL Normal 65-99 [facility] Comment on above: Performed By: #### Lucie CRISTOBAL, 46226-3, 1743-2, 8, 2344-7, 17196-2 #### [facility] ([id number]) [address], [address] [place] [address] HCG.beta subunit IA 3rd IS Q non 02-05-2024 SERUM B HCG,3RD I.S. <5 Normal [facility] Comment on above: Result Comment: [...] ###Clayton Faulkner BCA, , 1743-2, 1920-03, 2345-02, 09712-3 #### [facility] ([id number]) [address] [place] [address] Lipid 1996 panelon 4 Cholesterol [Mass/Vol] 188 mg/dL Normal 150-200 [facility] Comment on above: Performed By: ###Clayton Faulkner BCA, , 1743-2, 8, 2345-02, 71022-2 #### [facility] ([id number]) [address] [address] [place] [address] Cholesterol in HDL [Mass/Vol] 55 mg/dL Normal >39 [facility] Comment on above: Result Comment: HDL <40 mg/dL - High Risk HDL > or = 40mg/dL- Desirable HDL >60 mg/dL - Negative Risk Performed By: ###Clayton Faulkner BCA, , 1743-2, 1919-8, 2344-7, 43155-9 #### [facility] ([id number]) [address] [place] [address] Cholesterol in LDL [Mass/Vol] 118 mg/dL Normal <130 [facility] Comment on above: Result Comment: LDL <100 mg/dL - Desirable LDL >160 mg/dL - High Risk Performed By: #### Lucie CRISTOBAL, 79290-0, 1744-2, 0-8, 5-7, 36269-6 #### [facility] ([id number]) [address] [address] Cholesterol in VLDL [Mass/Vol] 15 mg/dL Normal 0-30 [facility] Comment on above: Performed By: #### Lucie CRISTOBAL, 79721-4, 4-2, 1919-8, 2345-7, 29724-3 #### [facility] ([id number]) [address], [facility] [address] [place] [address] CHOLESTEROL:HDL 3.4 Normal 1.0-5.0 [facility] Comment on above: Performed By: #### Lucie CRISTOBAL, 26898-0, 1744-2, 1919-8, 2345-7, 41292-7 #### [facility] ([id number]) [address] [address] [place] [address] Triglyceride [Mass/Vol] 76 mg/dL Normal 27-150 [facility] Comment on above: Performed By: #### Lucie CRISTOBAL, 32005-1, 1744-2, 0-8, 2345-7, 03840-1 #### [facility] ([id number]) [address] [address] [facility]-02 SARS-CoV-2 (COVID-19) RNA ALIA+probe Ql (Unsp spec) Not detected Normal NOT DETECTED [facility] Comment on above: Result Comment: This test is not yet approved or cleared by the [place] FDA. When there are no FDA-approved or cleared tests available, and other criteria are met, FDA can make tests available under an emergency access mechanism called an Emergency Use Authorization (EUA). The EUA for this test is supported by the Director Of Database Marketing of Health and Human Service's (HHS's) [...] SARS-CoV-2. Performed By: #### C VDTB #### [facility] [address] [place] [address] Dr. Deb Rutledge INFLUENZA A AND B [facility] [place] 09-29 [facility] SEE BELOW Normal [facility] Comment on above: Result Comment: Nega tive for Flu A protein angiten. Infection due to Flu A cannot be ruled out. Flu A angiten in the sample may be below the detection limit of the test. Performed By: #### I NFLUAB #### [facility] [address] [place] [address] Dr. Deb Rutledge [facility] SEE BELOW Normal [facility] Comment on above: Result Comment: Nega tive for Flu B protein antigen. Infection due to Flu B cannot be ruled out. Flu B antigen in the sample may be below the detection limit of the test. Performed By: #### I NFLUAB #### [facility] [address] [place] [address] Dr. Deb Rutledge INFLUENZA A AG Negative Normal NEGATIVE SEE COMMENT [facility] Comment on above: Performed By: #### I NFLUAB #### [facility] [address] [place] [address] Dr. Deb Rutledge INFLUENZA B AG Negative Normal NEGATIVE SEE COMMENT [facility] Comment on above: Performed By: #### I NFLUAB #### [facility] [address] [address] [address] Deb Rutledge INSULINon 06-16-2022 Insulin 13.1 uIU/mL Normal 2.6-24.9 [facility] Comment on above: Performed By: #### I NSULIN ####[facility] [address] [address]Dr. Deb Rutledge CBC AUTO DIFFon 06-14-2022 BASO # 0.0 103/ul Normal 0.0-0.1 [facility] Comment on above: Performed By: #### C BC #### [facility] [address] [address] [address] Deb Rutledge Basophils/100 WBC (Bld) 0.2 % Normal 0.2-2.0 [facility] Comment on above: Performed By: #### C BC #### [facility] [address] [place] [address] Dr. Deb Rutledge EO # 0.1 103/ul Normal 0.0-0.7 [facility] Comment on above: Performed By: #### C BC #### [facility] [address] [place] [address] Dr. Deb Rutledge Eosinophils/100 WBC (Bld) 1.1 % Normal 0.9-7.0 [facility] Comment on above: Performed By: #### C BC #### [facility] [address] [address] [address] Deb Rutledge Erythrocyte distribution width (RBC) [Ratio] 11.7 % Normal 11.0-15.0 [facility] Comment on above: Performed By: #### C BC #### [facility] [address] [place] [address] Dr. Deb Rutledge Hematocrit (Bld) [Volume fraction] 40.5 % Normal 36.0-48.0 [facility] Comment on above: Performed By: #### C BC #### [facility] [address] [place] [address] Dr. Deb Rutledge Hemoglobin (Bld) [Mass/Vol] 13.0 g/dL Normal 12.0-16.0 [facility] Comment on above: Performed By: #### C BC #### [facility] [address] [place] [address] Dr. Deb Rutledge IG # 0.00 10e3/ul Normal 0.00-0.03 [facility] Comment on above: Performed By: #### C BC #### [facility] [address] [place] [address] Dr. Deb Rutledge IG % 0.0 % Normal 0.0-0.5 [facility] Comment on above: Performed By: #### C BC #### [facility] [address] [place] [address] Dr. Deb Rutledge LYMPH # 1.8 103/ul Normal 1.2-3.8 [facility] Comment on above: Performed By: #### C BC #### [facility] [address] [place] [address] Dr. Deb Rutledge Lymphocytes/100 WBC (Bld) 37.7 % Normal 20.5-60.0 [facility] Comment on above: Performed By: #### C BC #### [facility] [address] [place] [address] Dr. Deb Rutledge MANUAL DIFF REQ NO Normal [facility] Comment on above: Performed By: #### C BC #### [facility] [address] [place] [address] Dr. Deb Rutledge MCH (RBC) [Entitic mass] 30.7 pg Normal 26.7-34.0 [facility] Comment on above: Performed By: #### C BC #### [facility] [address] [place] [address] Dr. Deb Rutledge MCHC (RBC) [Mass/Vol] 32.1 g/dL Normal 29.9-35.2 [facility] Comment on above: Performed By: #### C BC #### [facility] [address] [place] [address] Dr. Deb Rutledge MCV (RBC) [Entitic vol] 95.7 fL Normal 81.0-99.0 [facility] Comment on above: Performed By: #### C BC #### [facility] [address] [place] [address] Dr. Deb Rutledge MONO # 0.3 103/ul Normal 0.3-0.8 [facility] Comment on above: Performed By: #### C BC #### [facility] [address] [place] [address] Dr. Deb Rutledge Monocytes/100 WBC (Bld) 5.8 % Normal 1.7-12.0 [facility] Comment on above: Performed By: #### C BC #### [facility] [address] [place] [address] Dr. Deb Rutledge NEUT # 2.6 103/ul Normal 1.4-6.5 [facility] Comment on above: Performed By: #### C BC #### [facility] [address] [place] [address] Dr. Deb Rutledge Neutrophils/100 WBC (Bld) 55.2 % Normal 43.0-75.0 [facility] Comment on above: Performed By: #### C BC #### [facility] [address] [place] [address] Dr. Deb Rutledge Platelet mean volume (Bld) [Entitic vol] 10.2 fL Normal 9.5-13.5 [facility] Comment on above: Performed By: #### C BC #### [facility] [address] [place] [address] Dr. Deb Rutledge PLT 286 103/ul Normal 150-450 [facility] Comment on above: Performed By: #### C BC #### [facility] [address] [place] [address] Dr. Deb Rutledge RBC 4.23 106/ul Normal 4.20-5.40 [facility] Comment on above: Performed By: #### C BC #### [facility] [address] [place] [address] Dr. Deb Rutledge WBC 4.7 103/ul Normal 4.0-11.0 [facility] Comment on above: Performed By: #### C BC #### [facility] [address] [place] [address] Dr. Deb Rutledge FREE THYROXINE INDEX T7on FTI 1.73 Normal 1.30-4.50 [facility] Comment on above: Performed By: #### L IPID, CMP, TSH, T7 #### [facility] [address] [address] [address] Deb Rutledge T3U 27.0 % Critically low 30.0-39.0 [facility] Comment on above: Performed By: #### L IPID, CMP, TSH, T7 #### [facility] [address] [address] [address] Deb Rutledge T4 [Mass/Vol] 6.40 ug/dL Normal 4.80-13.90 [facility] Comment on above: Performed By: #### L IPID, CMP, TSH, T7 #### [facility] [address] [address] [address] Deb Rutledge GLYCOHEMOGLOBIN A1Con 2021 ADA RECOMMENDATION SEE BELOW Normal [facility] Comment on above: Result Comment: ADA RECOMMENDED LIMIT 4.0 - 6.0 ADA THERAPEUTIC TARGET < 7.0 ACTION SUGGESTED > 7.0 Performed By: #### A 1C #### [facility] [address] [address] [address] Deb Rutledge Glucose [Mass/Vol] 108 mg/dL Normal [facility] Comment on above: Performed By: #### A 1C #### [facility] [address] [address] [address] Deb Rutledge HbA1c (Bld) [Mass fraction] 5.4 % Normal 4.5-6.2 [facility] Comment on above: Performed By: #### A 1C #### [facility] [address] [address] [address] Deb Rutledge IRONon 06-14-2022 Iron [Mass/Vol] 79.0 ug/dL Normal 50.0-170.0 [facility] Comment on above: Performed By: #### I WARREN, VITAD ####[facility] [id number] [address]. Deb Rutledge LIPID PROFILEon 06-14-2022 CHOL-HDL RATIO NORM SEE BELOW Normal [facility] Comment on above: Result Comment: 3.3 - 4.4 LOW RISK 4.4 - 7.1 AVERAGE RISK 7.1 - 11.0 MODERATE RISK >11.0 HIGH RISK Performed By: #### L IPID, CMP, TSH, T7 #### [facility] [address] [address] [address] Deb Rutledge Cholesterol [Mass/Vol] 172 mg/dL Normal <=200 [facility] Comment on above: Performed By: #### L IPID, CMP, TSH, T7 #### [facility] [address] [address] [address] Deb Rutledge Cholesterol in HDL [Mass/Vol] 68 mg/dL Critically high 40-60 [facility] Comment on above: Performed By: #### L IPID, CMP, TSH, T7 #### [facility] [address] [address] [address] Deb Rutledge Cholesterol in LDL [Mass/Vol] 96.4 mg/dL Normal [facility] Comment on above: Performed By: #### L IPID, CMP, TSH, T7 #### [facility] [address] [address] [address] Deb Rutledge Cholesterol.total/Ch olesterol in HDL [Mass ratio] 2.5 {ratio} Normal [facility] Comment on above: Performed By: #### L IPID, CMP, TSH, T7 #### [facility] [address] [address] [address] Deb Rutledge HDL NORMAL > or = 60 mg/dl - LO W CARDIOVASCULAR RISK <40 mg/dl - HIGH CARDIOVASCULAR RISK Normal [facility] Comment on above: Performed By: #### L IPID, CMP, TSH, T7 #### [facility] [address] [address] [address] Deb Rutledge LDL CALC NORMAL SEE BELOW Normal [facility] Comment on above: Result Comment: <100 mg/dl OPTIMAL 100 - 129 mg/dl NEAR OR ABOVE OPTIMAL 130 - 159 mg/dl BORDERLINE HIGH 160 - 189 mg/dl HIGH >190 mg/dl VERY HIGH Performed By: #### L IPID, CMP, TSH, T7 #### [facility] [address] [address] [address] Deb Rutledge Triglyceride [Mass/Vol] 38 mg/dL Normal <=150 [facility] Comment on above: Performed By: #### L IPID, CMP, TSH, T7 #### [facility] [address] [address] [address] Deb Rutledge VLDL CALC 7.6 mg/dL Normal [facility] Comment on above: Performed By: #### L IPID, CMP, TSH, T7 #### [facility] [address] [address] [address] Deb Rutledge PROF 14(COMP METB)on 022 Albumin [Mass/Vol] 3.8 g/dL Normal 3.4-5.0 [facility] Comment on above: Performed By: #### L IPID, CMP, TSH, T7 #### [facility] [address] [address] [address] Deb Rutledge Albumin/Globulin [Mass ratio] 1.2 {ratio} Normal [facility] Comment on above: Performed By: #### L IPID, CMP, TSH, T7 #### [facility] [address] [address] [address] Deb Rutledge ALP [Catalytic activity/Vol] 69 U/L Normal 46-116 [facility] Comment on above: Performed By: #### L IPID, CMP, TSH, T7 #### [facility] [address] [address] [address] Deb Rutledge ALT [Catalytic activity/Vol] 24 U/L Normal 14-59 [facility] Comment on above: Performed By: #### L IPID, CMP, TSH, T7 #### [facility] [address] [address] [address] Deb Rutledge Anion gap [Moles/Vol] 11.3 mmol/L Normal [facility] Comment on above: Performed By: #### L IPID, CMP, TSH, T7 #### [facility] [address] [address] [address] Deb Rutledge AST [Catalytic activity/Vol] 11 U/L Critically low 15-37 [facility] Comment on above: Performed By: #### L IPID, CMP, TSH, T7 #### [facility] [address] [place] [address] Dr. Deb Rutledge Bilirubin [Mass/Vol] 0.5 mg/dL Normal 0.2-1.0 [facility] Comment on above: Performed By: #### L IPID, CMP, TSH, T7 #### [facility] [address] [address] [address] Deb Rutledge Calcium [Mass/Vol] 8.7 mg/dL Normal 8.5-10.1 [facility] Comment on above: Performed By: #### L IPID, CMP, TSH, T7 #### [facility] [address] [place] [address] Dr. Deb Rutledge Chloride [Moles/Vol] 109 mmol/L Critically high 98-107 [facility] Comment on above: Performed By: #### L IPID, CMP, TSH, T7 #### [facility] [address] [address] [address] Deb Rutledge CO2 [Moles/Vol] 24.5 mmol/L Normal 21.0-32.0 [facility] Comment on above: Performed By: #### L IPID, CMP, TSH, T7 #### [facility] [address] [address] [address] Deb Rutledge Creatinine [Mass/Vol] 0.71 mg/dL Normal 0.55-1.02 [facility] Comment on above: Performed By: #### L IPID, CMP, TSH, T7 #### [facility] [address] [place] [address] Dr. Deb Rutledge EGFR-AF GAMBIAN >60 Normal >=60 [facility] Comment on above: Performed By: #### L IPID, CMP, TSH, T7 #### [facility] [address] [address] [address] Deb Rutledge EGFR-NON AF GAMBIAN >60 Normal >=60 [facility] Comment on above: Performed By: #### L IPID, CMP, TSH, T7 #### [facility] [address] [address] [address] Deb Rutledge Globulin (S) [Mass/Vol] 3.1 g/dL Normal [facility] Comment on above: Performed By: #### L IPID, CMP, TSH, T7 #### [facility] [address] [address] [address] Deb Rutledge Glucose [Mass/Vol] 81 mg/dL Normal 74-106 [facility] Comment on above: Performed By: #### L IPID, CMP, TSH, T7 #### [facility] [address] [place] [address] Dr. Deb Rutledge Potassium [Moles/Vol] 3.8 mmol/L Normal 3.5-5.1 [facility] Comment on above: Performed By: #### L IPID, CMP, TSH, T7 #### [facility] [address] [address] [address] Deb Rutledge Protein [Mass/Vol] 6.9 g/dL Normal 6.4-8.2 [facility] Comment on above: Performed By: #### L IPID, CMP, TSH, T7 #### [facility] [address] [place] [address] Dr. Deb Rutledge Sodium [Moles/Vol] 141 mmol/L Normal 136-145 [facility] Comment on above: Performed By: #### L IPID, CMP, TSH, T7 #### [facility] [address] [place] [address] Dr. Deb Rutledge Urea nitrogen [Mass/Vol] 15.0 mg/dL Normal 7.0-18.0 [facility] Comment on above: Performed By: #### L IPID, CMP, TSH, T7 #### [facility] [address] [place] [address] Dr. Deb Rutledge Urea nitrogen/Creatinine [Mass ratio] 21.1 mg/mg Normal [facility] Comment on above: Performed By: #### L IPID, CMP, TSH, T7 #### [facility] [address] [place] [address] Dr. Deb Rutledge TSHon 06-14-2022 TSH 1.420 uIU/mL Normal 0.358-3.740 [facility] Comment on above: Performed By: #### L IPID, CMP, TSH, T7 #### [facility] [address] [place] [address] Dr. Deb Rutledge VITAMIN D 25 OHon 06-14-2022 VIT D 25-OH 25.0 ng/mL Normal [facility] Comment on above: Performed By: #### I WARREN VITAD #### [facility] [address] [place] [address] Dr. Deb Rutledge VIT D RANGES SEE BELOW Normal [facility] Comment on above: Result Comment: <20 ng/mL Vit D deficient 20 - <30 ng/mL Vit D insufficient 30 - 100 ng/mL Vit D sufficient >100 ng/mL Potential Toxicity Performed By: #### I WARREN VITAD #### [facility] [address] [place] [address] Dr. Deb Rutledge XR CHEST 2 Von [...] by: QUINN SOLIS Date: 2022-06-12 19:00 Normal [facility] Vital Signs Date Time Vital [...] Facility: [facility] Start: 07-30-2024 End: 07-30-2024 ambulatory [facility] Start: 07-18-2024 End: 07-18-2024 ambulatory Sky Olson MD Facility: [facility] Start: 07-11-2024 End: 07-11-2024 ambulatory Sky Olson MD Facility: [facility] Start: 06-20-2024 End: 06-20-2024 ambulatory Sky Olson MD Facility: [facility] Start: 06-13-2024 End: 06-13-2024 ambulatory Sky Olson MD Facility: [facility] Start: 05-23-2024 End: 05-23-2024 ambulatory Sky Olson MD Facility:[facility] Start: 04-02-2024 End: 04-02-2024 ambulatory [facility] Start: 02-05-2024 End: 02-05-2024 ambulatory [facility] Start: 06-08-2023 Asa LUZ [facility] Start: 09-29-2022 End: 09-29-[address] TIERA HDEZ Facility:[facility] Start: 06-18-2022 Encounter for genera l adult medical examination without abnormal findings DR TIERA HDEZ [facility] Start: 06-14-2022 End: 06-15-[address] TIERA HDEZ Facility:[facility] Start: 06-14-2022 End: 06-15-2022 Encounter for general adult medical examination without abnormal findings DR TIERA HDEZ Facility:[facility] Start: 06-12-2022 End: 06-13-[address] TIERA HDEZ Facility:[facility] Payers Date Payer Category Payer Unknown 2002 Unknown [id number] 2.16.84 [id number] 2002 Unknown [id number] 2.16.84 [id number] 2002 Unknown [id number] 2.16.84 [id number] 2002 Unknown [id number] 2.16.8 [id number] 2002 Unknown [id number] 2.16.8 [id number] 2002 Unknown [id number] 2.16.8 [id number] 2002 Unknown [id number] 2.16. [id number] 2002 Unknown [id number] 2.16. [id number]. 2002 Unknown [id number] 2.16. [id number]. 2002 Unknown [id number] 2.16. [id number] 2002 Unknown [id number] 2.16. [id number]. 2002 Unknown [id number] 2.16. [id number] 2002 Unknown [id number] 2.16. [id number] 1959 Unknown [id number] Instructions Note Date & Type Note Facility [...] and content) DATE CREATED AUTHOR 10/01/2022 [facility] DATE CREATED AUTHOR AUTHOR'S ORGANIZ ATION 07/31/2024 [facility] DATE CREATED AUTHOR AUTHOR'S ORGANIZ ATION 08/26/2024 [facility] Reason for Visit (unrecogniz ed [...] ON THE PRIMARY CLINICAL RECORDS. [facility]. provides no warranty or guarantee of the accuracy or completeness of information in this document.
== END 2024-09-13 14:43 | disposition home or self-care (01) ==
PROVIDERS: Emergency Provider Emergency Medicine; PCP Family Medicine
DX: S20.219A Contusion of unspecified front wall of thorax, initial encounter (principal); V49.49XA Driver injured in collision with other motor vehicles in traffic accident, initial encounter
CPT/HCPCS: 71250; 99284

== ENCOUNTER 2024-09-15 14:20 | Outpatient (OUT) | payer BC, SELFPAY ==
--- NOTE | 2024-09-15 14:24 | MM_ITS ---
Patient Name: LEOLA FRANCO MR#: [id number] : 2000 Exam Date: 09/15/2024 Ordering Doctor: DR Michael Baron . RADIOLOGY REPORT PROCEDURE: MM TOMOSYNTHESIS DIAGNOSTIC BI, 09/15/2024, 15:15 US BREAST LT COMPLETE, 09/15/2024, 14:49 COMPARISON: None. INDICATIONS: Breast Cyst Calculator Name NCI Breast Cancer Risk Assessment Tool 5 Year Breast Cancer Risk Not Applicable. Lifetime Breast Cancer Risk Not Applicable. Personal Breast Cancer No Personal Ovarian Cancer No Treatments None Family Cancers None LOCATION: [facility] BREAST COMPOSITION: The breasts are heterogeneously dense,which may obscure small masses. FINDINGS: DIAGNOSTIC CATEGORY 4--SUSPICIOUS FOR MALIGNANCY. FINDING DOES NOT EXHIBIT CLASSIC FINDINGS OF BREAST CANCER: The breasts are symmetric in size and overall fibroglandular configuration.Scattered benign-appearing calcifications are present. Scattered benign-appearing lymph nodes are present. RIGHT BREAST: No significant suspicious finding. LEFT BREAST: Marked asymmetric thickening of the anterior skin. No ultrasound abnormality. RECOMMENDATIONS: Asymmetric thickening of the left breast skin, indeterminate, consider Paget's disease as well as inflammatory carcinoma. Punch biopsy is recommended SURGICAL BIOPSY: LEFT BREAST PLEASE NOTE: A NORMAL MAMMOGRAM DOES NOT EXCLUDE THE POSSIBILITY OF BREAST CANCER. A CLINICALLY SUSPICIOUS PALPABLE LUMP SHOULD BE BIOPSIED. Dictated by: Kenney Yarbrough MD on 09/15/2024 at 15:47 Approved by: Kenney Yarbrough MD on 09/15/2024 at 15:53
== END 2024-09-15 14:21 | disposition home or self-care (01) ==
LOC: MAMMO 14:20
PROVIDERS: PCP Family Medicine; Visit Provider Family Medicine
DX: R92.8 Other abnormal and inconclusive findings on diagnostic imaging of breast (principal); N60.02 Solitary cyst of left breast
CPT/HCPCS: 76641; 77066; G0279

== ENCOUNTER 2025-01-05 13:47 | Outpatient (RCR) | payer BC, SELFPAY | END 2025-02-04 08:01 | disposition home or self-care (01) | LOC: PT 13:47 | PROVIDERS: PCP Family Medicine; Visit Provider Family Medicine | DX: M54.50 Low back pain, unspecified (principal) | CPT/HCPCS: 20561; 97014; 97110; 97112; 97140; 97161 ==

== ENCOUNTER 2025-02-13 12:57 | Outpatient (OUT) | payer BC, SELFPAY ==
--- OUTSIDE RECORDS SUMMARY | 2025-02-13 13:00 | XMS_ITS | Clinical Summary ---
Author Organization [employer] tem Address [id number] [address] [place] [address] Care Team Providers Care Film Library Clerk Name Role Phone Michael Barno MD Primary Care Provider [phone] Allergies No known active allergies Medications lamoTRIgine (LaMICtal) 25 mg tablet Take 25 mg by mouth 2 (two) times a day. 11 06/26/2016 Active topiramate (TOPAMAX) 25 mg tabletIndication s:Migraine without aura and with status migrainosus, not intractable Take 2 tablets (50 mg total) by mouth 2 (two) times a day. 120 tablet 6 09/04/2016 Active Active Problems Problem Noted Date Diagnosed Date Insomnia due to medical condition 09/05/2016 Migraine without aura and wi th status migrainosus, not intractable 09/04/2016 Dizziness 08/06/2016 Catatonia 08/06/2016 Family History Medical History Relation Name Comments Heart defect Cousin Clotting disorder Maternal Aunt blood gail t Hypertension Maternal Aunt Heart attack Maternal Grandfather Hypertension Maternal Grandfather Diabetes Maternal Grandmother High Cholesterol Maternal Grandmother Hypertension Maternal Grandmother Hypertension Paternal Aunt Clotting disorder Paternal Grandfather bl ood clot Heart attack Paternal Grandfather Diabetes Paternal Grandmother Heart attack Paternal Grandmother High Cholesterol Paternal Grandmother Hypertension Paternal Grandmother Arrhythmia Neg Hx Asthma Neg Hx Seizures Neg Hx Stroke Neg Hx Sudden Neg Hx Thyroid Issues Neg Hx Relation Name Status Comments Cousin Maternal Aunt Maternal Grandfather Maternal Grandmother Paternal Aunt Paternal Grandfather Paternal Grandmother Social History Tobacco Use Types Packs/Day Years Used Date Smoking Tobacco: Passive Smo ke Exposure - Never Smoker Smokeless Tobacco: Never Alcohol Use Standard Drinks/Week Comments No 0 (1 standard drink = 0.6 oz pur e alcohol) Childcare Answer Date Recorded Childcare Unknown 02/03/2019 Employment Answer Date Recorded Employment Unknown 02/03/2019 Comments Unknown Sex and Gender Information Value Date Recorded Sex Assigned at Not on file Legal Sex Female 10:02 AM EDT Gender Identity Not on file Sexual Orientation Not on file Last Filed Vital Signs Vital Sign Reading Time Taken Comments Blood Pressure 130/77 09/04/2016 3:08 PM EST Rt arm standing #11- neg. dizzy Pulse 108 09/04/2016 3:08 PM EST Temperature - - Respiratory Rate - - Oxygen Saturation 100% 09/04/2016 3:0 3 PM EST Inhaled Oxygen Concentration - - Weight 63.7 kg (140 lb 6.9 oz) 09/04/2016 3:03 PM EST Height 162.5 cm (5' 3.98 ) 09/04/2016 3 :03 PM EST Body Mass Index 24.12 09/04/2016 3:03 PM EST Plan of Treatment Health Maintenance Due Date Last Done Comments Depression Screening 2014 Tobacco Screening 2014 Adult BMI Screening 01/14/2020 Pap Smear 2023 DTaP,Tdap and Td Vaccines (7 - Td or Tdap) 12/16/2023 12/15/2013, 11/25/2006, 04/19/2003, Additional history exists COVID-19 Vaccine (5 - 2023-2 5 season) 2024 06/15/2022, 09/11/2021, 01/16/2021, Additional history exists Influenza Vaccine 05/01/2025 Medical Devices Not on file Insurance [facility] Care Teams Film Library Clerk Relationship Specialty Start Date End Date Michael Baron MD PCP - General 08/05/16
--- OUTSIDE RECORDS SUMMARY | 2025-02-13 13:00 | XMS_ITS | Clinical Summary ---
Author Organization [place] [facility] Address [address] [place] [address] Phone Care Team Providers Care Pile Driver Engineer Name Role Phone Unavailable Primary Care Provider Unavailabl e Social History Tobacco Use Types Packs/Day Years Used Date Smoking Tobacco: Never Assessed Comments Unknown Sex and Gender Information Value Date Recorded Sex Assigned at Not on file Legal Sex Female 11:09 PM EDT Gender Identity Not on file Sexual Orientation Not on file Last Filed Vital Signs Vital Sign Reading Time Taken Comments Blood Pressure 106/78 06/08/2023 6:19 PM EDT Pulse 68 06/08/2023 6:19 PM EDT Temperature 36.6 C (97.9 F) 06/08/2023 6:19 PM EDT Respiratory Rate 16 06/08/2023 6:19 PM EDT Oxygen Saturation 100% 06/08/2023 6:19 PM EDT Inhaled Oxygen Concentration - - Weight - - Height - - Body Mass Index - - Plan of Treatment Health Maintenance Due Date Last Done Comments HIV Screening 2002 Lipid Panel 2002 Yearly Adult Physical 2002 MMR Vaccines (1 of 1 - Stand ye series) 2003 Varicella Vaccines (1 of 2 - 13+ 2-dose series) 2015 HPV Vaccines (1 - 3-dose series) 2017 Meningococcal B Vaccine (1 o f 2 - Standard) 2018 Hepatitis C Screening 01/14/2020 Hepatitis B Vaccines (1 of 3 - 19+ 3-dose series) 2021 Cervical Cancer Screening 2023 HPV/Cotest 2023 Pap Smear 2023 DTaP/Tdap/Td Vaccines (1 - Tdap) 01/14/2024 COVID-19 Vaccine ( - 2023-2 5 season) 2024 Influenza Vaccine (Season Ended) 2025 Zoster Vaccines (1 of 2) 01/14/2052 HIB Vaccines Aged Out No longer eligi ble based on patient's age to complete this topic Hepatitis A Vaccines Aged Out No long er eligible based on patient's age to complete this topic IPV Vaccines Aged Out No longer eligi ble based on patient's age to complete this topic Meningococcal Vaccine Aged Out No ruddy armin eligible based on patient's age to complete this topic Pneumococcal Vaccine: Pediat rics and At-Risk Adult Patients Aged Out No longer kylah gible based on patient's age to complete this topic Rotavirus Vaccines Aged Out No longer eligible based on patient's age to complete this topic
--- NOTE | 2025-02-13 13:15 | XR_ITS ---
The [place] [id number] Patient Name: LEOLA FRANCO MRN: [id number] date: 2000 Sex: F Assigned Patient Location: [facility] Current Patient Location: [facility] Accession/Order Number: [id number] Exam Date: 02/13/2025 14:08 Report Date: 02/13/2025 14:09 At the request of: TIERA HDEZ MD Procedure: XR thoracic spine 3V CERVICAL SPINE 3 views, thoracic spine 3 views: CLINICAL HISTORY: Chronic thoracic and cervical spine pain. COMPARISON: None FINDINGS: Cervical spine: Straightening of the normal cervical lordosis. Vertebral body and disc space heights appear maintained. Facet joints appear unremarkable. No prevertebral soft tissue swelling. Thoracic spine: Vertebral body disc space heights appear maintained. Pedicles appear intact. No acute bony process. XR/XR cervical spine 2-3V IMPRESSION: NO ACUTE BONY PROCESS. Impression dictated by: Spike Yusuf Jr., DAndreaOAndrea 02/13/2025 2:09 PM Dictation Location: [place] [address] Electronically authenticated by: [id number] Y Date: 02/13/2025 14:09
--- NOTE | 2025-02-13 13:15 | XR_ITS ---
The [place] [id number] Patient Name: LEOLA FRANCO MRN: [id number] date: 2000 Sex: F Assigned Patient Location: [facility] Current Patient Location: [facility] Accession/Order Number: [id number] Exam Date: 02/13/2025 14:08 Report Date: 02/13/2025 14:09 At the request of: TIERA HDEZ MD Procedure: XR thoracic spine 3V CERVICAL SPINE 3 views, thoracic spine 3 views: CLINICAL HISTORY: Chronic thoracic and cervical spine pain. COMPARISON: None FINDINGS: Cervical spine: Straightening of the normal cervical lordosis. Vertebral body and disc space heights appear maintained. Facet joints appear unremarkable. No prevertebral soft tissue swelling. Thoracic spine: Vertebral body disc space heights appear maintained. Pedicles appear intact. No acute bony process. XR/XR thoracic spine 3V IMPRESSION: NO ACUTE BONY PROCESS. Impression dictated by: Spike Yusuf Jr., D.O. 02/13/2025 2:09 PM Dictation Location: [place] [address] Electronically authenticated by: [id number] Y Date: 02/13/2025 14:09
== END 2025-02-13 12:58 | disposition home or self-care (01) ==
PROVIDERS: PCP Family Medicine; Visit Provider Family Medicine
DX: M54.12 Radiculopathy, cervical region (principal); M54.14 Radiculopathy, thoracic region
CPT/HCPCS: 72040; 72072

== ENCOUNTER 2025-03-09 08:35 | Outpatient (OUT) | payer BC, SELFPAY ==
--- OUTSIDE RECORDS SUMMARY | 2025-02-13 10:32 | XMS_ITS ---
Author Organization [facility] [place] Address [address] [place] [address] Care Team Providers Care Coverage Specialist Name Role Phone Jasson Baron Primary Care Provider [phone] REASON FOR VISIT xr results Medications Medication SIG (Take, Route, Fr equency, Duration) Notes Start Date End Date Status Apri 0.15-30 MG-MCG Take 1 tablet by sandra th 1 (one) time each day. Oral for 84 Days Active predniSONE 20 MG 3 tablet Orally Once a day for 5 days 02/13/2025 Active Encounters Encounter Location Date Provider Diagnosis [facility] [address] [place] [address] 02/13/2025 Jasson Baron Plan Of Treatment Medication Medication Name Sig Start Date Stop Date Notes Apri 0.15-30 MG-MCG Take 1 tablet by sandra th 1 (one) time each day. Oral for 84 Days predniSONE 20 MG 3 tablet Orally Once a day for 5 days Progress Notes * Carla THOMPSONeDOB:[birth year] (25 yo F)Acc No.[id number]:02/13/2025 Patient: Sweta ESCUDERO :2000 A ge:25 Y S ex:Female Address:[address] [place] [address], [id number] * Refills Start predniSONE Tablet, 20 MG, Orally, 15 Tablet, 3 tablet, Once a day, 5 days, Refills=0 Refill Apri Tablet, 0.15-30 MG-MCG, Oral, 112 Each, Take 1 tablet by mouth 1 (one) time each day., 84 Days, Refills=0 * true * Date: Generated for Sylvain hill/Wilbert/Dagmar on: 0 02/27/2025 12:52 PM EDT
--- OUTSIDE RECORDS SUMMARY | 2025-02-16 12:42 | XMS_ITS ---
Author Organization [facility] [place] Address [address] [place] [address] Care Team Providers Care Shellfish Checker Name Role Phone Jasson Baron Primary Care Provider [phone] REASON FOR VISIT Apri script Medications Medication SIG (Take, Route, Fr equency, Duration) Notes Start Date End Date Status Apri 0.15-30 MG-MCG Take 1 tablet by sandra th 1 (one) time each day. Oral Once a day- SKIP PLACEBO PILLS for 21 days A ctive Encounters Encounter Location Date Provider Diagnosis [facility] [address] [place] [address] 02/16/2025 Jasson Garzaholli Plan Of Treatment Medication Medication Name Sig Start Date Stop Date Notes Apri 0.15-30 MG-MCG Take 1 tablet by sandra th 1 (one) time each day. Oral Once a day- SKIP PLACEBO PILLS for 21 days Progress Notes * SALVADORCarlaeDOB:[birth year] (25 yo F)Acc No.[id number]:02/16/2025 Patient: Andrzej ESCUDEROzie :2000 A ge:25 Y S ex:Female Address:[address] [place] [address], [phone] * Refills Refill Apri Tablet, 0.15-30 MG-MCG, Oral, 1 Each, Take 1 tablet by mouth 1 (one) time each day., Once a day- SKIP PLACEBO PILLS, 21 days, Refills=11 * true * Date: Generated for Sylvain hill/Wilbert/Dagmar on: 0 02/27/2025 12:53 PM EDT
--- OUTSIDE RECORDS SUMMARY | 2025-02-17 09:03 | XMS_ITS ---
Author Organization [facility] in [place] Address [address] [place] [address] Care Team Providers Care Vice President Biostatistics Name Role Phone Jasson Baron Primary Care Provider Allergies Allergen (clinical drug ingredient) Drug/Non Drug Allergy documented on EMR Reaction Allergy Type Onset Date Status tizanidine tiZANidine vivid dreams Drug Allergy Ac tive REASON FOR VISIT chart update Medications Medication SIG (Take, Route, Fr equency, Duration) Notes Start Date End Date Status Topiramate ER 100 MG 1 capsule Orally On ce a day for 90 days 05/06/2023 Active Protonix 40 MG 1 tablet Orally Ever y Evening for 90 days 01/26/2024 Active SEROquel 50 MG 1 tablet at bedtime Orally Once a day for 90 days 05/06/2023 Active Nabumetone 500 MG 1 tablet Orally Twic e a day for 30 day(s) 02/10/2025 Active CeleXA 40 MG 1 tablet Orally Once a day for 90 days 01/26/2024 Active Apri 0.15-30 MG-MCG Take 1 tablet by sandra th 1 (one) time each day. Oral Once a day- SKIP PLACEBO PILLS for 21 days A ctive Encounters Encounter Location Date Provider Diagnosis [facility] [address] [place] [address] 02/17/2025 Jasson Loraine Plan Of Treatment No Information Progress Notes * Diamond THOMPSONOB:[birth year] (25 yo F)Acc No.[id number]:02/17/2025 Patient: Sweta ESCUDERO :2000 A ge:25 Y S ex:Female Address:[address] [place] [address], [id number] Subjective: * Chief Complaints: * C fair update * Medical History: * Surgical History: * Hospitalization/Major Diagno stic Procedure: * Medications: T akingApri(Desogestrel-Ethinyl Estradiol) 0.15-30 MG-MCG Tablet Take 1 tablet by mouth 1 (one) time each day. Oral Once a day- SKIP PLACEBO PILLS CeleXA(Citalopram Hydrobromide) 40 MG Tablet 1 tablet Orally Once a day Nabumetone 500 MG Tablet 1 tablet Orally Twice a day Protonix(Pantoprazole Sodium) 40 MG Tablet Delayed Release 1 tablet Orally Every Evening SEROquel(QUEtiapine Fumarate) 50 MG Tablet 1 tablet at bedtime Orally Once a day Topiramate ER 100 MG Capsule Extended Release 24 Hour 1 capsule Orally Once a day Taking Apri(Desogestrel-Ethinyl Estradiol) 0.15-30 MG- MCG Tablet Take 1 tablet by mouth 1 (one) time each day. Oral Once a day- SKIP PLACEBO PILLS Taking CeleXA(Citalopram Hydrobromide) 40 MG Tablet 1 tablet Orally Once a day Taking Nabumetone 500 MG Tablet 1 tablet Orally Twice a day Taking Protonix(Pantoprazole Sodium) 40 MG Tablet Delayed Release 1 tablet Orally Every Evening Taking SEROquel(QUEtiapine Fumarate) 50 MG Tablet 1 tablet at bedtime Orally Once a day Taking Topiramate ER 100 MG Capsule Extended Release 24 Hour 1 capsule Orally Once a day DiscontinuedBaclofen 10 MG Tablet 1 tablet as needed Orally at bedtime Daypro(Oxaprozin) 600 MG Tablet 2 tablets Orally daily Lexapro(Escitalopram Oxalate) 20 MG Tablet 1 tablet Orally Once a day NexIUM(Esomeprazole Magnesium) 40 MG Capsule Delayed Release 1 capsule 1/2 to 1 hour before morning meal Orally Once a day predniSONE 20 MG Tablet 3 tablet Orally Once a day Soma(Carisoprodol) 250 MG Tablet 1 tablet as needed Orally Three times a day tiZANidine HCl 4 MG Tablet 2 tabs Orally qhs Discontinued Baclofen 10 MG Tablet 1 tablet as needed Orally at bedtime Discontinued Daypro(Oxaprozin) 600 MG Tablet 2 tablets Orally daily Discontinued Lexapro(Escitalopram Oxalate) 20 MG Tablet 1 tablet Orally Once a day Discontinued NexIUM(Esomeprazole Magnesium) 40 MG Capsule Delayed Release 1 capsule 1/2 to 1 hour before morning meal Orally Once a day Discontinued predniSONE 20 MG Tablet 3 tablet Orally Once a day Discontinued Soma(Carisoprodol) 250 MG Tablet 1 tablet as needed Orally Three times a day Discontinued tiZANidine HCl 4 MG Tablet 2 tabs Orally qhs * Allergies: t iZANidine: vivid dreams Objective: * Vitals: * Physical Examination: Assessment: Plan: * Treatment: * Procedure Codes: * true * Date: Generated for Sylvain hill/Wilbert/Dagmar on: 0 02/27/2025 12:52 PM EDT
--- OUTSIDE RECORDS SUMMARY | 2025-02-27 12:53 | XMS_ITS | Patient Health Record ---
Author Organization [facility] in [place] Address [address] [place] [address] Care Team Providers Care Hand Polisher Name Role Phone Jasson Baron Primary Care Provider TIERA BARON Unavailable [phone] Aranza Macias Unavailable [phone] Allergies Allergen (clinical drug ingredient) Drug/Non Drug Allergy documented on EMR Reaction Allergy Type Onset Date Status tizanidine tiZANidine vivid dreams Drug Allergy Ac tive Results Component Value Reference Range Notes CBC AUTO DIFF Reviewed date:03/27/2024 12:00:38 PM Interpretation: Performing Lab: Notes/Report: [facility] , White Blood Count 4.7 4.0-11.0 10 3/uL Red Blood Count 4.17 4.20-5.40 10 6/uL Hemoglobin 12.7 12.0-16.0 g/dL Hematocrit 38.5 36.0-48.0 % Mean Corpuscular Volume 92.3 81.0-99.0 fL Mean Corpuscular Hemoglobin 30.5 26.7-34.0 pg Mean Corpuscular HGB Conc 33.0 29.9-35.2 g/dL Red Cell Distribution Width 11.9 11.0-15.0 % Platelet Count 330 150-450 10 3/uL Mean Platelet Volume 10.2 9.5-13.5 fL Neutrophils Percent Auto 45.7 43.0-75.0 % Lymphocytes Percent Auto 45.6 20.5-60.0 % Monocytes Percent Auto 7.0 1.7-12.0 % Eosinophils Percent Auto 1.3 0.9-7.0 % Basophils Percent Auto 0.4 0.2-2.0 % Immature Granulocytes Pct Auto 0.0 0.0-0.5 % Neutrophils Absolute Auto 2.1 1.4-6.5 10 3/uL Lymphocytes Absolute Auto 2.1 1.2-3.8 10 3/uL Monocytes Absolute Auto 0.3 0.3-0.8 10 3/uL Eosinophils Absolute Auto 0.1 0.0-0.7 10 3/uL Basophils Absolute Auto 0.0 0.0-0.1 10 3/uL Immature Granulocytes Abs Auto 0.00 0.00-0.03 10 3/uL Performing Lab: see note ML - [facility] LB GLYCOHEMOGLOBIN A1C Reviewed date:03/27/2024 12:00:39 PM Interpretation: Performing Lab: Notes/Report: [facility] , Glycohemoglobin A1C 5.3 4.5-6.2 % > 7.0 ACTION SUGGESTED ADA THERAPEUTIC TARGET < 7.0 ADA RECOMMENDED LIMIT 4.0 - 6.0 Estimated Average Glucose 105 Performing Lab: see note ML - [facility] LB LIPID PROFILE Reviewed date:03/27/2024 12:00:39 PM Interpretation: Performing Lab: Notes/Report: [facility] , Triglycerides 127 <=150 mg/dL Cholesterol 227 <=200 mg/dL HDL Cholesterol 54 40-60 mg/dL <40 mg/dl - HIGH CARDIOVASCULAR RISK > or =60 mg/dl - LOW CARDIOVASCULAR RISK LDL Cholesterol Calculated 148.0 <100 mg/dl OPTIMAL 130-159 mg/dl BORDERLINE HIGH 100-129 mg/dl NEAR OR ABOVE OPTIMAL 160-189 mg/dl HIGH >190 mg/dl VERY HIGH VLDL CHOLESTEROL 25.4 Chol HDL Ratio 4.2 3.3 - 4.4 LOW RISK >11.0 HIGH RISK 7.1 - 11.0 MODERATE RISK 4.4 - 7.1 AVERAGE RISK Performing Lab: see note ML - [facility] LB PROF 14(COMP METB) Reviewed date:03/27/2024 12:00:39 PM Interpretation: Performing Lab: Notes/Report: [facility] , Sodium 141 136-145 mmol/L Potassium 4.3 3.5-5.1 mmol/L Chloride 108 98-107 mmol/L Carbon Dioxide 24.1 21.0-32.0 mmol/L Anion Gap 13.2 Glucose 92 74-106 mg/dL Blood Urea Nitrogen 9.0 7.0-18.0 mg/dL Creatinine 0.97 0.55-1.02 mg/dL Estimated GFR ( Paulette >60 >=60 Estimated GFR (Non- Serena >60 >=60 BUN Creatinine Ratio 9.3 Calcium 8.8 8.5-10.1 mg/dL Bilirubin Total 0.5 0.2-1.0 mg/dL Aspartate Amino Transferase 15 15-37 U/L Alanine Aminotransferase 17 14-59 U/L Alkaline Phosphatase 65 46-116 U/L Total Protein 6.6 6.4-8.2 g/dL Albumin Level 3.1 3.4-5.0 g/dL Globulin 3.5 Albumin Globulin Ratio 0.9 Performing Lab: see note ML - [facility] XR KNEE LT 3V Reviewed date:07/21/2024 02:59:39 PM Interpretation: Performing Lab: Notes/Report: Source Facility: [place] [address] XRay Report Signed Patient: SWETA FRANCO MR#: [id number] : 2000 Acct:[id number] Age/Sex: 24 / F ADM Date: 07/18/24 Loc: LAB Attending Dr: Tiera Baron M.D. Ordering Physician: Tiera Baron M.D. Date of Service: 07/18/24 Procedure(s): XR knee LT 3V Accession Number(s): [id number] cc: Tiera Baron M.D. [place] [address] Patient Name: SWETA FRANCO MRN: [id number] date: 2000 Sex: F Assigned Patient Location: LAB Current Patient Location: Accession/Order Number: [id number] Exam Date: 07/18/2024 11:48 Report Date: 07/21/2024 05:49 At the request of: TIERA BARON Procedure: XR knee LT 3V PROCEDURE: XR knee LT 3V HISTORY: Internal Derangement Of Knee ; pain inferior to patella COMPARISON: None. FINDINGS: BONES:No fracture, acute abnormality, or significant arthropathy. SOFT TISSUES:No visible soft tissue swelling. EFFUSION:None visible. OTHER: Negative. XR/XR knee LT 3V IMPRESSION: 1. Normal examination. Electronically authenticated by: GARY LEROY Date: 07/21/2024 05:49 Dictated By: Gary Leroy M.D. 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 Ordering Physician: Tiera Baron M.D. Date of Service: 07/18/24 Procedure(s): XR kne e LT 3V Accession Number(s): [id number] cc: Tiera Baron M.D. [place] [address] Patient Name: SWETA FRANCO MRN: [id number] date: 2000 Sex: F Assigned Patient Location: LAB Current Patient Location: Accession/Order Numb er: [id number] Exam Date: 11:48 Report Date: 07/21/2024 05:49 At the request of: TIERA BARON Procedure: XR knee L T 3V PROCEDURE: XR knee L T 3V HISTORY: Internal Derangement Of Knee ; pain inferior to patella COMPARISON: None. FINDINGS: BONES:No fracture, acute abnormality, or significant arthropathy. SOFT TISSUES:No visi ble soft tissue swelling. EFFUSION:None visible. OTHER: Negative. XR/XR knee LT 3V IMPRESSION: 1. Normal examination. Electronically authenticated by: GARY LEROY Date: 07/21/2024 05:49 Dictated By: Gary Leroy M.D. Signed By: 07/21/24 0552 DD/ 0549 TD/TT: Tool And Machine Maintainer: XR thoracic spine 3V Reviewed date:02/13/2025 02:32:44 PM Interpretation: Performing Lab: Notes/Report: Source Facility: [place] [address] XRay Report Signed Patient: SWETA FRANCO MR#: [id number] : 2000 Acct:[id number] Age/Sex: 25 / F ADM Date: 02/13/25 Loc: RAD Attending Dr: Tiera Baron M.D. Ordering Physician: Tiera Baron M.D. Date of Service: 02/13/25 Procedure(s): XR thoracic spine 3V Accession Number(s): [id number] cc: Tiera Baron M.D. [place] [address] Patient Name: SWETA FRANCO MRN: [id number] date: 2000 Sex: F Assigned Patient Location: [facility] Current Patient Location: [facility] Accession/Order Number: [id number] Exam Date: 02/13/2025 14:08 Report Date: 02/13/2025 14:09 At the request of: TIERA BARON MD Procedure: XR thoracic spine 3V CERVICAL SPINE 3 views, thoracic spine 3 views: CLINICAL HISTORY: Chronic thoracic and cervical spine pain. COMPARISON: None FINDINGS: Cervical spine: Straightening of the normal cervical lordosis. Vertebral body and disc space heights appear maintained. Facet joints appear unremarkable. No prevertebral soft tissue swelling. Thoracic spine: Vertebral body disc space heights appear maintained. Pedicles appear intact. No acute bony process. XR/XR thoracic spine 3V IMPRESSION: NO ACUTE BONY PROCESS. Impression dictated by: Spike Yusuf Jr., D.OAndrea 02/13/2025 2:09 PM Dictation Location: [place] [address] Electronically authenticated by: [id number] Y Date: 02/13/2025 14:09 Dictated By: Spike Yusuf M.D. Signed By: 02/13/25 1412 DD/ 140 TD/TT: Tool And Machine Maintainer: [place] [address] XRay Report Signed Patient: SWETA FRANCO MR#: [id number] : 2000 Acct:[id number] Age/Sex: 25 / F ADM Date: 02/13/25 Loc: RAD Attending Dr: Nicol Baron M.D. Ordering Physician: Tiera Baron M.D. Date of Service: 02/13/25 Procedure(s): XR thoracic spine 3V Accession Number(s): [id number] cc: Tiera Baron M.D. [place] [address] Patient Name: SWETA FRANCO MRN: [id number] date: 2000 Sex: F Assigned Patient Location: [facility] Current Patient Location: [facility] Accession/Order Numb er: [id number] Exam Date: 02/13/2025 14:08 Report Date: 02/13/2025 14:09 At the request of: TIERA BARON MD Procedure: XR thorac ic spine 3V CERVICAL SPINE 3 vie ws, thoracic spine 3 views: CLINICAL HISTORY: Chronic thoracic and cervical spine pain. COMPARISON: None FINDINGS: Cervical spine: Straightening of the normal cervical lordosis. Vertebral body and disc space heigh ts appear maintained. Facet joints appear unremarkable. No prevertebral soft tissue swelling. Thoracic spine: Vertebral body disc space heights appear maintained. Pedicles appear intact. No ac [place] bony process. XR/XR thoracic spine 3V IMPRESSION: NO ACUTE BONY PROCESS. Impression dictated by: Spike Yusuf Jr., DAndreaOAndrea 02/13/2025 2:09 PM Dictation Location: [place] [address] Electronically authenticated by: [id number] Y Date: 02/13/2025 14:09 Dictated By: Spike Yusuf M.D. Signed By: 02/13/25 141 DD/ 140 TD/TT: Tool And Machine Maintainer: XR cervical spine 2-3V Reviewed date:02/13/2025 02:32:44 PM Interpretation: Performing Lab: Notes/Report: Source Facility: [place] [address] XRay Report Signed Patient: SWETA FRANCO MR#: [id number] : 2000 Acct:[id number] Age/Sex: 25 / F ADM Date: 02/13/25 Loc: RAD Attending Dr: Tiera Baron M.D. Ordering Physician: Tiera Baron M.D. Date of Service: 02/13/25 Procedure(s): XR cervical spine 2-3V Accession Number(s): [id number] cc: Tiera Baron M.D. [place] [address] Patient Name: SWETA FRANCO MRN: [id number] date: 2000 Sex: F Assigned Patient Location: [facility] Current Patient Location: [facility] Accession/Order Number: [id number] Exam Date: 02/13/2025 14:08 Report Date: 02/13/2025 14:09 At the request of: TIERA BARON MD Procedure: XR thoracic spine 3V CERVICAL SPINE 3 views, thoracic spine 3 views: CLINICAL HISTORY: Chronic thoracic and cervical spine pain. COMPARISON: None FINDINGS: Cervical spine: Straightening of the normal cervical lordosis. Vertebral body and disc space heights appear maintained. Facet joints appear unremarkable. No prevertebral soft tissue swelling. Thoracic spine: Vertebral body disc space heights appear maintained. Pedicles appear intact. No acute bony process. XR/XR cervical spine 2-3V IMPRESSION: NO ACUTE BONY PROCESS. Impression dictated by: Fernando Sanchez Jr.OAndrea 02/13/2025 2:09 PM Dictation Location: [place] [address] Electronically authenticated by: [id number] Y Date: 02/13/2025 14:09 Dictated By: Spike Yusuf M.D. Signed By: 02/13/25 1412 DD/DT: [id number] TD/TT: Tool And Machine Maintainer: The [address] [address] XRay Report Signed Patient: SWETA FRANCO MR#: [id number] : 2000 Acct:[id number] Age/Sex: 25 / F ADM Date: 02/13/25 Loc: RAD Attending Dr: Nicol Baron M.D. Ordering Physician: Tiera Baron M.D. Date of Service: 02/13/25 Procedure(s): XR cervical spine 2-3V Accession Number(s): [id number] cc: Tiera Baron M.D. [place] [address] Patient Name: SWETA FRANCO MRN: [id number] date: 2000 Sex: F Assigned Patient Location: [facility] Current Patient Location: [facility] Accession/Order Numb er: [id number] Exam Date: 02/13/2025 14:08 Report Date: 02/13/2025 14:09 At the request of: TIERA BARON MD Procedure: XR thorac ic spine 3V CERVICAL SPINE 3 vie ws, thoracic spine 3 views: CLINICAL HISTORY: Chronic thoracic and cervical spine pain. COMPARISON: None FINDINGS: Cervical spine: Straightening of the normal cervical lordosis. Vertebral body and disc space heigh ts appear maintained. Facet joints appear unremarkable. No prevertebral soft tissue swelling. Thoracic spine: Vertebral body disc space heights appear maintained. Pedicles appear intact. No ac [place] bony process. XR/XR cervical spine 2-3V IMPRESSION: NO ACUTE BONY PROCESS. Impression dictated by: Spike Yusuf Jr., D.O. 02/13/2025 2:09 PM Dictation Location: [place] [address] Electronically authenticated by: [id number] Y Date: 02/13/2025 14:09 Dictated By: Spike Yusuf M.D. Signed By: 02/13/25 1412 DD/ 140 TD/TT: Tool And Machine Maintainer: XR hip RT 2V w/ pelvis Reviewed date:03/22/2024 08:54:04 PM Interpretation: Performing Lab: Notes/Report: Source Facility: [place] [address] [place] [address] XRay Report Signed Patient: SWETA FRANCO MR#: [id number] : 2000 Acct:[id number] Age/Sex: 24 / F ADM Date: 03/21/24 Loc: RAD Attending Dr: Tiera Baron M.D. Ordering Physician: Tiera Baron M.D. Date of Service: 03/21/24 Procedure(s): XR hip RT 2V w/ pelvis Accession Number(s): [id number] cc: Tiera Baron M.D. [place] [address] Patient Name: SWETA FRANCO MRN: [id number] date: 2000 Sex: F Assigned Patient Location: [facility] Current Patient Location: Accession/Order Number: [id number] Exam Date: 03/21/2024 18:20 Report Date: 03/22/2024 15:46 At the request of: TIERA BARON Procedure: XR hip RT 2V w/ pelvis PROCEDURE: XR hip RT 2V w/ pelvis HISTORY: LOW BACK PAIN AT MULTIPLE SITES M54.50 , bilateral hip pain for 2 months COMPARISON: None. FINDINGS: BONES:No fracture, acute abnormality, or significant arthropathy. SOFT TISSUES:No visible soft tissue swelling. EFFUSION:None visible. OTHER: Negative. XR/XR hip RT 2V w/ pelvis IMPRESSION: 1. Normal appearance of the pelvis and hip joints. Electronically authenticated by: GARY LEROY Date: 03/22/2024 15:46 Dictated By: Gary Leroy M.D. Signed By: 03/22/24 1548 DD/ 1546 TD/TT: Tool [employer] Machine Maintainer: [place] [address] XRay Report Signed Patient: SWETA FRANCO MR#: [id number] : 2000 Acct:[id number] Age/Sex: 24 / F ADM Date: 03/21/24 Loc: RAD Attending Dr: Nicol Baron M.D. Ordering Physician: Tiera Baron M.D. Date of Service: 03/21/24 Procedure(s): XR hip RT 2V w/ pelvis Accession Number(s): [id number] cc: Tiera Baron M.D. [place] [address] Patient Name: SWETA FRANCO MRN: [id number] date: 2000 Sex: F Assigned Patient Location: RAD Current Patient Location: Accession/Order Numb er: [id number] Exam Date: 03/21/2024 18:20 Report Date: 03/22/2024 15:46 At the request of: TIERA BARON Procedure: XR hip RT 2V w/ pelvis PROCEDURE: XR hip RT 2V w/ pelvis HISTORY: LOW BACK PA IN AT MULTIPLE SITES M54.50 , bilateral hip pain for 2 months COMPARISON: None. FINDINGS: BONES:No fracture, acute abnormality, or significant arthropathy. SOFT TISSUES:No visi ble soft tissue swelling. EFFUSION:None visible. OTHER: Negative. XR/XR hip RT 2V w/ pelvis IMPRESSION: 1. Normal appearance of the pelvis and hip joints. Electronically authenticated by: GARY LEROY Date: 03/22/2024 15:46 Dictated By: Gary Leroy M.D. Signed By: 03/22/24 1548 DD/ 1546 TD/TT: Tool And Machine Maintainer: XR lumbar spine min 4V Reviewed date:03/22/2024 08:54:04 PM Interpretation: Performing Lab: Notes/Report: Source Facility: [place] [address] [place] [address] XRay Report Signed Patient: SWETA FRANCO MR#: [id number] : 2000 Acct:[id number] Age/Sex: 24 / F ADM Date: 03/21/24 Loc: RAD Attending Dr: Tiera Baron M.D. Ordering Physician: Tiera Baron M.D. Date of Service: 03/21/24 Procedure(s): XR lumbar spine min 4V Accession Number(s): [id number] cc: Tiera Baron M.D. The [place] [id number] Patient Name: SWETA FRANCO MRN: [id number] date: 2000 Sex: F Assigned Patient Location: [facility] Current Patient Location: Accession/Order Number: [id number] Exam Date: 03/21/2024 18:20 Report Date: 03/22/2024 15:45 At the request of: TIERA BARON Procedure: XR lumbar spine min 4V EXAMINATION: XR lumbar spine min 4V HISTORY: LOW BACK PAIN AT MULTIPLE SITES M54.50 ; bilateral hip pain for 2 months COMPARISON: No relevant comparison available. FINDINGS: BONES: No significant spondylosis, scoliosis, fracture, or visible bony lesion. DISC SPACES: L4-5 mild narrowing. L5-S1 moderate narrowing. PARASPINOUS: Negative. No paraspinous abnormality is seen. OTHER: Negative. XR/XR lumbar spine min 4V IMPRESSION: 1. Degenerative disc disease of lower lumbar spine which may be contributing to patient's symptoms. Consider MRI for further evaluation. Electronically authenticated by: GARY LEROY Date: 03/22/2024 15:45 Dictated By: Gary Leroy M.D. Signed By: 03/22/24 1548 DD/ 1545 TD/TT: Tool And Machine Maintainer: [place] [address] XRay Report Signed Patient: SWETA FRANCO MR#: [id number] : 2000 Acct:[id number] Age/Sex: 24 / F ADM Date: 03/21/24 Loc: [facility] Attending Dr: Nicol Baron M.D. Ordering Physician: Tiera Baron M.D. Date of Service: 03/21/24 Procedure(s): XR lum bar spine min 4V Accession Number(s): [id number] cc: Tiera Baron M.D. The [address] [address] Patient Name: SWETA FRANCO MRN: [id number] date: 2000 Sex: F Assigned Patient Location: [facility] Current Patient Location: Accession/Order Numb er: [id number] Exam Date: 03/21/2024 18:20 Report Date: 03/22/2024 15:45 At the request of: TIERA BARON Procedure: XR lumbar spine min 4V EXAMINATION: XR lumb ar spine min 4V HISTORY: LOW BACK PA IN AT MULTIPLE SITES M54.50 ; bilateral hip pain for 2 months COMPARISON: No relev ant comparison available. FINDINGS: BONES: No significan t spondylosis, scoliosis, fracture, or visible bony lesion. DISC SPACES: L4-5 mi ld narrowing. L5-S1 moderate narrowing. PARASPINOUS: Negativ e. No paraspinous abnormality is seen. OTHER: Negative. XR/XR lumbar spine min 4V IMPRESSION: 1. Degenerative disc disease of lower lumbar spine which may be contributing to patient's symptoms. Consider MRI for further evaluation. Electronically authenticated by: GARY LEROY Date: 03/22/2024 15:45 Dictated By: Gary Leroy M.D. Signed By: 03/22/24 1548 DD/ 1545 TD/TT: Tool And Machine Maintainer: FREE T4 Reviewed date:03/27/2024 12:00:38 PM Interpretation: Performing Lab: Notes/Report: [facility] , Free T4 0.71 0.76-1.46 ng/dL Performing Lab: see note ML - [facility] LB TSH Reviewed date:03/27/2024 12:00:38 PM Interpretation: Performing Lab: Notes/Report: [facility] , Thyroid Stimulating Hormone 0.793 0.358-3.740 uIU/mL Performing Lab: see note ML - [facility] LB FREE T3 Reviewed date:05/02/2024 12:01:50 PM Interpretation: Performing Lab: Notes/Report: [facility] , Free T3 1.49 2.18-3.98 pg/mL Performing Lab: see note ML - [facility] LB T4 Reviewed date:05/02/2024 12:01:50 PM Interpretation: Performing Lab: Notes/Report: [facility] , T4 Thyroxine 9.90 4.80-13.90 ug/dL Performing Lab: see note ML - [facility] LB TSH Reviewed date:05/02/2024 12:01:50 PM Interpretation: Performing Lab: Notes/Report: [facility] , Thyroid Stimulating Hormone 1.170 0.358-3.740 uIU/mL Performing Lab: see note ML - [facility] LB HCG Qualitative* Reviewed date:08/15/2024 02:27:06 PM Interpretation: Performing Lab: Notes/Report: [facility] , HCG Qualitative NEGATIVE NEGATIVE Performing Lab: see note ML - [facility] LB HCG Qualitative* Reviewed date:07/11/2024 06:55:19 PM Interpretation: Performing Lab: Notes/Report: [facility] , HCG Qualitative NEGATIVE NEGATIVE Performing Lab: see note - [facility] LB HCG Qualitative* Reviewed date:06/13/2024 08:18:30 PM Interpretation: Performing Lab: Notes/Report: [facility] , HCG Qualitative NEGATIVE NEGATIVE Performing Lab: see note ML - [facility] LB TSH Reviewed date:06/01/2024 10:00:36 PM Interpretation: Performing Lab: Notes/Report: [facility] , Thyroid Stimulating Hormone 1.317 0.358-3.740 uIU/mL Performing Lab: see note ML - [facility] LB T4 Reviewed date:06/01/2024 10:00:36 PM Interpretation: Performing Lab: Notes/Report: [facility] , T4 Thyroxine 8.60 4.80-13.90 ug/dL Performing Lab: see note ML - [facility] LB FREE T3 Reviewed date:06/01/2024 10:00:36 PM Interpretation: Performing Lab: Notes/Report: [facility] , Free T3 2.67 2.18-3.98 pg/mL Performing Lab: see note ML - [facility] LB MR lumbar spine wo con Reviewed date:05/09/2024 09:04:57 PM Interpretation: Performing Lab: Notes/Report: Source Facility: [facility]-[address], [place] [id number] [place] [address] Magnetic Resonance Report Signed Patient: SWETA FRANCO MR#: [id number] : 2000 Acct:[id number] Age/Sex: 24 / F ADM Date: 05/09/24 Loc: MRI Attending Dr: Tiera Baron M.D. Ordering Physician: Tiera Baron M.D. Date of Service: 05/09/24 Procedure(s): MR lumbar spine wo con Accession Number(s): [id number] cc: Tiera Baron M.D. [place] [address] Patient Name: SWETA FRANCO MRN: [id number] date: 2000 Sex: F Assigned Patient Location: MRI Current Patient Location: MRI Accession/Order Number: [id number] Exam Date: 05/09/2024 09:55 Report Date: 05/09/2024 14:07 At the request of: TIERA BARON Procedure: MR lumbar spine wo con MR lumbar spine wo con, 05/09/2024 9:55 AM EDT INDICATION: Low Back Pain M54.50 COMPARISON: Prior x-ray of the lumbar spine dated 03/21/2024 oh TECHNIQUE: Multiplanar, multisequential MRI images of lumbar spine were obtained without contrast. FINDINGS: There is lumbarization of S1. For dictation purposes, the lowest complete disc space in the lumbar spine considered as S1-S2. There is normal physiologic lumbar lordosis. The vertebral height is preserved. The conus medullaris is at the level of L2. No signal abnormality within the visualized spinal cord is noted. Level of T12-L1 is unremarkable. No neural foraminal narrowing or canal stenoses at the level of L1-L2 and L2-L3 and L3-L4 is noted. At the level of L4-5, there is disc bulge with no neuroforaminal narrowing and no canal stenosis. At the level of L5-S1, there are disc bulge with superimposed central annular fissure and protrusion with no neuroforaminal narrowing and no canal stenosis. There is central annular fissure at the level of S1-S2 with no significant neuroforaminal narrowing or canal stenosis. The paraspinal muscles are unremarkable. Mild subcutaneous edema at the level of L2-L5 is noted. MR/MR lumbar spine wo con IMPRESSION: Mild degenerative changes of lumbar spine in particular at L4-L5 and L5-S1. Electronically authenticated by: LICO BOSS Date: 05/09/2024 14:07 Dictated By: Lico Boss M.D. Signed By: 05/09/24 1410 DD/ 1407 TD/TT: Tool And Machine Maintainer: [place] [address] Magnetic Resonance Report Signed Patient: SWETA FRANCO MR#: [id number] : 2000 Acct:[id number] Age/Sex: 24 / F ADM Date: 05/09/24 Loc: MRI Attending Dr: Nicol Baron M.D. Ordering Physician: Tiera Baron M.D. Date of Service: 05/09/24 Procedure(s): MR lum bar spine wo con Accession Number(s): [id number] cc: Tiera Baron M.D. [place] [address] Patient Name: SWETA FRANCO MRN: [id number] date: 2000 Sex: F Assigned Patient Location: MRI Current Patient Location: MRI Accession/Order Numb er: [id number] Exam Date: 05/09/2024 09:55 Report Date: 05/09/2024 14:07 At the request of: TIERA BARON Procedure: MR lumbar spine wo con MR lumbar spine wo c on, 05/09/2024 9:55 AM EDT INDICATION: Low Back Pain M54.50 COMPARISON: Prior x- ray of the lumbar spine dated 03/21/2024 [place] TECHNIQUE: Multiplan ar, multisequential MRI images of lumbar spine were obtained without contrast. FINDINGS: There is lumbarizati on of S1. For dictation purposes, the lowest complete disc space in the lumbar spine considered as S1-S2. There is normal physiologic lumbar lordosis. The vertebral height is preserved. The conus medullaris is at the level of L2. No signal abnormality within the visualized spinal co rd is noted. Level of T12-L1 is unremarkable. No neural foraminal narrowing or canal stenoses at the level of L1-L2 and L2-L3 and L3-L4 is noted. At the level of L4-5 , there is disc bulge with no neuroforaminal narrowing and no canal stenosis. At the level of L5-S 1, there are disc bulge with superimposed central annular fissure and protrusi on with no neuroforaminal narrowing and no canal stenosis. There is central annular fissure at the level of S1-S2 with no significant neuroforaminal narrowing or canal stenosis. The paraspinal muscl es are unremarkable. Mild subcutaneous edema at the level of L2-L5 is noted. MR/MR lumbar spine wo con IMPRESSION: Mild degenerative changes of lumbar spine in particular at L4-L5 and L5-S1. Electronically authenticated by: LICO BOSS Date: 05/09/2024 14:07 Dictated By: Lico Boss M.D. Signed By: 05/09/24 1410 DD/ 1407 TD/TT: Tool And Machine Maintainer: CT chest wo con Reviewed date:09/13/2024 07:27:47 PM Interpretation: Performing Lab: Notes/Report: Source Facility: [place] [address] CT Scan Report Signed Patient: SWETA FRANCO MR#: [id number] : 2000 Acct:[id number] Age/Sex: 24 / F ADM Date: 09/13/24 Loc: ER Attending Dr: Ordering Physician: Lucinda Gustafson Date of Service: 09/13/24 Procedure(s): CT chest wo con Accession Number(s): [id number] cc: Tiera Baron M.D. [place] [address] Patient Name: SWETA FRANCO MRN: [id number] date: 2000 Sex: F Assigned Patient Location: ER Current Patient Location: ER Accession/Order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 Recommended to rest and use a heating pad on the area. Take NSAIDs for pain as needed 01/04/2025 Other Recommended to rest and use a heating pad on the area. Take NSAIDs for pain as needed 02/10/2025 Other Recommended to rest and use a heating pad on the area. Take NSAIDs for pain as needed Plan Of Treatment Pending Test Test Name Order Date URINALYSIS 10/07/2023 Urine Culture, Routine 10/07/2023 THYROID PROFILE WITH TSH 03/21/2024 MRI CSPINE WO CON 02/10/2025 MRI KNEE LT WO CON 07/18/2024 MRI LSPINE WO CON 04/29/2024 MRI TSPINE WO CON 02/10/2025 XR LSPINE MIN 4 VIEWS 03/21/2024 THYROID PANEL (T4/TSH/FREE T3) 4 THYROID PANEL (T4/TSH/FREE T3) XR HIP RT 2 3V W PELVIS 03/21/2024 MM screening mammo BI 08/26/2024 BI US BREAST COMPLETE LEFT 08/26/2024 Insurance Providers Payer Name Payer Address Payer Phone Subscriber Number Group Number Insured Name Patient Relationship to Insured Coverage Start Date Coverage End Date [employer] PPO PLUS LOCAL PLAN [address] [place] [address] [phone] [id number] Sweta Franco Self - patient is the insured 5 Medications Administered Medication Instructions Date of Administration Dosage Notes Ketorolac Tromethamine 12/19/2024 60 mg Orphenadrine Citrate 12/19/2024 60 mg Triamcinolone 40 mg/ml 12/19/2024 80 mg Medical (General) History Medical History History ICD Code COVID-19 U07.1 Development language disease F80.9 Dysthymic disorder F34.1 GERD (gastroesophageal reflux disease) K 21.9 Generalized anxiety disorder F41.1 Lymphadenitis, chronic I88.1 Surgical History Surgery Date(Month/Year) lumbar ablation 05/2024 skin biopsy left breast areolar border 0 09/28/24 steroid injections lumbar spine 07/24 Bilateral L5-S1 transforaminal epidural steroid inj 08/15/2024
--- OUTSIDE RECORDS SUMMARY | 2025-02-27 12:53 | XMS_ITS | Clinical Summary ---
Author Organization [facility] Address [address] [place] [address] Phone Care Team Providers Care Die Tripper Name Role Phone Unavailable Primary Care Provider [...]
--- OUTSIDE RECORDS SUMMARY | 2025-02-27 12:53 | XMS_ITS | Clinical Summary ---
Author Organization [facility] Address [address] [place] [address] Care Team Providers Care Aerodynamics Professor Name Role Phone Michael Baron MD Primary Care Provider [phone] Social History Tobacco Use Types Packs/Day Years Used Date Smoking Tobacco: Never Assessed Comments Unknown Sex and Gender Information Value Date Recorded Sex Assigned at Not on file Legal Sex Female 8:20 AM EST Gender Identity Not on file Sexual Orientation Not on file Plan of Treatment Health Maintenance Due Date Last Done Comments Peds To Adult Transition Initial Discussion 2014 Peds To Adult Transition Annual Assessment 01/14/2016 HPV Vaccine (1 - 3-dose series) 2017 Meningococcal B Vaccine (1 of 2 - Standard) 2018 Anxiety Screening 01/14/2020 Chlamydia Screening (18-24) 01/14/2020 Depression Screening 01/14/2020 GC (Gonorrhea) Screening (18-24) 01/14/2020 HIV Screening 01/14/2020 Hepatitis C Screening 01/14/2020 DTaP,Tdap,Td Vaccine (1 - Tdap) 2021 Hepatitis B Vaccine (1 of 3 - 19+ 3-dose series) 01/13 Cervical Cancer Screening 2023 Covid-19 Vaccine ( - 2023- season) 2024 Influenza Vaccine (Season Ended) 2025 Insurance BLUE CARD PPO OOS Care Teams Aerodynamics Professor Relationship Specialty Start Date End Date Michael Baron MD PCP - General 02/16/09
--- OUTSIDE RECORDS SUMMARY | 2025-02-27 12:53 | XMS_ITS | Clinical Summary ---
Author Organization [facility] Address [address] [place] [address] Care Team Providers Care Android Architect Name Role Phone Michael Baron MD Primary Care Provider [phone] Allergies No known active allergies Medications cephalexin (Keflex) 500 MG capsuleIndicati ons:Paronychia, toe, left Take 1 capsule (500 mg) by mouth in the morning and 1 capsule (500 mg) in the evening and 1 capsule (500 mg) before bedtime. Do all this for 10 days. Take one tablet by mouth three times daily. 30 capsule 01/19/2025 01/30/20 25 Active Problems No known active problems Encounters Date Type Department Care Team Description 01/19/2025 Telephone [facility] [address] [facility] [address] [place] [address] Hu Mujica DPM 01/12/2025 2:20 PM EDT Office Visit [facility] [address] [facility] [address] [place] [address] Hu Mujica DPM Paronychia, toe, left (Primary Dx); Onychocryptosis; Toe pain, left 01/12/2025 Bamboo flowsheet [facility] [address] [facility] [address] [place] [address] Hu Mujica DPM 01/12/2025 Travel 12/22/2024 1:10 PM EDT Office Visit [facility] [address] [facility] [address] [place] [id number] Hu Mujica, SANDRA Paronychia, toe, left (Primary Dx); Onychocryptosis; Toe pain, left 12/22/2024 Bamboo flowsheet [facility] [address] [facility] [address] [place] [id number] Hu Mujica DPM 12/22/2024 Travel from Last 3 Months Social History Tobacco Use Types Packs/Day Years Used Date Smoking Tobacco: Unknown Tobacco Cessation:Counseling Given: Yes Comments Unknown Sex and Gender Information Value Date Recorded Sex Assigned at Not on file Legal Sex Female 7:01 PM EDT Gender Identity Not on file Sexual Orientation Not on file Last Filed Vital Signs Vital Sign Reading Time Taken Comments Blood Pressure 73/45 12/10/2017 12:00 PM EDT Pulse - - Temperature - - Respiratory Rate 18 01/12/2025 2:15 PM EDT Oxygen Saturation - - Inhaled Oxygen Concentration - - Weight 67.6 kg (149 lb) 01/12/2025 2:15 PM EDT Height 165.1 cm (5' 5 ) 01/12/2025 2:15 PM EDT Body Mass Index 24.79 01/12/2025 2:15 PM EDT Plan of Treatment Health Maintenance Due Date Last Done Comments Influenza Vaccine (Season Ended) 2025 Insurance [facility] Care Teams Android Architect Relationship Specialty Start Date End Date Michael Baron MD [address] [place] [address] PCP - General Family Medicine 12/22/24
--- OUTSIDE RECORDS SUMMARY | 2025-02-27 12:53 | XMS_ITS | Clinical Summary ---
Author Organization [facility] Address [id number] [address] [place] [address] Care Team Providers Care Drug Abuse Worker Name Role Phone Michael Baron MD Primary Care Provider [phone] Allergies No known active allergies Medications lamoTRIgine [...] 05/01/2025 Medical Devices Not on file Insurance [facility] Care Teams Drug Abuse Worker Relationship Specialty Start Date End Date Michael Baron MD PCP - General 08/05/16
--- NOTE | 2025-03-09 08:41 | MR_ITS ---
[address] [address] Patient Name: LEOLA FRANCO MRN: [id number] date: 2000 Sex: F Assigned Patient Location: MRI Current Patient Location: MRI Accession/Order Number: [id number] Exam Date: 03/09/2025 11:55 Report Date: 03/09/2025 11:59 At the request of: TIERA HDEZ MD Procedure: MR thoracic spine wo con EXAMINATION: MRI OF THE THORACIC SPINE WITHOUT CONTRAST CLINICAL DATA: Thoracic Radiculopathy, Cervical Radiculopathy COMPARISON: Thoracic spine x-ray 02/13/2025 TECHNIQUE: Multiecho imaging was performed in the sagittal and axial plane without contrast administration. FINDINGS: Mild straightening of the thoracic kyphosis. Mild intervertebral space narrowing T8-9 with disc desiccation. Otherwise, Vertebral height, bone marrow signal and intervertebral space height maintained. No significant disc disease, disc protrusion, central canal, or neural foraminal narrowing identified. The thoracic cord demonstrates normal signal and morphology. The paraspinal soft tissues unremarkable. MR/MR thoracic spine wo con IMPRESSION: Minimal disc desiccation T8-T9. Otherwise unremarkable MRI of the thoracic spine. Impression dictated by: Chaim Aguirre M.D. 03/09/2025 11:59 AM Dictation Location: [place] [address] Electronically authenticated by: [id number] Y Date: 03/09/2025 11:59
--- NOTE | 2025-03-09 08:41 | MR_ITS ---
[address] [address] Patient Name: LEOLA FRANCO MRN: [id number] date: 2000 Sex: F Assigned Patient Location: MRI Current Patient Location: MRI Accession/Order Number: [id number] Exam Date: 03/09/2025 11:51 Report Date: 03/09/2025 11:55 At the request of: TIERA HDEZ MD Procedure: MR cervical spine wo con EXAMINATION: MRI OF THE CERVICAL SPINE WITHOUT CONTRAST CLINICAL DATA: Thoracic Radiculopathy, Cervical Radiculopathy COMPARISON: Cervical spine x-ray 02/13/2025 TECHNIQUE: Multiecho imaging was performed in the sagittal and axial plane without contrast administration. FINDINGS: The craniocervical junction maintained. Mild straightening of normal lordosis.. Vertebral height, bone marrow signal and intervertebral space height maintained. No significant disc disease, disc protrusion, central canal, or neural foraminal narrowing identified. Cervical cord demonstrates normal signal and morphology. Prevertebral paraspinal soft tissues unremarkable. MR/MR cervical spine wo con IMPRESSION: Unremarkable MRI cervical spine without contrast. No significant degenerative change. Impression dictated by: Chaim Aguirre M.D. 03/09/2025 11:55 AM Dictation Location: [facility] Electronically authenticated by: [id number] Y Date: 03/09/2025 11:55
--- OUTSIDE RECORDS SUMMARY | 2025-03-09 08:53 | XMS_ITS | CCD ---
Author Organization [facility] Care Team Providers Care Network Support Name Role Phone DR TIERA BARON Consulting Unavailable LEMUEL, DR MOTT Primary Care [...] DR MOTT Attending Unavailable Asa Hernandez Unavailable TobySusyi Unavailable GUSTAVO JOHNSON Referring Unavailable TIERA BARON Primary Care Unavailable GUSTAVO JOHNSON Referring Unavailable TIERA BARON Primary Care Unavailable GUSTAVO JOHNSON Referring Unavailable TIERA BARON Primary Care Unavailable Whitney DIAMOND, Sky Cazares Attending Unavailable Gibridget DIAMOND, Andrius Sage Attending Unavailable Gibridget DIAMOND, Andrius Vchase Attending Unavailable Gibridget DIAMOND, Andrius Vchase Attending Unavailable Whitney DIAMOND, Andrius Vytgilberto Attending Unavailable Whitney DIAMOND, Andrius Vytgilberto Attending Unavailable Whitney DIAMOND, Sky Cazares Attending Unavailable Tiera Baron Primary Care Physician [phone] Dale FRENCH Admitting Unavailable Dale FRENCH Attending Unavailable Dale FRENCH Attending Unavailable Dale FRENCH Attending Unavailable Tiera Baron MD Primary Care Provider Tiera Baron MD Primary Care Provider [phone] HU MUJICA Attending Unavailable HU MUJICA Attending Unavailable Allergies Allergy Classification Reported Allergen(s) Allergy Type Date of Onset Reaction(s) Facility (3 sources) tiZANidine; Translations: [tizanidine] Drug Allergy Detailed recall of dream (finding) [facility] [place] Medications Current Medications Medication Drug Class(es) Dates Sig (Normalized) Sig (Original) atomoxetine 40 mg oral capsule (2 sources) Norepinephrine Reuptake Inhibitor Start: 05-23-2024 take 1 capsule by mouth once daily in the morning atomoxetine 40 mg Cap 40 mg = 1 cap(s), Oral, qAM, Refills(s) 0 Start Date: 05/23/24 Status: Ordered cephalexin 500 mg oral capsule (2 sources) Cephalosporin Antibacterial Start: 12-22-2024 End: 01-01-2025 take 1 capsule by mouth in the morning, then take 1 capsule by mouth in the evening, then take 1 capsule by mouth at bedtime, then take 1 capsule by mouth three times daily cephalexin (Keflex) 500 MG capsule Indications: Paronychia, toe, left Take 1 capsule (500 mg) by mouth in the morning and 1 capsule (500 mg) in the evening and 1 capsule (500 mg) before bedtime. Do all this for 10 days. Take one tablet by mouth three times daily. 30 capsule 12/22/2024 01/01/2025 Active {21 (Desogestrel 0.15 MG / Ethinyl Estradiol 0.03 MG Oral Tablet) / 7 (Inert Ingredients 1 MG Oral Tablet) } Pack [Apri 28 Day] (2 sources) Progestin, Estrogen Start: 09-19-2024 take 1 tablet by mouth once daily Apri oral tablet 1 tab(s), Oral, Daily, Refill(s) 0 Start Date: 09/19/24 Status: Ordered ISOtretinoin 40 mg oral capsule (2 sources) Retinoid Start: 05-23-2024 isotretinoin 40 mg oral capsule as directed, Refills(s) 0 Start Date: 05/23/24 Status: Ordered pantoprazole 40 mg delayed release oral tablet (2 sources) Proton Pump Inhibitor Start: 09-19-2024 take 1 tablet by mouth once daily Protonix 40 mg Tab-DR 40 mg = 1 tab(s), Oral, Daily, Refills(s) 0 Start Date: 09/19/24 Status: Ordered phentermine hydrochloride 37.5 mg oral tablet (2 sources) Sympathomimetic Amine Anorectic Start: 09-19-2024 take 1 tablet by mouth once daily Adipex-P 37.5 mg Tab 37.5 mg = 1 tab(s), Oral, Daily, Refills(s) 0 Start Date: 09/19/24 Status: Ordered topiramate (2 sources) Start: 09-19-2024 take 1 capsule by mouth once daily topiramate 100 mg oral capsule, extended release 100 mg = 1 cap(s), Oral, Daily, Refills(s) 0 Start Date: 09/19/24 Status: Ordered Completed/Discontinued Medications Medication Drug Class(es) Dates Sig (Normalized) Sig (Original) citalopram 40 mg oral tablet (2 sources) Serotonin Reuptake Inhibitor Start: 05-23-2024 citalopram 40 mg Tab 40 mg = 1 tab(s), Oral, Daily, Oral, 0 Refill(s), Refills(s) 0 Start Date: 05/23/24 Status: Ordered QUEtiapine 50 mg oral tablet (2 sources) Atypical Antipsychotic Start: 05-23-2024 quetiapine 50 mg oral tablet 50 mg = 1 tab(s), Oral, Bedtime, Oral, 0 Refill(s), Refills(s) 0 Start Date: 05/23/24 Status: Ordered NEGATED: Highlighted row has not occurred! (2 sources) Start: 06-09-2023 End: 06-09-2023 Problems Active Problems Problem Classification Problem Date Documented Date Episodic/Chronic Acute bronchitis (4 sources) Acute bronchitis, unspecified; Translations: [ACUTE BRONCHITIS UNSPECIFIED] Onset: 09-29-2022 Episodic Allergic reactions (2 sources) Eczema 09-19-2024 Episodic Anxiety disorders (2 sources) Anxiety 09-19-2024 Chronic Attention-deficit, conduct, and disruptive behavior disorders (2 sources) Attention deficit hyperactivity disorder 09-19-2024 Chronic Developmental disorders (2 sources) Developmental language disorder 09-19-2024 Chronic Esophageal disorders (2 sources) Gastroesophageal reflux disease 09-19-2024 Chronic Mood disorders (2 sources) Dysthymia 09-19-2024 Chronic Nonmalignant breast conditions (2 sources) Breast signs and symptoms; Translations: [Other signs and symptoms in breast] Onset: 10-05-2024 Episodic Other connective tissue disease (4 sources) Pain of toe of left foot; Translations: [Pain in left toe(s)] 12-22-2024 Episodic Other ear and sense organ disorders (4 sources) Otalgia, right ear; Translations: [Otalgia, right ear] Onset: 06-08-2023 Episodic Other nutritional; endocrine; and metabolic disorders (2 sources) Obesity caused by energy imbalance 09-19-2024 Chronic Other nutritional; endocrine; and metabolic disorders (2 sources) Overweight in adulthood with body mass index of 25 or more but less than 30 09-28-2024 Episodic Other screening for suspected conditions (not mental disorders or infectious disease) (3 sources) Abnormal findings on diagnostic imaging of breast; Translations: [Other abnormal and inconclusive findings on diagnostic imaging of breast] Onset: 09-28-2024 Episodic Other skin disorders (4 sources) Ingrowing nail; Translations: [Ingrowing nail] 12-22-2024 Episodic Skin and subcutaneous tissue infections (4 sources) Paronychia of toe of left foot; Translations: [Cellulitis of left toe] 12-22-2024 Episodic Spondylosis; intervertebral disc disorders; other back problems (2 sources) Lumbar spondylosis Onset: 07-18-2024 09-19-2024 Chronic Thyroid disorders (2 sources) Hypothyroidism 09-19-2024 Chronic Unclassified (1 source) CONTACT W/AND (SUSP) EXPOS [...] 06-18-2022 Episodic Other aftercare (1 source) Other circuit court magistrate (current) drug therapy; Translations: [Other circuit court magistrate (current) drug therapy] Onset: 02-05-2024 Episodic Other skin disorders (1 source) Acne vulgaris; Translations: [Acne vulgaris] Onset: 02-05-2024 Episodic Results Test Name Value Interpretation Reference Range Facility Ambulatory Visit Summaryon 0 10-05-2024 Ambulatory Visit Summary Ambulatory Visit Summary LEOLA FRANCO :2000 Visit Date:10/05/2024 Ambulatory Visit Instructions Your Care Team Attending Physician - GILLIAN DIAMOND, Dale Loza Primary Care Physician - Tiera Baron MD This Is Your Medications List atomoxetine (atomoxetine 40 mg Cap) citalopram (citalopram 40 mg Tab) desogestrel-ethinyl estradiol (Apri oral tablet) isotretinoin (isotretinoin 40 mg oral capsule) pantoprazole (Protonix 40 mg Tab-DR) phentermine (Adipex-P 37.5 mg Tab) quetiapine (quetiapine 50 mg oral tablet) topiramate (topiramate 100 mg oral capsule, extended release) Procedures Performed Lumbar epidural injection. Medications What How Much When Instructions Unchanged atomoxetine (atomoxetine 40 mg Cap) 1 Capsules By Mouth Once a day (in the morning) Unchanged citalopram (citalopram 40 mg Tab) 1 Tablets By Mouth Every day Oral, 0 Refill(s) Unchanged desogestrel-ethinyl estradiol (Apri oral tablet) 1 Tablets By Mouth Every day Unchanged isotretinoin (isotretinoin 40 mg oral capsule) as directed Unchanged pantoprazole (Protonix 40 mg Tab-DR) 1 Tablets By Mouth Every day Unchanged phentermine (Adipex-P 37.5 mg Tab) 1 Tablets By Mouth Every day Unchanged quetiapine (quetiapine 50 mg oral tablet) 1 Tablets By Mouth At bedtime Oral, 0 Refill(s) Unchanged topiramate (topiramate 100 mg oral capsule, extended release) 1 Capsules By Mouth Every day Allergies tiZANidine (Vivid dream) Problems Ongoing - Any problem that you are currently receiving treatment for. Abnormal mammogram of left breast ADHD Anxiety BMI 29.0-29.9,adult Developmental language disorder Dysthymic disorder Eczema Gastroesophageal reflux disease Hypothyroidism Lumbar spondylosis Obesity due to excess calories Patient Survey You may receive a survey via text or e-mail asking about your office visit. Please share your experience with us by completing your survey. We appreciate your feedback and thank you for choosing us for your care. Normal [facility] General Surgery Office/Clini c Noteon 10-05-2024 General Surgery Office/Clinic Note General Surgery Office/Clinic Note Chief Complaint follow up in office incisional biopsy HPI Staff 7 day follow up post in office incisional biopsy left breast. Reports minimal intermittent sensitivity. No use of pain medication. Denies bleeding or drainage. History of Present Illness 1 week s/p skin biopsy left breast due to abnormal thickening on mammogram; doing well, mild soreness, no drainage or bruising; pathology with dermal fibrosis, no inflammation or malignancy, no abnormal cells. Review of Systems PHQ Score Initial Depression Screen Score: 0 SCORE ROS - Provider Constitutional: no fever, no sweats, no weight loss. Eyes: no glasses, no blurred vision, no visual loss. ENMT: no dentures, no hoarseness, no swallowing difficulties, no hearing loss, no ear infection(s), no nose bleeds. Cardiovascular: normal blood pressure, no chest pain, regular heartbeat, no heart murmur. Respiratory: no shortness of breath, no cough, no asthma, no wheezing. Gastrointestinal: no nausea, no vomiting, no diarrhea, no constipation, no blood in stool, no change in bowel habits, no abdominal pain, no hepatitis. Genitourinary: no kidney stones, no urine infection, no dysuria. Musculoskeletal: no pain, no weakness. Skin: no changing moles, no rash, no skin lumps. Neurologic: no seizures, no epilepsy, no headache. Psychiatric: no emotional or psychiatric problem. Heme/Lymph: no bleeding problems, no anemia, no blood clots, no transfusions. Allergy/Immunologic: no swollen lymph nodes/glands, no IV drug abuse. Other: Additional ROS info: Except as noted in the above Review of Systems and in the History of Present Illness, all other systems have been reviewed and are negative or noncontributory. Physical Exam skin: incision healing well, no erythema or drainage, no ecchymosis. Assessment/Plan 1. Thickening of skin of breast (N64.59: Other signs and symptoms in breast) only dermal fibrosis; possible collagen vascular problem? would recommend evaluation by Dermatology ro Rheumatology, will defer to Dr Baron; call with problems/questions. Follow-up No qualifying data available Problem List/Past Medical History Ongoing Abnormal mammogram of left breast ADHD Anxiety BMI 29.0-29.9,adult Developmental language disorder Dysthymic disorder Eczema Gastroesophageal reflux disease Hypothyroidism Lumbar spondylosis Obesity due to excess calories Thickening of skin of breast Historical No qualifying data Procedure/Surgical History Lumbar epidural injection. Medications Adipex-P 37.5 mg Tab, 37.5 mg= 1 tab(s), Oral, Daily Apri oral tablet, 1 tab(s), Oral, Daily atomoxetine 40 mg Cap, 40 mg= 1 cap(s), Oral, qAM citalopram 40 mg Tab, 40 mg= 1 tab(s), Oral, Daily isotretinoin 40 mg oral capsule, as directed Protonix 40 mg Tab-DR, 40 mg= 1 tab(s), Oral, Daily quetiapine 50 mg oral tablet, 50 mg= 1 tab(s), Oral, Bedtime topiramate 100 mg oral capsule, extended release, 100 mg= 1 cap(s), Oral, Daily Allergies tiZANidine (Vivid dream) Social History Alcohol Current. wine coolers, cocktails. 1-2 times per month., 09/28/2024 Substance Abuse Never., 09/28/2024 Tobacco smoker when drinking Tobacco Use:. Never Smokeless Tobacco Use:. Cigarettes, Started age 22.0 Years. Yes, 10/05/2024 Family History Family history is negative Immunizations Vaccine Date Status SARS-CoV-2 (COVID-19) [id number].[id number] 06/15/2022 Recorded SARS-CoV-2 (COVID-19) mRNA-1273 vaccine 09/11/2021 Recorded SARS-CoV-2 (COVID-19) mRNA-1273 vaccine 01/16/2021 Recorded SARS-CoV-2 (COVID-19) mRNA-1273 vaccine 12/10/2020 Recorded Normal [facility] Comment on above: Result Comment: Elec tronically Signed By: GILLIAN DIAMOND, Dale Loza\leonel\Date and Time Signed: 10/05/24 16:19 EST Surgical Pathology Reporton 10-04-2024 Surgical Pathology Report [facility] [address] [place] [address]- Surgical Pathology Report Collected Date/Time: 09/29/2024 07:54 EST Pathologist: Aamir DIAMOND PhD, Deb Marshall Received Date/Time: 09/30/2024 07:29 EST GILLIAN DIAMOND, Dale FRENCH MD, Dale Vaca Surgical Pathology Report - 10/04/2024 11:11 EST - Auth (Verified) Final Diagnosis SKIN, LEFT BREAST AREOLAR BORDER, EXCISION: - BENIGN SKIN WITH MILD DERMAL FIBROSIS - NO INFLAMMATION, NECROSIS, GRANULOMA OR MALIGNANCY. (Electronic Signature) Deb Rutledge MD PhD 10/04/2024 11:11 Clinical Information skin thickening around left areola Pre-Op Diagnosis: skin thickening Procedure: incisional biopsy left breast skin at areolar border Post-Op Diagnosis: Abnormal mammogram of left breast Specimen(s) Received skin biopsy left breast, areolar border Gross Description Received in formalin labeled with patient name, number, and left breast areolar border skin biopsy is an ovoid fragment of yi skin and soft tissue measuring 0.5 x 0.3 cm and contains approximately 0.1 cm of underlying tissue. The skin surface is smooth and unremarkable. Margins are inked blue. The specimen is bisected and entirely submitted in one cassette. (DC) DC:[facility] Microscopic Description Microscopic examination performed unless gross only specified. This report was transcribed using voice recognition technology and might contain unintended computerized office copy selector errors. Normal [facility] Comment on above: Performed By: #### [id number] #### [facility] [address] [place] [address] Ambulatory Visit Summaryon 0 09-28-2024 Ambulatory Visit Summary Ambulatory Visit Summary LEOLA FRANCO :2000 Visit Date:09/28/2024 Ambulatory Visit Instructions Your Diagnosis Abnormal mammogram of left breast Your Care Team Attending Physician - GILLIAN DIAMOND, Dale Loza Primary Care Physician - Tiera Baron MD This Is Your Medications List Contact prescribing physician if questions or concerns atomoxetine (atomoxetine 40 mg Cap) citalopram (citalopram 40 mg Tab) desogestrel-ethinyl estradiol (Apri oral tablet) isotretinoin (isotretinoin 40 mg oral capsule) pantoprazole (Protonix 40 mg Tab-DR) phentermine (Adipex-P 37.5 mg Tab) quetiapine (quetiapine 50 mg oral tablet) topiramate (topiramate 100 mg oral capsule, extended release) Procedures Performed Lumbar epidural injection. Discharge Vitals Heart Rate (Peripheral) 72 Respiratory Rate 16 Blood Pressure 120/76 Height 165 cm Height 65 in Weight 80 kg Weight 176.37 lb BMI 29.38 What to do next Scheduled Follow-Up Appointments Thursday 2:00 PM EST With: Dale FRENCH MD Where: [facility] [address], [address], [address] Medications What How Much When Instructions Unchanged atomoxetine (atomoxetine 40 mg Cap) 1 Capsules By Mouth Once a day (in the morning) Contact prescribing physician if questions or concerns Unchanged citalopram (citalopram 40 mg Tab) 1 Tablets By Mouth Every day Oral, 0 Refill(s) Contact prescribing physician if questions or concerns Unchanged desogestrel-ethinyl estradiol (Apri oral tablet) 1 Tablets By Mouth Every day Contact prescribing physician if questions or concerns Unchanged isotretinoin (isotretinoin 40 mg oral capsule) as directed Contact prescribing physician if questions or concerns Unchanged pantoprazole (Protonix 40 mg Tab-DR) 1 Tablets By Mouth Every day Contact prescribing physician if questions or concerns Unchanged phentermine (Adipex-P 37.5 mg Tab) 1 Tablets By Mouth Every day Contact prescribing physician if questions or concerns Unchanged quetiapine (quetiapine 50 mg oral tablet) 1 Tablets By Mouth At bedtime Oral, 0 Refill(s) Contact prescribing physician if questions or concerns Unchanged topiramate (topiramate 100 mg oral capsule, extended release) 1 Capsules By Mouth Every day Contact prescribing physician if questions or concerns Allergies tiZANidine (Vivid dream) Problems Ongoing - Any problem that you are currently receiving treatment for. Abnormal mammogram of left breast ADHD Anxiety BMI 29.0-29.9,adult Developmental language disorder Dysthymic disorder Eczema Gastroesophageal reflux disease Hypothyroidism Lumbar spondylosis Obesity due to excess calories Patient Survey You may receive a survey via text or e-mail asking about your office visit. Please share your experience with us by completing your survey. We appreciate your feedback and thank you for choosing us for your care. Normal [facility] HCG ( test) Ql (U)o n 07-30-2024 Beta HCG ( test) Ql (U) Negative Normal [facility] Comment on above: Performed By: #### C BCA, 61129-8, 4-2, 1919-8, 2344-7, 25095-4 #### [facility] ([id number]) [address], [address] [place] [address] ALT No additional P-5'-P [Ca talytic activity/Vol]on 04-02-2024 ALT [Catalytic activity/Vol] 18 U/L Normal 0-31 [facility] Comment on above: Performed By: #### Lucie CRISTOBAL, 4-2, 1919-8, 2344-7, 81941-3, 14703-4 #### [facility] ([id number]) [address], [address] [place] [address] Mohsen 04-02-2024 AST [Catalytic activity/Vol] 17 U/L Normal 0-41 [facility] Comment on above: Performed By: #### Lucie CRISTOBAL, 1743-2, 1919-8, 2344-7, 28629-3, 84400-6 #### [facility] ([id number]) [address], [address] [place] [address] CBC AND AUTO DIFFon 04-02-20 24 ABSOLUTE BASOPHIL 0.0 X10E9/L Normal 0.0-0.2 [facility] Comment on above: Performed By: #### Lucie CRISTOBAL, 4-2, 1919-8, 2344-7, 17921-6, 58001-6 #### [facility] ([id number]) [address], [address] [place] [address] ABSOLUTE NEUTROPHIL 2.4 X10E9/L Normal 1.5-6.6 [facility] Comment on above: Performed By: #### Lucie CRISTOBAL, 4-2, 1919-8, 2344-7, 67458-1, 08476-2 #### [facility] ([id number]) [address], [address] [place] [address] Basophils/100 WBC (Bld) 0.4 % Normal [facility] Comment on above: Performed By: #### Lucie CRISTOBAL, 4-2, 1919-8, 2344-7, 44058-7, 19442-1 #### [facility] ([id number]) [address], [address] [place] [address] Eosinophils (Bld) [#/Vol] 0.1 10*3/uL Normal 0.0-0.4 [facility] Comment on above: Performed By: #### Lucie CRISTOBAL, 4-2, 1919-8, 2344-7, 48534-2, 51009-7 #### [facility] ([id number]) [address], [facility] [address] [place] [address] Eosinophils/100 WBC (Bld) 1.2 % Normal [facility] Comment on above: Performed By: #### Lucie CRISTOBAL, 1743-2, 1920-03, 2345-02, 84715-2, 32362-8 #### [facility] ([id number]) [address], [facility] [address] [place] [address] Erythrocyte distribution width (RBC) [Ratio] 12.9 % Normal 11.5-15.0 [facility] Comment on above: Performed By: #### Lucie CRISTOBAL, 4-2, 1920-03, 7, 67450-2, 82069-6 #### [facility] ([id number]) [address], [address] [place] [address] Hematocrit (Bld) [Volume fraction] 38.4 % Normal 35-47 [facility] Comment on above: Performed By: #### Lucie CRISTOBAL, 4-2, 1920-03, 2345-02, 00591-6, 50787-2 #### [facility] ([id number]) [address], [address] [place] [address] Hemoglobin (Bld) [Mass/Vol] 12.7 g/dL Normal 11.7-15.5 [facility] Comment on above: Performed By: #### Lucie CRISTOBAL, 4-2, 1919-8, 2344-7, 27483-1, 77825-6 #### [facility] ([id number]) [address], [address] [place] [address] Lymphocytes (Bld) [#/Vol] 2.0 10*3/uL Normal 1.0-3.5 [facility] Comment on above: Performed By: #### Lucie CRISTOBAL, 4-2, 1919-8, 2344-7, 34922-7, 30498-7 #### [facility] ([id number]) [address], [address] [place] [address] Lymphocytes/100 WBC (Bld) 41.4 % Normal [facility] Comment on above: Performed By: #### Lucie CRISTOBAL, 1743-2, 1919-8, 7, 84652-9, 92694-0 #### [facility] ([id number]) [address], [address] [place] [address] MCH (RBC) [Entitic mass] 29.6 pg Normal 27-34 [facility] Comment on above: Performed By: #### Lucie CRISTOBAL, 4-2, 1919-8, 2344-7, 50644-3, 36236-1 #### [facility] ([id number]) [address], [address] [place] [address] MCHC (RBC) [Mass/Vol] 33.0 g/dL Normal 32-36 [facility] Comment on above: Performed By: #### Lucie CRISTOBAL, 4-2, 1919-8, 2344-7, 95185-2, 57033-9 #### [facility] ([id number]) [address], [address] [place] [address] MCV (RBC) [Entitic vol] 90 fL Normal 80-100 [facility] Comment on above: Performed By: #### Lucie CRISTOBAL, 4-2, 1919-8, 234-7, 57140-6, 37319-1 #### [facility] ([id number]) [address], [address] [place] [address] Monocytes (Bld) [#/Vol] 0.3 10*3/uL Normal 0-0.9 [facility] Comment on above: Performed By: #### Lucie CRISTOBAL, 4-2, 1919-8, 2344-7, 19663-3, 80442-8 #### [facility] ([id number]) [address], [address] [place] [address] Monocytes/100 WBC (Bld) 6.4 % Normal [facility] Comment on above: Performed By: #### Lucie CRISTOBAL, 1743-2, 1919-8, 2344-7, 03546-8, 66737-7 #### [facility] ([id number]) [address], [address] [place] [address] Neutrophils/100 WBC (Bld) 50.6 % Normal [facility] Comment on above: Performed By: #### Lucie CRISTOBAL, 1743-2, 1919-8, 2344-7, 58544-7, 88203-0 #### [facility] ([id number]) [address], [address] [place] [address] Platelet mean volume (Bld) [Entitic vol] 9.3 fL Normal 7-12 [facility] Comment on above: Performed By: #### Lucie CRISTOBAL, 4-2, 1919-8, 234-7, 23073-9, 08400-4 #### [facility] ([id number]) [address], [address] [place] [address] Platelets (Bld) [#/Vol] 315 10*3/uL Normal 150-450 [facility] Comment on above: Performed By: #### Lucie CRISTOBAL, 4-2, 1919-8, 234-7, 04479-1, 81328-7 #### [facility] ([id number]) [address], [address] [place] [address] RBC COUNT 4.27 X10E12/L Normal 3.80-5.20 [facility] Comment on above: Performed By: #### Lucie CRISTOBAL, 4-2, 1919-8, 2344-7, 62239-2, 68743-4 #### [facility] ([id number]) [address], [address] [place] [address] WBC (Bld) [#/Vol] 4.7 10*3/uL Normal 4.0-11.0 [facility] Comment on above: Performed By: #### Lucie CRISTOBAL, 1743-2, 1919-8, 2344-7, 73132-8, 35550-3 #### [facility] ([id number]) [address], [address] [place] [address] GLUCOSEon 04-02-2024 Glucose [Mass/Vol] 83 mg/dL Normal 65-99 [facility] Comment on above: Performed By: #### Lucie CRISTOBAL, 1743-2, 1919-8, 2344-7, 42964-6, 32787-3 #### [facility] ([id number]) [address], [address] [place] [address] HCG.beta subunit IA 3rd IS Q non 04-02-2024 SERUM B HCG,3RD I.S. <5 Normal [facility] Comment on above: Result Comment: NEW [...] for trophoblastic or nontrophoblastic neoplasms. Performed By: ##Norma Faulkner BCA, , 4-2, 1919-8, 2344-7, 25199-7 #### [facility] ([id number]) [address] [place] [address] Lipid 1996 panelon 4 Cholesterol [Mass/Vol] 223 mg/dL High 150-200 [facility] Comment on above: Performed By: ##Norma Faulkner BCA, , 4-2, 0-8, 5-7, 13659-3 #### [facility] ([id number]) [address], [address] [place] [address] Cholesterol in HDL [Mass/Vol] 46 mg/dL Normal >39 [facility] Comment on above: Result Comment: HDL <40 mg/dL - High Risk HDL > or = 40mg/dL- Desirable HDL >60 mg/dL - Negative Risk Performed By: ##Norma Faulkner BCA, , 1743-2, 1919-8, 2344-7, 90619-3 #### [facility] ([id number]) [address], [address] [place] [address] Cholesterol in LDL [Mass/Vol] 148 mg/dL High <130 [facility] Comment on above: Result Comment: LDL <100 mg/dL - Desirable LDL >160 mg/dL - High Risk Performed By: #### Lucie CRISTOBAL, 13459-1, 4-2, 1919-8, 2344-7, 27991-9 #### [facility] ([id number]) [address], [address] [place] [address] Cholesterol in VLDL [Mass/Vol] 29 mg/dL Normal 0-30 [facility] Comment on above: Performed By: #### Lucie CRISTOBAL, 00056-9, 1743-2, 1919-8, 2344-7, 25483-9 #### [facility] ([id number]) [address], [address] [place] [address] CHOLESTEROL:HDL 4.8 Normal 1.0-5.0 [facility] Comment on above: Performed By: #### Lucie CRISTOBAL, 00675-2, 1743-2, 1919-8, 2344-7, 08977-9 #### [facility] ([id number]) [address], [address] [place] [address] Triglyceride [Mass/Vol] 146 mg/dL Normal 27-150 [facility] Comment on above: Performed By: #### Lucie CRISTOBAL, 67633-8, 1743-2, 1919-8, 2344-7, 03480-4 #### [facility] ([id number]) [address], [address] [place] [address] ALT No additional P-5'-P [Ca talytic activity/Vol]on 02-05-2024 ALT [Catalytic activity/Vol] 23 U/L Normal 0-31 [facility] Comment on above: Performed By: #### Lucie CRISTOBAL, 36835-1, 1743-2, 1919-8, 2344-7, 72359-7 #### [facility] ([id number]) [address], [address] [place] [address] Mohsen 02-05-2024 AST [Catalytic activity/Vol] 21 U/L Normal 0-41 [facility] Comment on above: Performed By: #### Lucie CRISTOBAL, 09408-8, 1743-2, 1919-8, 2344-7, 31754-0 #### [facility] ([id number]) [address], [address] [place] [address] CBC AND AUTO DIFFon 02-05-20 24 ABSOLUTE BASOPHIL 0.0 X10E9/L Normal 0.0-0.2 [facility] Comment on above: Performed By: #### Lucie CRISTOBAL, 65942-9, 1743-2, 1919-8, 2344-, 46054-1 #### [facility] ([id number]) [address], [address] [place] [address] ABSOLUTE NEUTROPHIL 3.2 X10E9/L Normal 1.5-6.6 [facility] Comment on above: Performed By: #### Lucie CRISTOBAL, 33497-4, 1743-2, 1919-, 2345-02, 43547-8 #### [facility] ([id number]) [address], [address] [place] [address] Basophils/100 WBC (Bld) 0.6 % Normal [facility] Comment on above: Performed By: #### Lucie CRISTOBAL, 33501-0, 1743-2, 1919-8, 2345-02, 46012-9 #### [facility] ([id number]) [address], [address] [place] [address] Eosinophils (Bld) [#/Vol] 0.1 10*3/uL Normal 0.0-0.4 [facility] Comment on above: Performed By: #### Lucie CRISTOBAL, 30529-2, 1743-2, 1919-8, 2344-7, 12558-1 #### [facility] ([id number]) [address], [address] [place] [address] Eosinophils/100 WBC (Bld) 1.6 % Normal [facility] Comment on above: Performed By: #### Lucie CRISTOBAL, 74364-5, 1743-2, 1919-8, 2344-7, 46896-2 #### [facility] ([id number]) [address], [address] [place] [address] Erythrocyte distribution width (RBC) [Ratio] 12.4 % Normal 11.5-15.0 [facility] Comment on above: Performed By: #### Lucie CRISTOBAL, 92268-5, 1743-2, 1919-8, 2344-, 72093-7 #### [facility] ([id number]) [address], [facility] [address] [place] [address] Hematocrit (Bld) [Volume fraction] 39.7 % Normal 35-47 [facility] Comment on above: Performed By: #### Lucie CRISTOBAL, 09275-9, 1743-2, 1919-, 2345-02, 26424-6 #### [facility] ([id number]) [address], [address] [place] [address] Hemoglobin (Bld) [Mass/Vol] 13.1 g/dL Normal 11.7-15.5 [facility] Comment on above: Performed By: #### Lucie CRISTOBAL, 34184-8, 1743-2, 1919-8, 2344-, 43229-0 #### [facility] ([id number]) [address], [address] [place] [address] Lymphocytes (Bld) [#/Vol] 2.1 10*3/uL Normal 1.0-3.5 [facility] Comment on above: Performed By: #### Lucie CRISTOBAL, 46353-2, 1743-2, 1919-, 2344-, 52832-4 #### [facility] ([id number]) [address], [facility] [address] [place] [address] Lymphocytes/100 WBC (Bld) 35.6 % Normal [facility] Comment on above: Performed By: #### Lucie CRISTOBAL, 60702-2, 1743-2, 8, 2345-02, 77197-5 #### [facility] ([id number]) [address], [address] [place] [address] MCH (RBC) [Entitic mass] 30.1 pg Normal 27-34 [facility] Comment on above: Performed By: #### Lucie CRISTOBAL, 45596-4, 1743-2, 1920-03, 2345-02, 41592-8 #### [facility] ([id number]) [address], [address] [place] [address] MCHC (RBC) [Mass/Vol] 32.9 g/dL Normal 32-36 [facility] Comment on above: Performed By: #### Lucie CRISTOBAL, 15742-8, 1743-2, 1920-03, 2345-02, 33420-0 #### [facility] ([id number]) [address], [address] [place] [address] MCV (RBC) [Entitic vol] 91 fL Normal 80-100 [facility] Comment on above: Performed By: #### Lucie CRISTOBAL, , 1743-2, 1920-03, 2345-02, 64375-0 #### [facility] ([id number]) [address], [address] [place] [address] Monocytes (Bld) [#/Vol] 0.4 10*3/uL Normal 0-0.9 [facility] Comment on above: Performed By: #### Lucie CRISTOBAL, 39225-2, 1743-2, 1920-03, 2345-02, 35685-7 #### [facility] ([id number]) [address], [address] [place] [address] Monocytes/100 WBC (Bld) 6.6 % Normal [facility] Comment on above: Performed By: #### Lucie CRISTOBAL, 07823-0, 1743-2, 1920-03, 2345-02, 85384-9 #### [facility] ([id number]) [address], [facility] [address] [place] [address] Neutrophils/100 WBC (Bld) 55.6 % Normal [facility] Comment on above: Performed By: #### Lucie CRISTOBAL, 93373-9, 1743-2, 1920-03, 2345-02, 59048-7 #### [facility] ([id number]) [address], [address] [place] [address] Platelet mean volume (Bld) [Entitic vol] 9.5 fL Normal 7-12 [facility] Comment on above: Performed By: #### Lucie CRISTOBAL, , 1743-2, 1920-03, 2345-02, 99545-2 #### [facility] ([id number]) [address], [facility] [address] [place] [address] Platelets (Bld) [#/Vol] 294 10*3/uL Normal 150-450 [facility] Comment on above: Performed By: #### Lucie CRISTOBAL, , 1743-10, 1920-03, 2345-02, 62962-4 #### [facility] ([id number]) [address], [facility] [address] [place] [address] RBC COUNT 4.34 X10E12/L Normal 3.80-5.20 [facility] Comment on above: Performed By: #### Lucie CRISTOBAL, 22196-5, 1743-2, 1920-03, 2345-02, 19196-5 #### [facility] ([id number]) [address], [facility] [address] [place] [address] WBC (Bld) [#/Vol] 5.8 10*3/uL Normal 4.0-11.0 [facility] Comment on above: Performed By: #### Lucie CRISTOBAL, 25689-0, 1743-2, 1920-03, 2345-02, 22857-2 #### [facility] ([id number]) [address] [place] [address] GLUCOSEon 02-05-2024 Glucose [Mass/Vol] 82 mg/dL Normal 65-99 [facility] Comment on above: Performed By: #### Lucie CRISTOBAL, 15357-7, 1743-2, 1920-03, 2345-02, 36454-7 #### [facility] ([id number]) [address], [address] [place] [address] HCG.beta subunit IA 3rd IS Q non 02-05-2024 SERUM B HCG,3RD I.S. <5 Normal [facility] Comment on above: Result Comment: NEW [...] nontrophoblastic neoplasms. Performed By: #### Lucie CRISTOBAL, 10284-1, 1743-2, 1920-03, 7, 97487-0 #### [facility] ([id number]) [address] [address], [address] [place] [address] Lipid 1996 panelon Cholesterol [Mass/Vol] 188 mg/dL Normal 150-200 [facility] Comment on above: Performed By: #### Lucie CRISTOBAL, 78730-7, 1743-2, 1920-03, 2345-02, 91093-4 #### [facility] ([id number]) [address], [address] [place] [address] Cholesterol in HDL [Mass/Vol] 55 mg/dL Normal >39 [facility] Comment on above: Result Comment: HDL <40 mg/dL - High Risk HDL > or = 40mg/dL- Desirable HDL >60 mg/dL - Negative Risk Performed By: ###Clayton Faulkner BCA, , 1743-, 1920-03, 2345-02, 32854-7 #### [facility] ([id number]) [address], [address] [place] [address] Cholesterol in LDL [Mass/Vol] 118 mg/dL Normal <130 [facility] Comment on above: Result Comment: LDL <100 mg/dL - Desirable LDL >160 mg/dL - High Risk Performed By: ##Norma Faulkner BCA, , 1743-2, 1920-03, 2345-02, 08488-3 #### [facility] ([id number]) [address], [address] [place] [address] Cholesterol in VLDL [Mass/Vol] 15 mg/dL Normal 0-30 [facility] Comment on above: Performed By: ##Norma Faulkner BCA, , 1743-2, 1920-03, 2345-02, 74685-5 #### [facility] ([id number]) [address], [address] [place] [address] CHOLESTEROL:HDL 3.4 Normal 1.0-5.0 [facility] Comment on above: Performed By: ###Clayton Faulkner BCA, 45962-7, 1744-2, 1920-8, 2345-7, 36206-0 #### [facility] ([id number]) [address], [address] [place] [address] Triglyceride [Mass/Vol] 76 mg/dL Normal 27-150 [facility] Comment on above: Performed By: #### C BCA, 75168-0, 1744-2, 1920-8, 2345-7, 99588-1 #### [facility] ([id number]) [address] [address] [place] [address] Covid-19 PCR (CVDTB)on 09-02 SARS-CoV-2 (COVID-19) RNA [...] for this test is supported by the [place] of Health and Human Service's (HHS's) declaration [...] SARS-CoV-2. Performed By: #### C VDTBH #### [facility] [address] [place] [address] Dr. Deb Rutledge INFLUENZA A AND B AGon 09-29 INFLUANEGH SEE BELOW Normal [facility] Comment on above: Result Comment: Nega tive for Flu A protein angiten. Infection due to Flu A cannot be ruled out. Flu A angiten in the sample may be below the detection limit of the test. Performed By: #### I NFLUAB #### [facility] [address] [place] [address] Dr. Deb Rutledge [facility] SEE BELOW Normal [facility] Comment on above: Result Comment: Nega tive for Flu B protein antigen. Infection due to Flu B cannot be ruled out. Flu B antigen in the sample may be below the detection limit of the test. Performed By: #### I NFLUAB #### [facility] [address] [place] [address] Dr. Deb Rutledge INFLUENZA A AG Negative Normal NEGATIVE SEE COMMENT [facility] Comment on above: Performed By: #### I NFLUAB #### [facility] [address] [place] [address] Dr. Deb Rutledge INFLUENZA B AG Negative Normal NEGATIVE SEE COMMENT [facility] Comment on above: Performed By: #### I NFLUAB #### [facility] [address] [place] [address] Dr. Deb Rutledge INSULINon 06-16-2022 Insulin 13.1 uIU/mL Normal 2.6-24.9 [facility] Comment on above: Performed By: #### I NSULIN ####[facility] [id number] [place], [place] [address]Dr. Deb Rutledge CBC AUTO DIFFon 06-14-2022 BASO # 0.0 103/ul Normal 0.0-0.[address] [facility] Comment on above: Performed By: #### C BC #### [facility] [address] [place] [address] Dr. Deb Rutledge Basophils/100 WBC (Bld) 0.2 % Normal 0.2-2.[address] [facility] Comment on above: Performed By: #### C BC #### [facility] [address] [place] [address] Dr. Deb Rutledge EO # 0.1 103/ul Normal 0.0-0.[address] [facility] Comment on above: Performed By: #### C BC #### [facility] [address] [place] [address] Dr. Deb Rutledge Eosinophils/100 WBC (Bld) 1.1 % Normal 0.9-7.0 [facility] Comment on above: Performed By: #### C BC #### [facility] [address] [place] [address] Dr. Deb Rutledge Erythrocyte distribution width (RBC) [Ratio] 11.7 % Normal 11.0-15.0 [facility] Comment on above: Performed By: #### C BC #### [facility] [address] [place] [address] Dr. Deb Rutledge Hematocrit (Bld) [Volume fraction] 40.5 % Normal 36.0-48.0 [facility] Comment on above: Performed By: #### C BC #### [facility] [address] [place] [address] Dr. Deb Rutledge Hemoglobin (Bld) [Mass/Vol] 13.0 g/dL Normal 12.0-16.0 [facility] Comment on above: Performed By: #### C BC #### [facility] [address] [place] [address] Dr. Deb Rutledge IG # 0.00 10e3/ul Normal 0.00-0.03 [facility] Comment on above: Performed By: #### C BC #### [facility] [address] [place] [address] Dr. Deb Rutledge IG % 0.0 % Normal 0.0-0.[address] [facility] Comment on above: Performed By: #### C BC #### [facility] [address] [place] [address] Dr. Deb Rutledge LYMPH # 1.8 103/ul Normal 1.2-3.[address] [facility] Comment on above: Performed By: #### C BC #### [facility] [address] [place] [address] Dr. Deb Rutledge Lymphocytes/100 WBC (Bld) 37.7 % Normal 20.5-60.0 [facility] Comment on above: Performed By: #### C BC #### [facility] [address] [place] [address] Dr. Deb Rutledge MANUAL DIFF REQ NO Normal [facility] Comment on above: Performed By: #### C BC #### [facility] [address] [place] [address] Dr. Deb Rutledge MCH (RBC) [Entitic mass] 30.7 pg Normal 26.7-34.0 [facility] Comment on above: Performed By: #### C BC #### [facility] [address] [place] [address] Dr. Deb Rutledge MCHC (RBC) [Mass/Vol] 32.1 g/dL Normal 29.9-35.2 [facility] Comment on above: Performed By: #### C BC #### [facility] [address] [place] [address] Dr. Deb Rutledge MCV (RBC) [Entitic vol] 95.7 fL Normal 81.0-99.0 [facility] Comment on above: Performed By: #### C BC #### [facility] [address] [place] [address] Dr. Deb Rutledge MONO # 0.3 103/ul Normal 0.3-0.8 [facility] Comment on above: Performed By: #### C BC #### [facility] [address] [place] [address] Dr. Deb Rutledge Monocytes/100 WBC (Bld) 5.8 % Normal 1.7-12.0 [facility] Comment on above: Performed By: #### C BC #### [facility] [address] [place] [address] Dr. Deb Rutledge NEUT # 2.6 103/ul Normal 1.4-6.[address] [facility] Comment on above: Performed By: #### C BC #### [facility] [address] [place] [address] Dr. Deb Rutledge Neutrophils/100 WBC (Bld) 55.2 % Normal 43.0-75.0 [facility] Comment on above: Performed By: #### C BC #### [facility] [address] [place] [address] Dr. Deb Rutledge Platelet mean volume (Bld) [Entitic vol] 10.2 fL Normal 9.5-13.5 [facility] Comment on above: Performed By: #### C BC #### [facility] [address] [place] [address] Dr. Deb Rutledge PLT 286 103/ul Normal 150-450 [facility] Comment on above: Performed By: #### C BC #### [facility] [address] [place] [address] Dr. Deb Rutledge RBC 4.23 106/ul Normal 4.20-5.40 [facility] Comment on above: Performed By: #### C BC #### [facility] [address] [place] [address] Dr. Deb Rutledge WBC 4.7 103/ul Normal 4.0-11.0 [facility] Comment on above: Performed By: #### C BC #### [facility] [address] [place] [address] Dr. Deb Rutledge FREE THYROXINE INDEX T7on FTI 1.73 Normal 1.30-4.50 [facility] Comment on above: Performed By: #### L IPID, CMP, TSH, T7 #### [facility] [address] [place] [address] Dr. Deb Rutledge T3U 27.0 % Critically low 30.0-39.0 [facility] Comment on above: Performed By: #### L IPID, CMP, TSH, T7 #### [facility] [address] [place] [address] Dr. Deb Rutledge T4 [Mass/Vol] 6.40 ug/dL Normal 4.80-13.90 [facility] Comment on above: Performed By: #### L IPID, CMP, TSH, T7 #### [facility] [address] [place] [address] Dr. Deb Rutledge GLYCOHEMOGLOBIN A1Con 2021 ADA RECOMMENDATION SEE BELOW Normal [facility] Comment on above: Result Comment: ADA RECOMMENDED LIMIT 4.0 - 6.0 ADA THERAPEUTIC TARGET < 7.0 ACTION SUGGESTED > 7.0 Performed By: #### A 1C #### [facility] [address] [place], [place] [address] Dr. Deb Rutledge Glucose [Mass/Vol] 108 mg/dL Normal [facility] Comment on above: Performed By: #### A 1C #### [facility] [address] [place] [address] [address] Deb Rutledge HbA1c (Bld) [Mass fraction] 5.4 % Normal 4.5-6.2 [facility] Comment on above: Performed By: #### A 1C #### [facility] [address] [address] [address] Deb Rutledge IRONon 06-14-2022 Iron [Mass/Vol] 79.0 ug/dL Normal 50.0-170.0 [facility] Comment on above: Performed By: #### I ERAN KELLEY ####[facility] [id number] [place], [place] [address]YmDr. Deb Rutledge LIPID PROFILEon 06-14-2022 CHOL-HDL RATIO NORM SEE BELOW Normal [facility] Comment on above: Result Comment: 3.3 - 4.4 LOW RISK 4.4 - 7.1 AVERAGE RISK 7.1 - 11.0 MODERATE RISK >11.0 HIGH RISK Performed By: #### L IPID, CMP, TSH, T7 #### [facility] [address] [place] [address] [address] Deb Rutledge Cholesterol [Mass/Vol] 172 mg/dL Normal <=200 [facility] Comment on above: Performed By: #### L IPID, CMP, TSH, T7 #### [facility] [address] [address] [address] Deb Rutledge Cholesterol in HDL [Mass/Vol] 68 mg/dL Critically high 40-60 [facility] Comment on above: Performed By: #### L IPID, CMP, TSH, T7 #### [facility] [address] [address] [address] Deb Rutledge Cholesterol in LDL [Mass/Vol] 96.4 mg/dL Normal [facility] Comment on above: Performed By: #### L IPID, CMP, TSH, T7 #### [facility] [address] [address] [address] Deb Rutledge Cholesterol.total/Ch olesterol in HDL [Mass ratio] 2.5 {ratio} Normal [facility] Comment on above: Performed By: #### L IPID, CMP, TSH, T7 #### [facility] [address] [address] [address] Deb Rutledge HDL NORMAL > or = 60 mg/dl - LO W CARDIOVASCULAR RISK <40 mg/dl - HIGH CARDIOVASCULAR RISK Normal [facility] Comment on above: Performed By: #### L IPID, CMP, TSH, T7 #### [facility] [address] [address] [address] Deb Rutledge LDL CALC NORMAL SEE BELOW Normal [facility] Comment on above: Result Comment: <100 mg/dl OPTIMAL 100 - 129 mg/dl NEAR OR ABOVE OPTIMAL 130 - 159 mg/dl BORDERLINE HIGH 160 - 189 mg/dl HIGH >190 mg/dl VERY HIGH Performed By: #### L IPID, CMP, TSH, T7 #### [facility] [address] [address] [address] Deb Rutledge Triglyceride [Mass/Vol] 38 mg/dL Normal <=150 [facility] Comment on above: Performed By: #### L IPID, CMP, TSH, T7 #### [facility] [address] [address] [address] Deb Rutledge VLDL CALC 7.6 mg/dL Normal [facility] Comment on above: Performed By: #### L IPID, CMP, TSH, T7 #### [facility] [address] [address] [address] Deb Rutledge PROF 14(COMP METB)on 022 Albumin [Mass/Vol] 3.8 g/dL Normal 3.4-5.0 [facility] Comment on above: Performed By: #### L IPID, CMP, TSH, T7 #### [facility] [address] [address] [address] Deb Rutledge Albumin/Globulin [Mass ratio] 1.2 {ratio} Normal [facility] Comment on above: Performed By: #### L IPID, CMP, TSH, T7 #### [facility] [address] [address] [address] Deb Rutledge ALP [Catalytic activity/Vol] 69 U/L Normal 46-116 [facility] Comment on above: Performed By: #### L IPID, CMP, TSH, T7 #### [facility] [address] [place] [address] Dr. Deb Rutledge ALT [Catalytic activity/Vol] 24 U/L Normal 14-59 [facility] Comment on above: Performed By: #### L IPID, CMP, TSH, T7 #### [facility] [address] [place] [address] Dr. Deb Rutledge Anion gap [Moles/Vol] 11.3 mmol/L Normal [facility] Comment on above: Performed By: #### L IPID, CMP, TSH, T7 #### [facility] [address] [place] [address] Dr. Deb Rutledge AST [Catalytic activity/Vol] 11 U/L Critically low 15-37 [facility] Comment on above: Performed By: #### L IPID, CMP, TSH, T7 #### [facility] [address] [place] [address] Dr. Deb Rutledge Bilirubin [Mass/Vol] 0.5 mg/dL Normal 0.2-1.0 [facility] Comment on above: Performed By: #### L IPID, CMP, TSH, T7 #### [facility] [address] [place] [address] Dr. Deb Rutledge Calcium [Mass/Vol] 8.7 mg/dL Normal 8.5-10.1 [facility] Comment on above: Performed By: #### L IPID, CMP, TSH, T7 #### [facility] [address] [place] [address] Dr. Deb Rutledge Chloride [Moles/Vol] 109 mmol/L Critically high 98-107 [facility] Comment on above: Performed By: #### L IPID, CMP, TSH, T7 #### [facility] [address] [place] [address] Dr. Deb Rutledge CO2 [Moles/Vol] 24.5 mmol/L Normal 21.0-32.[address] [facility] Comment on above: Performed By: #### L IPID, CMP, TSH, T7 #### [facility] [address] [address] [address] Deb Rutledge Creatinine [Mass/Vol] 0.71 mg/dL Normal 0.55-1.[address] [facility] Comment on above: Performed By: #### L IPID, CMP, TSH, T7 #### [facility] [address] [address] [address] Deb Rutledge EGFR-AF ITALIAN >60 Normal >=[address] [facility] Comment on above: Performed By: #### L IPID, CMP, TSH, T7 #### [facility] [address] [address] [address] Deb Rutledge EGFR-NON AF ITALIAN >60 Normal >=[address] [facility] Comment on above: Performed By: #### L IPID, CMP, TSH, T7 #### [facility] [address] [address] [address] Deb Rutledge Globulin (S) [Mass/Vol] 3.1 g/dL Normal [facility] Comment on above: Performed By: #### L IPID, CMP, TSH, T7 #### [facility] [address] [address] [address] Deb Rutledge Glucose [Mass/Vol] 81 mg/dL Normal 74-[address] [facility] Comment on above: Performed By: #### L IPID, CMP, TSH, T7 #### [facility] [address] [address] [address] Deb Rutledge Potassium [Moles/Vol] 3.8 mmol/L Normal 3.5-5.[address] [facility] Comment on above: Performed By: #### L IPID, CMP, TSH, T7 #### [facility] [address] [address] [address] Deb Rutledge Protein [Mass/Vol] 6.9 g/dL Normal 6.4-8.[address] [facility] Comment on above: Performed By: #### L IPID, CMP, TSH, T7 #### [facility] [address] [place] [address] Dr. Deb Rutledge Sodium [Moles/Vol] 141 mmol/L Normal 136-145 [facility] Comment on above: Performed By: #### L IPID, CMP, TSH, T7 #### [facility] [address] [place] [address] Dr. Deb Rutledge Urea nitrogen [Mass/Vol] 15.0 mg/dL Normal 7.0-18.0 [facility] Comment on above: Performed By: #### L IPID, CMP, TSH, T7 #### [facility] [address] [place] [address] Dr. Deb Rutledge Urea nitrogen/Creatinine [Mass ratio] 21.1 mg/mg Normal [facility] Comment on above: Performed By: #### L IPID, CMP, TSH, T7 #### [facility] [address] [place] [address] Dr. Deb Rutledge TSHon 06-14-2022 TSH 1.420 uIU/mL Normal 0.358-3.740 [facility] Comment on above: Performed By: #### L IPID, CMP, TSH, T7 #### [facility] [address] [place] [address] Dr. Dbe Rutledge VITAMIN D 25 OHon 06-14-2022 VIT D 25-OH 25.0 ng/mL Normal [facility] Comment on above: Performed By: #### I WARREN VITRAJEEV #### [facility] [address] [place] [address] Dr. Deb Rutledge VIT D RANGES SEE BELOW Normal [facility] Comment on above: Result Comment: <20 ng/mL Vit D deficient 20 - <30 ng/mL Vit D insufficient 30 - 100 ng/mL Vit D sufficient >100 ng/mL Potential Toxicity Performed By: #### I WARREN VITAD #### [facility] [address] [place] [address] Dr. Deb Rutledge XR CHEST 2 Von [...] by: QUINN SOLIS Date: 2022-06-12 19:00 Normal [facility] Vital Signs Date Time Vital Sign Value Performing Clinician Facility 01-12-2025 14:15-0400 Body height 165.1 cm Hu Brown DPM Work Phone: [facility] 01-12-2025 14:15-0400 Body mass index (BMI) [Ratio] 24.79 kg/m2 Hu Brown DPM Work Phone: [facility] 01-12-2025 14:15-0400 Body weight 67.59 kg Hu Brown DPM Work Phone: [facility] 01-12-2025 14:15-0400 Respiratory rate 18 /min Hu Brown DPM Work Phone: [facility] 12-22-2024 13:22-0400 Body height 165.1 cm Hu Brown DPM Work Phone: [facility] 12-22-2024 13:22-0400 Body mass index (BMI) [Ratio] 24.79 kg/m2 Hu Brown DPM Work Phone: [facility] 12-22-2024 13:22-0400 Body weight 67.59 kg Hu Brown DPM Work Phone: [facility] 12-22-2024 13:22-0400 Respiratory rate 18 /min Hu Brown DPM Work Phone: [facility] 09-28-2024 15:20-0500 Blood Pressure Location Dale BOYCEJoanna [facility] [place] 09-28-2024 15:20-0500 Diastolic blood pressure 76 mm[Hg] Dale NILL [facility] [place] 09-28-2024 15:20-0500 Heart rate 72 /min Dale NILL [facility] [place] 09-28-2024 15:20-0500 Respiratory rate 16 /min Dale NILL [facility] [place] 09-28-2024 15:20-0500 Systolic blood pressure 120 mm[Hg] Dale NILL [facility] [place] 06-08-2023 18:19-0400 Body temperature 97.88 [degF] Asa Galeas PA [facility] 06-08-2023 18:19-0400 Diastolic blood pressure 78 mm[Hg] Asa Galeas PA [facility] 06-08-2023 18:19-0400 Heart rate 68 /min Asa Galeas PA [facility] 06-08-2023 18:19-0400 Respiratory rate 16 /min Asa Galeas PA [facility] 06-08-2023 18:19-0400 SaO2% (BldA) [Mass fraction] 100 % Asa Galeas PA [facility] 06-08-2023 18:19-0400 Systolic blood pressure 106 mm[Hg] Asa Galeas PA [facility] Encounters Encounter Date Encounter Type Care Provider Facility Start: 01-12-2025 End: 01-12-2025 Office outpatient visit 15 minutes Hu Mujica DPM Work Phone: [facility] Comment on above: Paronychia, toe, lef t (Primary Dx); Onychocryptosis; Toe pain, left Start: 01-12-2025 End: 01-12-2025 ambulatory HU MUJICA Not Available Start: 01-12-2025 End: 01-12-2025 Bamboo flowsheet Hu Mujica DPM Work Phone: [facility] Start: 01-12-2025 End: 01-12-2025 Bamboo flowsheet Hu Mujica DPM Work Phone: [facility] Start: 12-22-2024 End: 12-22-2024 Bamboo flowsheet Hu Mujica DPM Work Phone: [facility] Start: 12-22-2024 End: 12-22-2024 Bamboo flowsheet Hu Mujica DPM Work Phone: [facility] Start: 12-22-2024 End: 12-22-2024 ambulatory HU MUJICA Not Available Start: 12-22-2024 End: 12-22-2024 Office outpatient visit 15 minutes Hu Mujica DPM Work Phone: [facility] Comment on above: Paronychia, toe, lef t (Primary Dx); Onychocryptosis; Toe pain, left Start: 10-05-2024 End: 10-05-2024 ambulatory Dale FRENCH Facility:[facility] Start: 10-05-2024 End: 10-05-2024 Patient encounter procedure Dale FRENCH [facility] [place] Start: 09-28-2024 End: 09-28-2024 ambulatory Dale FRENCH Facility:[facility] Start: 09-28-2024 End: 09-28-2024 Patient encounter procedure Dale FRENCH [facility] [place] Start: 09-20-2024 ambulatory Dale FRENCH Facility:[facility] [place] Start: 09-16-2024 ambulatory Dale FRENCH Facility:[facility] [place] Start: 08-22-2024 End: 08-22-2024 ambulatory Andrius Deepthiytautjw Avalositis Facility:[facility] Start: 08-15-2024 End: 08-15-2024 ambulatory Andrius Deepthiytautas Leandraeditis Facility:[facility] Start: 07-30-2024 End: 07-30-2024 ambulatory [facility] Start: 07-18-2024 End: 07-18-2024 ambulatory Andrius Deepthiytautas Baileyitis Facility:[facility] Start: 07-11-2024 End: 07-11-2024 ambulatory Andrius Deepthiytautas Generaitis Facility:[facility] Start: 06-20-2024 End: 06-20-2024 ambulatory Andrius Deepthiytautas Leandraedraitis Facility:[facility] Start: 06-13-2024 End: 06-13-2024 ambulatory Andrius Laceyytautas Leandraedraitis Facility:[facility] Start: 05-23-2024 End: 05-23-2024 ambulatory Andmaximo Laceyytautas Baileyitis Facility:[facility] Start: 04-02-2024 End: 04-02-2024 ambulatory [facility] Start: 02-05-2024 End: 02-05-2024 ambulatory [facility] Start: 06-08-2023 Asa LUZ [facility] Start: 09-29-2022 End: 09-29-[address] TIERA BARON Facility: Start: 06-18-2022 Encounter for genera l adult medical examination without abnormal findings DR TIERA BARON [facility] Start: 06-14-2022 End: 06-15-[address] TIERA BARON Facility:[facility] Start: 06-14-2022 End: 06-15-2022 Encounter for general adult medical examination without abnormal findings DR TIERA BARON Facility:[facility] Start: 06-12-2022 End: 06-13-[address] TIERA BARON Facility:[facility] Procedures Date Procedure Procedure Detail Performing Clinician Injection into lumba r epidural space Dale FRENCH Plan of Treatment Date Care Activity Detail Author Start: 05-01-2025 Influenza vaccination Influenz a Vaccine (Season Ended) [facility] Start: 01-12-2025 End: 01-12-2025 Patient encounter procedure 01/12/2025 2:20 PM EDT Office Visit [facility] [address] [facility] [address] [place] [address] Hu Mujica DPM [address] [facility] [address] [place] [address] Paronychia, toe, left (Primary Dx); Onychocryptosis; Toe pain, left [facility] Comment on above: Paronychia, toe, lef t (Primary Dx); Onychocryptosis; Toe pain, left Immunizations Immunization Date Immunization Notes Care Provider Fa cility 06-15-2022 SARS-CoV-2 (COVID-19 ) [id number] Dale FRENCH [facility] [place] 09-11-2021 SARS-CoV-2 (COVID-19 ) mRNA-1273 vaccine Dale FRENCH [facility] 01-16-2021 SARS-CoV-2 (COVID-19 ) mRNA-1273 vaccine Dale FRENCH [facility] 12-10-2020 SARS-CoV-2 (COVID-19 ) mRNA-1273 vaccine Dale FRENCH [facility] Payers Date Payer Category Payer [facility] [id number] 2023 Unknown 2002 Unknown [id number] .593 2002 Unknown [id number] [id number] .593 2002 Unknown [id number] 2.16840.1.551712.3.579.2 .593 2002 Unknown [id number] 2.16.840.1.836743.3.579.2 .1286 2002 Unknown [id number] 2.16840.1.943937.3.579.2 .128 2002 Unknown [id number] 2.16840.1.641835.3.579.2 .1286 2002 Unknown [id number] 2.16.840.1.350628.3.579.2 .196 2002 Unknown [id number] 2.16.840.1.743908.3.579.2 .196 2002 Unknown [id number] 2.16840.1.245271.3.579.2 .196 2002 Unknown [id number] 2.16840.1.811758.3.579.2 .196 2002 Unknown [id number] 2.16.840.1.503691.3.579.2 .196 2002 Unknown [id number] 2.16.840.1.667538.3.579.2 .196 2002 Unknown [id number] 2.16.840.1.047097.3.579.2 .196 2002 Unknown [id number] 2.16.840.1.581996.3.579.2 .727 2002 Unknown [id number] 2.16.840.1.092675.3.579.2 .727 2002 Unknown [id number] 2.16.840.1.006512.3.579.2 .727 2002 Unknown [id number] 2.16.840.1.900213.3.579.2 .1259 2002 Unknown [id number] 2.16.840.1.773705.3.579.2 .1259 1959 Unknown [id number] Social History Date Type Detail Facility Start: 09-28-2024 End: 10-05-2024 Tobacco smoking status Never [facility] Sex Assigned At Female [facility] Start: 12-22-2024 Tobacco smoking status VTIS Tobacco smoking consumption unknown [facility] Start: 2000 Sex assigned at Not on file [facility] Functional Status Date Assessment Result Facility 10-05-2024 Functional Status N/A [facility] [place] 09-28-2024 Functional Status N/A [facility] [place] History of Present illness Narrative 01-12-2025 Hu Mujica DPM - 01/12/2025 2:20 PM EDT Note Date & Type Note Facility 01-12-2025 History of Presen t illness Narrative Patient: Leola Franco : 2000 PCP: Tiera Baron MD SUBJECTIVE This is a 24 y.o. female that presents today 14 d s/p permanent nail avulsion with nail avulsion to the left hallux Pt states that they have been following all post op instructions and have been taking antibiotic as prescribed. Pt denies n/f/v/c and has minimal pain at post op site. Pt states negative drainage from the postop site. Pt presents today for postoperative follow up. Allergies: No Known Allergies Past Medical History: No past medical history on file. Medications: Current Outpatient Medications: cephalexin (Keflex) 500 MG capsule, Take 1 capsule (500 mg) by mouth in the morning and 1 capsule (500 mg) in the evening and 1 capsule (500 mg) before bedtime. Do all this for 10 days. Take one tablet by mouth three times daily., Disp: 30 capsule, Rfl: 0 ROS: General: denies fever, chills, fatigue, malaise GI: denies loose or watery stool on antibiotic OBJECTIVE LE EXAM: DERM: Negative erythema, negative drainage from the left hallux VASC: Palpable pedal pulses bilaterally NEURO: Gross sensation intact to bilateral feet ORTHO: Minimal pain on palpation to the left hallux ASSESSMENT 21 d s/p permanent nail avulsion to the left hallux 1. Paronychia, toe, left 2. Onychocryptosis 3. Toe pain, left PLAN Pt to d/c abx. Patient to continue with OTC oral anti - inflammatories as needed for pain. Pt to keep DSD on area of interest while in shoegear, otherwise may expose to air in a clean environment. Hu Mujica DPM documented in this encounter [facility] History of Present illness Narrative 12-22-2024 Hu Mujica DPM - 12/22/2024 1:10 PM EDT Note Date & Type Note Facility 12-22-2024 History of Presen t illness Narrative Patient: Leola Franco : 2000 PCP: Tiera Baron MD SUBJECTIVE This is a 24 y.o. female that presents today with a CC of ingrowing left hallux toenail Pt states problem has been present for the past few weeks. Pt has noticed negative drainage to the affected area and states pain is achey in nature. Treatments have consisted of soaking and trying to remove the ingrown nail on their own with no relief. Patient has had longstanding issue with ingrowing nail and presents today for treatment Allergies: Not on File Past Medical History: History reviewed. No pertinent past medical history. Medications: No current outpatient medications on file. Social History: Social History Socioeconomic History Marital status: Unmarried Spouse name: Not on file Number of children: Not on file Years of education: Not on file Highest education level: Not on file Occupational History Not on file Tobacco Use Smoking status: Unknown Smokeless tobacco: Not on file Substance and Sexual Activity Alcohol use: Not on file Drug use: Not on file Sexual activity: Not on file Other Topics Concern Not on file Social History Narrative Not on file Social Drivers of Health Financial Resource Strain: Not on file Food Insecurity: Not on file Transportation Needs: Not on file Physical Activity: Not on file Stress: Not on file Social Connections: Not on file Intimate Partner Violence: Not on file Housing Stability: Not on file ROS: General: denies fever, chills, fatigue, malaise OBJECTIVE LE EXAM: DERM: Positive erythema and negative drainage from the left hallux with hair growth noted to b/l feet. VASC: Palpable pedal pulsed b/l with warm to cool tibia to toes b/l NEURO: Gross sensation intact digits 1-10 and b/l feet ORTHO: Ankle ROM less than 10 degrees b/l. Positive pain on palpation to left hallux ASSESSMENT 1. Paronychia, toe, left 2. Onychocryptosis 3. Toe pain, left PLAN Patient to continue with oral anti - inflammatories as needed for pain and recommended OTC medications such as tylenol or Ibuprofen Discussed possible treatment options including a permanent nail avulsion and patient would like done today Perfomed TPN avulsion to the left toenail. Informed pt of risks/ benefits of procedure including infection,reoccurance,pain, bleeding. Pt consents. 3cc of xylocaine 2% plain injected into the affected digit and tournicut applied to affected digit for 3 minutes. The affected toe was prepped/draped in a sterile manner and the offending nail border removed and 3 phenol applications of 30 seconds a peice to nail matrix. Alcohol flush applied and tournicut released with prompt hyperemic response. Patient was given a prescription for an antibiotic Hu Mujica DPM documented in this encounter [facility] Clinical Note 09-28-2024 Note Date & Type Note Facility 09-28-2024 Note General Surgery Offi ce/Clinic Note Chief Complaint consultation for abnormal mammogram HPI Staff 24 year old female presents on consultation from Dr. Baron for abnormal mammogram. Patient reports noting a firm, lumpy, yellow discoloration to left breast daily for the past several weeks. Verbalized this appears spontaneously without any pattern and resolves with in 1 minute. Denies pain or discomfort. Denies nipple discharge or inversion but reports some redness. US completed 09/15 with asymmetric thickened skin with recommended biopsy. Denies first degree relative with beast cancer. History of Present Illness 24 yo female with h/o hypothyroidism, lumbar spondylosis, GERD, ADHD, anxiety/dysthymic disorder referred for abnormal left mammogram; patient reports 1 month h/o intermittent skin changes around left areola; edema, yellow change to skin; only lasts a minute; no pain or nipple discharge; no erythema or ulcerations; no changes to right breast; worse with cold; no medications changes; no tobacco use; recent mammogram with asymmetric skin thickening anteriorly on left breast; dense breast tissue bilaterally. on OCP; Aunt with breast cancer dx over the age of 50; genetic testing negative. Review of Systems PHQ Score Initial Depression Screen Score: 0 SCORE ROS - Provider Constitutional: no fever, no sweats, no weight loss. Eyes: no glasses, no blurred vision, no visual loss. ENMT: no dentures, no hoarseness, no swallowing difficulties, no hearing loss, no ear infection(s), no nose bleeds. Cardiovascular: normal blood pressure, no chest pain, regular heartbeat, no heart murmur. Respiratory: no shortness of breath, no cough, no asthma, no wheezing. Gastrointestinal: no nausea, no vomiting, no diarrhea, no constipation, no blood in stool, no change in bowel habits, no abdominal pain, no hepatitis. Genitourinary: no kidney stones, no urine infection, no dysuria. Musculoskeletal: no pain, no weakness. Skin: no changing moles, no rash, no skin lumps. Neurologic: no seizures, no epilepsy, no headache. Psychiatric: no emotional or psychiatric problem. Heme/Lymph: no bleeding problems, no anemia, no blood clots, no transfusions. Allergy/Immunologic: no swollen lymph nodes/glands, no IV drug abuse. Other: Additional ROS info: Except as noted in the above Review of Systems and in the History of Present Illness, all other systems have been reviewed and are negative or noncontributory. Physical Exam Vitals & Measurements HR: 72(Peripheral) RR: 16 BP: 120/76 HT: 65 in HT: 165 cm WT: 80 kg WT: 176.37 lb BMI: 29.38 HEENT: normal conjunctiva, sclera clear, no scleral icterus, EOM intact, PERRLA. oral mucosa moist without lesions Neck: trachea midline , no mass, symmetric, no thyromegaly or nodules. no adenopathy Respiratory: lungs CTA, respirations non labored. Cardiovascular: regular rate and rhythm, no murmur, , no pedal edema or varicosities. Chest (Breasts): prominent pores, mild skin thickening around and involving left areola, no erythema or edema; no ulcerations; right breast with mild changes, left more pronounced; areas of dense breast tissue bilaterally. no nipple changes. Gastrointestinal: obese, soft, non distended, no tenderness, no masses, no palpable hernias, diastasis recti no, no hepatosplenomegaly. normal bs Lymphatic: no cervical adenopathy, no axillary adenopathy, no supraclavicular adenopathy. Musculoskeletal: normal gait, digits and nails without infection, nodes, cyanosis, clubbing. Skin: no rashes, no lesions, no ulcers, no subcutaneous nodules, induration. Psychiatric/Neuro: oriented to time, place, person, judgement normal, affect appropriate for age, insight intact, no focal deficits. Tests: , x-rays reviewed, review of old records completed , Discussed surgical options, risks, and possible complications with patient. Assessment/Plan 1. Abnormal mammogram of left breast (R92.8: Other abnormal and inconclusive findings on diagnostic imaging of breast) skin thickening around left areola; full thickness biopsy obtained under local anesthesia; tolerated well, closed with interrupted 5-0 nylon sutures; patient to take ibuprofen as needed for pain; f/u next week for suture removal and pathology results. Ordered: Pathology Tissue Exam Follow-up No qualifying data available Problem List/Past Medical History Ongoing Abnormal mammogram of left breast ADHD Anxiety BMI 29.0-29.9,adult Developmental language disorder Dysthymic disorder Eczema Gastroesophageal reflux disease Hypothyroidism Lumbar spondylosis Obesity due to excess calories Historical No qualifying data Procedure/Surgical History Lumbar epidural injection. Medications Adipex-P 37.5 mg Tab, 37.5 mg= 1 tab(s), Oral, Daily Apri oral tablet, 1 tab(s), Oral, Daily atomoxetine 40 mg Cap, 40 mg= 1 cap(s), Oral, qAM citalopram 40 mg Tab, 40 mg= 1 tab(s), Oral, Daily isotretinoin 40 mg oral capsule, as directe (more content not included)... [facility] Comment on above: Result Comment: Elec tronically Signed By: Dale FRENCH MD\.br\Date and Time Signed: 09/28/24 19:13 EST Evaluation + Plan note Laboratory Note Date & Type Note Facility Evaluation + Plan note Future Appointments Appointment Date:10/05/2024 02:00:00 PM Scheduled Provider:Dale FRENCH MD Location:[facility] Appointment Type: Established 15 Future Scheduled TestsPathology Tissue Exam 09/28/24 [facility] [place] Evaluation note Note Date & Type Note Facility Evaluation note Diagnosis Paronychia, toe, left- Primary Onychocryptosis Ingrowing nail Toe pain, left Pain in soft tissues of limb documented in this encounter [facility] Evaluation note Note Date & Type Note Facility Evaluation note Diagnosis Paronychia, toe, left- Primary Onychocryptosis Ingrowing nail Toe pain, left Pain in soft tissues of limb documented in this encounter [facility] Hospital course Narrative Note Date & Type Note Facility Hospital course Narrative No data available for this section [facility] [place] [facility] Discharge instructions Note Date & Type Note Facility Hospital Discharge instructions No data available for this section [facility] Instructions Note Date & Type Note Facility Instructions Strict FU precautions.Rest, fluids. FU with PCP within the week.RTC or go to the ED if symptoms worsen or new symptoms develop before FU.Call us to update us on status [facility] Progress note Note Date & Type Note Facility Progress note No data available for this section [facility] [place] Summary Purpose Family History No Family History Records FoundNo Family History Records FoundNo Family History Records Found No data available for this section No data available for this section No Family History Records FoundNo Family History Records FoundNo Family History Records FoundNo Family History Records Found Advance Directives No Advanced Directives Records FoundNo Advanced Directives Records FoundNo Advanced Directives Records FoundNo Advanced Directives Records FoundNo Advanced Directives Records FoundNo Advanced Directives Records FoundNo Advanced Directives Records Found Additional Source Comments INFORMATION SOURCE (unrecogn ized section and content) DATE CREATED AUTHOR 10/01/2022 [facility] DATE CREATED AUTHOR AUTHOR'S ORGANIZ ATION 07/31/2024 [facility] DATE CREATED AUTHOR AUTHOR'S ORGANIZ ATION 08/26/2024 [facility] DATE CREATED AUTHOR AUTHOR'S ORGANIZ ATION 10/06/2024 [facility] DATE CREATED AUTHOR AUTHOR'S ORGANIZ ATION 10/07/2024 [facility] DATE CREATED AUTHOR AUTHOR'S ORGANIZ ATION 10/09/2024 [facility] DATE CREATED AUTHOR AUTHOR'S ORGANIZ ATION 01/14/[address] [facility] EPIC Reason for Visit (unrecogniz ed section and content) Reason Comments Toenail Problem Poss ingrown- fungus Reason Comments Follow-up 21d s/p tpn Patient Care team informatio n (unrecognized section and content) Network Support Relationship Specialty Start Date End Date Tiera Baron MD [address] [place] [phone] PCP - General Family Medicine 12/22/24 Network Support Relationship Specialty Start Date End Date Tiera Baron MD [address] [place] [phone] PCP - General Family Medicine 12/22/24 Network Support Relationship Specialty Start Date End Date Tiera Baron MD [address] [place] [phone] PCP - General [facility] 12/22/24 Network Support Relationship Specialty Start Date End Date Tiera Baron MD [address] [place] [address] PCP - General Family Medicine 12/22/24 FOR RECORDS PERTAINING TO PATIENTS WHO ARE [...] BE BASED ON THE PRIMARY CLINICAL RECORDS. [facility]. provides no warranty or guarantee of the accuracy or completeness of information in this document.
== END 2025-03-09 08:36 | disposition home or self-care (01) ==
LOC: MRI 08:35
PROVIDERS: PCP Family Medicine; Visit Provider Family Medicine
DX: M54.12 Radiculopathy, cervical region (principal); M54.14 Radiculopathy, thoracic region
CPT/HCPCS: 72141; 72146

== ENCOUNTER 2025-03-15 13:02 | Outpatient (RCR) | payer BC, SELFPAY | END 2025-04-06 07:27 | disposition home or self-care (01) | LOC: PT 13:02 | PROVIDERS: PCP Family Medicine; Visit Provider Family Medicine | DX: M54.50 Low back pain, unspecified (principal) | CPT/HCPCS: 97110; 97161 ==